=== PATIENT | male | born 1955 | race Caucasian/White ===

== ENCOUNTER 2018-06-02 11:48 | Inpatient (IN) | payer MEDICARE, MEDICAID ==
[~2018-06-02] VITALS: Ht 177.8 cm; Wt 75.7 kg
--- NOTE | 2018-06-02 12:01 | NUR ---
PT BIBPA FROM [facility] FOR ELEVATED TEMP, DIALYSIS WAS NOT STARTED. PT FROM [facility], PT AAOX0, OBTUNDED, RESPIRATIOSN EVEN AND UNLABORED, NO SOB, NAD NOTED, PT ON MONITOR, PENDING MD CARLTON
[2018-06-02 12:10] VITALS: BP 155/82
[2018-06-02 12:30] LABS: BASOPHILS # (AUTO) 0.1 /CMM (0.0-0.2); BASOPHILS % (AUTO) 1.2 % (0.0-2.0); EOSINOPHILS % (AUTO) 6.3 % (0.0-6.0); HEMATOCRIT 25 % (39-51); HEMOGLOBIN 7.6 g/dL (13.5-17.5); LYMPHOCYTES # (AUTO) 0.6 /CMM (0.8-4.8); LYMPHOCYTES % (AUTO) 10.9 % (20.0-44.0); MEAN CORPUSCULAR HGB CONC 31 g/dl (31.0-36.0); MEAN CORPUSCULAR VOLUME 89 fL (80-96); MONOCYTES # (AUTO) 0.4 /CMM (0.1-1.30); MONOCYTES % (AUTO) 6.1 % (2.0-12.0); NEUTROPHILS # (AUTO) 4.4 /CMM (1.8-8.9); NEUTROPHILS % (AUTO) 75.5 % (43.0-81.0); PLATELET COUNT (AUTO) 77 /CMM (150-450); RED BLOOD CELL COUNT(AUTO) 2.77 MIL/uL (4.5-6.0); WHITE BLOOD COUNT (AUTO) 5.8 K/uL (4.3-11.0)
[2018-06-02] MEDS ORDERED: IV NS 0.9% 1,000 ML BAG IV ONE (12:30)
[2018-06-02 12:47] LABS: ALBUMIN 2.5 g/dL (3.4-5.0); BILIRUBIN,DIRECT 0.1 mg/dL (0.0-0.2); BILIRUBIN,TOTAL 0.4 mg/dL (0.2-1.0); CALCIUM, SERUM 8.5 mg/dL (8.5-10.1); CREATININE 2.1 mg/dL (0.6-1.3); POTASSIUM 3.3 mmol/L (3.5-5.1); TOTAL PROTEIN, SERUM 6.2 g/dL (6.4-8.2)
--- NOTE | 2018-06-02 13:11 | NUR ---
URINE COLLECTED AND SENT TO LAB
[2018-06-02] MEDS ORDERED: LEVOFLOXACIN 500 MG /D5W 100ML 500 MG/100 ML PIGGYBACK IV ONE (13:30)
[2018-06-02] MEDS ORDERED: PIPERACILLIN /TAZOBACTAM 3.375 G in IV D5W 50 ML IV ONE (13:30)
[2018-06-02] MEDS ORDERED: VANCOMYCIN 1 GM in IV D5W 250 ML IV ONE (13:30)
[2018-06-02 13:32] LABS: EOSINOPHILS % (MANUAL) 2 % (0-4); LYMPHOCYTES % (MANUAL) 14 % (16-48); MONOCYTES % (MANUAL) 5 % (0-11.0); NEUTROPHILS % (MANUAL) 79 (42-76)
[2018-06-02 13:37] LABS: APPEARANCE,URINE Cloudy (CLEAR); BILIRUBIN,URINE Negative (NEGATIVE); BLOOD, URINE Moderate Ery/uL (NEGATIVE); COLOR,URINE Yellow (YELLOW); KETONES,URINE Negative (NEGATIVE); LEUKOCYTE ESTERASE ,URINE Small (NEGATIVE); NITRITE, URINE Negative (NEGATIVE); PH,URINE 6.5 (5.0-8.0); PROTEIN,URINE >=300 mg/dl (NEGATIVE); UGLUCOSE 500 MG/DL mg/dL (NEGATIVE); UROBILINOGEN,URINE 0.2 EU/dL (0.2)
[2018-06-02 13:40] LABS: BACTERIA,URINE Few /HPF (None Seen); SQUAMOUS EPITHELIAL CELL,UR Few /HPF (None Seen); WBC,URINE TOO NUMEROUS TO COUN /HPF (0-3); YEAST,URINE Few /HPF (None Seen)
[2018-06-02] MEDS ORDERED: CLOPIDOGREL BISULFATE 75 MG TABLET ONE (13:48)
[2018-06-02] MEDS ORDERED: MIDO5TAB GT (13:52)
[2018-06-02] MEDS ORDERED: INSU100V7 SQ (13:52)
[2018-06-02] MEDS ORDERED: AMIN30LI2 GT (13:52)
[2018-06-02] MEDS ORDERED: APIX2.5T GT (13:52)
[2018-06-02] MEDS ORDERED: FAMO20TA8 GT (13:52)
[2018-06-02] MEDS ORDERED: CLOP75TA15 GT (13:52)
[2018-06-02] MEDS ORDERED: MULT-447 GT (13:52)
[2018-06-02] MEDS ORDERED: LEVE100S GT (13:52)
[2018-06-02] MEDS ORDERED: NUT.237L67 GT (13:52)
[2018-06-02] MEDS ORDERED: ACET-868 GT (13:52)
[2018-06-02] MEDS ORDERED: AMIO200T4 GT (13:52)
[2018-06-02] MEDS ORDERED: INSU100V27 SQ (13:52)
[2018-06-02 14:00] VITALS: BP 150/79
[2018-06-02] MEDS ORDERED: CLOPIDOGREL BISULFATE 75 MG TABLET GT ONE (14:00)
[2018-06-02] MEDS ORDERED: LEVOFLOXACIN 500 MG /D5W 100ML 500 MG in PREMIX 1 EA IV ONE (14:00)
--- NOTE | 2018-06-02 14:05 | NUR ---
CALLED FOR REPORT, NURSE NOT READY YET. WILL CALL BACK
[2018-06-02] MEDS ORDERED: VANCOMYCIN 1.5 GM in IV D5W 500 ML IV ONE (14:30)
--- NOTE | 2018-06-02 15:10 | NUR ---
REPORT GIVEN TO MEGAN GHOTRA FOR JODEE ADMITING DX SEPSIS; ROOM 101 [facility]
--- NOTE | 2018-06-02 15:32 | NUR ---
TRANSFERRED PT TO ROOM 101 VIA ACLS PROTOCOL
[2018-06-02 16:03] VITALS: BP 140/75
[2018-06-02] MEDS ORDERED: FEE PK DOSING 1 MIN EA MC ONE (16:14)
[2018-06-02] MEDS: Z GUARD REMEDY 2 OZ OINT TP SCH ×2 (16:30→21:00)
--- NOTE | 2018-06-02 16:38 | NUR ---
RN NOTE. ADMISSION. RECEIVED THE PT FROM ER VIA aDeal[employer]ENT[employer]. PT OS OBTUNDED. DOES NOT FOLLOW COMMANDS. TRACH TO VENT. GT INTACT. LT EYE BLIND. TRACH SHALINI6, AC 12 TV 550,FIO2 35%,PEEP 5. SAT 98%. NO ACUTE DISTRESS NOTED. KRUNAL UPPER AND LOWER EXTREMITY FLACCID. HOB ELEVATED. GT INTACT. HOB ELEVATED. SACRUM DTI. KRUNAL LOWE EXTREMITY DISCOLORATION. TIP OF THE TONG SCAB.,RT UPPER ARM PICC LINE. RT SUBCLAVIAN HD CATH. WILL CONTINUE TO MONITOR VITALS.
[2018-06-02] MEDS ORDERED: ACETAMINOPHEN 325 MG TABLET PO PRN (17:00)
[2018-06-02] MEDS ORDERED: NEPRO VAN 237 ML CAN GT SCH (17:00)
[2018-06-02] MEDS ORDERED: INSULIN ASPART/LISPRO 100 UNIT/ML CARTRIDGE SQ PRN (17:00)
[2018-06-02] MEDS ORDERED: DEXTROSE 50%-WATER 50 ML DISP.SYRIN IV PRN (17:30)
[2018-06-02] MEDS: APIXABAN 2.5 MG TABLET GT SCH (17:36)
[2018-06-02] MEDS: MIDODRINE HCL (5MG) 5 MG TABLET GT SCH (17:37)
[2018-06-02] MEDS: LEVETIRACETAM SOL (5 ML) 100 MG/ML UDC GT SCH (17:37)
--- NOTE | 2018-06-02 17:47 | NUR ---
RN NOTE. BLOOD SUGAR 455. CALLED LAB FOR STAT BLOOD SUGAR. LILIAM ORTA.
--- NOTE | 2018-06-02 17:49 | NUR ---
RN NOTE, JOSEFA ORTA CALLED AND ORDERED VANCOMYCIN AND ZOSYN PER PHARMACY. RESUME HOME MEDS, AND GT FEEDING
[2018-06-02] MEDS: BLOOD SUGAR DIAGNOSTIC 1 EACH STRIP IN SCH ×2 (18:03→22:07)
[2018-06-02] MEDS: INSULIN REGULAR, HUMAN 100 UNIT/ML 3 ML VIAL SQ PRN ×2 (18:05→22:26)
--- NOTE | 2018-06-02 18:57 | NUR ---
RN NOTE. PT AT BED SIDE. UP DATE GIVEN. PER PT HAD RECENTLY METABOLIC ENCEPHALOPATHY,DM, TIA. BED BATH GIVEN. ORAL CARE GIVEN. WOUND DRESSING DONE.
--- NOTE | 2018-06-02 19:34 | NUR ---
SENIOR SCHEDULER NOTE REPORT GIVEN BEDSIDE. PATIENT OBTUNDED, OPENS EYES INCONSISTENT TRACKING. PATIENT IN NO S.S. OF DISTRESS. PATIENT HR SINUS WITH NOTED BBB PVC. NO NOTED SOB/, PATIENT TOLERATING PRESCRIBED VENT SETTING WELL. PATIENT PIC INTACT, DRESSING OVER TUNNELED CVC INTACT AND CLEAN. DIALYSIS SCHEDULED FOR TONIGHT. SAFETY PRECAUTIONS IN PLACE RN WILL CONTINUE TO MONITOR CLOSELY.
[2018-06-02] MEDS: IPRATROPIUM NEB FS 0.5 MG/2.5 ML AMPUL.NEB NEB SCH (19:46)
[2018-06-02 20:00] VITALS: BP 134/72
--- NOTE | 2018-06-02 20:00 | NUR ---
ART CONSERVATOR NOTE PATIENT STARTED HD TREATMENT GOAL SET TO 1.5 UF.
[2018-06-02] MEDS ORDERED: ALBUMIN 25% 100 ML IV ONE (21:15)
--- NOTE | 2018-06-02 21:16 | NUR ---
FIELD TRAINER NOTE PATIENT HYPOTENSIVE DURING TREATMENT BP 73/42. 100 NS BOLUS GIVEN LEGS ELEVATED, AND 12.5 X2 BOLUS OF ALBUMIN GIVEN. AFTER BOLUS AND POSITION CHANGES BP ELEVATED TO 95/49. ALBUMIN INFUSING NOW. Addendum: 06/02/18 at 2206 by SHARON WHITEHEAD RN UNABLE TO ADMINISTER Z GUARD AT SCHEDULED TIME, PATIENT STILL ON HEMO DIALYSIS. BP STABILIZED AT 99/63.
[2018-06-02] MEDS ORDERED: ALBUMIN 25% 25 GM in PREMIX 1 EA IV ONE (21:30)
[2018-06-02] MEDS: INSULIN GLARGINE, 100 UNIT/ML CARTRIDGE SQ SCH (22:27)
--- NOTE | 2018-06-02 23:00 | NUR ---
PRODUCTION MACHINE TENDER NOTE PATIENT COMPLETED HD 700 ML TAKE OF. PATIENT BP WNL AND TOLERATED THE END OF TREATMENT.
[2018-06-03] VITALS: BP 112/83
[2018-06-03] MEDS: BLOOD SUGAR DIAGNOSTIC 1 EACH STRIP IN SCH ×6 (00:58→21:29)
--- NOTE | 2018-06-03 01:00 | NUR ---
BIOINFORMATICS ENGINEER NOTE APPLIED AIR MATTRESS ORDERED. PATIENT TURNED FOR COMFORT, AND SUCTIONED.
[2018-06-03] MEDS: INSULIN REGULAR, HUMAN 100 UNIT/ML 3 ML VIAL SQ PRN ×5 (01:01→21:32)
[2018-06-03] MEDS: IPRATROPIUM NEB FS 0.5 MG/2.5 ML AMPUL.NEB NEB SCH ×4 (02:31→19:42)
[2018-06-03 04:00] VITALS: BP 129/65
--- NOTE | 2018-06-03 05:00 | NUR ---
TECHNOLOGY DEVELOPMENT INTERN NOTE PATIENT GIVEN BED BATH, PT VOIDED, LINENS CHANGED, PATIENT REPOSITIONED AND GIVEN ORAL CARE.
--- NOTE | 2018-06-03 06:27 | NUR ---
FRUIT CANNER NOTE PATIENT TOLERATED THE NIGHT WELL POST HD. NO ACUTE CHANGES, CARE RENDERED ORDERED. NOTIFIED CONSERVATION SCIENCE OFFICER OF CONFLICTING TUBE FEEDING ORDERS. WILL ENDORSE TO DAY SHIFT. HELD NEPRO DUE TO SOY DUBOSE ALLERGY. PATIENT BLOOD SUGAR STABLIZING THROUGH THE NIGHT, PATIENT TOLERATING VENT SETTINGS. NO S/S OF DISTRESS. WILL ENDORSE POC FOR JODEE TO AM
--- NOTE | 2018-06-03 07:00 | NUR ---
DTP OPERATOR NOTES RECEIVED PT OBTUNDED, OPENS EYES TO TOUCH. ON VENT TO TRACH SETTINGS PER MD ORDER. O2 SAT WNL. PICC ILIANA PATENT AND FLUSHING. PM SHIFT NURSE HAD GTF ON HOLD. WILL FOLLOW UP WITH MD AND SNF. GT PATENT WITH NO RESIDUAL. BED IN LOCKED/LOWEST POSITION. CALL LIGHT IN REACH. WILL CONT TO MONITOR.
[2018-06-03 07:21] LABS: BASOPHILS % (AUTO) 0.6 % (0.0-2.0); HEMATOCRIT 23 % (39-51); HEMOGLOBIN 7.3 g/dL (13.5-17.5); LYMPHOCYTES # (AUTO) 0.5 /CMM (0.8-4.8); LYMPHOCYTES % (AUTO) 8.8 % (20.0-44.0); MEAN CORPUSCULAR HGB CONC 32 g/dl (31.0-36.0); MEAN CORPUSCULAR VOLUME 87 fL (80-96); MONOCYTES # (AUTO) 0.4 /CMM (0.1-1.30); MONOCYTES % (AUTO) 6.3 % (2.0-12.0); NEUTROPHILS # (AUTO) 4.5 /CMM (1.8-8.9); NEUTROPHILS % (AUTO) 77.3 % (43.0-81.0); PLATELET COUNT (AUTO) 67 /CMM (150-450); RED BLOOD CELL COUNT(AUTO) 2.66 MIL/uL (4.5-6.0); WHITE BLOOD COUNT (AUTO) 5.8 K/uL (4.3-11.0)
--- NOTE | 2018-06-03 07:30 | NUR ---
Received trach pt on a mechanical vent. Pt trach is secure. Vent is plugged into a red outlet, alarms are set and audible and BMV is at bedside. Addendum: 06/03/18 at 0731 by LICO MANRIQUEZ RT Amended: Links added.
[2018-06-03 07:35] LABS: CALCIUM, SERUM 8.2 mg/dL (8.5-10.1); CREATININE 1.2 mg/dL (0.6-1.3); POTASSIUM 3.7 mmol/L (3.5-5.1)
[2018-06-03 08:00] VITALS: BP 127/75
[2018-06-03] MEDS: LEVETIRACETAM SOL (5 ML) 100 MG/ML UDC GT SCH ×2 (09:26→17:22)
[2018-06-03] MEDS: MIDODRINE HCL (5MG) 5 MG TABLET GT SCH ×2 (09:27→17:00)
[2018-06-03] MEDS: AMIODARONE HCL 200 MG TABLET GT SCH (09:27)
[2018-06-03] MEDS: MULTIVIT W/MINERALS 1 TAB TABLET GT SCH (09:28)
[2018-06-03] MEDS: CLOPIDOGREL BISULFATE 75 MG TABLET GT SCH (09:28)
[2018-06-03] MEDS: APIXABAN 2.5 MG TABLET GT SCH ×2 (09:28→17:21)
[2018-06-03] MEDS: PROSOURCE / PROSTAT (PYXIS) 30 ML UDC GT SCH ×2 (09:29→17:22)
[2018-06-03] MEDS: Z GUARD REMEDY 2 OZ OINT TP SCH ×2 (09:29→21:30)
[2018-06-03] MEDS: FAMOTIDINE (20 MG) 20 MG TABLET GT SCH (09:29)
[2018-06-03 11:20] LABS: THYROID STIMULATING HORMONE 1.678 uIU/mL (0.358-3.74)
--- NOTE | 2018-06-03 11:43 | NUR ---
LPN CMA NOTES PT FEEDING VERIFIED AT [facility]. PT IS GETTING NEPRO AT SNF DESPITE ALLERGY. WILL CONT FEEDING. CHARGE NURSE NOTIFIED.
[2018-06-03 12:00] VITALS: BP_SYST 148; BP_SYST 98; BP_DIAS 54; BP_DIAS 56
[2018-06-03] MEDS: NEPRO 1,000 ML BOTTLE GT PRN (14:22)
[2018-06-03 14:40] LABS: HEMOGLOBIN 7.3 g/dL (13.5-17.5)
[2018-06-03] MEDS ORDERED: ALBUMIN 25% 25 GM in PREMIX 1 EA IV PRN (15:00)
[2018-06-03 16:00] VITALS: BP 128/62
[2018-06-03] MEDS ORDERED: VANCOMYCIN 500 MG in IV D5W 100 ML IV PRN (16:30)
[2018-06-03] MEDS ORDERED: DOSING PER PHARMACY-AMIKACI IV XX PRN (19:00)
[2018-06-03] MEDS ORDERED: FEE PK DOSING 1 MIN EA MC ONE (19:03)
--- NOTE | 2018-06-03 19:20 | NUR ---
BOX PERSON CLOSING NOTES PT IN BED, ON VENT TOLERATING WELL. ALL NEEDS ATTENDED TO. BED IN LOCKED/LOWEST POSITION. CALL LIGHT IN REACH. ENDORSED TO PM NURSE.
[2018-06-03] MEDS: MICAFUNGIN SODIUM 100 MG in IV NS 0.9% 100 ML IV SCH (19:34)
[2018-06-03 20:00] VITALS: BP 116/62
[2018-06-03] MEDS ORDERED: AMIKACIN 450 MG in IV D5W 100 ML IV ONE (20:00)
--- NOTE | 2018-06-03 20:00 | NUR ---
INFORMATION SECURITY NOTES RECEIVED PT ON BED. ON [facility] VENT SETTING SATURATING WELL. PT OBTUNDED. ON TELE MONITOR SB 55. ON G TUBE FEEDING @ 30CC/HR NO RESIDUAL NOTED. IV ACCESS ON ILIANA PICC LINE TRIPLE LUMEN, PATENT AND INTACT. HD ACCESS ON RIGHT CATH SUBCLAVIAN NO BLEEDING NOTED. HEAD OF BED ELEVATED. SIDE RAILS UP. CALL LIGHT WITHIN REACH. BED ALARM ON. WILL MONITOR PT CLOSELY.
[2018-06-03] MEDS: INSULIN GLARGINE, 100 UNIT/ML CARTRIDGE SQ SCH (21:33)
[2018-06-04] VITALS: BP_SYST 94; BP_DIAS 41; BP_DIAS 51
[2018-06-04] MEDS: BLOOD SUGAR DIAGNOSTIC 1 EACH STRIP IN SCH ×6 (01:18→21:24)
[2018-06-04] MEDS: INSULIN REGULAR, HUMAN 100 UNIT/ML 3 ML VIAL SQ PRN ×6 (01:19→21:29)
[2018-06-04] MEDS: IPRATROPIUM NEB FS 0.5 MG/2.5 ML AMPUL.NEB NEB SCH ×4 (01:53→19:23)
[2018-06-04 04:00] VITALS: BP 96/44
--- NOTE | 2018-06-04 04:32 | NUR ---
FRETTED INSTRUMENT INSPECTOR NOTES WEIGHT RECHECKED BY RN.
--- NOTE | 2018-06-04 06:38 | NUR ---
DIRECTOR OF INSTRUMENTAL MUSIC NOTES NO ACUTE CHANGES NOTED DURING THE SHIFT. PROVIDED COMFORT AND SAFETY. DUE MEDS GIVEN. WILL ENDORSE TO THE AM NURSE FOR CONTINUITY OF CARE.
--- NOTE | 2018-06-04 07:00 | NUR ---
TIP STRETCHER OPENING NOTES RECEIVED PT IN BED, OBTUNDED. ON VENT SETTINGS MD ORDERED. PT'S O2 WNL. NO S/SX RESP DISTRESS. ON TELE SB 52. GTUBE PATENT/ 60CC RESIDUAL. FEEDING OFF PER MD ORDER. PICC LINE FLUSHED/PATENT. HOB ELEVATED. BED IN LOCKED/LOWEST POSITION. CALL LIGHT IN REACH. WILL CONT TO MONITOR.
[2018-06-04 07:33] LABS: BASOPHILS % (AUTO) 0.9 % (0.0-2.0); EOSINOPHILS % (AUTO) 7.7 % (0.0-6.0); HEMATOCRIT 23 % (39-51); HEMOGLOBIN 7.4 g/dL (13.5-17.5); LYMPHOCYTES # (AUTO) 0.5 /CMM (0.8-4.8); MEAN CORPUSCULAR HGB CONC 32 g/dl (31.0-36.0); MEAN CORPUSCULAR VOLUME 87 fL (80-96); MONOCYTES # (AUTO) 0.3 /CMM (0.1-1.30); MONOCYTES % (AUTO) 5.2 % (2.0-12.0); NEUTROPHILS # (AUTO) 4.1 /CMM (1.8-8.9); NEUTROPHILS % (AUTO) 77.2 % (43.0-81.0); PLATELET COUNT (AUTO) 59 /CMM (150-450); RED BLOOD CELL COUNT(AUTO) 2.63 MIL/uL (4.5-6.0); WHITE BLOOD COUNT (AUTO) 5.4 K/uL (4.3-11.0)
[2018-06-04 07:46] LABS: CALCIUM, SERUM 8.1 mg/dL (8.5-10.1); CREATININE 1.4 mg/dL (0.6-1.3); MAGNESIUM 1.9 mg/dL (1.8-2.4); PHOSPHORUS 3.1 mg/dL (2.5-4.9); POTASSIUM 3.9 mmol/L (3.5-5.1)
[2018-06-04 08:00] VITALS: BP 131/62
[2018-06-04 08:03] LABS: IRON, SERUM 26 ug/dl (50-175); TOTAL IRON BINDING CAPACITY 157 ug/dl (250-450)
[2018-06-04] MEDS: MIDODRINE HCL (5MG) 5 MG TABLET GT SCH ×2 (09:00→16:20)
[2018-06-04] MEDS: Z GUARD REMEDY 2 OZ OINT TP SCH ×2 (09:00→21:12)
[2018-06-04 09:26] LABS: EOSINOPHILS % (MANUAL) 3 % (0-4); LYMPHOCYTES % (MANUAL) 10 % (16-48); MONOCYTES % (MANUAL) 5 % (0-11.0); NEUTROPHILS % (MANUAL) 82 (42-76)
[2018-06-04] MEDS: FAMOTIDINE (20 MG) 20 MG TABLET GT SCH (09:56)
[2018-06-04] MEDS: MULTIVIT W/MINERALS 1 TAB TABLET GT SCH (09:56)
[2018-06-04] MEDS: LEVETIRACETAM SOL (5 ML) 100 MG/ML UDC GT SCH ×2 (09:56→16:19)
[2018-06-04] MEDS: CLOPIDOGREL BISULFATE 75 MG TABLET GT SCH (09:57)
[2018-06-04] MEDS: AMIODARONE HCL 200 MG TABLET GT SCH (09:59)
[2018-06-04] MEDS: PROSOURCE / PROSTAT (PYXIS) 30 ML UDC GT SCH ×2 (10:00→16:19)
[2018-06-04] MEDS: APIXABAN 2.5 MG TABLET GT SCH ×2 (10:03→16:21)
[2018-06-04 12:00] VITALS: BP 132/54
[2018-06-04] MEDS ORDERED: AMIKACIN 450 MG in IV D5W 100 ML IV PRN (13:00)
[2018-06-04] MEDS ORDERED: EPOETIN ALFA (10,000 UNIT) 10,000 UNIT/ML VIAL IV ONE (13:30)
[2018-06-04] MEDS ORDERED: LEVOFLOXACIN 250 MG /D5W 50 ML 250 MG in PREMIX 1 EA IV SCH (14:00)
[2018-06-04] MEDS: NEPRO 1,000 ML BOTTLE GT PRN (14:02)
--- NOTE | 2018-06-04 14:05 | NUR ---
RT NOTE: NO SCANNER AVAILABLE AT THIS TIME. MEDICATION WAS GIVEN BUT UNABLE TO SCAN.
[2018-06-04 16:00] VITALS: BP 120/47
--- NOTE | 2018-06-04 16:24 | NUR ---
SYRUP MIXER ASSISTANT NOTES PER ALEXI BEY TO CONT TO GIVE ELIQUIS. PLATELET LEVEL 59.
--- NOTE | 2018-06-04 17:00 | NUR ---
ICE PULLER NOTES FEEDING HELD. RESIDUAL 250CC. WILL MONITOR.
--- NOTE | 2018-06-04 17:44 | NUR ---
RT NOTE: PATIENT RECEIVED TRACH ON ESPRIT VENT. ALARMS VERIFIED AND AUDIBLE . SUCTIONED AND LAVAGED SMALL- MODERATE AMOUNT OF THICK BOSS SECRETIONS. AMBU BAG AT [facility].
[2018-06-04] MEDS: MICAFUNGIN SODIUM 100 MG in IV NS 0.9% 100 ML IV SCH (18:16)
--- NOTE | 2018-06-04 18:58 | NUR ---
SHAKE PACKER NOTES ENDORSED PT TO PM SHIFT FOR JODEE. PT STABLE. FEEDING HELD D/T INC RESIDUAL. TOLERATING VENT SETTINGS. NO S/SX OF DISTRESS. ALL NEEDS ATTENDED. CALL LIGHT IN REACH.
[2018-06-04 20:00] VITALS: BP 148/39
[2018-06-04] MEDS: INSULIN GLARGINE, 100 UNIT/ML CARTRIDGE SQ SCH (21:28)
[2018-06-05] VITALS (7 sets, daily range): BP systolic 107–164; BP diastolic 50–61
[2018-06-05] MEDS: IPRATROPIUM NEB FS 0.5 MG/2.5 ML AMPUL.NEB NEB SCH ×4 (01:17→19:24)
[2018-06-05] MEDS: BLOOD SUGAR DIAGNOSTIC 1 EACH STRIP IN SCH ×6 (01:21→21:33)
[2018-06-05] MEDS: INSULIN REGULAR, HUMAN 100 UNIT/ML 3 ML VIAL SQ PRN ×6 (01:23→21:33)
--- NOTE | 2018-06-05 07:42 | NUR ---
LAYAWAY CLERK NOTE RECEIVED PATIENT IN BED , WITH TRACH TO VENT SETTING ORDERED, AMBU BAG AT HOB, ON TELE MONITOR SR HR 62 , OBTUNDED. ON G TUBE FEEDING ORDERED KEEP HOB ELEVATED AT TIME , NOTED RESIDUAL 80 ML, WILL CONT TO MONITOR CLOSELY , RT UPPER ARM PICC LINE INTACT BED IN LOWEST AND LOCKED POSITION , WILL CONT TO MONITOR
[2018-06-05 08:12] LABS: CALCIUM, SERUM 8.6 mg/dL (8.5-10.1); CREATININE 1.8 mg/dL (0.6-1.3)
[2018-06-05] MEDS: CLOPIDOGREL BISULFATE 75 MG TABLET GT SCH (09:58)
[2018-06-05] MEDS: MIDODRINE HCL (5MG) 5 MG TABLET GT SCH ×2 (09:58→16:20)
[2018-06-05] MEDS: LEVETIRACETAM SOL (5 ML) 100 MG/ML UDC GT SCH ×2 (09:58→16:17)
[2018-06-05] MEDS: MULTIVIT W/MINERALS 1 TAB TABLET GT SCH (09:59)
[2018-06-05] MEDS: Z GUARD REMEDY 2 OZ OINT TP SCH ×2 (09:59→21:34)
[2018-06-05] MEDS: PROSOURCE / PROSTAT (PYXIS) 30 ML UDC GT SCH ×2 (09:59→16:18)
[2018-06-05] MEDS: FAMOTIDINE (20 MG) 20 MG TABLET GT SCH (09:59)
[2018-06-05] MEDS: AMIODARONE HCL 200 MG TABLET GT SCH (09:59)
--- NOTE | 2018-06-05 10:22 | NUR ---
telephone solicitor note spoke with dr gupta notified that blood sugar 195mg\dl still ok to check q4 hour also notified that noted greenish color residua and slight jerky movements of body ,stated on Amy , will cont to monitor closely
--- NOTE | 2018-06-05 12:00 | NUR ---
ELECTRIC ACCOUNTING MACHINE OPERATOR NOTE CONT ON G TUBE FEEDING ORDERED ,WILL MONITOR RESIDUAL CLOSELY , TURN REPOSITIONQ2 HOUR , WILL CONT TO MONITOR, FAMILY AT BEDSIDE
--- NOTE | 2018-06-05 14:23 | NUR ---
RT NOTE: PATIENT'S TRACH CUFF WAS DEFLATED TO EAT PER . TRACH CUFF WAS INFLATED AFTER MEAL. PATIENT TOLERATED WELL. WILL CONTINUE TO MONITOR. Addendum: 06/05/18 at 1709 by FERNY CHAKRABORTY RT PLEASE DISREGARD THIS NOTE WRONG PATIENT
--- NOTE | 2018-06-05 15:31 | NUR ---
RT NOTE: PATIENT RECEIVED TRACHED ON ESPRIT VENT. ALARMS VERIFIED AND AUDIBLE. SUCTIONED AND LAVAGED SMALL AMOUNT OF THICK BOSS/PINK TINGED SECRETIONS. VENT PLUGGED INTO RED OUTLET. AMBU BAG AT [facility].
--- NOTE | 2018-06-05 15:51 | NUR ---
ENERGY ANALYST NOTE CONT ON VENT SETTING ORDERED, NO SOB NOTED, WILL F\U
--- NOTE | 2018-06-05 16:52 | NUR ---
FLOOR BROKER NOTE HOLD MIDODRINE BP 164/57, HD NURSE CALLED WILL BE CODING ABOUT 1700
--- NOTE | 2018-06-05 17:44 | NUR ---
ARC WELDING MACHINE OPERATOR NOTE HD STARTED ORDERED , WILL CONT TO MONITOR CLOSELY
[2018-06-05] MEDS ORDERED: VANCOMYCIN 1 GM in IV D5W 250 ML IV ONE (18:00)
--- NOTE | 2018-06-05 18:15 | NUR ---
telephone operators supervisor note\ per pharmacy give vanco 1gm after hd not 500 mg , will endorse rn next shift
--- NOTE | 2018-06-05 18:53 | NUR ---
ICE CREAM VAN VENDOR NOTE STILL ON HD WILL GIVE VANCO AND MYCAMINE ATB AFTER HD, WILL ENDORSE NEXT SHIFT RN
--- NOTE | 2018-06-05 19:32 | NUR ---
RT PT RECEIVED TRACHED ON [facility] VENT ON CHARTED SETTINGS. NO SIGNS OF RESP DISTRESS NOTED. AIRWAY PATENT AND SECURED. INTER COM SERVICER DONE. PT SUCTIONED. ALARMS SET AND AUDIBLE. AMBUBAG AND BACK UP TRACH AT BEDSIDE. VENT CONNECTED TO RED OUTLET. WILL CONT TO MONITOR. Addendum: 06/05/18 at 1935 by COLBY BURKETT RT Amended: Links added.
--- NOTE | 2018-06-05 19:44 | NUR ---
DECORATOR LIGHTING FIXTURES NOTE DIALYSIS FINISHED. 1 L OUTPUT PER DIALYSIS NURSE. HUNGED 1G VANCO ORDERED.
--- NOTE | 2018-06-05 20:00 | NUR ---
SPECIALTIES OPERATOR NOTE PT IN BED OBTUNDED. DIALYSIS FINISHED WITH 1L OUTPUT. NO DISTRESS OR DISCOMFORT NOTED. TOLERATING VENT/TRACH SETTINGS. ON TELE MONITOR SR 61. GTF NEPRO INFUSING WELL AT 65 ML/HR, 0 ML RESIDUAL NOTED. ILIANA PICC LINE INTACT AND PATENT INFUSING VANCO 1 GM ORDERED. R SUB. WITH HD CATH INTACT. NO S/S OF HYPO OR HYPERGLYCEMIA NOTED. SIDE RAILS UP X 3 AND CALL LIGHT WITHIN REACH. VSS. CONTINUE TO MONITOR HIM.
[2018-06-05] MEDS: MICAFUNGIN SODIUM 100 MG in IV NS 0.9% 100 ML IV SCH (21:21)
[2018-06-05] MEDS: INSULIN GLARGINE, 100 UNIT/ML CARTRIDGE SQ SCH (21:30)
[2018-06-06] VITALS: BP 123/40
[2018-06-06] MEDS: INSULIN REGULAR, HUMAN 100 UNIT/ML 3 ML VIAL SQ PRN ×6 (00:55→21:23)
[2018-06-06] MEDS: BLOOD SUGAR DIAGNOSTIC 1 EACH STRIP IN SCH ×6 (01:06→21:19)
[2018-06-06] MEDS: IPRATROPIUM NEB FS 0.5 MG/2.5 ML AMPUL.NEB NEB SCH ×4 (01:20→19:48)
[2018-06-06 04:00] VITALS: BP 99/42
[2018-06-06] MEDS: NEPRO 1,000 ML BOTTLE GT PRN ×2 (05:25→21:34)
[2018-06-06] MEDS ORDERED: VANCOMYCIN 500 MG in IV D5W 100 ML IV PRN (06:00)
--- NOTE | 2018-06-06 06:25 | NUR ---
SOFTWARE CONTROLS ENGINEER NOTE PT IN BED OBTUNDED. NO DISTRESS OR DISCOMFORT NOTED. NO S/S OF PAIN NOTED. IVF INFUSING WELL, NO S/S OF INFILTRATION NOTED. ON TELE SB 55. GTF INFUSING WELL AT 65 ML/HR, 0 ML RESIDUAL NOTED. KEPT HER CLEAN AND DRY. SIDE RAILS UP X 3 AND CALL LIGHT WITHIN REACH. WILL ENDORSE TO DAY SHIFT NURSE FOR CONTINUE TO CARE.
--- NOTE | 2018-06-06 07:23 | NUR ---
RETAINING ROOM CUTTER OPENING NOTES RECEIVED BEDSIDE REPORT FROM NOC. PATIENT A/O X0 OBTUNDED. ON VENT TOLERATING SETTINGS NO SIGNS OR SYMPTOMS OF RESPIRATORY DISTRESS OR ACUTE PAIN NOTED. GT FEEDING OF NEPRO @ 65 ML/HR NO N/V/D NOTED. ON TELEMONITOR SINUS RHYTHM 70'S. ILIANA PICC WITH NO TKO. WILL TUNE AND REPOSITION Q2HRS SAFETY PRECAUTIONS IN PLACE BED IN LOW POSITION CALL LIGHT WITHIN REACH WILL CONT TO MONITOR
[2018-06-06 07:31] LABS: CALCIUM, SERUM 8.5 mg/dL (8.5-10.1); CREATININE 1.5 mg/dL (0.6-1.3); POTASSIUM 3.6 mmol/L (3.5-5.1)
[2018-06-06 08:00] VITALS: BP 141/66
--- NOTE | 2018-06-06 08:06 | NUR ---
WOUND CARE CONSULT WOUND CARE RECEIVED CONSULT FOR SACRAL DTI. WOUND CARE WILL DEFER CONSULT AND ALL TREATMENT PLANS TO PLASTIC SURGICAL TEAM WHO ARE CURRENTLY FOLLOWING THIS PATIENT. PATIENT WITH A CELI AT 10, ALL PRESSURE ULCER PREVENTION MEASURES ARE NOTED TO BE IN PLACE AT THIS TIME. WILL SEE PRN.
[2018-06-06] MEDS: LEVETIRACETAM SOL (5 ML) 100 MG/ML UDC GT SCH ×2 (08:28→17:18)
[2018-06-06] MEDS: CLOPIDOGREL BISULFATE 75 MG TABLET GT SCH (08:28)
[2018-06-06] MEDS: AMIODARONE HCL 200 MG TABLET GT SCH (08:28)
[2018-06-06] MEDS: FAMOTIDINE (20 MG) 20 MG TABLET GT SCH (08:28)
[2018-06-06] MEDS: PROSOURCE / PROSTAT (PYXIS) 30 ML UDC GT SCH ×2 (08:29→17:18)
[2018-06-06] MEDS: MULTIVIT W/MINERALS 1 TAB TABLET GT SCH (08:29)
[2018-06-06] MEDS: MIDODRINE HCL (5MG) 5 MG TABLET GT SCH ×2 (08:33→17:18)
[2018-06-06] MEDS: Z GUARD REMEDY 2 OZ OINT TP SCH ×2 (08:33→21:25)
[2018-06-06 12:00] VITALS: BP 142/48
[2018-06-06 16:00] VITALS: BP 126/54
--- NOTE | 2018-06-06 18:58 | NUR ---
CDL TEAM TRUCK DRIVER CLOSING NOTES REPORT GIVEN TO JUAN RAMON PATIENT A/O X0 OBTUNDED. ON VENT TOLERATING SETTINGS NO SIGNS OR SYMPTOMS OF RESPIRATORY DISTRESS OR ACUTE PAIN NOTED. GT FEEDING OF NEPRO @ 65 ML/HR NO N/V/D NOTED. ON TELEMONITOR SINUS RHYTHM 70'S. ILIANA PICC WITH NO TKO.ALL MEDS AND TREATMENTS ADMINISTERED WITH NO REACTION WILL TURN AND REPOSITION Q2HRS SAFETY PRECAUTIONS IN PLACE BED IN LOW POSITION CALL LIGHT WITHIN REACH WILL ENDORSE TO JUAN RAMON
[2018-06-06] MEDS: MICAFUNGIN SODIUM 100 MG in IV NS 0.9% 100 ML IV SCH (19:01)
--- NOTE | 2018-06-06 19:40 | NUR ---
MEAT SCRUBBER OPENING NOTES, RECEIVED PATIENT OBTUNDED IN BED, WITH EYES CLOSED, ON MECHANICAL VENTILATOR TOLERATING SETTINGS WELL, NO S/S OF RESPIRATORY DISTRESS, SOB, OR PAIN NOTED AT THIS TIME, GT FEEDING INFUSING WELL AND TOLERATED WELL, HOB ELEVATED AT ALL TIMES, ON TELEMONITOR SINUS RHYTHM 70-80S. ILIANA PICC INTACT AND PATENT, SAFETY PRECAUTIONS IN PLACE, BED IN LOW POSITION, CALL LIGHT WITHIN REACH, WILL CONTINUE TO MONITOR CLOSELY.
[2018-06-06 20:00] VITALS: BP 116/53
--- NOTE | 2018-06-06 20:17 | NUR ---
PT RECEIVED ON VENT VIA TRACH ON CHARTED SETTINGS. AIRWAY PATENT. SECURE VIA TRACH TIE. RESPONSIVE TO PAIN. AMBU BAG AT BEDSIDE ALARMS SET AND AUDIBLE. DISCONNECT ALARMS CHECKED. PLUGGED INTO RED OUTLET. SUCTIONED A SMALL AMOUNT OF THICK YELLOW SECRETIONS. PT SUCTIONED ORALY VIA YANKEER. HEAD OF BED AT 30 DEGREES PT RECEIVING BREATHING TX Q6 AT THIS TIME. Addendum: 06/06/18 at 2020 by MARTIN YODER RT Amended: Links added.
[2018-06-06] MEDS: INSULIN GLARGINE, 100 UNIT/ML CARTRIDGE SQ SCH (21:34)
[2018-06-07] VITALS: BP 116/58
[2018-06-07] MEDS: BLOOD SUGAR DIAGNOSTIC 1 EACH STRIP IN SCH ×5 (01:51→16:52)
[2018-06-07] MEDS: INSULIN REGULAR, HUMAN 100 UNIT/ML 3 ML VIAL SQ PRN ×5 (01:54→16:56)
[2018-06-07] MEDS: IPRATROPIUM NEB FS 0.5 MG/2.5 ML AMPUL.NEB NEB SCH ×3 (02:16→13:14)
[2018-06-07 04:00] VITALS: BP 140/54
[2018-06-07 06:51] LABS: POTASSIUM 3.8 mmol/L (3.5-5.1)
--- NOTE | 2018-06-07 06:55 | NUR ---
TRAVELING BUYER CLOSING NOTES, PATIENT WITH EYES CLOSED, ON MECHANICAL VENTILATOR TOLERATING SETTINGS WELL, NO S/S OF RESPIRATORY DISTRESS, SOB, OR PAIN NOTED AT THIS TIME, GT FEEDING INFUSING WELL AND TOLERATED WELL, HOB ELEVATED AT ALL TIMES, ON TELEMONITOR SINUS RHYTHM 60-70S AT THIS TIME, . ILIANA PICC INTACT AND PATENT, SAFETY PRECAUTIONS IN PLACE, BED IN LOW POSITION, REMAINED STABLE DURING THE NIGHT, CALL LIGHT WITHIN REACH, WILL ENDORSE CONTINUITY OF CARE TO ONCOMING NURSE.
--- NOTE | 2018-06-07 07:01 | NUR ---
RT PATIENT REC'D TRACHED ON [facility] VENT WITH ORDERED SETTINGS DAMIEN WELL. VENT ALARMS CHECKED + AUDIBLE. CUFF PRESSURE CHECKED FILM VAULT SUPERVISOR. TRACH SECURE AND IN PROPER POSITION. PATIENT AIRWAY SUCTIONED AND PATENT. SMALL AMT OF BOSS SEMITHICK SECRETIONS. B/S DIM COARSE. AMBU BAG AT [facility]. Addendum: 06/07/18 at 0811 by KIM OLIVEIRA RT Amended: Links added.
--- NOTE | 2018-06-07 07:15 | NUR ---
DRY ICE MACHINE OPERATOR OPENING NOTES RECEIVED BEDSIDE REPORT FROM [facility]. PATIENT A/O X0 OBTUNDED. ON VENT TOLERATING SETTINGS NO SIGNS OR SYMPTOMS OF RESPIRATORY DISTRESS OR ACUTE PAIN NOTED. GT FEEDING OF NEPRO @ 65 ML/HR NO N/V/D NOTED. ON TELEMONITOR SINUS RHYTHM 70'S. ILIANA PICC WITH TKO. WILL TURN AND REPOSITION Q2HRS SAFETY PRECAUTIONS IN PLACE BED IN LOW POSITION CALL LIGHT WITHIN REACH WILL CONT TO MONITOR
[2018-06-07 08:00] VITALS: BP 130/61
[2018-06-07] MEDS: CLOPIDOGREL BISULFATE 75 MG TABLET GT SCH (08:33)
[2018-06-07] MEDS: PROSOURCE / PROSTAT (PYXIS) 30 ML UDC GT SCH ×2 (08:34→16:17)
[2018-06-07] MEDS: MIDODRINE HCL (5MG) 5 MG TABLET GT SCH ×2 (08:34→16:17)
[2018-06-07] MEDS: FAMOTIDINE (20 MG) 20 MG TABLET GT SCH (08:35)
[2018-06-07] MEDS: LEVETIRACETAM SOL (5 ML) 100 MG/ML UDC GT SCH ×2 (08:35→16:17)
[2018-06-07] MEDS: AMIODARONE HCL 200 MG TABLET GT SCH (08:35)
[2018-06-07] MEDS: MULTIVIT W/MINERALS 1 TAB TABLET GT SCH (08:39)
[2018-06-07] MEDS ORDERED: ALLA266C2 TP (08:47)
[2018-06-07] MEDS ORDERED: RXAMI XX (08:47)
[2018-06-07] MEDS ORDERED: RXVAN XX (08:47)
[2018-06-07] MEDS ORDERED: MICA100V IV (08:47)
[2018-06-07] MEDS: Z GUARD REMEDY 2 OZ OINT TP SCH (08:54)
[2018-06-07 12:00] VITALS: BP 120/62
--- NOTE | 2018-06-07 14:43 | NUR ---
LEAD BURNER HELPER NOTES REPORT GIVEN TO MIGUEL GUZMAN AT [facility], [place] DIRECTOR OF CLINICAL SERVICES TIME 1700
[2018-06-07 16:00] VITALS: BP 96/52
[2018-06-07 16:17] VITALS: BP 96/52
--- NOTE | 2018-06-07 17:28 | NUR ---
LEAD INSTRUCTOR/FLIGHT ATTENDANT NOTES PATIENT REPORT GIVEN TO TRANSPORT. VITALS STABLE LEFT UNIT VIA GURNEY
== END 2018-06-07 17:42 | DRG 870 ==
LOC: ER 11:55 → TELE1 13:55
PROVIDERS: ADMIT Internal Medicine; ATTEND Internal Medicine
PROC: 5A1955Z Respiratory Ventilation, Greater than 96 Consecutive Hours (ICD-10-PCS; principal; 2018-06-02)
PROC: 02H633Z Insertion of Infusion Device into Right Atrium, Percutaneous Approach (ICD-10-PCS; 2018-06-02)
PROC: B244ZZZ Ultrasonography of Right Heart (ICD-10-PCS; 2018-06-02)
PROC: 5A1D70Z Performance of Urinary Filtration, Intermittent, Less than 6 Hours Per Day (ICD-10-PCS; 2018-06-02)
PROC: 5A1D70Z Performance of Urinary Filtration, Intermittent, Less than 6 Hours Per Day (ICD-10-PCS; 2018-06-03)
PROC: 5A1D70Z Performance of Urinary Filtration, Intermittent, Less than 6 Hours Per Day (ICD-10-PCS; 2018-06-05)
PROC: 5A1D70Z Performance of Urinary Filtration, Intermittent, Less than 6 Hours Per Day (ICD-10-PCS; 2018-06-07)
DX: A41.9 Sepsis, unspecified organism (principal); N18.6 End stage renal disease; J18.9 Pneumonia, unspecified organism; R53.2 Functional quadriplegia; Z99.11 Dependence on respirator [ventilator] status; I12.0 Hypertensive chronic kidney disease with stage 5 chronic kidney disease or end stage renal disease; E46 Unspecified protein-calorie malnutrition; R40.3 Persistent vegetative state; B37.49 Other urogenital candidiasis; J96.11 Chronic respiratory failure with hypoxia; G40.909 Epilepsy, unspecified, not intractable, without status epilepticus; Z93.1 Gastrostomy status; Z86.73 Personal history of transient ischemic attack (TIA), and cerebral infarction without residual deficits; Z93.0 Tracheostomy status; Z99.2 Dependence on renal dialysis; E11.22 Type 2 diabetes mellitus with diabetic chronic kidney disease; E78.5 Hyperlipidemia, unspecified; I48.91 Unspecified atrial fibrillation; R13.10 Dysphagia, unspecified; L89.620 Pressure ulcer of left heel, unstageable; E11.51 Type 2 diabetes mellitus with diabetic peripheral angiopathy without gangrene; E11.65 Type 2 diabetes mellitus with hyperglycemia; L89.150 Pressure ulcer of sacral region, unstageable; L89.320 Pressure ulcer of left buttock, unstageable; L89.310 Pressure ulcer of right buttock, unstageable; S01.512A Laceration without foreign body of oral cavity, initial encounter; Z88.0 Allergy status to penicillin; Z79.01 Long term (current) use of anticoagulants; D64.9 Anemia, unspecified; R65.20 Severe sepsis without septic shock
CPT/HCPCS: 31720; 36415; 71045-TC; 80048-TC; 80076-TC; 80150; 80202-TC; 81000-TC; 82947-TC; 82962-TC; 83540-TC; 83605-TC; 83735-TC; 84100-TC; 84439-TC; 84443-TC; 84484-TC; 85025-TC; 85027-TC; 85730-TC; 87040-TC; 87081-TC; 87086-TC; 90935-TC; 94002-TC; 94003-TC; 94760-TC; 94762-TC; A4216; G0378; J0278; J0885; J1815; J1953; J1956; J2248; J2543; J3370; J7030; J7050; J7060; P9047

== ENCOUNTER 2018-06-16 18:44 | Inpatient (IN) | payer MEDICARE, MEDICAID ==
[~2018-06-16] VITALS: Ht 177.8 cm; Wt 79.4 kg
[~2018-06-16 18:44] MED LIST: ACET-868 GT; ALLA266C2 TP; AMIN30LI2 GT; AMIO200T4 GT; APIX2.5T GT; CLOP75TA15 GT; FAMO20TA8 GT; INSU100V27 SQ; INSU100V7 SQ; LEVE100S GT; MICA100V IV; MIDO5TAB GT; MULT-447 GT; NUT.237L67 GT; RXAMI XX; RXVAN XX
--- NOTE | 2018-06-16 18:50 | NUR ---
PT ARRIVED TO ER, TRACHED WITH SHILEY #6 AND O MECH VENT WITH THE FOLLOWING SETTING FROM FACILITY OF: AC R 12 VT 550 FIO2 35% PEEP +5... MECH VENT ALARMS ARE SET AND AUDIBLE, BRAKES WERE LOCKED, AND VENT PLUGGED INTO RED OUTLET. PT AMBU BAG AT THE HEAD OF BED. PT TOLERATING SETTINGS AND WILL CONTINUE TO MONITOR Addendum: 06/16/18 at 1926 by RITO FRANCISCO RT Amended: Links added.
--- NOTE | 2018-06-16 18:58 | NUR ---
Aspirate and flush both lumen (aseptic technique) with no resistance and patent noted. Dr Kent made aware.
--- NOTE | 2018-06-16 19:00 | NUR ---
SURI from [facility] c/o dialysis catheter malfunction. RR is even and unlabored with nad noted. Skin is warm and dry. Dr Kent at BS for eval.
--- NOTE | 2018-06-16 19:07 | NUR ---
Called [facility] [place] and spoke with MEGAN Simental (primary nurse). Kamille will call Dr Forrester and will call us back.
--- NOTE | 2018-06-16 19:21 | NUR ---
Report given to MEGAN Love for JODEE.
[2018-06-16 19:30] LABS: CALCIUM, SERUM 8.8 mg/dL (8.5-10.1); CREATININE 1.5 mg/dL (0.6-1.3); POTASSIUM 3.4 mmol/L (3.5-5.1)
--- NOTE | 2018-06-16 20:39 | NUR ---
VENT SETTINGS: RATE: 12 TV: 550 PEEP: 5 %O2: 35%
--- NOTE | 2018-06-16 20:39 | NUR ---
Patient is resting comfortably in bed with eyes closed. VSS.
[2018-06-16 21:27] LABS: BASOPHILS # (AUTO) 0.1 /CMM (0.0-0.2); EOSINOPHILS % (AUTO) 0.3 % (0.0-6.0); HEMOGLOBIN 7.7 g/dL (13.5-17.5); NEUTROPHILS # (AUTO) 16.1 /CMM (1.8-8.9); RED BLOOD CELL COUNT(AUTO) 2.82 MIL/uL (4.5-6.0)
[2018-06-16 21:39] LABS: BASOPHILS % (AUTO) 0.3 % (0.0-2.0); HEMATOCRIT 25 % (39-51); LYMPHOCYTES # (AUTO) 0.6 /CMM (0.8-4.8); LYMPHOCYTES % (AUTO) 3.4 % (20.0-44.0); MEAN CORPUSCULAR HGB CONC 31 g/dl (31.0-36.0); MEAN CORPUSCULAR VOLUME 88 fL (80-96); MONOCYTES # (AUTO) 1.5 /CMM (0.1-1.30); MONOCYTES % (AUTO) 8.4 % (2.0-12.0); NEUTROPHILS % (AUTO) 87.6 % (43.0-81.0); PLATELET COUNT (AUTO) 164 /CMM (150-450); WHITE BLOOD COUNT (AUTO) 18.4 K/uL (4.3-11.0)
[2018-06-16] MEDS ORDERED: PROT946L GT (21:48)
[2018-06-16] MEDS ORDERED: INSU100I14 SQ (21:48)
[2018-06-16] MEDS ORDERED: VIT1TABL46 GT (21:48)
[2018-06-16] MEDS ORDERED: COLL30OI TP (21:48)
[2018-06-16] MEDS ORDERED: FOLI0.8T23 GT (21:48)
[2018-06-16] MEDS ORDERED: IPRA3AMP23 IH ×2 (21:48)
[2018-06-16] MEDS ORDERED: VANCOMYCIN 1 GM in IV D5W 250 ML IV ONE (22:00)
--- NOTE | 2018-06-16 22:00 | NUR ---
tele/rn notes SPOKE WITH OF PATIENT REGARDING CODE STATUS, REPORTED DNR.
[2018-06-16 22:01] LABS: BAND % (MANUAL) 19 % (0.0-5.0); EOSINOPHILS % (MANUAL) 1 % (0-4); LYMPHOCYTES % (MANUAL) 5 % (16-48); MONOCYTES % (MANUAL) 7 % (0-11.0); NEUTROPHILS % (MANUAL) 68 (42-76)
[2018-06-16] MEDS ORDERED: VANCOMYCIN 1 GM VIAL ONE (22:04)
[2018-06-16] MEDS ORDERED: LEVOFLOXACIN 750 MG /D5W 150ML 150 ML IV ONE (22:04)
--- NOTE | 2018-06-16 22:22 | NUR ---
PT TO BE TRANSFERRED TO ROOM [facility]-. REPORT GIVEN TO MEGAN RASHID FOR JODEE.
[2018-06-16] MEDS: LEVOFLOXACIN 750 MG /D5W 150ML 150 ML IV ONE (22:24)
--- NOTE | 2018-06-16 22:25 | NUR ---
ORDER RECEIVED FOR LEVAQUIN 750 MG TO BE INFUSED INPATIENT. MEDICATION PROVIDED TO INPATIENT NURSE.
--- NOTE | 2018-06-16 23:00 | NUR ---
tele/rn notes NEW ADMITTED PATIENT IS A 63 YO MALE WITH FEMALE ORGANS, NON VERBAL, WITH FLACCID AND MUSCLE WASTING, WEAK , NOT ALERT, LETHARGIC. SKIN WARM TO TOUCH, ON MECHANICAL VENT FROM ER, WAS BROUGHT FROM [facility] AFTER DIALYSIS WAS COMPLETED DUE TO DIALYSIS CATHETER MALFUNCTION, WITH DX OF PNA AND CATHETHER CHANGE, MULTIPLE MEDICAL HX, MECHANICAL STTING RATE 12, TV 550, PEEP AT 5, F102 35%, INCONTINENT, SKIN ISSUES WITH PRESSURE ULCER ON SACRAL AREA AND HEELS , ON GTUBE, RIGTH CHEST WAL HÉCTOR CATHETER DUAL LUMAN PLACED, RIGHT HAND GAUGE 24, WBC ELEVATED, CHEST XRAY WITH EFFUSION. ADMITTING DR, DR MALDONADO, VANCOMYCIN WAS ADMINISTERED AT ER AND TO CONTINUE IV INFUSION OF LEVAQUIN ON THE FLOOR,, NO BELONGINGS RECEIVED, PATIENT VITAL SIGNS 144/76, 81, 12, OXYGENATION AT 100%, SUCTION NEEDED, WITH THICK SECRETIONS. HOB ELEVATED, GTUBE FLUSHED. WILL MONITOR.BED LOCKED.MEDICATIONS REPORTED WITH ORDER TO CONTINUE.
--- NOTE | 2018-06-16 23:09 | NUR ---
PT RCVD WITH TRACH SHILEY 6 ON VENT WITH NOTED SETTINGS.. PT TOLERATING VENT SETTINGS. NO RESP DISTRESS NOTED AT THIS TIME. SUCTIONED MODERATE AMOUNT OF THICK YELLOW SECRETIONS. VENT ALARMS SET AND AUDIBLE. TRACH CUFF ROLLED HAM LACER, SECURED. AMBU BAG AT BEDSIDE. WILL CONTINUE TO MONITOR THE PT.
[2018-06-16 23:36] VITALS: BP 139/76
--- NOTE | 2018-06-16 23:47 | NUR ---
RESOURCE RN NOTES: PT ADMITTED FOR TELEMETRY UNDER THE SERVICE OF DR DOUGHERTY/NEPHRO [facility]. PT NON VERBAL, MECH VENT TRACHE DEPENDENT . ALL PAPER WORKS FROM BRUNILDA NAGY ATTACHED ON PT'S CHART. THE [facility] PAPER WORKS WERE UTILIZED IN COMPLETING ADMISSION DOCUMENTATION. PT HAS POLST DATED AND SIGNED JUN 08 2018, STATING DNR, ASSIGNED RN CONTACTED PT'S ROSARIO GALLO CLARIFIED REGARDING CODE STATUS DURING THIS HOSPITALIZATION, STATED DNR, ASSIGNED RN GAY TO NOTIFY LAPIDARIST MD REGARDING FAMILY DECISION FOR DNR STATUS IN ORDER TO OBTAIN AN ORDER. REGARDING VACCINATION STATUS, ASSIGNED RN TO CALL / FOLLOW UP WITH BRUNILDA NAGY REGARDING STATUS, THIS NOT INCLUDED IN THE PAPER WORKS WE RECEIVED FROM THE [facility].
[2018-06-17] MEDS: LEVOFLOXACIN 750 MG /D5W 150ML 150 ML IV ONE (00:19)
[2018-06-17] MEDS ORDERED: DEXTROSE 50%-WATER 50 ML DISP.SYRIN IV PRN (01:30)
[2018-06-17] MEDS: NEPRO 1,000 ML BOTTLE GT PRN (02:19)
[2018-06-17] MEDS ORDERED: INSULIN LISPRO/ASPART 100 UNIT/ML CARTRIDGE SQ ONE (02:53)
[2018-06-17] MEDS: BLOOD SUGAR DIAGNOSTIC 1 EACH STRIP IN PRN ×2 (02:58→06:29)
[2018-06-17] MEDS: INSULIN LISPRO/ASPART 100 UNIT/ML CARTRIDGE SQ PRN ×4 (03:03→23:14)
[2018-06-17 04:04] VITALS: BP 131/67
--- NOTE | 2018-06-17 04:46 | NUR ---
TELE/RN NOTES BLOOD SUGAR CHECK AT 326 WITH SLIDING SCALE PARAMETERS TO GIVE 8 UNITS HUMALOG/ASPART. GTUBE NEPHRO RUNNING STARTED AT 65ML/HR.
[2018-06-17 06:33] LABS: BASOPHILS # (AUTO) 0.1 /CMM (0.0-0.2); BASOPHILS % (AUTO) 0.4 % (0.0-2.0); EOSINOPHILS % (AUTO) 0.5 % (0.0-6.0); HEMATOCRIT 23 % (39-51); HEMOGLOBIN 7.2 g/dL (13.5-17.5); LYMPHOCYTES # (AUTO) 0.6 /CMM (0.8-4.8); LYMPHOCYTES % (AUTO) 3.6 % (20.0-44.0); MEAN CORPUSCULAR HGB CONC 32 g/dl (31.0-36.0); MEAN CORPUSCULAR VOLUME 88 fL (80-96); MONOCYTES # (AUTO) 1.2 /CMM (0.1-1.30); MONOCYTES % (AUTO) 7.7 % (2.0-12.0); NEUTROPHILS # (AUTO) 14.2 /CMM (1.8-8.9); NEUTROPHILS % (AUTO) 87.8 % (43.0-81.0); PLATELET COUNT (AUTO) 149 /CMM (150-450); RED BLOOD CELL COUNT(AUTO) 2.59 MIL/uL (4.5-6.0); WHITE BLOOD COUNT (AUTO) 16.2 K/uL (4.3-11.0)
[2018-06-17 06:34] LABS: CALCIUM, SERUM 8.1 mg/dL (8.5-10.1); CREATININE 2.1 mg/dL (0.6-1.3); POTASSIUM 3.7 mmol/L (3.5-5.1)
--- NOTE | 2018-06-17 06:47 | NUR ---
MD DOUGHERTY CONTACTED LEFT MESSAGE AWAITING FOR RETURN CALL FOR SOME ORDERS THAT NEED CLARIFICATION AND INFORM FAMILY REQUEST WITH SIGNED POLST FOR DNR STATUS,, TO CLARIFY ORDER OF INSULIN LISIPRO PER PHARMACY.
--- NOTE | 2018-06-17 06:49 | NUR ---
319-1 TELE/RN NOTES PATIENT NON VERBAL/UNRESPONSIVE, RESTING COMFORTABLY IN BED, ON MEDHANICAL VENT WITH PRESCRIBED SETTING, REQUIRE EXTENSIVE ASSISTANCE IN TURNING AND REPOSITION, OFF LOAD EXTREMITIES,GTUBE FLUSHED, W/ZERO RESIDUAL, MONITOIRNG FOR HYPO/HYPERGLYCEMIA, ON IV ATB DUE TO INFECTION, WILL MONITOR. BED LOCKED, WILL MONITOR.
--- NOTE | 2018-06-17 07:58 | NUR ---
NEW CAR MAKE READY WORKER NOTES PATIENT IN BED RESTING ALERT, ORIENTED X1, VENT SETTINGS NOTED. BED IN LOW LOCKED POSITION. CALL LIGHT WITHIN REACH. WILL CONTINUE TO MONITOR.
[2018-06-17 08:00] VITALS: BP 134/54
[2018-06-17] MEDS ORDERED: INSULIN ASPART/LISPRO 100 UNIT/ML CARTRIDGE SQ PRN (09:00)
[2018-06-17] MEDS ORDERED: IPRATROPIUM NEB FS 0.5 MG/2.5 ML AMPUL.NEB NEB PRN (09:00)
[2018-06-17] MEDS ORDERED: ACETAMINOPHEN 650 MG/20.3 ML UDC GT PRN (09:00)
[2018-06-17] MEDS ORDERED: COLLAGENASE 15 GM TUBE TP SCH (09:00)
[2018-06-17] MEDS ORDERED: PROSOURCE / PROSTAT (PYXIS) 30 ML UDC GT SCH (09:00)
[2018-06-17] MEDS ORDERED: NEPRO VAN 237 ML CAN GT SCH (09:00)
[2018-06-17] MEDS ORDERED: VIT B CMPLX 3/FA/VIT C/BIOTIN 1 TAB TABLET GT SCH (09:00)
[2018-06-17] MEDS ORDERED: MISCELLANEOUS MED 1 EA EA XX ONE ×2 (09:00)
[2018-06-17] MEDS ORDERED: MULTIVITAMINS,THERAGRAN 1 UDTAB TABLET PO SCH (09:00)
[2018-06-17] MEDS ORDERED: ALBUTEROL FS 2.5 MG/0.5 ML VIAL.NEB NEB PRN (09:00)
[2018-06-17] MEDS ORDERED: EPOETIN ALFA (10,000 UNIT) 10,000 UNIT/ML VIAL IV ONE (10:00)
--- NOTE | 2018-06-17 10:00 | NUR ---
COUNTY NURSE NOTES PATIENT WAS SEEN BY ANISH HUERTAS CONSENT OBTAINED FROM PATIENTS OVER THE PHONE WITNESSED BY CHARGE NURSE. PATIENT SACRAL WOUND WAS DEBRIDED TOLERATED WELL. WOUND COVERED BY DRY DRESSING ORDERED BY ANISH. WILL CONTINUE TO MONITOR.
[2018-06-17] MEDS: CLOPIDOGREL BISULFATE 75 MG TABLET GT SCH (10:24)
[2018-06-17] MEDS: LEVETIRACETAM SOL (5 ML) 100 MG/ML UDC GT SCH ×2 (10:24→17:13)
[2018-06-17] MEDS: FAMOTIDINE (20 MG) 20 MG TABLET GT SCH (10:25)
[2018-06-17] MEDS: AMIODARONE HCL 200 MG TABLET GT SCH (10:25)
[2018-06-17] MEDS: VIT B CMPLX 3/FA/VIT C/BIOTIN 1 TAB TABLET GT SCH (10:25)
[2018-06-17] MEDS: PROSOURCE / PROSTAT (PYXIS) 30 ML UDC GT SCH ×2 (10:26→17:14)
[2018-06-17] MEDS: Z GUARD REMEDY 2 OZ OINT TP SCH ×2 (10:26→20:48)
[2018-06-17] MEDS: MIDODRINE HCL (5MG) 5 MG TABLET GT SCH ×2 (10:26→17:14)
[2018-06-17] MEDS: APIXABAN 2.5 MG TABLET GT SCH ×2 (10:29→17:11)
[2018-06-17] MEDS: IPRATROPIUM NEB FS 0.5 MG/2.5 ML AMPUL.NEB NEB SCH ×3 (11:23→19:36)
[2018-06-17] MEDS ORDERED: ALTEPLASE CATHFLO 2 MG/VIAL XX ONE (12:00)
[2018-06-17] MEDS: BLOOD SUGAR DIAGNOSTIC 1 EACH STRIP IN SCH ×3 (12:21→23:08)
[2018-06-17] MEDS: INSULIN LISPRO/ASPART 100 UNIT/ML CARTRIDGE SQ SCH ×2 (12:24→20:55)
[2018-06-17] MEDS: CADEXOMER IODINE 40 GM TUBE TP SCH (12:29)
--- NOTE | 2018-06-17 12:30 | NUR ---
AUTOMOTIVE TECHNICIAN INSTRUCTOR NOTES PATIENT WAS SEEN BY HD NURSE CATH FLOW ADMINISTERED BY HD NURSE SCANNED BY ME. PATIENT HD CATH CLOTTED WILL CONTINUE TO MONITOR. POSSIBLE HD TOMORROW IF CATHETER WORKING.
[2018-06-17] MEDS ORDERED: INSULIN LISPRO/ASPART 100 UNIT/ML CARTRIDGE SQ SCH (13:00)
--- NOTE | 2018-06-17 13:44 | NUR ---
WOUND CARE CONSULT WOUND CARE RECEIVED CONSULT FOR PRESSURE ULCER AND LOW CELI SCORE. WOUND CARE WILL DEFER CONSULT AND ALL TREATMENT PLANS TO PLASTIC SURGICAL TEAM WHO ARE CURRENTLY FOLLOWING THIS PATIENT. PATIENT WITH CELI AT 9, ALL PRESSURE ULCER PREVENTION MEASURES ARE NOTED TO BE IN PLACE AT THIS TIME. WILL SEE PRN.
[2018-06-17] MEDS: ALBUTEROL FS 2.5 MG/0.5 ML VIAL.NEB NEB SCH ×2 (14:44→19:36)
[2018-06-17 16:00] VITALS: BP 132/70
--- NOTE | 2018-06-17 17:20 | NUR ---
PT RCVD WITH TRACH SHILEY 6 ON VENT WITH NOTED SETTINGS.. PT TOLERATING VENT SETTINGS. NO RESP DISTRESS NOTED AT THIS TIME. SUCTIONED MODERATE AMOUNT OF THICK YELLOW SECRETIONS. VENT ALARMS SET AND AUDIBLE. TRACH CUFF ECONOMIC RESEARCH ANALYST, SECURED. AMBU BAG AT BEDSIDE. WILL CONTINUE TO MONITOR THE PT.
[2018-06-17] MEDS ORDERED: LEVOFLOXACIN (250MG) 250 MG TABLET PO SCH (18:00)
[2018-06-17] MEDS ORDERED: FEE PK DOSING 1 MIN EA MC ONE ×2 (18:05→20:18)
--- NOTE | 2018-06-17 18:27 | NUR ---
DUCK BILL OPERATOR NOTES PATIENT IN BED RESTING, NONE RESPONSIVE. ABLE TO OPEN EYES. ALL DUE MEDICATIONS ADMINISTERED. ALL NEEDS MET. PATIENT WITH NEW MIDLINE ON RIGHT UPPER ARM G18. NO ACUTE CHANGES NOTED DURING SHIFT. WILL ENDORSE CARE TO PM SHIFT.
[2018-06-17] MEDS ORDERED: VANCOMYCIN 500 MG in IV D5W 100 ML IV PRN (18:30)
[2018-06-17] MEDS ORDERED: DOSING PER PHARMACY-AMIKACI IV XX PRN (19:00)
--- NOTE | 2018-06-17 19:11 | NUR ---
ADMIN SECRETARY OPENING NOTES: RECEIVED PT ON VENT AND IS ON SHILEY #6 WITH VENT SETTINGS TV 550, PEEP 5, FIO2 35%, RATE 12. PT ON TELE BOX AND READING SHOWS A FIB 84. PT HAS EYES SHUT AT THIS TIME. PT NON VERBAL AND NON RESPONSIVE. PT HAS G TUBE AND FEEDING IS RUNNING AT NEPRO 65ML/HR. PT HAS ILIANA #18G MIDLINE AND IS PATENT AND INTACT. CURRENTLY H/L. BED KEPT IN LOW, LOCKED POSITION, AND SIDE RAILS X 2UP. WILL CONTINUE TO MONITOR PT. Addendum: 06/17/18 at 1930 by AGA LEÓN RN PT ON CONT PULSE OX SATURATING AT 100%. Addendum: 06/18/18 at 0201 by AGA LEÓN RN PT HAS R IJ CATH AND IS INTACT.
[2018-06-17 20:00] VITALS: BP 116/73
--- NOTE | 2018-06-17 20:59 | NUR ---
TIME PIECE REPAIRER NOTES: BLOOD SUGAR THIS PM WAS 336. 10 UNITS OF INSULIN WAS ADMINISTERED ORDERED. WILL RECHECK AGAIN.
[2018-06-17] MEDS ORDERED: AMIKACIN 400 MG in IV D5W 100 ML IV ONE (21:00)
[2018-06-17] MEDS ORDERED: INSULIN GLARGINE, 100 UNIT/ML CARTRIDGE SQ SCH (22:00)
--- NOTE | 2018-06-17 22:01 | NUR ---
MECHANIC INDUSTRIAL TRUCK NOTES: BLOOD SUGAR WAS RECHECKED AND IS NOW 326. 20 UNITS OF LANTUS WAS ADMINISTERED. PT ON G TUBE FEEDING NEPRO AT 65ML/HR. WILL RECHECK BLOOD SUGAR ORDERED.
--- NOTE | 2018-06-17 22:32 | NUR ---
RT NOTE PATIENT WAS RECEIVED ON CONTINUOUS VENT SUPPORT ON NOTED VENT SETTINGS.HHN TREATMENT WAS GIVEN, TOLERATED WELL. B/S RHONCHI, SUCTIONED PATIENT WITH A MODERATE AMOUNT OF THIN PALE YELLOWISH SECRETIONS. TRACH RUBE PATENT AND SECURED. WILL CONTINUE TO MONITOR. Addendum: 06/17/18 at 2236 by ANI BETANCUR RT Amended: Links added.
--- NOTE | 2018-06-17 23:19 | NUR ---
MAP MOUNTER NOTES: BLOOD SUGAR THIS PM WAS 309. 8 UNITS OF INSULIN WAS ADMINISTERED. PT ON GTUBE NEPRO 65ML/HR FEEDING.
[2018-06-18] VITALS (7 sets, daily range): BP systolic 106–141; BP diastolic 53–82
[2018-06-18] MEDS: IPRATROPIUM NEB FS 0.5 MG/2.5 ML AMPUL.NEB NEB SCH ×4 (01:21→19:46)
[2018-06-18] MEDS: ALBUTEROL FS 2.5 MG/0.5 ML VIAL.NEB NEB SCH ×4 (01:21→19:46)
[2018-06-18] MEDS: NEPRO 1,000 ML BOTTLE GT PRN ×2 (02:17→17:19)
[2018-06-18] MEDS: INSULIN LISPRO/ASPART 100 UNIT/ML CARTRIDGE SQ SCH ×3 (04:14→21:49)
--- NOTE | 2018-06-18 04:16 | NUR ---
ACCESS ASSOC NOTES: BLOOD SUGAR WAS 368. 10 UNITS OF INSULIN WAS ADMINISTERED ORDERED. WILL RECHECK BLOOD SUGAR AGAIN.
[2018-06-18] MEDS: BLOOD SUGAR DIAGNOSTIC 1 EACH STRIP IN SCH ×5 (05:10→21:41)
[2018-06-18] MEDS: INSULIN LISPRO/ASPART 100 UNIT/ML CARTRIDGE SQ PRN ×3 (05:47→16:40)
--- NOTE | 2018-06-18 05:50 | NUR ---
MATTRESS FILLING MACHINE TENDER NOTES: PT APPEARS TO BE IN DISTRESS. TYLENOL 650MG WAS GIVEN VIA G TUBE.
[2018-06-18 06:43] LABS: BASOPHILS # (AUTO) 0.1 /CMM (0.0-0.2); BASOPHILS % (AUTO) 0.5 % (0.0-2.0); EOSINOPHILS % (AUTO) 0.5 % (0.0-6.0); HEMATOCRIT 28 % (39-51); HEMOGLOBIN 8.6 g/dL (13.5-17.5); LYMPHOCYTES % (AUTO) 3.8 % (20.0-44.0); MEAN CORPUSCULAR HGB CONC 31 g/dl (31.0-36.0); MEAN CORPUSCULAR VOLUME 89 fL (80-96); MONOCYTES # (AUTO) 1.5 /CMM (0.1-1.30); MONOCYTES % (AUTO) 5.9 % (2.0-12.0); NEUTROPHILS # (AUTO) 22.6 /CMM (1.8-8.9); NEUTROPHILS % (AUTO) 89.3 % (43.0-81.0); PLATELET COUNT (AUTO) 197 /CMM (150-450); WHITE BLOOD COUNT (AUTO) 25.3 K/uL (4.3-11.0)
[2018-06-18 07:07] LABS: CALCIUM, SERUM 8.9 mg/dL (8.5-10.1); MAGNESIUM 2.5 mg/dL (1.8-2.4); PHOSPHORUS 4.1 mg/dL (2.5-4.9); POTASSIUM 3.9 mmol/L (3.5-5.1)
--- NOTE | 2018-06-18 07:34 | NUR ---
TEXTILE SCREEN MAKER CLOSING NOTES: ALL NEEDS WERE ATTENDED AND ANTICIPATED FOR. PT KEPT CLEAN, DRY, AND COMFORTABLE. PT TURNED AND REPOSITIONED Q 2HRS. PT SUCTIONED PRN. INNER CANULA CHANGED. PT ON TELE BOX AND READING SHOWS AFIB 97. PT HAS G TUBE. 5ML OF RESIDUAL WAS NOTED. PT ON NEPRO 65ML/HR VIA G TUBE FEEDING. PT ON CONT PULSE OX AND SATURATING WELL. WOUND TX PERFORMED ORDERED. BED KEPT IN LOW, LOCKED POSITION, AND SIDE RAILS X 2UP. ENDORSED TO AM NURSE FOR JODEE. Addendum: 06/18/18 at 0744 by AGA LEÓN RN R CHEST WALL HÉCTOR CATH INTACT.
[2018-06-18] MEDS: CLOPIDOGREL BISULFATE 75 MG TABLET GT SCH (08:54)
[2018-06-18] MEDS: FAMOTIDINE (20 MG) 20 MG TABLET GT SCH (08:54)
[2018-06-18] MEDS: VIT B CMPLX 3/FA/VIT C/BIOTIN 1 TAB TABLET GT SCH (08:54)
[2018-06-18] MEDS: LEVETIRACETAM SOL (5 ML) 100 MG/ML UDC GT SCH ×2 (08:54→17:40)
[2018-06-18] MEDS: MIDODRINE HCL (5MG) 5 MG TABLET GT SCH ×2 (08:55→17:40)
[2018-06-18] MEDS: APIXABAN 2.5 MG TABLET GT SCH ×2 (08:57→17:43)
[2018-06-18] MEDS: PROSOURCE / PROSTAT (PYXIS) 30 ML UDC GT SCH ×2 (09:05→17:59)
[2018-06-18] MEDS: Z GUARD REMEDY 2 OZ OINT TP SCH ×2 (09:06→21:42)
[2018-06-18] MEDS: CADEXOMER IODINE 40 GM TUBE TP SCH (09:06)
[2018-06-18 09:10] LABS: BAND % (MANUAL) 6 % (0.0-5.0); LYMPHOCYTES % (MANUAL) 6 % (16-48); MONOCYTES % (MANUAL) 5 % (0-11.0); MYELOCYTES % 6 % (0-0); NEUTROPHILS % (MANUAL) 77 (42-76)
--- NOTE | 2018-06-18 12:00 | NUR ---
bglevels now being done q 4hrs instead of q6.
[2018-06-18] MEDS: LACTOBACILLUS RHAMNOSUS GG 1 EACH CAP.SPRINK PO SCH (17:40)
[2018-06-18] MEDS: AMIODARONE HCL 200 MG TABLET GT SCH (17:41)
[2018-06-18] MEDS: MUPIROCIN OINT 2% 22 GM TUBE SCH ×2 (18:00→21:42)
--- NOTE | 2018-06-18 18:00 | NUR ---
pt. with vent,settings unchanged.occasionally desats.resp. tx called often.vanco and amikacin held today as blood levels too high.neena. dialysis well.
--- NOTE | 2018-06-18 19:30 | NUR ---
RT PT REC'D ON VENT WITH NOTED SETTINGS.. PT TOLERATING VENT SETTINGS. NO SOB, NO RESP DISTRESS NOTED AT THIS TIME. SUCTIONED MODERATE AMOUNT OF THICK YELLOW SECRETIONS. VENT ALARMS SET AND AUDIBLE. TRACH CUFF BLENDER LABORER, PATENT, SECURED. AMBU BAG AT BEDSIDE. WILL CONTINUE TO MONITOR. Addendum: 06/18/18 at 2035 by JANETTE BIRMINGHAM RT Amended: Links added.
--- NOTE | 2018-06-18 19:45 | NUR ---
TELE MANAGER PRODUCE INITIAL NOTES RECEIVED PT IN BED ON TRACH SHILEY #6, MECHANICAL VENT SETTING FF AC 12, FIO2 35%, TV500, PEEP 5. NO SIGNS OF ANY ACUTE DISTRESS NOTED , SKIN WARM AND DRY TO TOUCH HE ALSO ON TELE A-FIB HEART RATE 86 . ON CONTACT ISOLATION MRSA NARES. ISOLATION PRECAUTION IMPLEMENTED AND OBSERVED. KEPT HIM WARM AND COMFORTABLE AT ALL TIMES. WILL CONTINUE MONITORING.
[2018-06-18] MEDS: INSULIN GLARGINE, 100 UNIT/ML CARTRIDGE SQ SCH (21:50)
--- NOTE | 2018-06-18 22:08 | NUR ---
TELE OFFICE AGENT NOTES BLOOD SUGAR CHECKED 411, ROUTINE HUMALOG 10 UNITS GIVEN SERINA SQ WELL LANTUS 30 UNITS , MD NOTIFIED NO FURTHERS ORDER AT THIS TIME. CONTINUE MONITORING.
[2018-06-19] MEDS: METRONIDAZOLE 500 MG TABLET GT SCH ×4 (00:41→18:13)
[2018-06-19] MEDS: BLOOD SUGAR DIAGNOSTIC 1 EACH STRIP IN SCH ×7 (01:11→21:16)
--- NOTE | 2018-06-19 01:25 | NUR ---
TELE CHEESEMAKER HELPER NOTES AFTER I RE CHECKED THE BLOOD SUGAR CAME OUT 449, CALLED DIRECTOR EQUIPMENT MD AND RANDOM GLUCOSE ORDERED PROTOCOL. WAITING FOR MD TO CALL BACK.
[2018-06-19] MEDS: IPRATROPIUM NEB FS 0.5 MG/2.5 ML AMPUL.NEB NEB SCH ×4 (01:46→19:41)
[2018-06-19] MEDS: ALBUTEROL FS 2.5 MG/0.5 ML VIAL.NEB NEB SCH ×4 (01:46→19:41)
--- NOTE | 2018-06-19 02:05 | NUR ---
MS RADHA NOTES RANDOM GLUCOSE RESULT CAME OUT 463, PT RESTING WITHOUT ANY ACUTE DISTRESS NOTED AND MD NOTIFIED WAITING FOR ORDER.
--- NOTE | 2018-06-19 02:45 | NUR ---
TELE FEATHER SHAPER NOTES SPOKE TO DR MCGARRY GOT ORDERED NOTED AND CARRIED OUT.
[2018-06-19] MEDS ORDERED: INSULIN ASPART/LISPRO 100 UNIT/ML CARTRIDGE SQ PRN (03:00)
[2018-06-19] MEDS ORDERED: DEXTROSE 50%-WATER 50 ML DISP.SYRIN IV PRN (03:00)
[2018-06-19] MEDS ORDERED: *INSULIN ASPART NOVOLOG 100 UNIT/ML CARTRIDGE SQ PRN (03:00)
--- NOTE | 2018-06-19 03:05 | NUR ---
TELE DOLL WIG MAKER ROOTED HAIR NOTES HUMALOG 20 UNITS GIVEN SERINA SQ ORDERED PER AGGRESSIVE SLIDING SCALE. PT STILL ON G-TUBE FEEDING NEPHRO AT 65ML/HR , TELE A-FIB PER MONITOR. WILL CONTINUE MONITORING.
[2018-06-19] MEDS: INSULIN ASPART/LISPRO 100 UNIT/ML CARTRIDGE SQ SCH ×6 (03:09→21:18)
[2018-06-19 03:49] VITALS: BP 107/56
[2018-06-19 04:00] VITALS: BP 107/56
[2018-06-19 06:55] LABS: BASOPHILS # (AUTO) 0.1 /CMM (0.0-0.2); BASOPHILS % (AUTO) 0.4 % (0.0-2.0); EOSINOPHILS % (AUTO) 0.6 % (0.0-6.0); HEMATOCRIT 22 % (39-51); HEMOGLOBIN 7.1 g/dL (13.5-17.5); LYMPHOCYTES # (AUTO) 0.7 /CMM (0.8-4.8); MEAN CORPUSCULAR HGB CONC 32 g/dl (31.0-36.0); MEAN CORPUSCULAR VOLUME 88 fL (80-96); MONOCYTES # (AUTO) 1.2 /CMM (0.1-1.30); NEUTROPHILS # (AUTO) 14.7 /CMM (1.8-8.9); PLATELET COUNT (AUTO) 126 /CMM (150-450); RED BLOOD CELL COUNT(AUTO) 2.51 MIL/uL (4.5-6.0); WHITE BLOOD COUNT (AUTO) 16.7 K/uL (4.3-11.0)
--- NOTE | 2018-06-19 07:30 | NUR ---
RN OPENING NOTES RECEIVED PATIENT IN BED. NON VERBAL, OPENS EYES. VENTILATOR DEPENDENT. NOT IN ANY FORM OF DISTRESS, NO SOB. NO S/S OF PAIN OR DISCOMFORT. IV ACCESS INTACT AND PATENT. GTUBE IN PLACE, FEEDING NEPHRO @ 65ML/HR, TOLERATING WELL, 5ML RESIDUAL. ON TELEMONIOTR AFIB HR 86. KEPT PATIOENT SAFE AND COMFORTABLE. BED IN LOW/LOCKED POSITION, SIDERAILS UPX2, CALL LIGHT IN REACH. WILL CONTINUE TO MONITOR ACCORDINGLY.
[2018-06-19 07:32] LABS: ALBUMIN 1.8 g/dL (3.4-5.0); BILIRUBIN,TOTAL 0.4 mg/dL (0.2-1.0); CALCIUM, SERUM 8.5 mg/dL (8.5-10.1); CREATININE 2.6 mg/dL (0.6-1.3); MAGNESIUM 2.3 mg/dL (1.8-2.4); PHOSPHORUS 2.9 mg/dL (2.5-4.9); POTASSIUM 3.2 mmol/L (3.5-5.1); TOTAL PROTEIN, SERUM 6.4 g/dL (6.4-8.2)
--- NOTE | 2018-06-19 07:37 | NUR ---
TELE OCEAN EXPORT COORDINATOR CLOSING NOTES PT REMAINS SLEEPING AFTER MORNING CARE DONE. STABLE SERINA THE NIGHT EXCEPT BLOOD SUGAR. ALL DUE MEDS AND ALL NEEDS MET. NO SIGNS OF ANY ACUTE DISTRESS NOTED. STILL ON MECHANICAL VENT SET UP BY RT ORDERED. TELE A-FIB PER HOUSECALLS NURSE. AND VITAL SIGNS STABLE SERINA THE NIGHT. ON SEMI FOWLERS POSITION WITH SIDE RAILS X3 UP AND BED IN LOW AND LOCK IN POSITION. G-TUBE TOLERATED WELL NO ASPIRATION NOTED. ENDORSE TO AM NURSE FOR CONTINUITY OF CARE.
[2018-06-19 08:00] VITALS: BP 91/53
[2018-06-19] MEDS: APIXABAN 2.5 MG TABLET GT SCH ×2 (09:00→16:33)
[2018-06-19] MEDS: MIDODRINE HCL (5MG) 5 MG TABLET GT SCH ×2 (09:09→16:32)
[2018-06-19] MEDS: VIT B CMPLX 3/FA/VIT C/BIOTIN 1 TAB TABLET GT SCH (09:09)
[2018-06-19] MEDS: FAMOTIDINE (20 MG) 20 MG TABLET GT SCH (09:09)
[2018-06-19] MEDS: CLOPIDOGREL BISULFATE 75 MG TABLET GT SCH (09:10)
[2018-06-19] MEDS: LACTOBACILLUS RHAMNOSUS GG 1 EACH CAP.SPRINK PO SCH ×2 (09:10→16:30)
[2018-06-19] MEDS: LEVETIRACETAM SOL (5 ML) 100 MG/ML UDC GT SCH ×2 (09:11→16:32)
[2018-06-19] MEDS: MUPIROCIN OINT 2% 22 GM TUBE SCH ×2 (09:12→21:21)
[2018-06-19] MEDS: PROSOURCE / PROSTAT (PYXIS) 30 ML UDC GT SCH ×2 (09:20→16:39)
[2018-06-19 09:28] LABS: BAND % (MANUAL) 5 % (0.0-5.0); EOSINOPHILS % (MANUAL) 1 % (0-4); LYMPHOCYTES % (MANUAL) 3 % (16-48); METAMYELOCYTES % 1 % (0-0); MONOCYTES % (MANUAL) 2 % (0-11.0); MYELOCYTES % 4 % (0-0); NEUTROPHILS % (MANUAL) 84 (42-76)
[2018-06-19] MEDS: CADEXOMER IODINE 40 GM TUBE TP SCH (09:48)
[2018-06-19] MEDS: Z GUARD REMEDY 2 OZ OINT TP SCH ×2 (09:48→21:20)
[2018-06-19] MEDS: AMIODARONE HCL 200 MG TABLET GT SCH (09:56)
[2018-06-19 11:37] VITALS: BP 110/55
--- NOTE | 2018-06-19 12:30 | NUR ---
RN NOTES:HD HD DONE TODAY. NO OUTPUT. PATIENT IN STABLE CONDITION, TOLERATED WELL. WILL MONIOTR ACCORDINGLY
--- NOTE | 2018-06-19 14:56 | NUR ---
[facility] POST HD HELD, [facility] 23, PHARMACY PEDRO MADE AWARE.
[2018-06-19 16:00] VITALS: BP 99/78
--- NOTE | 2018-06-19 16:29 | NUR ---
PER ALEXI WOODS TO GIVE ELIQUIS WITH HGB 7.1 LONG NO MELENA. PATIENT STOOL WAS BROWN, NO ACTIVE BLEEDING.
--- NOTE | 2018-06-19 16:30 | NUR ---
WOUND CARE RENDERED
[2018-06-19] MEDS: NEPRO 1,000 ML BOTTLE GT PRN (16:48)
[2018-06-19] MEDS: AMIKACIN 400 MG in IV D5W 100 ML IV PRN (17:08)
--- NOTE | 2018-06-19 17:46 | NUR ---
RT RECD PT TRACHD INTACT SECURED ON MECH VENT DAMIEN ORDERED SETTINGS ALARMS ON AND AUDIBLE BAG AND MASK AT HOB, TXS GIVEN DAMIEN WELL NO ADVERSE REACTION NOTED ATT NO RESP DISTRESS THROUGHOUT SHIFT WILL CONT TO MONITOR
--- NOTE | 2018-06-19 18:00 | NUR ---
TURNED AND REPOSITIONED EVERY 2HRS NEEDED
--- NOTE | 2018-06-19 18:30 | NUR ---
SUCTIONED PATIENTS TRACH NEEDED THROUGH OUT THE SHIFT. TOLERATED WELL. WILL MONIOTR ACCORDINGLY
--- NOTE | 2018-06-19 19:12 | NUR ---
RN CLOSING NOTES PATIENT IN STABLE CONDIITON. NO SIGNIFICANT CHANGE DURING THE SHIFT. ALL NEEDS ATTENDED AND PROVIDED. ALL DUE MEDICATIONS ADMINISTERED ORDERED. KEPT PATIENT SAFE AND COMFORTABLE. BED IN LOW/LOCKED POSIITON, SIDERAILS UP, BED ALARM ON. HOB ELEVATED. CALL LIGHT IN REACH. ENDORSED TO NIGHT RN FOR JODEE.
--- NOTE | 2018-06-19 19:30 | NUR ---
RECEIVED PATIENT ASLEEP, AROUSABLE, NON-VERBAL. NO ACUTE DISTRESS NOTED. NO SIGNS OF PAIN NOTED. NO SYMPTOMS OF HYPER/HYPOGLYCEMIA. GT SITE PATENT, INTACT; GTF ONGOING. IV SITE PATENT, INTACT; FLUSHED. TRACH INTACT; VENT SETTINGS ORDERED. ON LOW BED WITH BILATERAL UPPER SIDE RAILS UP. CALL SALAMANCA WITHIN EASY REACH. CONTACT ISOLATION MAINTAINED. WILL CONTINUE TO MONITOR.
[2018-06-19 20:00] VITALS: BP 101/67
--- NOTE | 2018-06-19 20:32 | NUR ---
RT PT REC'D ON VENT WITH NOTED SETTINGS.. PT TOLERATING VENT SETTINGS. NO SOB, NO RESP DISTRESS NOTED AT THIS TIME. SUCTIONED SMALL AMOUNT OF THICK YELLOW SECRETIONS. VENT ALARMS SET AND AUDIBLE. TRACH CUFF COOLING SYSTEM OPERATOR, PATENT, SECURED. AMBU BAG AT BEDSIDE. WILL CONTINUE TO MONITOR. Addendum: 06/19/18 at 2032 by JANETTE BIRMINGHAM RT Amended: Links added.
[2018-06-19] MEDS: INSULIN GLARGINE, 100 UNIT/ML CARTRIDGE SQ SCH (21:23)
[2018-06-20] VITALS (12 sets, daily range): BP systolic 103–134; BP diastolic 54–78
--- NOTE | 2018-06-20 | NUR ---
REPORT GIVEN TO CHARANJIT GUZMAN FOR CONTINUATION OF CARE.
[2018-06-20] MEDS: METRONIDAZOLE 500 MG TABLET GT SCH ×4 (00:13→17:03)
[2018-06-20] MEDS: BLOOD SUGAR DIAGNOSTIC 1 EACH STRIP IN SCH ×6 (00:21→21:56)
[2018-06-20] MEDS: INSULIN ASPART/LISPRO 100 UNIT/ML CARTRIDGE SQ SCH ×6 (00:24→21:58)
[2018-06-20] MEDS: IPRATROPIUM NEB FS 0.5 MG/2.5 ML AMPUL.NEB NEB SCH ×4 (02:00→19:43)
[2018-06-20] MEDS: ALBUTEROL FS 2.5 MG/0.5 ML VIAL.NEB NEB SCH ×4 (02:00→19:43)
[2018-06-20] MEDS: NEPRO 1,000 ML BOTTLE GT PRN ×2 (05:32→22:10)
--- NOTE | 2018-06-20 06:19 | NUR ---
OPERATIONAL RISK MANAGER NOTES PATIENT ASLEEP IN BED WITH NO RESPIRATORY NOTED. TRACH/VENT INTACT AND PATENT. GTF RUNNING AT 65ML/HR AND TOLERATING WELL. NO FACIAL GRIMACING OR GROANING TO INDICATE PAIN OR DISCOMFORT. ALL DUE MEDS GIVEN ORDERED WITH NO ASE NOTED. MIDLINE IV IN ILIANA INTACT AND PATENT. BED IN LOW LOCK SETTING. ALL BELONGINGS KEPT NEAR BEDSIDE. GRICEL ENDORSE TO ONCOMING SHIFT.
[2018-06-20 07:38] LABS: BASOPHILS # (AUTO) 0.1 /CMM (0.0-0.2); BASOPHILS % (AUTO) 0.5 % (0.0-2.0); EOSINOPHILS % (AUTO) 0.9 % (0.0-6.0); HEMATOCRIT 22 % (39-51); LYMPHOCYTES # (AUTO) 0.9 /CMM (0.8-4.8); LYMPHOCYTES % (AUTO) 5.9 % (20.0-44.0); MEAN CORPUSCULAR HGB CONC 32 g/dl (31.0-36.0); MEAN CORPUSCULAR VOLUME 88 fL (80-96); MONOCYTES % (AUTO) 7.1 % (2.0-12.0); NEUTROPHILS # (AUTO) 12.6 /CMM (1.8-8.9); NEUTROPHILS % (AUTO) 85.6 % (43.0-81.0); PLATELET COUNT (AUTO) 133 /CMM (150-450); RED BLOOD CELL COUNT(AUTO) 2.47 MIL/uL (4.5-6.0); WHITE BLOOD COUNT (AUTO) 14.8 K/uL (4.3-11.0)
--- NOTE | 2018-06-20 07:46 | NUR ---
LOGGING OPERATIONS INSPECTOR OPENING NOTES RECEIVED PT SITTING UPRIGHT IN BED, RESTING COMFORTABLY. PT IS NONVERBAL HOWEVER ABLE TO OPEN EYES UPON TOUCH. PT IS CURRENTLY ON VENT, TOLERATING VENT SETTINGS. PT IS NOT IN ANY APPARENT DISTRESS. ILIANA MIDLINE INTACT, NO INFILTRATION NOTED. DRESSING KEPT CLEAN AND DRY. PT NOTED WITH GTUBE, INTACT. NO RESIDUAL NOTED. RECEIVING NEPRO @65ML/HR, TOLERATING WELL. HOB KEPT ELEVATED TO PREVENT ASPIRATION. SAFETY MEASURES ARE IN PLACE. WILL MONITOR THROUGHOUT SHIFT FOR CONTINUITY OF CARE.
[2018-06-20 07:51] LABS: HEMOGLOBIN 6.9 g/dL (13.5-17.5)
--- NOTE | 2018-06-20 07:54 | NUR ---
RT Pt received trach'd and on [facility] vent w charted settings. Vent is plugged into red outlet. Alarms are on and audible w doyle @ [employer]. Trach is secure and patent. Manager Economic done. Hhn tx given and pt sx'd w no adverse reactions. No respiratory distress noted at this time. Will continue to monitor. Addendum: 06/20/18 at 1338 by JUSTICE RAMIREZ RT Amended: Links added.
[2018-06-20 08:00] LABS: IRON, SERUM 23 ug/dl (50-175); TOTAL IRON BINDING CAPACITY 123 ug/dl (250-450)
[2018-06-20 08:25] LABS: FERRITIN 1486 ng/mL (8-388)
--- NOTE | 2018-06-20 09:00 | NUR ---
TOBACCO SHAKER NOTES-- CLARIFIED WITH DR. MCGARRY ADMINISTRATION OF ELIQUIS AND PLAVIX D/T LOW H/H. PER DR. MCGARRY, "OKAY TO GIVE ELIQUIS AND PLAVIX."
[2018-06-20] MEDS: AMIODARONE HCL 200 MG TABLET GT SCH (09:37)
[2018-06-20] MEDS: VIT B CMPLX 3/FA/VIT C/BIOTIN 1 TAB TABLET GT SCH (09:37)
[2018-06-20] MEDS: LACTOBACILLUS RHAMNOSUS GG 1 EACH CAP.SPRINK PO SCH ×2 (09:37→17:03)
[2018-06-20] MEDS: LEVETIRACETAM SOL (5 ML) 100 MG/ML UDC GT SCH ×2 (09:37→17:03)
[2018-06-20] MEDS: FAMOTIDINE (20 MG) 20 MG TABLET GT SCH (09:37)
[2018-06-20] MEDS: MIDODRINE HCL (5MG) 5 MG TABLET GT SCH ×2 (09:38→17:00)
[2018-06-20] MEDS: CLOPIDOGREL BISULFATE 75 MG TABLET GT SCH (09:40)
[2018-06-20] MEDS: PROSOURCE / PROSTAT (PYXIS) 30 ML UDC GT SCH ×2 (09:40→17:04)
[2018-06-20] MEDS: APIXABAN 2.5 MG TABLET GT SCH ×2 (09:43→17:02)
[2018-06-20] MEDS: Z GUARD REMEDY 2 OZ OINT TP SCH ×2 (09:44→21:55)
[2018-06-20] MEDS: MUPIROCIN OINT 2% 22 GM TUBE SCH ×2 (09:44→21:55)
[2018-06-20] MEDS: CADEXOMER IODINE 40 GM TUBE TP SCH (09:45)
[2018-06-20 10:03] LABS: BAND % (MANUAL) 5 % (0.0-5.0); LYMPHOCYTES % (MANUAL) 8 % (16-48); METAMYELOCYTES % 1 % (0-0); MONOCYTES % (MANUAL) 8 % (0-11.0); NEUTROPHILS % (MANUAL) 78 (42-76)
--- NOTE | 2018-06-20 16:26 | NUR ---
MS RN NOTES-- PRBC TRANFUSION BEGIN. VITAL SIGNS 130/76 HR 89 RR14 T97.6 SPO2 99% ON VENT.
--- NOTE | 2018-06-20 16:50 | NUR ---
MS RN NOTES-- NO ASE NOTED FROM BLOOD TRANSFUSION. WILL CONTINUE TO MONITOR CLOSELY.
--- NOTE | 2018-06-20 17:24 | NUR ---
MS RN NOTES-- NO ASE NOTED FROM BLOOD TRANSFUSION. WILL CONTINUE TO MONITOR.
--- NOTE | 2018-06-20 18:20 | NUR ---
MS RN NOTES-- NO ADVERSE REACTIONS NOTED. VITAL SIGNS WNL. WILL CONTINUE TO MONITOR.
--- NOTE | 2018-06-20 19:00 | NUR ---
MS RN CLOSING NOTES ALL DUE MEDS GIVEN, NEEDS RENDERED. PT REMAINS NONVERBAL WITH SPNTANEOUS EYE OPENING. BLOOD TRASNFUSION COMPLETED WITH NO ASE NOTED. VITAL SIGNS WNL. RESPIRATIONS ARE EVEN AND UNLABORED, NOT IN ANY ACUTE DISTRESS NOTED. NO FACIAL GRIMACING OR MOANING NOTED. REPOSITIONED Q2H, DRESSING CHANGE DONE AND TOLERATED WELL. SAFETY MEASURES ARE IN PLACE. MIDLINE TO ILIANA INTACT, NO INFILTRATION NOTED. DRESSING KEPT CLEAN AND DRY. WILL ENDORSE TO NEXT SHIFT FOR CONTINIUTY OF CARE.
--- NOTE | 2018-06-20 19:35 | NUR ---
TELE/RN NOTES RECEIVED PT. LYING IN BED RESTING WITH EYES CLOSED. PT. IS RESPONSIVE TO TACTILE STIMULI. NON-VERBAL, TRACH/VENT DEPENDENT. CURRENT VENT SETTINGS: TV 550, PEEP 5, FIO2 40. PT. IS BREATHING EVEN AND UNLABORED. NO SOB, RESPIRATORY DISTRESS OR S/S OF PAIN NOTED AT THIS TIME. PT. WITH RIGHT UPPER ARM MIDLINE PRESENT, PATENT AND INTACT. PT. WITH EXTERNAL ENDOCRINOLOGY TEACHER PRESENT AND INTACT. CURRENT RHYTHM = AFIB HR 97. PT. WITH G-TUBE PRESENT, PATENT AND INTACT ADMINISTERING TO PT. NEPRO @ 65 ML/HR. PT. TOLERATING FEEDING WELL, NO RESIDUAL NOTED AT THIS TIME. PER DAYSHIFT NURSE PT. JUST FINISHED RECEIVING 1 UNIT PRBC BLOOD TRANSFUSION, PT. TOLERATED WELL. BED LOCKED AND IN LOWEST POSITION, SIDE RAILS UP X3, BED ALARM ON, SAFETY PRECAUTIONS IMPLEMENTED AND IN PLACE. WILL CONTINUE TO MONITOR.
[2018-06-20 19:51] LABS: OCCULT BLOOD STOOL NEGATIVE (NEGATIVE)
[2018-06-20] MEDS: INSULIN GLARGINE, 100 UNIT/ML CARTRIDGE SQ SCH (22:02)
[2018-06-21] VITALS: BP 107/65
--- NOTE | 2018-06-21 00:12 | NUR ---
RT PT RECEIVED TRACHED ON [facility] VENT ON CHARTED SETTINGS. NO SIGNS OF DISTRESS NOTED AT THIS TIME. AIRWAY PATENT AND SECURED. MANAGER SOLUTION DONE. PT SUCTIONED. HHN TX GIVEN. ALARMS SET AND AUDIBLE. AMBUBAG AND BACK UP TRACH AT BEDSIDE. VENT CONNECTED TO RED OUTLET. WILL CONT TO MONITOR. Addendum: 06/21/18 at 0014 by COLBY BURKETT RT Amended: Links added.
[2018-06-21] MEDS: METRONIDAZOLE 500 MG TABLET GT SCH ×4 (00:57→18:48)
[2018-06-21] MEDS: BLOOD SUGAR DIAGNOSTIC 1 EACH STRIP IN SCH ×6 (01:18→22:04)
[2018-06-21] MEDS: INSULIN ASPART/LISPRO 100 UNIT/ML CARTRIDGE SQ SCH ×6 (01:20→22:06)
[2018-06-21] MEDS: ALBUTEROL FS 2.5 MG/0.5 ML VIAL.NEB NEB SCH ×4 (01:38→19:05)
[2018-06-21] MEDS: IPRATROPIUM NEB FS 0.5 MG/2.5 ML AMPUL.NEB NEB SCH ×4 (01:38→19:05)
[2018-06-21 04:00] VITALS: BP 137/71
[2018-06-21 05:51] LABS: BASOPHILS % (AUTO) 0.2 % (0.0-2.0); EOSINOPHILS % (AUTO) 1.6 % (0.0-6.0); HEMATOCRIT 28 % (39-51); HEMOGLOBIN 8.9 g/dL (13.5-17.5); LYMPHOCYTES # (AUTO) 0.8 /CMM (0.8-4.8); LYMPHOCYTES % (AUTO) 5.9 % (20.0-44.0); MEAN CORPUSCULAR HGB CONC 32 g/dl (31.0-36.0); MEAN CORPUSCULAR VOLUME 88 fL (80-96); MONOCYTES # (AUTO) 0.7 /CMM (0.1-1.30); MONOCYTES % (AUTO) 5.4 % (2.0-12.0); NEUTROPHILS # (AUTO) 11.5 /CMM (1.8-8.9); NEUTROPHILS % (AUTO) 86.9 % (43.0-81.0); PLATELET COUNT (AUTO) 155 /CMM (150-450); RED BLOOD CELL COUNT(AUTO) 3.19 MIL/uL (4.5-6.0); WHITE BLOOD COUNT (AUTO) 13.2 K/uL (4.3-11.0)
[2018-06-21 06:04] LABS: CALCIUM, SERUM 9.6 mg/dL (8.5-10.1); POTASSIUM 4.5 mmol/L (3.5-5.1)
[2018-06-21 06:06] LABS: IRON, SERUM 33 ug/dl (50-175); TOTAL IRON BINDING CAPACITY 147 ug/dl (250-450)
[2018-06-21 06:15] LABS: BAND % (MANUAL) 3 % (0.0-5.0); LYMPHOCYTES % (MANUAL) 5 % (16-48); MONOCYTES % (MANUAL) 3 % (0-11.0); NEUTROPHILS % (MANUAL) 83 (42-76)
[2018-06-21 06:16] LABS: EOSINOPHILS % (MANUAL) 2 % (0-4); METAMYELOCYTES % 1 % (0-0); MYELOCYTES % 3 % (0-0)
--- NOTE | 2018-06-21 06:29 | NUR ---
TELE/RN NOTES PT. IS LYING IN BED RESTING WITH EYES CLOSED. PT. IS NON-VERBAL, TRACH/VENT DEPENDENT. CURRENT VENT SETTINGS: TV 550, PEEP 5, FIO2 40. PT. IS BREATHING EVEN AND UNLABORED. NO SOB, RESPIRATORY DISTRESS OR S/S OF PAIN NOTED AT THIS TIME. PT. WITH RIGHT UPPER ARM MIDLINE PRESENT, PATENT AND INTACT. PT. WITH EXTERNAL LINE MAINTENANCE PRESENT AND INTACT. CURRENT RHYTHM = AFIB HR 90. PT. WITH G-TUBE PRESENT, PATENT AND INTACT ADMINISTERING TO PT. NEPRO @ 65 ML/HR. PT. TOLERATING FEEDING WELL, NO RESIDUAL NOTED AT THIS TIME AND THROUGHOUT SHIFT. ALL PT. NEEDS MET. PT. OFFLOADED, TURNED AND REPOSITIONED Q2H AND NEEDED. BED LOCKED AND IN LOWEST POSITION, SIDE RAILS UP X3, BED ALARM ON, SAFETY PRECAUTIONS IMPLEMENTED AND IN PLACE. WILL ENDORSE TO DAYSHIFT NURSE FOR CONTINUITY OF CARE.
[2018-06-21 06:36] LABS: FERRITIN 1680 ng/mL (8-388)
--- NOTE | 2018-06-21 07:45 | NUR ---
biomedical manager Opening Note Patient resting in bed, asleep, alert and oriented to self. Non-verbal but opens eyes in response to name. Jenniffer size [address], ventilation maintained. Current vent settings: TV: 550 mL, FiO2: 40%, PEEP: 5 mL. Respirations even and unlabored on current vent settings. No shortness of breath or chest pain noted at this time. Breathing treatment in progress with respiratory therapist. nodulizer reading controlled a-fib at 87 bpm. Peripheral IV site to the right upper arm 18 gauge midline, intact, patent and saline locked. G-tube in place, patent, intact with positive placement. Minimal residual noted and feeding Nephro at 65 mL/hr. Wound care provided as ordered. Fall and Safety precautions in place: bed in lowest and locked position, bed alarm on, side rails up x2, personal possessions and call light within reach. Will continue to montior and intervene as needed. Addendum: 06/21/18 at 1813 by ALIVIA TALAMANTES RN Current vent settings: AC 12, TV: 550 mL, FiO2: 40%, PEEP: 5 mm H2O.
[2018-06-21 08:00] VITALS: BP 114/63
[2018-06-21] MEDS: LACTOBACILLUS RHAMNOSUS GG 1 EACH CAP.SPRINK PO SCH ×2 (09:27→16:37)
[2018-06-21] MEDS: LEVETIRACETAM SOL (5 ML) 100 MG/ML UDC GT SCH ×2 (09:27→16:37)
[2018-06-21] MEDS: VIT B CMPLX 3/FA/VIT C/BIOTIN 1 TAB TABLET GT SCH (09:27)
[2018-06-21] MEDS: AMIODARONE HCL 200 MG TABLET GT SCH (09:28)
[2018-06-21] MEDS: CLOPIDOGREL BISULFATE 75 MG TABLET GT SCH (09:28)
[2018-06-21] MEDS: MIDODRINE HCL (5MG) 5 MG TABLET GT SCH ×2 (09:29→16:37)
[2018-06-21] MEDS: PROSOURCE / PROSTAT (PYXIS) 30 ML UDC GT SCH ×2 (09:29→16:35)
[2018-06-21] MEDS: MUPIROCIN OINT 2% 22 GM TUBE SCH ×2 (09:29→22:13)
[2018-06-21] MEDS: APIXABAN 2.5 MG TABLET GT SCH ×2 (09:30→16:36)
[2018-06-21] MEDS: FAMOTIDINE (20 MG) 20 MG TABLET GT SCH (09:31)
[2018-06-21] MEDS: Z GUARD REMEDY 2 OZ OINT TP SCH ×2 (09:32→22:12)
[2018-06-21] MEDS: CADEXOMER IODINE 40 GM TUBE TP SCH (09:32)
[2018-06-21 15:54] VITALS: BP 117/71
[2018-06-21] MEDS: NEPRO 1,000 ML BOTTLE GT PRN (16:35)
--- NOTE | 2018-06-21 18:10 | NUR ---
depilatory painter Closing Note Patient resting in bed, asleep, alert and oriented to self via touch. Non-verbal but opens eyes in response to name and touch. Shiley size [address], ventilation maintained. Current vent settings: AC 12, TV: 550 mL, FiO2: 40%, PEEP: 5 mm H2O. Respirations even and unlabored on current vent settings. No shortness of breath or chest pain noted at this time. aeronautical inspector reading controlled a-fib at 84 bpm. Peripheral IV site to the right upper arm 18 gauge midline, intact, patent and saline locked. G-tube in place, patent, intact with positive placement. 0 mL residual noted and tolerating feeding Nephro at 65 mL/hr well. Wound care provided as ordered. No acute events this shift. Patient currently clean, dry and comfortable. Repositioned and turned per protocol and as needed. Fall and Safety precautions in place: bed in lowest and locked position, bed alarm on, side rails up x2, personal possessions and call light within reach. Will endorse to rn shift mgr RN for continuity of care.
[2018-06-21] MEDS: AMIKACIN 400 MG in IV D5W 100 ML IV PRN (19:22)
--- NOTE | 2018-06-21 19:30 | NUR ---
FABRICATOR ASSEMBLER METAL PRODUCTS INITIAL NOTES Patient in bed, non verbal able to open eyes. Trach intact, on mechanical vent. Afib controlled on the tele monitor, HR 84. Abdomen presence of Gtube, gastric residual 30ml, on Nephro at 65ml/hr. Right chest wall HD cath dressing C/D/I, no bleeding noted. Contact isolation, maintained safety. Will cont to monitor.
[2018-06-21 20:00] VITALS: BP 112/56
[2018-06-21] MEDS ORDERED: INSULIN GLARGINE, 100 UNIT/ML CARTRIDGE SQ SCH (22:00)
[2018-06-22] VITALS: BP 126/68
[2018-06-22] MEDS: METRONIDAZOLE 500 MG TABLET GT SCH ×3 (00:02→12:03)
[2018-06-22] MEDS: IPRATROPIUM NEB FS 0.5 MG/2.5 ML AMPUL.NEB NEB SCH ×3 (01:34→13:39)
[2018-06-22] MEDS: ALBUTEROL FS 2.5 MG/0.5 ML VIAL.NEB NEB SCH ×3 (01:34→13:39)
[2018-06-22] MEDS: BLOOD SUGAR DIAGNOSTIC 1 EACH STRIP IN SCH ×5 (02:20→16:39)
[2018-06-22] MEDS: INSULIN ASPART/LISPRO 100 UNIT/ML CARTRIDGE SQ SCH ×5 (02:24→16:47)
--- NOTE | 2018-06-22 03:55 | NUR ---
PATIENT RECEIVED IN VENT SUPPORT WITH SETTINGS OF AC 16, 500 VT, 40%, +5. SUCTIONED WITH LAVAGE FOR MINIMAL, THICK, YELLOW-CREAM SECRETIONS. GIVEN IN-LINE TREATMENTS WITH NO ADVERSE REACTIONS. AMBU BAG AT BEDSIDE. VENT AND PULSE OXIMETER ALARMS AUDIBLE AND VISIBLE. VENT PLUGGED INTO RED OUTLET. Addendum: 06/22/18 at 0357 by OSWALDO ROJAS RT Amended: Links added.
[2018-06-22 04:00] VITALS: BP 115/65
[2018-06-22 04:15] VITALS: BP 115/65
[2018-06-22 06:21] LABS: APPEARANCE,URINE TURBID (CLEAR); BILIRUBIN,URINE NEGATIVE (NEGATIVE); BLOOD, URINE 3+ Ery/uL (NEGATIVE); COLOR,URINE YELLOW (YELLOW); KETONES,URINE TRACE (NEGATIVE); LEUKOCYTE ESTERASE ,URINE 3+ (NEGATIVE); NITRITE, URINE NEGATIVE (NEGATIVE); PROTEIN,URINE 3+ mg/dl (NEGATIVE); UGLUCOSE NEGATIVE (NEGATIVE); UROBILINOGEN,URINE 0.2 EU/dL (0.2)
--- NOTE | 2018-06-22 06:24 | NUR ---
SYSTEM SAFETY MANAGER CLOSING NOTES Patient in bed, non verbal, able to open eyes. AFIB controlled on the tele monitor, HR 85. Trach intact, vent settings remains the same, suction secretion PRN, trach gauze changed. Gtube in place, episode of increased gastric residual 280ml at 0002, gtube feeding place on hold, reassessed after 1 hour-gastric residual 45mll, resumed gtube feeding 65ml/hr at 0100. Stool, urine collected and send to lab for test this morning. Afebrile this shift. Contact isolation, PPE utilized. Maintained safety, will endorse to oncoming RN.
[2018-06-22] MEDS: NEPRO 1,000 ML BOTTLE GT PRN (06:32)
[2018-06-22] MEDS ORDERED: ALBU2.5V13 NEB (06:52)
[2018-06-22] MEDS ORDERED: AMIK250V14 IJ (06:52)
[2018-06-22] MEDS ORDERED: VANC500F2 IV (06:52)
[2018-06-22] MEDS ORDERED: IPRA0.2S9 NEB ×2 (06:52)
[2018-06-22] MEDS ORDERED: INSU100I30 SQ (06:52)
[2018-06-22] MEDS ORDERED: RXVAN XX (06:52)
[2018-06-22] MEDS ORDERED: METR500T GT (06:52)
--- NOTE | 2018-06-22 07:21 | NUR ---
RT Pt received trach'd and on [facility] vent w charted settings. Vent is plugged into red outlet. Alarms are on and audible w doyle @ [employer]. Trach is secure and patent. Railroad Signal And Switch Operator done. Hhn tx given and pt sx'd w no adverse reactions. No respiratory distress noted at this time. Will continue to monitor. Addendum: 06/22/18 at 1005 by JUSTICE RAMIREZ RT Amended: Links added.
[2018-06-22 07:36] LABS: CALCIUM, SERUM 9.2 mg/dL (8.5-10.1); CREATININE 2.5 mg/dL (0.6-1.3); POTASSIUM 4.6 mmol/L (3.5-5.1)
[2018-06-22 07:39] LABS: BACTERIA,URINE Moderate /HPF (None Seen); SQUAMOUS EPITHELIAL CELL,UR Rare /HPF (None Seen); WBC,URINE 51-80 /HPF (0-3)
--- NOTE | 2018-06-22 07:43 | NUR ---
SWEDGER OPENING NOTES PATIENT IS STABLE CONDITION, IN NO APPARENT DISTRESS. BED RAILS UPX2, LOCKED AND AT LOWEST POSITION. IV LINE IS INTACT AND PATENT. CALL LIGHT IS WITHIN REACH. WILL CONTINUE TO MONITOR.
[2018-06-22 08:00] VITALS: BP 110/80
[2018-06-22] MEDS: FAMOTIDINE (20 MG) 20 MG TABLET GT SCH (08:55)
[2018-06-22] MEDS: CLOPIDOGREL BISULFATE 75 MG TABLET GT SCH (08:55)
[2018-06-22] MEDS: PROSOURCE / PROSTAT (PYXIS) 30 ML UDC GT SCH ×2 (08:56→16:42)
[2018-06-22] MEDS: AMIODARONE HCL 200 MG TABLET GT SCH (08:56)
[2018-06-22] MEDS: LACTOBACILLUS RHAMNOSUS GG 1 EACH CAP.SPRINK PO SCH ×2 (08:56→16:40)
[2018-06-22] MEDS: VIT B CMPLX 3/FA/VIT C/BIOTIN 1 TAB TABLET GT SCH (08:56)
[2018-06-22] MEDS: MIDODRINE HCL (5MG) 5 MG TABLET GT SCH ×2 (08:57→16:45)
[2018-06-22] MEDS: APIXABAN 2.5 MG TABLET GT SCH ×2 (08:59→16:40)
[2018-06-22] MEDS: LEVETIRACETAM SOL (5 ML) 100 MG/ML UDC GT SCH ×2 (09:03→16:41)
[2018-06-22] MEDS: CADEXOMER IODINE 40 GM TUBE TP SCH (09:04)
[2018-06-22] MEDS: MUPIROCIN OINT 2% 22 GM TUBE SCH (09:04)
[2018-06-22] MEDS: Z GUARD REMEDY 2 OZ OINT TP SCH (09:07)
[2018-06-22 10:23] LABS: OCCULT BLOOD STOOL NEGATIVE (NEGATIVE)
[2018-06-22 16:45] VITALS: BP 104/73
--- NOTE | 2018-06-22 18:18 | NUR ---
MS ASSOCIATE PROFESSOR OF BIBLICAL STUDIES NOTES DISCHARGED PATIENT IN STABLE CONDITION. IN NO APPARENT DISTRESS. EXITCARE WAS PROVIDED TO BRUNILDAKayce NAGY. IV LINE WAS REMOVED. ID BAND WAS REMOVED. ALL NEEDS WERE MET. BELONGINGS WERE CHECKED. PATIENT WAS ESCORTED OUT OF THE FACILITY BY EMT.
== END 2018-06-22 18:15 | DRG 264 ==
LOC: ER 18:44 → TELE 21:57
PROVIDERS: ADMIT Internal Medicine Nephrology; ATTEND Internal Medicine
PROC: 5A1955Z Respiratory Ventilation, Greater than 96 Consecutive Hours (ICD-10-PCS; principal; 2018-06-16)
PROC: 0JB70ZZ Excision of Back Subcutaneous Tissue and Fascia, Open Approach (ICD-10-PCS; 2018-06-17)
PROC: 0JB90ZZ Excision of Buttock Subcutaneous Tissue and Fascia, Open Approach (ICD-10-PCS; 2018-06-17)
PROC: 05H533Z Insertion of Infusion Device into Right Subclavian Vein, Percutaneous Approach (ICD-10-PCS; 2018-06-17)
PROC: B546ZZA Ultrasonography of Right Subclavian Vein, Guidance (ICD-10-PCS; 2018-06-17)
PROC: 5A1D70Z Performance of Urinary Filtration, Intermittent, Less than 6 Hours Per Day (ICD-10-PCS; 2018-06-18)
PROC: 5A1D70Z Performance of Urinary Filtration, Intermittent, Less than 6 Hours Per Day (ICD-10-PCS; 2018-06-19)
PROC: 30233N1 Transfusion of Nonautologous Red Blood Cells into Peripheral Vein, Percutaneous Approach (ICD-10-PCS; 2018-06-20)
PROC: 5A1D70Z Performance of Urinary Filtration, Intermittent, Less than 6 Hours Per Day (ICD-10-PCS; 2018-06-21)
DX: T82.41XA Breakdown (mechanical) of vascular dialysis catheter, initial encounter (principal); L89.153 Pressure ulcer of sacral region, stage 3; L89.323 Pressure ulcer of left buttock, stage 3; L89.313 Pressure ulcer of right buttock, stage 3; N18.6 End stage renal disease; J15.9 Unspecified bacterial pneumonia; I12.0 Hypertensive chronic kidney disease with stage 5 chronic kidney disease or end stage renal disease; J95.851 Ventilator associated pneumonia; G93.1 Anoxic brain damage, not elsewhere classified; J96.11 Chronic respiratory failure with hypoxia; Z99.11 Dependence on respirator [ventilator] status; J98.11 Atelectasis; Z79.01 Long term (current) use of anticoagulants; Y84.8 Other medical procedures as the cause of abnormal reaction of the patient, or of later complication, without mention of misadventure at the time of the procedure; Y82.9 Unspecified medical devices associated with adverse incidents; Y92.129 Unspecified place in nursing home as the place of occurrence of the external cause; E11.22 Type 2 diabetes mellitus with diabetic chronic kidney disease; Z99.2 Dependence on renal dialysis; Z93.0 Tracheostomy status; Z93.1 Gastrostomy status; Z87.440 Personal history of urinary (tract) infections; Z88.0 Allergy status to penicillin; Z79.4 Long term (current) use of insulin; L89.620 Pressure ulcer of left heel, unstageable; L98.8 Other specified disorders of the skin and subcutaneous tissue; I48.91 Unspecified atrial fibrillation; R13.10 Dysphagia, unspecified; Y83.3 Surgical operation with formation of external stoma as the cause of abnormal reaction of the patient, or of later complication, without mention of misadventure at the time of the procedure; Y82.8 Other medical devices associated with adverse incidents; E87.70 Fluid overload, unspecified; D64.9 Anemia, unspecified
CPT/HCPCS: 31720; 36415; 36569; 71045-TC; 80048-TC; 80053-TC; 80150; 80202-TC; 81000-TC; 82272-TC; 82728-TC; 82945-TC; 82962-TC; 83540-TC; 83735-TC; 84100-TC; 85025-TC; 85730-TC; 86850-TC; 86921-TC; 87040-TC; 87081-TC; 90935-TC; 94002-TC; 94003-TC; 94760-TC; 94761-TC; 94762-TC; 94799-TC; A4623; A6253; A6402; A6403; G0378; J0278; J0885; J1815; J1953; J1956; J2997; J3370; J7030; J7050; J7060; P9016-BL

== ENCOUNTER 2018-09-20 11:31 | Inpatient (IN) | payer MEDICARE, MEDICAID ==
[~2018-09-20] VITALS: Ht 177.8 cm; Wt 80.3 kg
[2018-09-20] VITALS (8 sets, daily range): BP systolic 66–132; BP diastolic 28–61
[~2018-09-20 11:31] MED LIST changes: +ALBU2.5V13 NEB; +AMIK250V14 IJ; +COLL30OI TP; +FOLI0.8T23 GT; +INSU100I14 SQ; +INSU100I30 SQ; +IPRA0.2S9 NEB; +IPRA3AMP23 IH; +METR500T GT; -MICA100V IV; +PROT946L GT; -RXAMI XX; +VANC500F2 IV; +VIT1TABL46 GT
--- NOTE | 2018-09-20 11:50 | NUR ---
\PT BIBRA FROM [facility] FOR HYPOTENSION AND FEVER, PT AOX0, PT WITH F/C, RECTAL TUBE, MIDLINE ON LT UPPER ARM. PT ON MONITOR, PT TO BED 7, PENDING MD CARLTON
[2018-09-20] MEDS ORDERED: IV NS 0.9% 500 ML BAG IV ONE (12:00)
--- NOTE | 2018-09-20 12:05 | NUR ---
RT Pt brought into ER with a Portex 7 trach on the vent with noted settings by transport RT. Pt does not follow commands at this time. Vent alarms are set and audible with BVM by bedside. QUALITY ASSURANCE MONITOR CHASSIS cuff pressure noted. Vent is plugged into red outlet. No respiratory distress noted at this time. Addendum: 09/20/18 at 1215 by JYOTI VERNON RT Amended: Links added.
[2018-09-20 12:19] LABS: BASOPHILS % (AUTO) 0.2 % (0.0-2.0); EOSINOPHILS % (AUTO) 1.7 % (0.0-6.0); HEMATOCRIT 22 % (39-51); LYMPHOCYTES # (AUTO) 0.6 /CMM (0.8-4.8); MEAN CORPUSCULAR HGB CONC 32 g/dl (31.0-36.0); MEAN CORPUSCULAR VOLUME 91 fL (80-96); MONOCYTES # (AUTO) 0.8 /CMM (0.1-1.30); MONOCYTES % (AUTO) 5.1 % (2.0-12.0); NEUTROPHILS # (AUTO) 14.3 /CMM (1.8-8.9); PLATELET COUNT (AUTO) 108 /CMM (150-450)
[2018-09-20 12:22] LABS: CARBON DIOXIDE 28 mmol/L (21-32); CHLORIDE 98 mmol/L (98-107); POTASSIUM 3.9 mmol/L (3.5-5.1); SODIUM SERUM 133 mmol/L (136-145)
[2018-09-20 12:23] LABS: CALCIUM, SERUM 10.1 mg/dL (8.5-10.1); GLUCOSE 193 mg/dL (74-106); UREA NITROGEN, BLOOD 55 mg/dL (7-18)
[2018-09-20 12:29] LABS: ALANINE AMINOTRANSFERASE 14 U/L (12-78); ALBUMIN 1.9 g/dL (3.4-5.0); ALKALINE PHOSPHATASE 303 U/L (46-116); ASPARTATE AMINOTRANSFERASE 16 U/L (15-37); BILIRUBIN,DIRECT 0.2 mg/dL (0.0-0.2); BILIRUBIN,TOTAL 0.4 mg/dL (0.2-1.0); TOTAL PROTEIN, SERUM 6.9 g/dL (6.4-8.2)
[2018-09-20 12:31] LABS: HEMOGLOBIN 6.9 g/dL (13.5-17.5)
[2018-09-20 12:46] LABS: APPEARANCE,URINE Turbid (CLEAR); BILIRUBIN,URINE Negative (NEGATIVE); BLOOD, URINE Moderate Ery/uL (NEGATIVE); COLOR,URINE Light yellow (YELLOW); KETONES,URINE Negative (NEGATIVE); LEUKOCYTE ESTERASE ,URINE Large (NEGATIVE); NITRITE, URINE Negative (NEGATIVE); PROTEIN,URINE >=300 mg/dl (NEGATIVE); UGLUCOSE Negative (NEGATIVE); UROBILINOGEN,URINE 0.2 EU/dL (0.2)
[2018-09-20 12:58] LABS: WBC,URINE TOO NUMEROUS TO COUN /HPF (0-3)
[2018-09-20 13:00] LABS: BACTERIA,URINE Many /HPF (None Seen)
[2018-09-20 13:01] LABS: RBC,URINE 21-50 /HPF (0-2); SQUAMOUS EPITHELIAL CELL,UR None Seen /HPF (None Seen)
[2018-09-20 13:02] LABS: URINE AMORPHOUS URATE Few /HPF (None Seen)
[2018-09-20 13:22] LABS: BAND % (MANUAL) 2 % (0.0-5.0); LYMPHOCYTES % (MANUAL) 5 % (16-48); MONOCYTES % (MANUAL) 4 % (0-11.0); NEUTROPHILS % (MANUAL) 89 (42-76)
--- NOTE | 2018-09-20 13:49 | NUR ---
GOT BED 116-2
[2018-09-20] MEDS ORDERED: MEROPENEM 1 G in IV NS 0.9% 100 ML IV ONE (14:00)
--- NOTE | 2018-09-20 14:38 | NUR ---
CALLED [facility] [phone] JOSEFA GAVE IT TO [facility]... [facility] PAGED
--- NOTE | 2018-09-20 15:03 | NUR ---
VENT SETTINGS: 10/450/5 40%
--- NOTE | 2018-09-20 15:22 | NUR ---
BLOOD TRANSFUSION CONSENT SIGNED BY BEV QUEVEDO, DR BETANCUR. PT UNABLE TO SIGN
--- NOTE | 2018-09-20 15:22 | NUR ---
REPORT GIVEN TO MEGAN LYNCH FOR JODEE; PT WILL BE TRANSPORTED TO [facility] VIA [facility]S PROTOCOL
--- NOTE | 2018-09-20 17:00 | NUR ---
REVERBERATORY FURNACE OPERATOR NOTE RECEIVED PATIENT FROM ER WITH DX SEPSIS UNDER CARE DR PEDRO CHAO , AWAKE WITH TRACH TO VENT SETTING ORDERED ,AMBU BAG AT HOB , AT BEDSIDE , DR WARD AT BEDSIDE SACRAL DEBRIDEMENT DONE CONSENT OBTAINED THOUGH TELEPHONE SPOKE WITH ROSARIO, WITH HUERTAS CATH TO GRAVITY AND RECTAL TUBE WITH BROWN COLOR LIMPID JOVANNI NOTED , LT UPPER ARM MID LINE IN PLACE , G TUBE IN PLACE , ON TELE MONITOR SR 105 , BED IN LOWEST AND LOCKED PSOITIS, RT AT BEDSIDE TRACH SUCTION DONE WILL CONT TO MONITOR Addendum: 09/20/18 at 1920 by SYED CROWE RN CORRECTION IN SPELLING WITH LIQUID STOOL
--- NOTE | 2018-09-20 17:49 | NUR ---
SALES LEDGER CLERK NOTE SPKE WITH PEDRO KULKARNI DNP NOTIFIED THAT WE NEED ADMISSION ORDERS, STATED THAT WILL PLACE SOON , SIGNED CONSENT FOR HD TX AND BLOOD TRANSFUSION T
--- NOTE | 2018-09-20 18:40 | NUR ---
LOG PEELER NOTE CALLED TO [facility] AND LEFT A MESSAGE TO PEDRO KULKARNI DNP AGAIN FOR ADMISSION ORDER AND TO VERIFY BLOOD TRANSFUSION ORDER FROM ER
--- NOTE | 2018-09-20 18:47 | NUR ---
HOME IMPROVEMENT ADVISOR NOTE PEDRO CHAO DNP CALLED BACK STATED THAT WILL PLACE ADMISSION ORDERS SOON, HE IS WORKING ON IT ,ALSO OK TO TRANSFUSE 1 UNIT PRBC HG 6.9 ORDER FROM ER Addendum: 09/20/18 at 1918 by SYED CROWE RN ENDORSED TO SALES DATA ANALYST RN TO TRANSFUSE 1 UNIT PRBC TODAY
--- NOTE | 2018-09-20 19:43 | NUR ---
PATIENT RECEIVED TRACHED PORTEX 7 ON MECHANICAL VENTILATION WITH NOTED SETTINGS. PT IS OBTUNDED AND RESPOND TO STIMULI WHEN SUCTION. AMBU BAG @ BEDSIDE. VENT PLUGGED TO RED OUTLET. ALARMS ON AND AUDIBLE. SUCTIONED SMALL AMOUNT OF PALE YELLOW THICK SECRETIONS. PATIENT STABLE AND NO RESPIRATORY DISTRESS NOTED AT THIS TIME. WILL MONITOR T/O SHIFT.
[2018-09-20] MEDS ORDERED: DEXTROSE 50%-WATER 50 ML DISP.SYRIN IV PRN (20:00)
[2018-09-20] MEDS ORDERED: NEPRO VAN 237 ML CAN GT SCH (20:00)
[2018-09-20] MEDS ORDERED: ONDANSETRON HCL/PF 4 MG/2 ML VIAL IVP PRN (20:00)
[2018-09-20] MEDS ORDERED: FEE PK DOSING 1 MIN EA MC ONE (20:03)
--- NOTE | 2018-09-20 20:50 | NUR ---
RUBY ON RAILS WEB DEVELOPER OPENING NOTES RECEIVED REPORT FROM SYED GUZMAN. PATIENT OBTUNDED BUT RESPONDS TO TACTILE STIMULI. BREATHING EVEN & UNLABORED, TOLERATING VENT SETTINGS AC 10, TV 450, FIO2 40%, PEEP 5. NO RESPIRATORY DISTRESS NOTED. ON TELE W/ CONTROLLED A-FIB & BBB, HR 83. NO S/S OF RESPIRATORY DISTRESS NOTED. RIGHT UPPER ARM MIDLINE INTACT & PATENT W/ DRESSING CDI & RIGHT CHEST WALL HD CATH IN PLACE, NO SIGNS OF COMPLICATION NOTED. G-TUBE PATENT & FLUSHING WELL, HUERTAS CATH DRAINING YELLOW URINE & FLEXISEAL W/ LIQUID BROWN STOOL. SAFETY MEASURES IN PLACE W/ SIDE RAILS UP & BED ALARM ON. WILL CONTINUE TO MONITOR & CARRY OUT ALL ADMISSION ORDERS.
[2018-09-20] MEDS ORDERED: VANCOMYCIN 1 GM in IV D5W 250 ML IV PRN (21:00)
--- NOTE | 2018-09-20 21:30 | NUR ---
PREP COOK NOTES ONE UNIT PRBC TRANSFUSION STARTED. CHECKED & VERIFIED W/ 2ND RN. VSS. WILL MONITOR FOR ADVERSE REACTIONS.
[2018-09-20] MEDS: ACETAMINOPHEN 325 MG TABLET PO PRN (21:33)
[2018-09-20] MEDS: CEFEPIME 1 GM in IV NS 0.9% 50 ML IV SCH (22:06)
[2018-09-20] MEDS: INSULIN LISPRO/ASPART 100 UNIT/ML CARTRIDGE SQ SCH (22:07)
[2018-09-20] MEDS: Z GUARD REMEDY 2 OZ OINT TP SCH (22:07)
[2018-09-20] MEDS: INSULIN GLARGINE, 100 UNIT/ML CARTRIDGE SQ SCH (22:08)
--- NOTE | 2018-09-20 23:05 | NUR ---
2305 ACADEMIC ASSISTANT LUIS IN THE UNIT AND MADE AWARE OF PATIENT PERSISTENT LOW BP, 93/33 @ 2145, 74/34 @ 2220, 66/30 @ 2255, 78/34 @2300 WITH ORDER TO GIVE 250 ML NS BOLUS NOW. ORDER NOTED AND CARRIED OUT. PT. IN NO APPARENT DISTRESS, BLOOD TRANSFUSION IN PROGRESS WITH NO ADVERSE REACTION NOTED. WILL CONT. TO MONITOR CLOSELY.
[2018-09-20] MEDS ORDERED: IV NS 0.9% 250 ML BAG IV ONE (23:30)
[2018-09-21] VITALS (7 sets, daily range): BP systolic 82–120; BP diastolic 39–62
--- NOTE | 2018-09-21 00:15 | NUR ---
EQUIPMENT VALIDATION SPECIALIST NOTES 2100 HUMALOG 10 UNITS & 2200 LANTUS 20 UNITS GIVEN PRIOR TO MIDNIGHT BS. 0000 BS = 149. REGULAR INSULIN HELD FOR 0000. NO GTF RUNNING @ THIS TIME D/T FLUID OVERLOAD PRECAUTIONS. PATIENT IS ON HD & WAS NOT ABLE TO BE DIALYZED TODAY & RECEIVING 250 ML NS BOLUS & 300 ML PRBC. WILL CONTINUE TO MONITOR.
[2018-09-21] MEDS: BLOOD SUGAR DIAGNOSTIC 1 EACH STRIP IN SCH ×5 (00:39→23:40)
[2018-09-21] MEDS: INSULIN REGULAR, HUMAN 100 UNIT/ML 3 ML VIAL SQ PRN ×2 (00:39→06:01)
--- NOTE | 2018-09-21 00:40 | NUR ---
ASSISTANT ATHLETIC TRAINER NOTES PRBC TRANSFUSION ENDED W/ NO ADVERSE REACTIONS NOTED. VSS. BP IMPROVED 93/44, HR 61 S/P BLOOD TRANSFUSION & 250 ML NS BOLUS.
[2018-09-21] MEDS: INSULIN LISPRO/ASPART 100 UNIT/ML CARTRIDGE SQ SCH ×3 (05:00→21:46)
--- NOTE | 2018-09-21 07:10 | NUR ---
PARCEL CONTRACTOR OPENING NOTES PATIENT SLEEPING IN BED, OBTUNDED BUT RESPONDS TO TACTILE STIMULI. BREATHING EVEN & UNLABORED, TOLERATING VENT SETTINGS AC 10, TV 450, FIO2 40%, PEEP 5. ON TELE W/ CONTROLLED A-FIB & BBB, HR 87. NO S/S OF RESPIRATORY DISTRESS NOTED. RIGHT UPPER ARM MIDLINE INTACT & PATENT W/ DRESSING CDI & RIGHT CHEST WALL HD CATH IN PLACE, NO SIGNS OF COMPLICATION NOTED. G-TUBE PATENT & FLUSHING WELL. HUERTAS CATH DRAINING YELLOW URINE & FLEXISEAL W/ LIQUID BROWN STOOL. SAFETY MEASURES IN PLACE W/ SIDE RAILS UP & BED ALARM ON. WILL CONTINUE TO MONITOR PT CLOSELY.
--- NOTE | 2018-09-21 07:15 | NUR ---
STARTING SHEET TANK OPERATOR NOTES SIGNED POLST NOTED IN CHART FOR DNR. CODE STATUS CHANGED.
--- NOTE | 2018-09-21 07:30 | NUR ---
WOUND CARE CONSULT WOUND CARE RECEIVED CONSULT FOR MULTIPLE WOUNDS ON BODY. WOUND CARE WILL DEFER CONSULT AND ALL TREATMENT PLANS TO PLASTIC SURGICAL TEAM WHO ARE CURRENTLY FOLLOWING THIS PATIENT. PATIENT WITH CELI AT 9, ALL PRESSURE ULCER PREVENTION MEASURES ARE NOTED TO BE IN PLACE AT THIS TIME. WILL SEE PRN.
[2018-09-21 08:02] LABS: BASOPHILS # (AUTO) 0.1 /CMM (0.0-0.2); BASOPHILS % (AUTO) 0.4 % (0.0-2.0); EOSINOPHILS % (AUTO) 2.6 % (0.0-6.0); HEMATOCRIT 26 % (39-51); HEMOGLOBIN 8.6 g/dL (13.5-17.5); LYMPHOCYTES # (AUTO) 0.7 /CMM (0.8-4.8); LYMPHOCYTES % (AUTO) 4.6 % (20.0-44.0); MEAN CORPUSCULAR HGB CONC 33 g/dl (31.0-36.0); MEAN CORPUSCULAR VOLUME 90 fL (80-96); MONOCYTES # (AUTO) 0.7 /CMM (0.1-1.30); NEUTROPHILS # (AUTO) 12.4 /CMM (1.8-8.9); NEUTROPHILS % (AUTO) 87.4 % (43.0-81.0); PLATELET COUNT (AUTO) 97 /CMM (150-450); WHITE BLOOD COUNT (AUTO) 14.2 K/uL (4.3-11.0)
[2018-09-21 08:15] LABS: ALBUMIN 1.8 g/dL (3.4-5.0); BILIRUBIN,TOTAL 0.5 mg/dL (0.2-1.0); CALCIUM, SERUM 9.4 mg/dL (8.5-10.1); CREATININE 2.1 mg/dL (0.6-1.3); PHOSPHORUS 3.7 mg/dL (2.5-4.9); POTASSIUM 3.9 mmol/L (3.5-5.1); TOTAL PROTEIN, SERUM 6.8 g/dL (6.4-8.2)
[2018-09-21] MEDS: MIDODRINE HCL (5MG) 5 MG TABLET GT SCH ×2 (09:00→17:00)
[2018-09-21] MEDS: Z GUARD REMEDY 2 OZ OINT TP SCH ×2 (09:00→21:47)
[2018-09-21] MEDS: LEVETIRACETAM SOL (5 ML) 100 MG/ML UDC GT SCH ×2 (09:21→17:51)
[2018-09-21] MEDS: CLOPIDOGREL BISULFATE 75 MG TABLET GT SCH (09:23)
[2018-09-21] MEDS: FAMOTIDINE (20 MG) 20 MG TABLET GT SCH (09:23)
[2018-09-21] MEDS: AMIODARONE HCL 200 MG TABLET GT SCH (09:23)
[2018-09-21] MEDS ORDERED: EPOETIN ALFA (10,000 UNIT) 10,000 UNIT/ML VIAL IV ONE (09:30)
[2018-09-21] MEDS: APIXABAN 2.5 MG TABLET GT SCH ×2 (09:34→17:51)
[2018-09-21 10:08] LABS: EOSINOPHILS % (MANUAL) 4 % (0-4); LYMPHOCYTES % (MANUAL) 3 % (16-48); MONOCYTES % (MANUAL) 2 % (0-11.0); NEUTROPHILS % (MANUAL) 91 (42-76)
[2018-09-21] MEDS ORDERED: VANCOMYCIN 1 GM in IV D5W 250 ML IV ONE (10:30)
--- NOTE | 2018-09-21 11:15 | NUR ---
COLLATING MACHINE OPERATOR NOTES HEMODIALYSIS AT BEDSIDE. WILL HOLD MEDICATIONS DUE FOR NOW.
[2018-09-21] MEDS: DAKINS QUARTER STRENGTH (0.125%) 480 ML BOTTLE TOP SCH (11:17)
[2018-09-21] MEDS: THERAHONEY GEL 1.5 OZ TUBE TP SCH (11:17)
[2018-09-21] MEDS: Z GUARD REMEDY 2 OZ OINT TP PRN (11:18)
--- NOTE | 2018-09-21 12:15 | NUR ---
HUMAN RESOURCES BENEFITS MANAGER NOTES PATIENT'S BLOOD CULTURE POSITIVE; GRAM STAIN GRAM VARIABLE RODS PER BRIA FROM [facility] VIA PHONE CALL. MADE AWARE.
[2018-09-21] MEDS: ALBUMIN 25% 25 GM in PREMIX 1 EA IV SCH ×2 (12:45→21:42)
[2018-09-21] MEDS: NEPRO 1,000 ML BOTTLE GT PRN (12:45)
--- NOTE | 2018-09-21 17:23 | NUR ---
RT RECD PT TRACHED INTACT AND SECURED ON MECH VENT DAMIEN ORDERED SETTING ALARMS ON AND AUDIBLE BAG AND MASK AT HOB SX THICK YELLOW MOD AMOUNT OF SECRETIONS NO RESP DISTRESS THROUGHT SHIIFT WILL CONT TO MONITOR
[2018-09-21] MEDS: LACTOBACILLUS RHAMNOSUS GG 1 EACH CAP.SPRINK GT SCH (17:50)
--- NOTE | 2018-09-21 18:50 | NUR ---
CHECKED PATIENT BLOOD SUGAR AT 0530 AND IT WAS 68. ORANGE JUICE GIVEN. RECHECKED AND NOW IT IS 96. WILL CONT TO MONITOR.
--- NOTE | 2018-09-21 19:20 | NUR ---
SOCIAL MEDIA MARKETING MANAGER CLOSING NOTES PATIENT SLEEPING IN BED, OBTUNDED BUT RESPONDS TO TACTILE STIMULI. BREATHING EVEN & UNLABORED, TOLERATING VENT SETTINGS AC 10, TV 450, FIO2 40%, PEEP 5. ON TELE W/ CONTROLLED A-FIB & BBB, HR 80S. NO S/S OF RESPIRATORY DISTRESS NOTED. RIGHT UPPER ARM MIDLINE INTACT & PATENT W/ DRESSING CDI & RIGHT CHEST WALL HD CATH IN PLACE, NO SIGNS OF COMPLICATION NOTED. G-TUBE PATENT & FLUSHING WELL, NEPRO RUNNING AT 25ML/HR, RESIDUAL 100ML NOTED. HUERTAS CATH DRAINING YELLOW URINE & FLEXISEAL W/ LIQUID BROWN STOOL. SAFETY MEASURES IN PLACE W/ SIDE RAILS UP & BED ALARM ON. ENDORSED TO BOAT BUFFER PLASTIC NURSE FOR JODEE.
--- NOTE | 2018-09-21 19:38 | NUR ---
SAPPHIRE STYLUS GRINDER NOTE PATIENT RECEIVED IN BED OBTUNDED OPENS EYES TO SHAKING BUT NOT LIGHT TOUCH, PATIENT IN NO S/S OF DISTRESS. PATIENT TOLERATING VENT SETTINGS. BREATHING EVEN UNLABORED, SATURATION ABOVE 95%. HR ON THE MONITOR AFIB IN THE 70'S-80'S. PATIENT GTUBE FEEDING AT 40 MLS WITH 60 RESIDUAL NOTED. RN WILL CONT TO MONITOR. SAFETY PRECAUTIONS IN PLACE.
[2018-09-21] MEDS ORDERED: VANCOMYCIN 500 MG in IV D5W 100 ML IV PRN (20:00)
--- NOTE | 2018-09-21 20:22 | NUR ---
XEROX MACHINE ASSEMBLER NOTE PATIENT HYPOTENSIVE, MD AND TAPING SUPERVISOR AWARE. PATIENT AT BASELINE. SKIN WARM AND DRY NO S/S OF DISTRESS AT THIS TIME. Addendum: 09/21/18 at 2022 by SHARON WHITEHEAD RN Amended: Links added.
[2018-09-21] MEDS: CEFEPIME 1 GM in IV NS 0.9% 50 ML IV SCH (21:42)
[2018-09-21] MEDS: INSULIN GLARGINE, 100 UNIT/ML CARTRIDGE SQ SCH (21:46)
[2018-09-22] VITALS: BP 117/58
[2018-09-22 04:00] VITALS: BP 124/53
[2018-09-22] MEDS: INSULIN LISPRO/ASPART 100 UNIT/ML CARTRIDGE SQ SCH ×3 (05:00→21:00)
[2018-09-22] MEDS: BLOOD SUGAR DIAGNOSTIC 1 EACH STRIP IN SCH ×4 (05:19→23:28)
--- NOTE | 2018-09-22 05:19 | NUR ---
SILICA DRY PRESS HELPER NOTE PATIENT BLOOD SUGAR 68, HOLDING LISPRO, 30 CC OF ORANGE JUICE GIVEN GTUBE. WILL CHECK BLOOD SUGAR IN ONE HOUR.
--- NOTE | 2018-09-22 06:15 | NUR ---
METHOD CONSULTANT NOTE PATIENT BS RECHECKED 65 ANOTHER 30 CC OF OJ GIVEN.
[2018-09-22 06:35] LABS: CALCIUM, SERUM 8.8 mg/dL (8.5-10.1); PHOSPHORUS 3.3 mg/dL (2.5-4.9)
[2018-09-22 06:52] LABS: BASOPHILS % (AUTO) 0.2 % (0.0-2.0); EOSINOPHILS % (AUTO) 2.5 % (0.0-6.0); HEMATOCRIT 22 % (39-51); HEMOGLOBIN 7.3 g/dL (13.5-17.5); LYMPHOCYTES # (AUTO) 0.7 /CMM (0.8-4.8); LYMPHOCYTES % (AUTO) 4.9 % (20.0-44.0); MEAN CORPUSCULAR HGB CONC 33 g/dl (31.0-36.0); MEAN CORPUSCULAR VOLUME 90 fL (80-96); MONOCYTES # (AUTO) 0.9 /CMM (0.1-1.30); MONOCYTES % (AUTO) 6.5 % (2.0-12.0); NEUTROPHILS % (AUTO) 85.9 % (43.0-81.0); PLATELET COUNT (AUTO) 95 /CMM (150-450); RED BLOOD CELL COUNT(AUTO) 2.46 MIL/uL (4.5-6.0); WHITE BLOOD COUNT (AUTO) 13.9 K/uL (4.3-11.0)
--- NOTE | 2018-09-22 07:15 | NUR ---
LAPIDARIST OPENING NOTES RECEIVED REPORT FROM PM NURSE.PATIENT SLEEPING IN BED, OBTUNDED BUT RESPONDS TO TACTILE STIMULI. BREATHING EVEN & UNLABORED, TOLERATING VENT SETTINGS WELL. ON TELE W/ CONTROLLED A-FIB HR 70S. NO S/S OF RESPIRATORY DISTRESS NOTED. RIGHT UPPER ARM MIDLINE INTACT & PATENT W/ DRESSING CDI & RIGHT CHEST WALL HD CATH IN PLACE, NO SIGNS OF COMPLICATION NOTED. G-TUBE PATENT & FLUSHING WELL,. HUERTAS CATH DRAINING YELLOW URINE & FLEXI SEAL W/ LIQUID BROWN STOOL. SAFETY MEASURES IN PLACE W/ SIDE RAILS UP & BED ALARM ON.BED IS LOW AND IN LOCKED POSITION.WILL CONTINUE TO MONITOR.
[2018-09-22 08:00] VITALS: BP 104/65
[2018-09-22 08:35] LABS: EOSINOPHILS % (MANUAL) 1 % (0-4); LYMPHOCYTES % (MANUAL) 3 % (16-48); MONOCYTES % (MANUAL) 7 % (0-11.0); NEUTROPHILS % (MANUAL) 89 (42-76)
[2018-09-22] MEDS: ACETAMINOPHEN 325 MG TABLET PO PRN (09:40)
[2018-09-22] MEDS: AMIODARONE HCL 200 MG TABLET GT SCH (09:40)
[2018-09-22] MEDS: LEVETIRACETAM SOL (5 ML) 100 MG/ML UDC GT SCH ×2 (09:41→17:14)
[2018-09-22] MEDS: FAMOTIDINE (20 MG) 20 MG TABLET GT SCH (09:43)
[2018-09-22] MEDS: MIDODRINE HCL (5MG) 5 MG TABLET GT SCH ×2 (09:43→17:15)
[2018-09-22] MEDS: LACTOBACILLUS RHAMNOSUS GG 1 EACH CAP.SPRINK GT SCH ×2 (09:43→17:14)
[2018-09-22] MEDS: CLOPIDOGREL BISULFATE 75 MG TABLET GT SCH (09:43)
[2018-09-22] MEDS: APIXABAN 2.5 MG TABLET GT SCH ×2 (09:47→17:16)
[2018-09-22] MEDS: DAKINS QUARTER STRENGTH (0.125%) 480 ML BOTTLE TOP SCH (09:49)
[2018-09-22] MEDS: THERAHONEY GEL 1.5 OZ TUBE TP SCH (09:50)
[2018-09-22] MEDS: Z GUARD REMEDY 2 OZ OINT TP SCH ×2 (09:50→21:25)
[2018-09-22 12:00] VITALS: BP 103/57
[2018-09-22] MEDS: METOCLOPRAMIDE HCL 10 MG/2 ML VIAL IV SCH ×2 (12:47→17:14)
--- NOTE | 2018-09-22 13:00 | NUR ---
COOK SEAFOOD NOTE SEEN BY ,UPDATED ABOUT PATIENT CONDITION WITH LABS AND LOW BLOOD SUGAR.MADE AWARE ABOUT RESIDUAL, GOT NEW ORDERS.
--- NOTE | 2018-09-22 14:25 | NUR ---
KEY ATTENDANT NOTE RELAYED URINE CULTURE RESULT TO ,MADE AWARE THAT PATIENT HAS TEMP OF 1000.4F.GOT NEW ORDERS.WILL CONTINUE TO MONITOR.. Addendum: 09/22/18 at 1916 by BEKAH GORDON RN [email or web address]
[2018-09-22] MEDS ORDERED: COLISTIMETHATE SODIUM 150 MG in IV NS 0.9% 50 ML IV SCH (15:30)
[2018-09-22 16:00] VITALS: BP 131/82
[2018-09-22] MEDS ORDERED: LIDOCAINE 1%-EPI 1:100,000 20 ML VIAL TP ONE (16:00)
--- NOTE | 2018-09-22 16:00 | NUR ---
POWER BRAKE REBUILDER NOTE SEEN BY .MADE AWARE ABOUT SKIN DISCOLORATION WITH BLISTER ON LEFT LOWER LEG.GOT NEW ORDER TO APPLY MEPILEX.
[2018-09-22] MEDS: COLISTIMETHATE SODIUM 100 MG in IV NS 0.9% 50 ML IV SCH (17:45)
--- NOTE | 2018-09-22 19:19 | NUR ---
DISTRIBUTION WAREHOUSE MANAGER CLOSING NOTES PATIENT SLEEPING IN BED, OBTUNDED BUT RESPONDS TO TACTILE STIMULI. BREATHING EVEN & UNLABORED, TOLERATING VENT SETTINGS WELL. ON TELE W/ CONTROLLED A-FIB HR 70S. NO S/S OF RESPIRATORY DISTRESS NOTED. RIGHT UPPER ARM MIDLINE INTACT & PATENT W/ DRESSING CDI & RIGHT CHEST WALL HD CATH IN PLACE, NO SIGNS OF COMPLICATION NOTED. G-TUBE PATENT & FLUSHING WELL,WITH RESIDUAL OF 100ML DURING SHIFT .ON REGLAN. HUERTAS CATH DRAINING YELLOW URINE & FLEXI SEAL W/ LIQUID BROWN STOOL . SAFETY MEASURES IN PLACE W/ SIDE RAILS UP & BED ALARM ON.BED IS LOW AND IN LOCKED POSITION..ENDORSED TO PM NURSE FOR JODEE.
--- NOTE | 2018-09-22 19:40 | NUR ---
RN MS OPENING NOTES RECEIVED PT IN BED, SLEEPING, OBTUNDED UNABLE TO COMMUNICATE. BREATHING EVEN AND UNLABORED ON VENTILATOR, SETTINGS VERIFIED BY RT AT BEDSIDE. IN NO NO APPARENT PAIN OR DISCOMFORT AT THIS TIME. IV ACCESS ON THE RFA 20G PATENT AND FLUSHING, DANITA MIDLINE, RUC HD CATH. F/C CATH IN PLACE, FLEXISEAL IN PLACE. GTUBE SITE INTACT, FEEDING AT 40ML/HR. BED IN LOWEST LOCKED POSITION, CALL LIGHT WITHIN REACH AT ALL TIMES. WILL CONTINUE TO MONITOR FREQUENTLY
[2018-09-22 20:00] VITALS: BP 105/46
--- NOTE | 2018-09-22 21:24 | NUR ---
held insulin dose, pt feeding suspended, residual of >100ml, will continue when residual is <50ml
[2018-09-22] MEDS: CEFEPIME 1 GM in IV NS 0.9% 50 ML IV SCH (21:33)
[2018-09-22] MEDS: INSULIN GLARGINE, 100 UNIT/ML CARTRIDGE SQ SCH (22:00)
[2018-09-23] VITALS (10 sets, daily range): BP systolic 98–156; BP diastolic 51–86
[2018-09-23] MEDS: COLISTIMETHATE SODIUM 100 MG in IV NS 0.9% 50 ML IV SCH (04:01)
[2018-09-23] MEDS: INSULIN LISPRO/ASPART 100 UNIT/ML CARTRIDGE SQ SCH ×3 (05:00→21:00)
--- NOTE | 2018-09-23 05:55 | NUR ---
RT Pt trach remains on [facility] vent t/o the night. Pt trach secure and patent. Addendum: 09/23/18 at 0556 by NAIMA BRIAN RT Amended: Links added.
[2018-09-23] MEDS: BLOOD SUGAR DIAGNOSTIC 1 EACH STRIP IN SCH ×4 (06:09→22:51)
--- NOTE | 2018-09-23 06:10 | NUR ---
INSULIN NOTES ALL INSULIN HELD, PT NO TOLERATING GTUBE FEEDING WELL, ONE HOUR AT A TIME. LAST BG 127
--- NOTE | 2018-09-23 06:13 | NUR ---
FUTURES TRADER CLOSING NOTES PT REMAINS IN BED, SLEEPING, OBTUNDED UNABLE TO COMMUNICATE. BREATHING EVEN AND UNLABORED ON VENTILATOR, TOLERATING CURRENT SETTINGS. IN NO APPARENT PAIN OR DISCOMFORT AT THIS TIME. IV ACCESS ON THE RFA 20G PATENT AND FLUSHING, DANITA MIDLINE NOT FLUSHING, RUC HD CATH. F/C CATH IN PLACE, FLEXISEAL IN PLACE. GTUBE SITE INTACT, FEEDING AT 40ML/HR, TOLERATING FOR THE PAST HOUR, 2ML OR RESIDUAL. BED IN LOWEST LOCKED POSITION, CALL LIGHT WITHIN REACH AT ALL TIMES. WILL ENDORSE TO DAY NURSE FOR JODEE.
[2018-09-23 06:27] LABS: CALCIUM, SERUM 8.7 mg/dL (8.5-10.1); CREATININE 2.3 mg/dL (0.6-1.3); POTASSIUM 4.4 mmol/L (3.5-5.1)
[2018-09-23 07:19] LABS: BASOPHILS % (AUTO) 0.3 % (0.0-2.0); EOSINOPHILS % (AUTO) 2.5 % (0.0-6.0); HEMATOCRIT 26 % (39-51); HEMOGLOBIN 8.2 g/dL (13.5-17.5); LYMPHOCYTES # (AUTO) 0.8 /CMM (0.8-4.8); LYMPHOCYTES % (AUTO) 5.5 % (20.0-44.0); MEAN CORPUSCULAR HGB CONC 32 g/dl (31.0-36.0); MEAN CORPUSCULAR VOLUME 90 fL (80-96); MONOCYTES # (AUTO) 0.8 /CMM (0.1-1.30); MONOCYTES % (AUTO) 5.7 % (2.0-12.0); NEUTROPHILS # (AUTO) 11.8 /CMM (1.8-8.9); PLATELET COUNT (AUTO) 109 /CMM (150-450); RED BLOOD CELL COUNT(AUTO) 2.85 MIL/uL (4.5-6.0); WHITE BLOOD COUNT (AUTO) 13.7 K/uL (4.3-11.0)
[2018-09-23 07:48] LABS: BAND % (MANUAL) 6 % (0.0-5.0); LYMPHOCYTES % (MANUAL) 5 % (16-48); MONOCYTES % (MANUAL) 7 % (0-11.0); NEUTROPHILS % (MANUAL) 82 (42-76)
[2018-09-23] MEDS: AMIODARONE HCL 200 MG TABLET GT SCH ×2 (09:00→12:17)
[2018-09-23] MEDS: FAMOTIDINE (20 MG) 20 MG TABLET GT SCH (09:37)
[2018-09-23] MEDS: MIDODRINE HCL (5MG) 5 MG TABLET GT SCH ×2 (09:37→18:17)
[2018-09-23] MEDS: METOCLOPRAMIDE HCL 10 MG/2 ML VIAL IV SCH ×3 (09:37→18:19)
[2018-09-23] MEDS: LACTOBACILLUS RHAMNOSUS GG 1 EACH CAP.SPRINK GT SCH ×2 (09:37→18:18)
[2018-09-23] MEDS: CLOPIDOGREL BISULFATE 75 MG TABLET GT SCH (09:37)
[2018-09-23] MEDS: LEVETIRACETAM SOL (5 ML) 100 MG/ML UDC GT SCH ×2 (09:38→18:17)
--- NOTE | 2018-09-23 09:39 | NUR ---
Post dialysis will give amiodarone. Juan Carrasco RN
[2018-09-23] MEDS: APIXABAN 2.5 MG TABLET GT SCH ×2 (09:47→18:19)
[2018-09-23] MEDS: DAKINS QUARTER STRENGTH (0.125%) 480 ML BOTTLE TOP SCH (10:26)
[2018-09-23] MEDS: THERAHONEY GEL 1.5 OZ TUBE TP SCH (10:26)
[2018-09-23] MEDS: Z GUARD REMEDY 2 OZ OINT TP SCH ×2 (10:26→21:07)
[2018-09-23] MEDS ORDERED: EPOETIN ALFA (10,000 UNIT) 10,000 UNIT/ML VIAL IV ONE (15:00)
--- NOTE | 2018-09-23 18:30 | NUR ---
Endorsed to MEGAN Peterson, patient had wound care, accucheck, minimal residual, flexiseal, hemodialysis with 1 unit of packed red blood cells during HD. Patient tolerates fairly well with two person assist. Juan Carrasco RN
--- NOTE | 2018-09-23 19:23 | NUR ---
SUPERVISOR SHRIMP POND NOTES RECEIVED PT ON BED. OBTUNDED. ON MECH VENT NO RESPIRATORY DISTRESS NOTED. ON TELE MONITOR SR 62. IV ACCESS DANITA MIDLINE PATENT AND INTACT. HD ACCESS RCW NO BLEEDING NOTED. GTUBE FEEDING @ 40CC/HR NO RESIDUAL NOTED. ON F/C AND FLEXISEAL DRAINING WELL. HEAD OF BED ELEVATED. SIDE RAILS UP. CALL LIGHT WITHIN REACH. BED ALARM ON. WILL CONTINUE TO MONITOR PT CLOSELY.
[2018-09-23] MEDS: CEFEPIME 1 GM in IV NS 0.9% 50 ML IV SCH (21:45)
[2018-09-23] MEDS: COLISTIMETHATE SODIUM 150 MG in IV NS 0.9% 50 ML IV SCH (22:43)
[2018-09-23] MEDS: INSULIN GLARGINE, 100 UNIT/ML CARTRIDGE SQ SCH (22:49)
[2018-09-23] MEDS: INSULIN REGULAR, HUMAN 100 UNIT/ML 3 ML VIAL SQ PRN (22:53)
--- NOTE | 2018-09-23 23:22 | NUR ---
BASS STRING WINDER NOTES NO RESIDUAL NOTED. WILL GIVE INSULIN PER PROTOCOL.
[2018-09-24] VITALS (7 sets, daily range): BP systolic 93–150; BP diastolic 34–68
--- NOTE | 2018-09-24 01:00 | NUR ---
TRACK RIDER NOTES SCHEDULED INSULIN NOT GIVEN. PT ON GTUBE FEEDING @45CC/HR WITH Q6H INSULIN COVERAGE. WILL F/U IN AM REGARDING INSULIN ORDER.
--- NOTE | 2018-09-24 04:05 | NUR ---
RT Pt remains on [facility] vent. Addendum: 09/24/18 at 0405 by NAIMA BRIAN RT Amended: Links added.
[2018-09-24] MEDS: INSULIN LISPRO/ASPART 100 UNIT/ML CARTRIDGE SQ SCH ×3 (05:00→21:21)
[2018-09-24] MEDS: INSULIN REGULAR, HUMAN 100 UNIT/ML 3 ML VIAL SQ PRN ×2 (05:03→11:53)
[2018-09-24] MEDS: BLOOD SUGAR DIAGNOSTIC 1 EACH STRIP IN SCH ×3 (05:03→17:49)
[2018-09-24 06:49] LABS: BASOPHILS % (AUTO) 0.3 % (0.0-2.0); EOSINOPHILS % (AUTO) 3.3 % (0.0-6.0); HEMATOCRIT 29 % (39-51); HEMOGLOBIN 9.3 g/dL (13.5-17.5); LYMPHOCYTES # (AUTO) 0.6 /CMM (0.8-4.8); LYMPHOCYTES % (AUTO) 4.9 % (20.0-44.0); MEAN CORPUSCULAR HGB CONC 32 g/dl (31.0-36.0); MEAN CORPUSCULAR VOLUME 90 fL (80-96); MONOCYTES # (AUTO) 0.8 /CMM (0.1-1.30); MONOCYTES % (AUTO) 5.9 % (2.0-12.0); NEUTROPHILS # (AUTO) 11.2 /CMM (1.8-8.9); NEUTROPHILS % (AUTO) 85.6 % (43.0-81.0); PLATELET COUNT (AUTO) 109 /CMM (150-450); RED BLOOD CELL COUNT(AUTO) 3.21 MIL/uL (4.5-6.0); WHITE BLOOD COUNT (AUTO) 13.1 K/uL (4.3-11.0)
[2018-09-24 07:10] LABS: ALBUMIN 1.9 g/dL (3.4-5.0); BILIRUBIN,TOTAL 0.5 mg/dL (0.2-1.0); CALCIUM, SERUM 9.3 mg/dL (8.5-10.1); CREATININE 2.1 mg/dL (0.6-1.3); MAGNESIUM 2.1 mg/dL (1.8-2.4); PHOSPHORUS 3.8 mg/dL (2.5-4.9); POTASSIUM 4.1 mmol/L (3.5-5.1); TOTAL PROTEIN, SERUM 6.8 g/dL (6.4-8.2)
--- NOTE | 2018-09-24 07:33 | NUR ---
NUTRITION EDUCATOR NOTES NO ACUTE CHANGES NOTED DURING THE SHIFT. NO RESIDUAL NOTED IN G TUBE FEEDING. WILL ENDORSE TO THE AM NURSE FOR CONTINUITY OF CARE.
[2018-09-24 09:06] LABS: BAND % (MANUAL) 4 % (0.0-5.0); EOSINOPHILS % (MANUAL) 4 % (0-4); LYMPHOCYTES % (MANUAL) 5 % (16-48); MONOCYTES % (MANUAL) 2 % (0-11.0); NEUTROPHILS % (MANUAL) 85 (42-76)
[2018-09-24] MEDS: LACTOBACILLUS RHAMNOSUS GG 1 EACH CAP.SPRINK GT SCH ×2 (09:19→17:16)
[2018-09-24] MEDS: MIDODRINE HCL (5MG) 5 MG TABLET GT SCH ×2 (09:19→17:17)
[2018-09-24] MEDS: AMIODARONE HCL 200 MG TABLET GT SCH (09:20)
[2018-09-24] MEDS: APIXABAN 2.5 MG TABLET GT SCH ×2 (09:21→17:30)
[2018-09-24] MEDS: METOCLOPRAMIDE HCL 10 MG/2 ML VIAL IV SCH ×3 (09:21→17:17)
[2018-09-24] MEDS: FAMOTIDINE (20 MG) 20 MG TABLET GT SCH (09:23)
[2018-09-24] MEDS: CLOPIDOGREL BISULFATE 75 MG TABLET GT SCH (09:23)
[2018-09-24] MEDS: LEVETIRACETAM SOL (5 ML) 100 MG/ML UDC GT SCH ×2 (09:23→17:17)
[2018-09-24] MEDS: THERAHONEY GEL 1.5 OZ TUBE TP SCH (09:54)
[2018-09-24] MEDS: DAKINS QUARTER STRENGTH (0.125%) 480 ML BOTTLE TOP SCH (09:54)
[2018-09-24] MEDS: Z GUARD REMEDY 2 OZ OINT TP PRN (09:54)
[2018-09-24] MEDS: Z GUARD REMEDY 2 OZ OINT TP SCH ×2 (09:55→21:23)
--- NOTE | 2018-09-24 17:47 | NUR ---
RT Patient received trach'd and on [facility] vent w ordered settings. Alarms are set and audible. Vent is plugged into red outlet w [facility] @ [facility]. Pt trach is secure and patent. Director Translation and Sx done w no adverse reactions. No respiratory distress noted t/o shift. Will continue to monitor. Addendum: 09/24/18 at 1754 by JUSTICE RAMIREZ RT Amended: Links added.
--- NOTE | 2018-09-24 18:17 | NUR ---
Wound care per care plan orders, patient trach and oral care, complete bed bath and frequent every two hour repositioning this shift. Will endorse for next RN shift. Juan Carrasco RN
--- NOTE | 2018-09-24 19:40 | NUR ---
[facility] RN NOTES RECEIVED PT ON BED. OBTUNDED. ON MECH VENT, NO RESPIRATORY DISTRESS NOTED. ON TELE MONITOR AFIB/AFLUTTER WITH HR OF 75. IV ACCESS DANITA MIDLINE IS LEAKING, RIGHT WRIST IV LINE IS PATIENT AND INTACT SL. HD ACCESS RCW NO BLEEDING NOTED. G TUBE FEEDING @ 45ML/HR NO RESIDUAL NOTED. ON F/C AND FLEXISEAL DRAINING WELL. HEAD OF BED ELEVATED AT ALL TIME. SIDE RAILS UP. CALL LIGHT WITHIN REACH. BED ALARM ON. WILL CONTINUE TO MONITOR PT CLOSELY.
--- NOTE | 2018-09-24 20:34 | NUR ---
RN NOTE SPOKE TO JEFFREY, PHARMACISTS TO CLARIFY COLISTIMETHATE SODIUM ORDER; ORDER WAS TO GIVE Q 24 HRS AND GIVE AFTER DIALYSIS ON DIALYSIS DAYS. PER JEFFREY; IT CAN BE GIVEN ON DIALYSIS DAYS ONLY ; TO HOLD TONIGHT'S DOSE AND VERIFY WITH MD IN THE MORNING. TRAY PRIMARY RN MADE AWARE
[2018-09-24] MEDS ORDERED: LINEZOLID RTU BAG 600 MG in PREMIX 1 EA IV SCH (21:00)
[2018-09-24] MEDS: INSULIN GLARGINE, 100 UNIT/ML CARTRIDGE SQ SCH (21:21)
[2018-09-24] MEDS: CEFEPIME 1 GM in IV NS 0.9% 50 ML IV SCH (21:23)
[2018-09-24] MEDS ORDERED: LINEZOLID RTU BAG 300 ML IV ONE (21:45)
[2018-09-24] MEDS: LINEZOLID RTU BAG 600 MG in PREMIX 1 EA IV SCH (22:06)
[2018-09-24] MEDS: COLISTIMETHATE SODIUM 150 MG in IV NS 0.9% 50 ML IV SCH (23:00)
[2018-09-25] VITALS: BP 123/63
[2018-09-25] MEDS: BLOOD SUGAR DIAGNOSTIC 1 EACH STRIP IN SCH ×4 (00:40→17:36)
[2018-09-25] MEDS: INSULIN REGULAR, HUMAN 100 UNIT/ML 3 ML VIAL SQ PRN ×5 (00:48→23:00)
[2018-09-25 04:00] VITALS: BP 113/67
[2018-09-25] MEDS: INSULIN LISPRO/ASPART 100 UNIT/ML CARTRIDGE SQ SCH ×3 (05:39→21:19)
--- NOTE | 2018-09-25 07:15 | NUR ---
[facility] RN CLOSING NOTES PT REMAINS IN BED, SLEEPING, OBTUNDED UNABLE TO COMMUNICATE. BREATHING EVEN AND UNLABORED ON VENTILATOR, TOLERATING CURRENT SETTINGS. IN NO APPARENT PAIN OR DISCOMFORT AT THIS TIME. IV ACCESS ON THE RFA 20G PATENT AND FLUSHING, DANITA MIDLINE NOT FLUSHING, RUC HD CATH. HUERTAS CATH IN PLACE DRAINING YELLOW CLOUDY URINE WITH SEDIMENTS, FLEXISEAL IN PLACE. G TUBE SITE INTACT, FEEDING AT 45ML/HR. BED IN LOWEST LOCKED POSITION, CALL LIGHT WITHIN REACH AT ALL TIMES. WILL ENDORSE TO DAY NURSE FOR JODEE.
[2018-09-25 07:34] LABS: BASOPHILS % (AUTO) 0.2 % (0.0-2.0); EOSINOPHILS % (AUTO) 2.5 % (0.0-6.0); HEMATOCRIT 29 % (39-51); HEMOGLOBIN 9.1 g/dL (13.5-17.5); LYMPHOCYTES # (AUTO) 0.9 /CMM (0.8-4.8); LYMPHOCYTES % (AUTO) 5.5 % (20.0-44.0); MEAN CORPUSCULAR HGB CONC 32 g/dl (31.0-36.0); MEAN CORPUSCULAR VOLUME 90 fL (80-96); MONOCYTES # (AUTO) 0.6 /CMM (0.1-1.30); MONOCYTES % (AUTO) 3.9 % (2.0-12.0); NEUTROPHILS # (AUTO) 13.7 /CMM (1.8-8.9); NEUTROPHILS % (AUTO) 87.9 % (43.0-81.0); PLATELET COUNT (AUTO) 110 /CMM (150-450); WHITE BLOOD COUNT (AUTO) 15.6 K/uL (4.3-11.0)
[2018-09-25 07:49] LABS: CALCIUM, SERUM 9.8 mg/dL (8.5-10.1); CREATININE 2.3 mg/dL (0.6-1.3); MAGNESIUM 2.1 mg/dL (1.8-2.4); PHOSPHORUS 3.9 mg/dL (2.5-4.9); POTASSIUM 4.1 mmol/L (3.5-5.1)
[2018-09-25 08:00] VITALS: BP 143/64
[2018-09-25] MEDS: AMIODARONE HCL 200 MG TABLET GT SCH (08:50)
[2018-09-25] MEDS: LEVETIRACETAM SOL (5 ML) 100 MG/ML UDC GT SCH ×2 (08:50→16:43)
[2018-09-25] MEDS: CLOPIDOGREL BISULFATE 75 MG TABLET GT SCH (08:50)
[2018-09-25] MEDS: FAMOTIDINE (20 MG) 20 MG TABLET GT SCH (08:50)
[2018-09-25] MEDS: MIDODRINE HCL (5MG) 5 MG TABLET GT SCH ×2 (08:50→16:43)
[2018-09-25] MEDS: LACTOBACILLUS RHAMNOSUS GG 1 EACH CAP.SPRINK GT SCH ×2 (08:51→16:43)
[2018-09-25] MEDS: METOCLOPRAMIDE HCL 10 MG/2 ML VIAL IV SCH ×3 (08:51→16:43)
[2018-09-25] MEDS: APIXABAN 2.5 MG TABLET GT SCH ×2 (08:55→16:59)
[2018-09-25] MEDS: LINEZOLID RTU BAG 600 MG in PREMIX 1 EA IV SCH ×2 (08:55→21:14)
[2018-09-25] MEDS: Z GUARD REMEDY 2 OZ OINT TP SCH ×2 (09:20→21:22)
[2018-09-25] MEDS: DAKINS QUARTER STRENGTH (0.125%) 480 ML BOTTLE TOP SCH (09:20)
[2018-09-25] MEDS: THERAHONEY GEL 1.5 OZ TUBE TP SCH (09:20)
[2018-09-25 12:00] VITALS: BP 108/61
[2018-09-25 16:00] VITALS: BP 120/65
--- NOTE | 2018-09-25 18:51 | NUR ---
Trach and oral care per protocol. Repositioning every two hours. Hemodialysis this day with 2 L out. Afterward blood pressure was 101/36 and pulse was 84. Patient wound care per care plan. Complete linen change. Given new altamirano catheter. Will endorse urine specimen collection per order is from the new altamirano when sample becomes available. Patient to have IV antibiotic schedule tonight per pharmacy at 2300. Clarified with Pharmacist this day. It is given only on dialysis days after dialysis at the time scheduled in the eMAR. Will endorse to oncoming registered nurse. Juan Carrasco RN
[2018-09-25 20:00] VITALS: BP 119/57
--- NOTE | 2018-09-25 20:00 | NUR ---
[facility] RN NOTES RECEIVED PT ON BED. OBTUNDED. ON MECH VENT, NO RESPIRATORY DISTRESS NOTED. ON TELE MONITOR AFIB/AFLUTTER WITH HR OF 78. IV ACCESS DANITA MIDLINE IS LEAKING, RIGHT WRIST IV LINE IS PATIENT AND INTACT SL. HD ACCESS RCW NO BLEEDING NOTED. G TUBE FEEDING @ 45ML/HR NO RESIDUAL NOTED. ON NEW F/C AND FLEXISEAL DRAINING WELL. HEAD OF BED ELEVATED AT ALL TIME. SIDE RAILS UP. CALL LIGHT WITHIN REACH. BED ALARM ON. WILL CONTINUE TO MONITOR PT CLOSELY.
--- NOTE | 2018-09-25 20:24 | NUR ---
RT Patient rec'd trach'd and on [facility] vent w ordered settings. Alarms are set and audible. Vent is plugged into red outlet with [facility] @ [place]. Pt trach is secure and patent. Digital Recruiter and Sx done w no adverse reactions. No respiratory distress noted at this time. Will continue to monitor. Addendum: 09/25/18 at 2026 by JANETTE BIRMINGHAM RT Amended: Links added.
[2018-09-25] MEDS: CEFEPIME 1 GM in IV NS 0.9% 50 ML IV SCH (22:55)
[2018-09-25] MEDS: INSULIN GLARGINE, 100 UNIT/ML CARTRIDGE SQ SCH (22:59)
[2018-09-26] VITALS: BP 117/50
[2018-09-26 00:28] LABS: APPEARANCE,URINE CLOUDY (CLEAR); BILIRUBIN,URINE NEGATIVE (NEGATIVE); BLOOD, URINE 3+ Ery/uL (NEGATIVE); COLOR,URINE YELLOW (YELLOW); KETONES,URINE NEGATIVE (NEGATIVE); LEUKOCYTE ESTERASE ,URINE 2+ (NEGATIVE); NITRITE, URINE NEGATIVE (NEGATIVE); PROTEIN,URINE 3+ mg/dl (NEGATIVE); UGLUCOSE NEGATIVE (NEGATIVE); UROBILINOGEN,URINE 0.2 EU/dL (0.2)
[2018-09-26] MEDS: COLISTIMETHATE SODIUM 150 MG in IV NS 0.9% 50 ML IV SCH ×2 (00:31→23:00)
[2018-09-26] MEDS: BLOOD SUGAR DIAGNOSTIC 1 EACH STRIP IN SCH ×4 (00:32→18:03)
[2018-09-26] MEDS: INSULIN REGULAR, HUMAN 100 UNIT/ML 3 ML VIAL SQ PRN ×2 (00:41→18:24)
[2018-09-26 00:57] LABS: WBC,URINE TOO NUMEROUS TO COUN /HPF (0-3)
[2018-09-26 00:58] LABS: BACTERIA,URINE Moderate /HPF (None Seen); RBC,URINE 21-50 /HPF (0-2); SQUAMOUS EPITHELIAL CELL,UR Rare /HPF (None Seen); YEAST,URINE Rare /HPF (None Seen)
[2018-09-26 04:00] VITALS: BP 117/64
[2018-09-26] MEDS: INSULIN LISPRO/ASPART 100 UNIT/ML CARTRIDGE SQ SCH ×3 (05:51→21:45)
--- NOTE | 2018-09-26 07:00 | NUR ---
[facility] RN CLOSING NOTES PT REMAINS IN BED, SLEEPING, OBTUNDED UNABLE TO COMMUNICATE. BREATHING EVEN AND UNLABORED ON VENTILATOR, TOLERATING CURRENT SETTINGS. IN NO APPARENT PAIN OR DISCOMFORT AT THIS TIME. IV ACCESS ON THE RFA 20G PATENT AND FLUSHING, DANITA MIDLINE NOT FLUSHING, RUC HD CATH. HUERTAS CATH IN PLACE DRAINING YELLOW CLOUDY URINE WITH SEDIMENTS, FLEXISEAL IN PLACE. G TUBE SITE INTACT, FEEDING AT 45ML/HR. WOUND CARE PROVIDED ORDERED. BED IN LOWEST LOCKED POSITION, CALL LIGHT WITHIN REACH AT ALL TIMES. WILL ENDORSE TO DAY NURSE FOR JODEE.
[2018-09-26 07:03] LABS: BASOPHILS % (AUTO) 0.3 % (0.0-2.0); EOSINOPHILS % (AUTO) 2.6 % (0.0-6.0); HEMATOCRIT 25 % (39-51); LYMPHOCYTES # (AUTO) 0.7 /CMM (0.8-4.8); LYMPHOCYTES % (AUTO) 4.6 % (20.0-44.0); MEAN CORPUSCULAR HGB CONC 32 g/dl (31.0-36.0); MEAN CORPUSCULAR VOLUME 90 fL (80-96); MONOCYTES # (AUTO) 0.7 /CMM (0.1-1.30); MONOCYTES % (AUTO) 4.7 % (2.0-12.0); NEUTROPHILS # (AUTO) 13.6 /CMM (1.8-8.9); NEUTROPHILS % (AUTO) 87.8 % (43.0-81.0); PLATELET COUNT (AUTO) 104 /CMM (150-450); RED BLOOD CELL COUNT(AUTO) 2.77 MIL/uL (4.5-6.0); WHITE BLOOD COUNT (AUTO) 15.5 K/uL (4.3-11.0)
[2018-09-26 07:18] LABS: CALCIUM, SERUM 9.5 mg/dL (8.5-10.1); CREATININE 1.8 mg/dL (0.6-1.3); MAGNESIUM 1.9 mg/dL (1.8-2.4); PHOSPHORUS 2.6 mg/dL (2.5-4.9); POTASSIUM 3.4 mmol/L (3.5-5.1)
--- NOTE | 2018-09-26 07:30 | NUR ---
FIELD ARTILLERY TARGETING TECHNICIAN NOTES RECEIVED PT IN BED, OBTUNDED. TRACH TO VENT SETTINGS MD ORDERED. ON TELE MONITOR CONTROLLED AFIB. F/C AND FLEXISEAL IN PLACE. NEPRO RUNNING AT 50 CC/HR. DANITA MIDLINE LEAKING/ RCW HD CATH, RFA SL #20. PERIPHERAL PULSES WEAK AND THREADY. ISOLATION PRECAUTIONS MAINTAINED. BED IN LOCKED/LOWEST POSITION. CALL LIGHT IN REACH. WILL CONT TO MONITOR.
[2018-09-26 08:00] VITALS: BP 98/53
[2018-09-26] MEDS: AMIODARONE HCL 200 MG TABLET GT SCH (08:56)
[2018-09-26] MEDS: FAMOTIDINE (20 MG) 20 MG TABLET GT SCH (08:57)
[2018-09-26] MEDS: MIDODRINE HCL (5MG) 5 MG TABLET GT SCH ×2 (08:57→16:45)
[2018-09-26] MEDS: LEVETIRACETAM SOL (5 ML) 100 MG/ML UDC GT SCH ×2 (08:57→16:39)
[2018-09-26] MEDS: CLOPIDOGREL BISULFATE 75 MG TABLET GT SCH (08:57)
[2018-09-26] MEDS: LACTOBACILLUS RHAMNOSUS GG 1 EACH CAP.SPRINK GT SCH ×2 (08:57→16:45)
[2018-09-26] MEDS: METOCLOPRAMIDE HCL 10 MG/2 ML VIAL IV SCH ×3 (08:58→16:39)
[2018-09-26] MEDS: LINEZOLID RTU BAG 600 MG in PREMIX 1 EA IV SCH ×2 (08:59→21:29)
[2018-09-26] MEDS: APIXABAN 2.5 MG TABLET GT SCH ×2 (08:59→16:38)
[2018-09-26] MEDS: Z GUARD REMEDY 2 OZ OINT TP SCH ×2 (09:22→21:44)
[2018-09-26] MEDS: DAKINS QUARTER STRENGTH (0.125%) 480 ML BOTTLE TOP SCH (09:22)
[2018-09-26] MEDS: THERAHONEY GEL 1.5 OZ TUBE TP SCH (09:23)
--- NOTE | 2018-09-26 10:44 | NUR ---
MEDICAL ADMINISTRATIVE TECHNICIAN NOTES NA CALLED TO NOTIFY OF PT POSITIVE RESULT FOR CRE. WILL NOTIFY
[2018-09-26 12:00] VITALS: BP 105/68
[2018-09-26] MEDS: NEPRO 1,000 ML BOTTLE GT PRN (13:33)
--- NOTE | 2018-09-26 14:25 | NUR ---
PAINTER BARREL NOTES PHARMACY CALLED TO NOTIFY ME OF SOYBEAN ALLERGY AND NEPRO GTF CONTRAINDICATION. CALLED [facility] AND WILL CONT NEPRO SINCE PT HAS BEEN GETTING THIS FEEDING AT [facility]; NO S/SX OF ALLERGY NOTED. WILL CONT TO MONITOR.
--- NOTE | 2018-09-26 15:00 | NUR ---
ROTOFORMER BACKTENDER NOTES PER LAB, SENSITIVITY TO COLISTIN REQUEST BY KIYA PATRICK WILL TAKE 2 DAYS AT [facility] TO RESULT.
[2018-09-26] MEDS ORDERED: POTASSIUM CHLORIDE 20 MEQ TAB.PRT.SR PO ONE (15:30)
[2018-09-26 16:00] VITALS: BP 110/72
[2018-09-26] MEDS: PROSOURCE / PROSTAT (PYXIS) 30 ML UDC GT SCH (16:46)
[2018-09-26] MEDS: ACETAMINOPHEN 325 MG TABLET PO PRN (17:49)
--- NOTE | 2018-09-26 19:15 | NUR ---
DENTAL SECRETARY NOTES PT ENDORSED TO PM NURSE FOR JODEE. PT IS STABLE. ON VENT; TOLERATING WELL. NO EPISODES OF HYPOTENSION NOTED ON SHIFT.
--- NOTE | 2018-09-26 19:25 | NUR ---
TELE/RN NOTES RECEIVED PT. LYING IN BED. PT. IS NON-VERBAL, OBTUNDED. PT. IS VENT/TRACH DEPENDENT. VENT SETTINGS ORDERED. BREATHING EVEN AND UNLABORED. NO SOB, RESPIRATORY DISTRESS OR S/S OF PAIN NOTED AT THIS TIME. PT. WITH EXTERNAL RN CARE MANAGER PRESENT AND INTACT. CURRENT RHYTHM = AFIB WITH BBB HR 72. PT. WITH LEFT UPPER ARM MIDLINE PRESENT AND UNABLE TO FLUSH. PER DAYSHIFT NURSE CHARGE NURSE NOTIFIED. PT. WITH RIGHT FOREARM 20 GAUGE IV SALINE LOCK PRESENT, PATENT AND INTACT. PT. WITH RIGHT CHEST WALL HD CATH PRESENT AND INTACT. PT. WITH G-TUBE PRESENT, PATENT AND INTACT ADMINISTERING TO PT. NEPRO @ 45 ML/HR. PT. TOLERATING TUBE FEEDING WELL. NO RESIDUAL NOTED AT THIS TIME. PT. WITH FLEXISEAL PRESENT AND INTACT. PT. WITH HUERTAS CATHETER PRESENT, PATENT AND INTACT. BED LOCKED AND IN LOWEST POSITION, SIDE RAILS UP X3, BED ALARM ON, ISOLATION PRECAUTIONS IMPLEMENTED AND IN PLACE. WILL CONTINUE TO MONITOR.
[2018-09-26 20:00] VITALS: BP 100/40
[2018-09-26] MEDS: INSULIN GLARGINE, 100 UNIT/ML CARTRIDGE SQ SCH (21:45)
--- NOTE | 2018-09-26 22:00 | NUR ---
RT PT RECEIVED TRACHED ON [facility] VENT ON CHARTED SETTINGS. NO SIGNS OF DISTRESS NOTED AT THIS TIME. AIRWAY PATENT AND SECURED. PT ESCORT DONE. PT SUCTIONED. ALARMS SET AND AUDIBLE. AMBUBAG AT BEDSIDE. VENT PLUGGED TO RED OUTLET. WILL CONT TO MONITOR. Addendum: 09/27/18 at 0014 by COLBY BURKETT RT Amended: Links added.
[2018-09-26] MEDS: CEFEPIME 1 GM in IV NS 0.9% 50 ML IV SCH (23:53)
[2018-09-27] VITALS: BP 149/66
[2018-09-27] MEDS: BLOOD SUGAR DIAGNOSTIC 1 EACH STRIP IN SCH ×5 (00:01→23:16)
[2018-09-27] MEDS: INSULIN REGULAR, HUMAN 100 UNIT/ML 3 ML VIAL SQ PRN ×4 (00:02→23:20)
[2018-09-27 04:00] VITALS: BP 120/67
[2018-09-27] MEDS: INSULIN LISPRO/ASPART 100 UNIT/ML CARTRIDGE SQ SCH ×3 (05:47→21:25)
--- NOTE | 2018-09-27 06:46 | NUR ---
TELE/RN NOTES PT. IS LYING IN BED, NON-VERBAL, OBTUNDED. PT. IS VENT/TRACH DEPENDENT. VENT SETTINGS ORDERED. BREATHING EVEN AND UNLABORED. NO SOB, RESPIRATORY DISTRESS OR S/S OF PAIN NOTED AT THIS TIME. PT. WITH EXTERNAL COAT CHECK ATTENDANT PRESENT AND INTACT. CURRENT RHYTHM = AFIB WITH BBB HR 85. PT. WITH LEFT UPPER ARM MIDLINE PRESENT AND UNABLE TO FLUSH. CHARGE NURSE AWARE. PT. WITH RIGHT FOREARM 20 GAUGE IV SALINE LOCK PRESENT, PATENT AND INTACT. PT. WITH RIGHT CHEST WALL HD CATH PRESENT AND INTACT. PT. WITH G-TUBE PRESENT, PATENT AND INTACT ADMINISTERING TO PT. NEPRO @ 45 ML/HR. PT. TOLERATING TUBE FEEDING WELL. NO RESIDUAL NOTED AT THIS TIME AND THROUGHOUT SHIFT. PT. WITH FLEXISEAL PRESENT AND INTACT. PT. WITH HUERTAS CATHETER PRESENT, PATENT AND INTACT. ALL PT. NEEDS MET. PT. OFFLOADED, TURNED AND REPOSITIONED Q2H AND NEEDED. BED LOCKED AND IN LOWEST POSITION, SIDE RAILS UP X3, BED ALARM ON, ISOLATION PRECAUTIONS IMPLEMENTED AND IN PLACE. WILL ENDORSE TO DAYSHIFT NURSE FOR CONTINUITY OF CARE.
[2018-09-27 06:47] LABS: BASOPHILS % (AUTO) 0.3 % (0.0-2.0); EOSINOPHILS % (AUTO) 2.8 % (0.0-6.0); HEMATOCRIT 25 % (39-51); LYMPHOCYTES # (AUTO) 0.9 /CMM (0.8-4.8); MEAN CORPUSCULAR HGB CONC 32 g/dl (31.0-36.0); MEAN CORPUSCULAR VOLUME 89 fL (80-96); MONOCYTES % (AUTO) 6.7 % (2.0-12.0); NEUTROPHILS # (AUTO) 12.8 /CMM (1.8-8.9); NEUTROPHILS % (AUTO) 84.2 % (43.0-81.0); PLATELET COUNT (AUTO) 105 /CMM (150-450); RED BLOOD CELL COUNT(AUTO) 2.77 MIL/uL (4.5-6.0); WHITE BLOOD COUNT (AUTO) 15.2 K/uL (4.3-11.0)
[2018-09-27 07:03] LABS: CALCIUM, SERUM 10.3 mg/dL (8.5-10.1); CREATININE 2.1 mg/dL (0.6-1.3); MAGNESIUM 2.2 mg/dL (1.8-2.4)
--- NOTE | 2018-09-27 07:31 | NUR ---
TELE/RN NOTES PT. IN BED, NON-VERBAL, OBTUNDED. PT. IS VENT/TRACH DEPENDENT. VENT SETTINGS ORDERED. BREATHING EVEN AND UNLABORED. NO SOB, RESPIRATORY DISTRESS OR S/S OF PAIN NOTED AT THIS TIME. PT. APARTMENT MAINTENANCE TECHNICIAN CURRENT RHYTHM = AFIB WITH BBB PT. WITH RIGHT FOREARM 20 GAUGE IV SALINE LOCK PRESENT, PATENT AND INTACT. PT. WITH RIGHT CHEST WALL HD CATH PRESENT AND INTACT. PT. WITH G-TUBE PRESENT, PATENT AND INTACT ADMINISTERING TO PT. NEPRO @ 45 ML/HR. WITH FLEXISEAL PRESENT AND INTACT. PT. WITH HUERTAS CATHETER PRESENT, PATENT AND INTACT. ALL PT. NEEDS MET. PT. OFFLOADED, TURNED AND REPOSITIONED Q2H AND NEEDED. BED LOCKED AND IN LOWEST POSITION, SIDE RAILS UP X3, BED ALARM ON, ISOLATION PRECAUTIONS IMPLEMENTED AND IN PLACE.
[2018-09-27 07:33] LABS: BAND % (MANUAL) 6 % (0.0-5.0); MONOCYTES % (MANUAL) 3 % (0-11.0); NEUTROPHILS % (MANUAL) 83 (42-76)
[2018-09-27 07:34] LABS: EOSINOPHILS % (MANUAL) 4 % (0-4)
[2018-09-27 07:36] LABS: LYMPHOCYTES % (MANUAL) 4 % (16-48)
[2018-09-27 08:00] VITALS: BP 97/46
[2018-09-27] MEDS: Z GUARD REMEDY 2 OZ OINT TP SCH ×2 (09:00→21:18)
[2018-09-27] MEDS: LINEZOLID RTU BAG 600 MG in PREMIX 1 EA IV SCH ×2 (09:04→21:14)
[2018-09-27] MEDS: CLOPIDOGREL BISULFATE 75 MG TABLET GT SCH (09:05)
[2018-09-27] MEDS: MIDODRINE HCL (5MG) 5 MG TABLET GT SCH ×2 (09:05→16:48)
[2018-09-27] MEDS: FAMOTIDINE (20 MG) 20 MG TABLET GT SCH (09:05)
[2018-09-27] MEDS: APIXABAN 2.5 MG TABLET GT SCH ×2 (09:07→16:50)
[2018-09-27] MEDS: METOCLOPRAMIDE HCL 10 MG/2 ML VIAL IV SCH ×3 (09:08→16:49)
[2018-09-27] MEDS: LEVETIRACETAM SOL (5 ML) 100 MG/ML UDC GT SCH ×2 (09:08→16:48)
[2018-09-27] MEDS: PROSOURCE / PROSTAT (PYXIS) 30 ML UDC GT SCH ×3 (09:09→16:48)
[2018-09-27] MEDS: THERAHONEY GEL 1.5 OZ TUBE TP SCH (09:10)
[2018-09-27] MEDS: DAKINS QUARTER STRENGTH (0.125%) 480 ML BOTTLE TOP SCH (09:10)
[2018-09-27] MEDS: LACTOBACILLUS RHAMNOSUS GG 1 EACH CAP.SPRINK GT SCH ×2 (09:11→16:48)
--- NOTE | 2018-09-27 09:48 | NUR ---
RT PT RECEIVED TRACHED ON [facility] VENT ON CHARTED SETTINGS. NO SIGNS OF DISTRESS NOTED AT THIS TIME. AIRWAY PATENT AND SECURED. PLANTING SUPERVISOR DONE. PT SUCTIONED. ALARMS SET AND AUDIBLE. AMBUBAG AT BEDSIDE. VENT PLUGGED TO RED OUTLET. WILL CONT TO MONITOR.
[2018-09-27] MEDS: NEPRO 1,000 ML BOTTLE GT SCH (09:50)
--- NOTE | 2018-09-27 10:00 | NUR ---
ENERGY ADMINISTRATOR NOTE DR PALENCIA AT BEDSIDE ,AWARE OF PATIENT CONDITION, CONT ON TRACH AND VENT SETTING ORDERED WILL MONITOR CLOSELY, MID LINE STILL UNABLE TO FLUSH , DR PEDRO KULKARNI DNP NOTIFIED WILL INSERT MEW MIDLINE TODAY
--- NOTE | 2018-09-27 11:24 | NUR ---
regional telecommunications specialist note called x2 to pharmacy to bring z guard still Meds not available, will f\u
[2018-09-27] MEDS: AMIODARONE HCL 200 MG TABLET GT SCH (11:34)
[2018-09-27 12:00] VITALS: BP 120/55
--- NOTE | 2018-09-27 15:27 | NUR ---
SALES AND MANAGEMENT TRAINEE NOTE PER DR JESSICA TRUONG TO PLACE MID LINE , JACKIE GUZMAN PICC LINE AT BEDSIDE ,CHIKIS 18 MID LINE ON RT UPPER INSERTED
[2018-09-27 16:00] VITALS: BP_SYST 95; BP_DIAS 42; BP_DIAS 45
--- NOTE | 2018-09-27 16:43 | NUR ---
director telecommunications note hd started as ordered ,all needs attended, wound care done ,keep clean dry ,will cont to monitor
--- NOTE | 2018-09-27 19:05 | NUR ---
OFFICE SUPPORT SPECIALIST NOTE HD COMPLETED BP 74\55 HR 77 . 800 ML OF FLUIDS WAS REMOVED , WILL CONT TO MONITOR CLOSELY
[2018-09-27 20:00] VITALS: BP 90/32
[2018-09-27] MEDS: INSULIN GLARGINE, 100 UNIT/ML CARTRIDGE SQ SCH (21:27)
[2018-09-27] MEDS: COLISTIMETHATE SODIUM 150 MG in IV NS 0.9% 50 ML IV SCH (23:29)
[2018-09-28] VITALS (7 sets, daily range): BP systolic 101–112; BP diastolic 47–72
[2018-09-28] MEDS: BLOOD SUGAR DIAGNOSTIC 1 EACH STRIP IN SCH ×2 (05:18→11:46)
[2018-09-28] MEDS: INSULIN LISPRO/ASPART 100 UNIT/ML CARTRIDGE SQ SCH ×2 (05:21→13:21)
[2018-09-28] MEDS: INSULIN REGULAR, HUMAN 100 UNIT/ML 3 ML VIAL SQ PRN ×2 (05:23→11:48)
--- NOTE | 2018-09-28 07:20 | NUR ---
RN OPENING NOTES RECEIVED BEDSIDE REPORT, PATIENT ASLEEP BUT EASILY AROUSABLE TO TOUCH. NON VERBAL. OBTUNDED. ON VENT, SATING >90%. ON TELE MONITOR, AFIB/A FLUTTER CONTROLLED. ON FLEXISEAL WITH BROWN EMESIS. ON HUERTAS CATH WITH CLEAR AND YELLOW URINE. ON GTF WITH NEPRO AT 45ML/HR. HAS A RIGHT UPPER ARM MIDLINE TKO. AND RIGHT CW HD CATH, LAST HD WAS YESTERDAY WITH 800ML OUT. CXR STAT, RESULTS PENDING. BED LOCKED AND IN LOW POSITION. WILL CONTINUE TO MONITOR CLOSELY
[2018-09-28] MEDS: AMIODARONE HCL 200 MG TABLET GT SCH (09:00)
[2018-09-28] MEDS: LACTOBACILLUS RHAMNOSUS GG 1 EACH CAP.SPRINK GT SCH ×2 (09:04→16:03)
[2018-09-28] MEDS: Z GUARD REMEDY 2 OZ OINT TP SCH (09:05)
[2018-09-28] MEDS: LEVETIRACETAM SOL (5 ML) 100 MG/ML UDC GT SCH ×2 (09:05→16:03)
[2018-09-28] MEDS: THERAHONEY GEL 1.5 OZ TUBE TP SCH (09:05)
[2018-09-28] MEDS: FAMOTIDINE (20 MG) 20 MG TABLET GT SCH (09:05)
[2018-09-28] MEDS: NEPRO 1,000 ML BOTTLE GT SCH (09:06)
[2018-09-28] MEDS: LINEZOLID RTU BAG 600 MG in PREMIX 1 EA IV SCH (09:06)
[2018-09-28] MEDS: ACETAMINOPHEN 325 MG TABLET PO PRN (09:08)
[2018-09-28] MEDS: PROSOURCE / PROSTAT (PYXIS) 30 ML UDC GT SCH ×3 (09:10→16:04)
[2018-09-28] MEDS: MIDODRINE HCL (5MG) 5 MG TABLET GT SCH ×2 (09:10→16:03)
[2018-09-28] MEDS: CLOPIDOGREL BISULFATE 75 MG TABLET GT SCH (09:10)
[2018-09-28] MEDS: APIXABAN 2.5 MG TABLET GT SCH ×2 (09:10→16:04)
[2018-09-28] MEDS: METOCLOPRAMIDE HCL 10 MG/2 ML VIAL IV SCH ×3 (09:11→16:04)
[2018-09-28] MEDS: DAKINS QUARTER STRENGTH (0.125%) 480 ML BOTTLE TOP SCH (09:12)
--- NOTE | 2018-09-28 10:00 | NUR ---
RN NOTES HELD THE AMIODARONE. LOW BP 110/73, RECHECKED AN HOUR LATER 95/63
[2018-09-28] MEDS ORDERED: METRONIDAZOLE 500MG/ NS 100ML 500 MG in PREMIX 1 EA IV SCH (12:00)
--- NOTE | 2018-09-28 15:21 | NUR ---
RN NOTES REPORT GIVEN TO BRUNILDA NAGY, TALKED TO MEGAN SANTIAGO.
--- NOTE | 2018-09-28 16:45 | NUR ---
CONTROLS TECHNICIAN NOTES PATIENT PICKED UP BY AMBULANCE IN STABLE CONDITION. VSS. EXIT CARE GIVEN TO AMBULANCE PERSONNEL. PATIENT UNABLE TO SIGN. WOUND PICTURES TAKEN, IN CHART.
[2018-09-29] MEDS ORDERED: INSU100V3 SQ (14:09)
[2018-09-29] MEDS ORDERED: ONDA4SOL IV (14:09)
[2018-09-29] MEDS ORDERED: BACI1TAB3 GT (14:09)
[2018-09-29] MEDS ORDERED: INSU100V11 SQ (14:09)
[2018-09-29] MEDS ORDERED: THERAHONEY TP (14:09)
[2018-09-29] MEDS ORDERED: SODI473S8 TP (14:09)
[2018-09-29] MEDS ORDERED: METO10SY IV (14:09)
[2018-09-29] MEDS ORDERED: ZINC113P2 TP (14:09)
[2018-09-29] MEDS ORDERED: COLI150V12 IV (14:13)
[2018-09-29] MEDS ORDERED: METR500P4 IV (14:16)
== END 2018-09-28 16:37 | DRG 981 ==
LOC: ER 11:31 → TELE1 14:44
PROVIDERS: ADMIT Nurse Practitioner Acute Care; ATTEND Internal Medicine
PROC: 5A1955Z Respiratory Ventilation, Greater than 96 Consecutive Hours (ICD-10-PCS; principal; 2018-09-20)
PROC: 0QB10ZZ Excision of Sacrum, Open Approach (ICD-10-PCS; 2018-09-20)
PROC: 30233N1 Transfusion of Nonautologous Red Blood Cells into Peripheral Vein, Percutaneous Approach (ICD-10-PCS; 2018-09-20)
PROC: 5A1D70Z Performance of Urinary Filtration, Intermittent, Less than 6 Hours Per Day (ICD-10-PCS; 2018-09-21)
PROC: 5A1D70Z Performance of Urinary Filtration, Intermittent, Less than 6 Hours Per Day (ICD-10-PCS; 2018-09-23)
PROC: 5A1D70Z Performance of Urinary Filtration, Intermittent, Less than 6 Hours Per Day (ICD-10-PCS; 2018-09-25)
PROC: 0QB10ZZ Excision of Sacrum, Open Approach (ICD-10-PCS; 2018-09-26)
PROC: 05H533Z Insertion of Infusion Device into Right Subclavian Vein, Percutaneous Approach (ICD-10-PCS; 2018-09-27)
PROC: B546ZZA Ultrasonography of Right Subclavian Vein, Guidance (ICD-10-PCS; 2018-09-27)
PROC: 5A1D70Z Performance of Urinary Filtration, Intermittent, Less than 6 Hours Per Day (ICD-10-PCS; 2018-09-27)
DX: T80.211A Bloodstream infection due to central venous catheter, initial encounter (principal); L89.323 Pressure ulcer of left buttock, stage 3; A41.9 Sepsis, unspecified organism; N18.6 End stage renal disease; E43 Unspecified severe protein-calorie malnutrition; J15.6 Pneumonia due to other Gram-negative bacteria; J96.21 Acute and chronic respiratory failure with hypoxia; R53.2 Functional quadriplegia; R65.20 Severe sepsis without septic shock; L89.313 Pressure ulcer of right buttock, stage 3; L89.154 Pressure ulcer of sacral region, stage 4; N39.0 Urinary tract infection, site not specified; Z99.11 Dependence on respirator [ventilator] status; E87.1 Hypo-osmolality and hyponatremia; G93.1 Anoxic brain damage, not elsewhere classified; J90 Pleural effusion, not elsewhere classified; J98.11 Atelectasis; D68.59 Other primary thrombophilia; I12.0 Hypertensive chronic kidney disease with stage 5 chronic kidney disease or end stage renal disease; Y84.8 Other medical procedures as the cause of abnormal reaction of the patient, or of later complication, without mention of misadventure at the time of the procedure; Y92.129 Unspecified place in nursing home as the place of occurrence of the external cause; K21.9 Gastro-esophageal reflux disease without esophagitis; Z99.2 Dependence on renal dialysis; E88.09 Other disorders of plasma-protein metabolism, not elsewhere classified; D69.6 Thrombocytopenia, unspecified; G40.909 Epilepsy, unspecified, not intractable, without status epilepticus; E11.22 Type 2 diabetes mellitus with diabetic chronic kidney disease; D63.8 Anemia in other chronic diseases classified elsewhere; Z93.1 Gastrostomy status; E87.8 Other disorders of electrolyte and fluid balance, not elsewhere classified; L98.8 Other specified disorders of the skin and subcutaneous tissue; E11.40 Type 2 diabetes mellitus with diabetic neuropathy, unspecified; L89.620 Pressure ulcer of left heel, unstageable; L89.610 Pressure ulcer of right heel, unstageable; L89.890 Pressure ulcer of other site, unstageable; E11.51 Type 2 diabetes mellitus with diabetic peripheral angiopathy without gangrene; B96.1 Klebsiella pneumoniae [K. pneumoniae] as the cause of diseases classified elsewhere; N25.0 Renal osteodystrophy; R13.10 Dysphagia, unspecified; Z79.4 Long term (current) use of insulin
CPT/HCPCS: 31720; 36415; 36569; 71045-TC; 80048-TC; 80053-TC; 80061-TC; 80076-TC; 80202-TC; 81000-TC; 82962-TC; 83605-TC; 83735-TC; 84100-TC; 84484-TC; 85025-TC; 85730-TC; 86706; 86850-TC; 86921-TC; 87040-TC; 87081-TC; 87086-TC; 87186-TC; 87340; 90935-TC; 93307-TC; 94002-TC; 94003-TC; 94760-TC; 94762-TC; 94799-TC; 99082-TC; A4216; A4217; A4623; A6253; A6402; A6403; A7526; G0378; J0692; J0770; J0885; J1815; J1953; J2020; J2185; J2765; J3370; J3490; J7030; J7040; J7050; J7060; P9016-BL; P9047

== ENCOUNTER 2018-09-29 11:57 | Inpatient (IN) | payer MEDICARE, MEDICAID ==
[~2018-09-29] VITALS: Ht 165.1 cm; Wt 92.5 kg
[~2018-09-29 11:57] MED LIST changes: -ALBU2.5V13 NEB; -AMIK250V14 IJ; -AMIN30LI2 GT; -INSU100I30 SQ; -IPRA0.2S9 NEB; -METR500T GT; -MULT-447 GT; -RXVAN XX; -VANC500F2 IV; -VIT1TABL46 GT
--- NOTE | 2018-09-29 12:20 | NUR ---
PT BIB PA FROM DIALYSIS FOR FLUCTUATING BP. PT'S BP WAS ELEVATED UPON ARRIVAL 134/111. PT HAS A TRACH AND IS VENTED WITH THE FOLLOWING SETTINGS: AC10, TV500, FIO2 30%, PEEP 5. PT HAS A RUE 18G MIDLINE AND A 20G IV ON RT WRIST. PT HAS A RT UPPER CHEST HÉCTOR CATH, G-TUBE, RECTAL TUBE, HUERTAS CATH. PT IS EDEMATOUS ON ABD AND BLE. BLE WOUNDS NOTED. BILATERAL HEELS FLOATED ON A PILLOW. PT IS BOWEN UPON ARRIVAL WITH HR 47. 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 PT WAS PLACED ON THE MONITOR AND CONTINUOUS PULSE OX.
--- NOTE | 2018-09-29 12:20 | NUR ---
BLOOD AND BLOOD CULTURES DRAWN. FARE REGISTER REPAIRER IS AT THE BEDSIDE. URINE SAMPLE OBTAINED AND SENT TO LAB.
[2018-09-29 12:22] VITALS: BP 114/70
[2018-09-29] MEDS ORDERED: IV NS 0.9% 500 ML BAG IV ONE (12:30)
--- NOTE | 2018-09-29 12:30 | NUR ---
PT. PLACED INTO [facility] VENT VIA TRACH SIZE 7 PORTEX WITH PARAMETERS BELOW PER RT TRANSPORT: AC 10 VT 450 FIO2 30% PEEP +5 BREATH SOUNDS COARSE RHONCHI BILATERAL, SXN MOD AMNT THICK BOSS SECRETIONS. ANNIE @ BEDSIDE. Addendum: 09/29/18 at 1234 by HARRY MANE RT Amended: Links added.
[2018-09-29 12:33] LABS: BASOPHILS % (AUTO) 0.3 % (0.0-2.0); EOSINOPHILS % (AUTO) 1.9 % (0.0-6.0); HEMATOCRIT 24 % (39-51); HEMOGLOBIN 7.8 g/dL (13.5-17.5); LYMPHOCYTES # (AUTO) 0.9 /CMM (0.8-4.8); LYMPHOCYTES % (AUTO) 7.6 % (20.0-44.0); MEAN CORPUSCULAR HGB CONC 32 g/dl (31.0-36.0); MEAN CORPUSCULAR VOLUME 89 fL (80-96); MONOCYTES # (AUTO) 0.9 /CMM (0.1-1.30); MONOCYTES % (AUTO) 7.5 % (2.0-12.0); NEUTROPHILS # (AUTO) 9.6 /CMM (1.8-8.9); NEUTROPHILS % (AUTO) 82.7 % (43.0-81.0); PLATELET COUNT (AUTO) 102 /CMM (150-450); RED BLOOD CELL COUNT(AUTO) 2.72 MIL/uL (4.5-6.0); WHITE BLOOD COUNT (AUTO) 11.6 K/uL (4.3-11.0)
[2018-09-29 12:37] LABS: APPEARANCE,URINE Cloudy (CLEAR); BILIRUBIN,URINE Negative (NEGATIVE); BLOOD, URINE Moderate Ery/uL (NEGATIVE); COLOR,URINE Yellow (YELLOW); KETONES,URINE Negative (NEGATIVE); LEUKOCYTE ESTERASE ,URINE Large (NEGATIVE); NITRITE, URINE Negative (NEGATIVE); PROTEIN,URINE >=300 mg/dl (NEGATIVE); UGLUCOSE Negative (NEGATIVE); UROBILINOGEN,URINE 0.2 EU/dL (0.2)
[2018-09-29 13:13] LABS: CALCIUM, SERUM 10.3 mg/dL (8.5-10.1); CREATININE 2.2 mg/dL (0.6-1.3); POTASSIUM 4.2 mmol/L (3.5-5.1)
--- NOTE | 2018-09-29 13:14 | NUR ---
CALLED BRUNILDA NAGY AND SPOKE TO MEGAN FORD FOR PT'S CODE STATUS. PT IS FULL CODE. DR DOOLEY NOTIFIED.
[2018-09-29 13:16] LABS: BACTERIA,URINE Moderate /HPF (None Seen); SQUAMOUS EPITHELIAL CELL,UR Few /HPF (None Seen); WBC,URINE TOO NUMEROUS TO COUN /HPF (0-3); YEAST,URINE Few /HPF (None Seen)
--- NOTE | 2018-09-29 13:21 | NUR ---
CALLED FOR ICU BED, TURNED IN MOVE SHEET
[2018-09-29] MEDS ORDERED: LEVOFLOXACIN 750 MG /D5W 150ML 150 ML IV ONE (13:27)
[2018-09-29 13:28] LABS: ALBUMIN 1.7 g/dL (3.4-5.0); BILIRUBIN,DIRECT 0.3 mg/dL (0.0-0.2); BILIRUBIN,TOTAL 0.8 mg/dL (0.2-1.0); TOTAL PROTEIN, SERUM 6.6 g/dL (6.4-8.2)
[2018-09-29] MEDS ORDERED: IV NS 0.9% 1,000 ML BAG IV ONE ×2 (13:30)
[2018-09-29] MEDS ORDERED: LEVOFLOXACIN 750 MG /D5W 150ML PIGGYBACK IV ONE (13:30)
--- NOTE | 2018-09-29 13:33 | NUR ---
CALLED [facility], HAD DR COHN PAGED
[2018-09-29 13:46] VITALS: BP 59/32
--- NOTE | 2018-09-29 14:00 | NUR ---
REPAGED DR ZIMMERMAN
[2018-09-29] MEDS ORDERED: THERAHONEY TP (14:09)
[2018-09-29] MEDS ORDERED: BACI1TAB3 GT (14:09)
[2018-09-29] MEDS ORDERED: ONDA4SOL GT (14:09)
[2018-09-29] MEDS ORDERED: ZINC113P2 TP (14:09)
[2018-09-29] MEDS ORDERED: INSU100V11 SQ (14:09)
[2018-09-29] MEDS ORDERED: SODI473S8 TP (14:09)
[2018-09-29] MEDS ORDERED: INSU100V3 SQ (14:09)
[2018-09-29] MEDS ORDERED: METO10SY IV (14:09)
--- NOTE | 2018-09-29 14:11 | NUR ---
CALLING REPORT TO ICU. RT CALLED AND IS AT THE BEDSIDE. MEGAN STOKES
[2018-09-29] MEDS ORDERED: COLI150V12 IV (14:13)
--- NOTE | 2018-09-29 14:15 | NUR ---
DR ZIMMERMAN IS AT THE BEDSIDE EVALUATING THE PT.
[2018-09-29] MEDS ORDERED: METR500P4 IV (14:16)
--- NOTE | 2018-09-29 14:18 | NUR ---
PT TO GO TO [facility], PER DR. ZIMMERMAN.
[2018-09-29] MEDS ORDERED: NEPRO VAN 237 ML CAN GT SCH (14:30)
[2018-09-29] MEDS ORDERED: ONDANSETRON HCL 4 MG/5 ML SOLUTION NG PRN (14:30)
[2018-09-29] MEDS ORDERED: INSULIN REGULAR, HUMAN 100 UNIT/ML 3 ML VIAL SQ PRN (14:30)
--- NOTE | 2018-09-29 15:04 | NUR ---
CALLING REPORT TO [facility] GUZMAN.
--- NOTE | 2018-09-29 15:13 | NUR ---
REPORT GIVEN TO MEGAN GRECO. PT TO GO TO ROOM 120-2.
[2018-09-29 15:18] VITALS: BP 93/58
[2018-09-29] MEDS ORDERED: NEPRO 1,000 ML BOTTLE GT PRN (15:30)
--- NOTE | 2018-09-29 15:59 | NUR ---
PT WAS TRANSPORTED TO [facility].
--- NOTE | 2018-09-29 15:59 | NUR ---
PT.TRANSFERRED FROM ER TO 120-1. [facility], PLUGGED INTO RED OUTLET WITH ALARMS ON AND FUNCTIONING. ANNIE @ BEDSIDE. Addendum: 09/29/18 at 1616 by HARRY MANE RT Amended: Links added.
--- NOTE | 2018-09-29 16:30 | NUR ---
[facility] RN NOTE RECEIVED PATIENT FROM ER WITH DX SEPSIS AND ESRD ,ANEMIA RESPIRATORY FAILURE ,UNDER CARE DR ZIMMERMAN PATIENT IS OBTUNDED ,RESPONSE TO VERBAL COMMAND IF CALLING HIS NAME ,FAMILY AT BEDSIDE, WITH G TUBE CLUMPED AT THIS TIME, WITH TRACH TO VENT SETTING ORDERED, SAT 98% WITH MULTIPLE WOUND ON BODY, PICTURE DONE ON ISO FLEX AIR LOW BED IN USE , WITH HUERTAS CATH IN PLACE WITH YELLOW CLOUDY URINE , RT CW HD CATH IN PLACE , RT UPPER ARM PICC LINE IN PLACE ,NO S\S INFECTION NOTED , ADMISSION ORDERS PLACED BY DR ZIMMERMAN, BED IN LOWEST AND LOCKED POSITION , WILL CONT TO MONITOR CLOSELY
[2018-09-29] MEDS: MIDODRINE HCL (5MG) 5 MG TABLET GT SCH ×2 (17:00→17:46)
[2018-09-29 17:03] VITALS: BP 89/52
[2018-09-29] MEDS: LEVETIRACETAM SOL (5 ML) 100 MG/ML UDC GT SCH (17:47)
[2018-09-29] MEDS: LACTOBACILLUS RHAMNOSUS GG 1 EACH CAP.SPRINK PO SCH (17:47)
[2018-09-29] MEDS: PROSOURCE / PROSTAT (PYXIS) 30 ML UDC GT SCH (17:47)
[2018-09-29] MEDS ORDERED: FLAGYL/NS RTU 500 MG/100 ML PIGGYBACK IV SCH ×2 (18:00)
[2018-09-29] MEDS ORDERED: COLISTIMETHATE SODIUM 150 MG VIAL IV SCH (18:00)
[2018-09-29] MEDS: IV NS 0.9% 1,000 ML IV PRN (18:24)
--- NOTE | 2018-09-29 19:16 | NUR ---
[facility] RN NOTE PER DR ERASMO TRUONG TO START ON SLIDING SCALE MILD COVERAGE , DIETARY CONSULT ORDERED, WILL CONT TO MONITOR CLOSELY , CALLED X3 TO PHARMACY NO FLAGYL AVAILABLE, ENDORSED TO NEXT SHIFT ADRIANNA GARCIA
[2018-09-29] MEDS ORDERED: DEXTROSE 50%-WATER 50 ML DISP.SYRIN IV PRN (19:30)
--- NOTE | 2018-09-29 19:45 | NUR ---
[facility]/FINGER BUFFS ASSEMBLER RECEIVED REPORT FROM DAY NURSE. SEE FLOWSHEET FOR ASSESSMENT ALONG WITH ALL SKIN ISSUES WHICH ARE ADDRESSES AND EACH INTERVENTIONS TO THEM. PT IS OBTUNDED. PT CURRENTLY HAS IVF ON NS AT 75 ML/HR, ALONG WITH IVPB WHICH ARE ADDRESSED ON MAR AND IV FLOWSHEET. PT CURRENTLY HAS TRACH AND IS VENTED, TOLERATING CURRENT SETTINGS, WITH SATURATION AT 97%. PT WS TURNED AND REPOSITIONED FOR COMFORT AND CARE. WILL CONTINUE TO MONITOR THIS PT.NO ACUTE DISTRESS SEEN AT THIS TIME.
[2018-09-29] MEDS: METRONIDAZOLE 500MG/ NS 100ML 500 MG in PREMIX 1 EA IV SCH (19:49)
[2018-09-29 20:00] VITALS: BP 87/41
--- NOTE | 2018-09-29 20:35 | NUR ---
[facility]/PROJECTION TECHNICIAN 1999 BLOOD PRESSURE WAS 87/47. RECHECKED THE BLOOD PRESSURE , THE NEW BLOOD PRESSURE WAS 97/35. WILL CONTINUE TO MONITOR THIS PT'S BLOOD PRESSURE. NO ACUTE DISTRESS SEEN AT THIS TIME
[2018-09-29] MEDS: INSULIN GLARGINE, 100 UNIT/ML CARTRIDGE SQ SCH (21:31)
[2018-09-29] MEDS ORDERED: COLISTIMETHATE SODIUM 150 MG in IV NS 0.9% 50 ML IV SCH ×2 (22:00→23:00)
[2018-09-29] MEDS ORDERED: COLISTIMETHATE SODIUM 100 MG in IV NS 0.9% 50 ML IV PRN (22:00)
--- NOTE | 2018-09-29 22:13 | NUR ---
[facility]/REAL ESTATE CONSULTANT PT IS SUPPOSED TO HAVE COLISTIMETHATE IVPB ON HD ONLY THIS WAS PLACED ROUTINE. THIS ORDER WAS CHANGED TO REFLECT THAT IT SHOULD BE GIVEN ONLY ON DAYS OF HD.
--- NOTE | 2018-09-29 22:16 | NUR ---
RT NOTE PATIENT RECEIVED TRACHED ON MECHANICAL VENTILATION WITH CHARTED SETTINGS. AMBU BAG @ BEDSIDE. VENT PLUGGED TO RED OUTLET. ALARMS ON AND AUDIBLE. SX DONE, MODERATE THICK WHITE/YELLOW SECRETIONS NOTED. PATIENT STABLE AT THIS TIME. WILL CONTINUE TO MONITOR. Addendum: 09/29/18 at 2218 by MIRTHA HALL RT Amended: Links added.
--- NOTE | 2018-09-29 23:10 | NUR ---
[facility]/SORT SUPERVISOR THERE IS AN ORDER FOR 2200 DOSE OF COLISTIMETHATE IVP HOWEVER PT DID NOT HAVE HD. MD'S ORDER READS TO GIVEN POST HD. HOWEVER PT DID NOT HAVE HD DONE DUE TO LOW BD. WILL MAKE SURE THAT SHOULD NEXT SHIFT PT HAS HD THEN TO ADMINISTER THE IVPB MEDICATION.
[2018-09-30] VITALS: BP 93/62
--- NOTE | 2018-09-30 00:10 | NUR ---
[facility]/MANAGER RESEARCH AND DEVELOPMENT MIDNIGHT BLOOD SUGAR IS 146, THERE IS 2 UNITS OF REGULAR COVERAGE FOR THIS. WILL CONTINUE TO MONITOR THIS PT'S BLOOD SUGAR ORDERED BY MD AND HOSPITAL PROTOCOL. NO ACUTE DISTRESS SEEN AT THIS TIME. PT WAS TURNED AND REPOSITIONED FOR COMFORT AND CARE.
[2018-09-30] MEDS: METRONIDAZOLE 500MG/ NS 100ML 500 MG in PREMIX 1 EA IV SCH ×5 (00:15→23:27)
[2018-09-30] MEDS: BLOOD SUGAR DIAGNOSTIC 1 EACH STRIP IN SCH ×5 (00:52→23:38)
[2018-09-30] MEDS: INSULIN REGULAR, HUMAN 100 UNIT/ML 3 ML VIAL SQ PRN ×2 (00:56→06:10)
--- NOTE | 2018-09-30 01:22 | NUR ---
RT NOTE PATIENT SUCTIONED AND NOTED WITH SMALL THIN CLEAR BLOOD TINGED SECRETIONS. NURSE, ROSARIO, NOTIFIED AND IS AWARE. PLACED ICE COLD SALINE @ BEDSIDE FOR LAVAGE. NO DISTRESS NOTED.
--- NOTE | 2018-09-30 02:35 | NUR ---
[facility]/BRIM PRESSER PT WAS GIVEN AM CARE, ALONG WITH ORAL CARE. PT TOLERATED THIS WELL, PT REMAINS ON CURRENT VENT SETTINGS WITH SATURATION AT 99%. PT WAS TURNED AND REPOSITIONED FOR COMFORT AND CARE. NO ACUTE DISTRESS SEEN AT THIS TIME. PT APPEARS TO BE RESTING COMFORTABLE.
--- NOTE | 2018-09-30 03:45 | NUR ---
[facility]/FRUIT EXPRESS AGENT DRESSING CHANGE WAS DONE TO THE LOWER EXTREMITIES, SACRAL WOUND DRESSING WAS DONE DURING BATH. WILL CONTINUE TO MONITOR THIS PT.
[2018-09-30 04:00] VITALS: BP 101/76
--- NOTE | 2018-09-30 06:48 | NUR ---
[facility]/FURNITURE SANDER ASKED DR CASTAÑEDA ABOUT COLISTIMETHATE IVP CLARIFICATION, SAID DAILY PLUS IF DAYS WITH HD THEN GIVE POST THESE DAYS. CALL PHARM TO TELL THEM ABOUT THIS CLARIFICATION, THEN RESCHEDULE FOR AM.
[2018-09-30 07:17] LABS: BASOPHILS % (AUTO) 0.3 % (0.0-2.0); EOSINOPHILS % (AUTO) 1.9 % (0.0-6.0); HEMATOCRIT 24 % (39-51); HEMOGLOBIN 7.7 g/dL (13.5-17.5); LYMPHOCYTES # (AUTO) 0.6 /CMM (0.8-4.8); LYMPHOCYTES % (AUTO) 4.9 % (20.0-44.0); MEAN CORPUSCULAR HGB CONC 32 g/dl (31.0-36.0); MEAN CORPUSCULAR VOLUME 90 fL (80-96); MONOCYTES # (AUTO) 0.9 /CMM (0.1-1.30); MONOCYTES % (AUTO) 7.1 % (2.0-12.0); NEUTROPHILS # (AUTO) 10.6 /CMM (1.8-8.9); NEUTROPHILS % (AUTO) 85.8 % (43.0-81.0); PLATELET COUNT (AUTO) 84 /CMM (150-450); RED BLOOD CELL COUNT(AUTO) 2.68 MIL/uL (4.5-6.0); WHITE BLOOD COUNT (AUTO) 12.3 K/uL (4.3-11.0)
[2018-09-30 07:32] LABS: CALCIUM, SERUM 9.8 mg/dL (8.5-10.1); CREATININE 2.2 mg/dL (0.6-1.3); MAGNESIUM 1.9 mg/dL (1.8-2.4); PHOSPHORUS 3.8 mg/dL (2.5-4.9); POTASSIUM 4.2 mmol/L (3.5-5.1)
[2018-09-30 08:00] VITALS: BP 96/50
[2018-09-30] MEDS ORDERED: ONDANSETRON 4 MG TAB.RAPDIS NG PRN (08:00)
--- NOTE | 2018-09-30 08:00 | NUR ---
BUSINESS MACHINES TEACHER: pt is rest, obtunded, reactive by touch, no grimacing, O2sat. over 96%, Afib 100-120, SBP over 90, no SOB, suctioned well, getting GTF Nepro 45ml/h, residual 45 ml, keep HOB over 40, kitchen called to to place order by following pharm order, all wounds care done ay 0500, waiting HD today
[2018-09-30] MEDS ORDERED: NEPRO 1,000 ML BOTTLE GT PRN (08:28)
[2018-09-30 09:03] LABS: BAND % (MANUAL) 5 % (0.0-5.0); EOSINOPHILS % (MANUAL) 3 % (0-4); LYMPHOCYTES % (MANUAL) 4 % (16-48); MONOCYTES % (MANUAL) 4 % (0-11.0); NEUTROPHILS % (MANUAL) 84 (42-76)
[2018-09-30] MEDS: LACTOBACILLUS RHAMNOSUS GG 1 EACH CAP.SPRINK PO SCH ×2 (09:27→17:18)
[2018-09-30] MEDS: CLOPIDOGREL BISULFATE 75 MG TABLET GT SCH (09:27)
[2018-09-30] MEDS: FAMOTIDINE (20 MG) 20 MG TABLET GT SCH (09:27)
[2018-09-30] MEDS: MIDODRINE HCL (5MG) 5 MG TABLET GT SCH ×2 (09:27→17:18)
[2018-09-30] MEDS: PROSOURCE / PROSTAT (PYXIS) 30 ML UDC GT SCH ×3 (09:28→17:18)
[2018-09-30] MEDS: DAKINS QUARTER STRENGTH (0.125%) 480 ML BOTTLE TOP SCH (09:28)
[2018-09-30] MEDS: LEVETIRACETAM SOL (5 ML) 100 MG/ML UDC GT SCH ×2 (09:28→17:18)
[2018-09-30] MEDS: Z GUARD REMEDY 2 OZ OINT TP SCH ×3 (09:29→17:19)
--- NOTE | 2018-09-30 10:32 | NUR ---
RN [facility]: HD nurse updated with VS, labs
--- NOTE | 2018-09-30 11:19 | NUR ---
RN [facility]: notified RT for resp cx order
--- NOTE | 2018-09-30 11:34 | NUR ---
RN [facility]: GTF residual 200ml, hold for 2 hrs, keep HOB over 45, HD started
[2018-09-30 12:00] VITALS: BP 99/50
[2018-09-30] MEDS: COLISTIMETHATE SODIUM 150 MG in IV NS 0.9% 50 ML IV SCH (13:06)
[2018-09-30] MEDS: IV NS 0.9% 1,000 ML IV PRN (13:16)
--- NOTE | 2018-09-30 13:54 | NUR ---
CREATIVE SERVICES SPECIALIST: HD done/0 out, GT residual 100ml, hold GTF for 2 hrs more
--- NOTE | 2018-09-30 15:01 | NUR ---
RT NOTE: PATIENT RECEIVED TRACHED ON MECHANICAL VENT. ALARMS VERIFIED AND AUDIBLE. SUCTIONED AND LAVAGED THIN BLOODY SECRETIONS. SPUTUM SAMPLE OBTAINED AND SENT OUT TO LAB. AMBU BAG AT [facility].
[2018-09-30 16:00] VITALS: BP_SYST 142; BP_SYST 91; BP_DIAS 51; BP_DIAS 78
--- NOTE | 2018-09-30 16:44 | NUR ---
Patient is trach/vent dependent,resides at [facility] [phone]. He is bedfast,totally dependent with adl's.ESRD on HD 3x/week every TTHS 11:15am at [facility] [place] [phone]. Current dc plan is to return to [facility]. Addendum: 09/30/18 at 1645 by JESSIE GONZÁLES RN Amended: Links added.
[2018-09-30] MEDS: HYDROGEL DRESSING 90 GM TUBE TP PRN (17:19)
[2018-09-30] MEDS ORDERED: COLISTIMETHATE SODIUM 150 MG VIAL IV SCH ×2 (18:00)
--- NOTE | 2018-09-30 19:15 | NUR ---
RN VIRGILIO NOTE RECEIVED PT RESTING WITH HOB ELEVATED, OBTUNDED, TRACH TO VENT ON SETTINGS ORDERED, ON TELE AFIB, NO S/SX OF CARDIAC OR RESPIRATORY DISTRESS, FLEXISEAL IN PLACE DRAINING BROWN LIQUID STOOL, F/C DRAINING CLEAR YELLOW URINE, ILIANA MIDLINE WITH NS AT 75 ML/HR, R WRIST #20G SL, BOTH PATENT FLUSHING WELL, FLUSHING WELL WITH NS AT 75ML/HR, SKIN KEPT CLEAN AND DRY, RCW HR CATH COVERED DRESSING CLEAN AND INTACT, SAFETY MAINTAINED AT ALL TIMES, BED IN LOW LOCKED POSITION WILL CONTINUE TO MONITOR FOR ANY CHANGES
[2018-09-30 20:00] VITALS: BP 102/40
[2018-09-30] MEDS: INSULIN GLARGINE, 100 UNIT/ML CARTRIDGE SQ SCH (21:41)
--- NOTE | 2018-09-30 23:38 | NUR ---
RN VIRGILIO NOTE PT GLUCOSE CHECKED 117 NO INSULIN LSIDING SCALE, 1800 BS CHECK NOT DOCUMENTED IN EMAR.
[2018-10-01] VITALS: BP 103/58
[2018-10-01 04:00] VITALS: BP 136/74
[2018-10-01] MEDS: BLOOD SUGAR DIAGNOSTIC 1 EACH STRIP IN SCH ×4 (05:26→23:05)
[2018-10-01] MEDS: METRONIDAZOLE 500MG/ NS 100ML 500 MG in PREMIX 1 EA IV SCH ×4 (05:26→23:11)
--- NOTE | 2018-10-01 06:01 | NUR ---
RT NOTE RECEIVED TRACH PATIENT WITH PORTEX#7 ON NOTED VENT SETTINGS. PRN SUCTION WAS DONE . VENT PLUGGED INTO RED OUTLET . ALARMS ARE SET AND AUDIBLE. PATIENT TRACH IS SECURED AND PATENT. PATIENT STABLE THROUGHOUT THE SHIFT. WILL CONTINUE TO MONITOR PATIENT. Addendum: 10/01/18 at 0601 by ANI BETANCUR RT Amended: Links added.
[2018-10-01 06:10] LABS: BASOPHILS % (AUTO) 0.2 % (0.0-2.0); EOSINOPHILS % (AUTO) 2.4 % (0.0-6.0); HEMATOCRIT 23 % (39-51); HEMOGLOBIN 7.6 g/dL (13.5-17.5); LYMPHOCYTES # (AUTO) 0.7 /CMM (0.8-4.8); LYMPHOCYTES % (AUTO) 6.9 % (20.0-44.0); MEAN CORPUSCULAR HGB CONC 33 g/dl (31.0-36.0); MEAN CORPUSCULAR VOLUME 91 fL (80-96); MONOCYTES # (AUTO) 0.7 /CMM (0.1-1.30); MONOCYTES % (AUTO) 7.1 % (2.0-12.0); NEUTROPHILS # (AUTO) 8.6 /CMM (1.8-8.9); NEUTROPHILS % (AUTO) 83.4 % (43.0-81.0); PLATELET COUNT (AUTO) 87 /CMM (150-450); RED BLOOD CELL COUNT(AUTO) 2.55 MIL/uL (4.5-6.0); WHITE BLOOD COUNT (AUTO) 10.4 K/uL (4.3-11.0)
[2018-10-01 06:30] LABS: CALCIUM, SERUM 9.2 mg/dL (8.5-10.1); CREATININE 1.7 mg/dL (0.6-1.3); POTASSIUM 3.7 mmol/L (3.5-5.1)
[2018-10-01 07:14] LABS: BAND % (MANUAL) 4 % (0.0-5.0); EOSINOPHILS % (MANUAL) 4 % (0-4); LYMPHOCYTES % (MANUAL) 2 % (16-48); MONOCYTES % (MANUAL) 5 % (0-11.0); NEUTROPHILS % (MANUAL) 85 (42-76)
[2018-10-01 08:00] VITALS: BP 113/85
[2018-10-01] MEDS: NEPRO 1,000 ML BOTTLE GT PRN (08:20)
[2018-10-01] MEDS: COLISTIMETHATE SODIUM 150 MG in IV NS 0.9% 50 ML IV SCH (08:26)
[2018-10-01] MEDS: LEVETIRACETAM SOL (5 ML) 100 MG/ML UDC GT SCH ×2 (08:49→17:09)
[2018-10-01] MEDS: FAMOTIDINE (20 MG) 20 MG TABLET GT SCH (08:49)
[2018-10-01] MEDS: CLOPIDOGREL BISULFATE 75 MG TABLET GT SCH (08:49)
[2018-10-01] MEDS: MIDODRINE HCL (5MG) 5 MG TABLET GT SCH ×2 (08:49→17:10)
[2018-10-01] MEDS: PROSOURCE / PROSTAT (PYXIS) 30 ML UDC GT SCH ×3 (08:50→17:09)
[2018-10-01] MEDS: LACTOBACILLUS RHAMNOSUS GG 1 EACH CAP.SPRINK PO SCH ×2 (08:50→17:09)
[2018-10-01] MEDS: DAKINS QUARTER STRENGTH (0.125%) 480 ML BOTTLE TOP SCH (08:51)
[2018-10-01] MEDS: Z GUARD REMEDY 2 OZ OINT TP SCH ×2 (08:52→17:11)
[2018-10-01 12:00] VITALS: BP 91/57
[2018-10-01] MEDS ORDERED: FLUCONAZOLE (100 MG) 100 MG TABLET GT SCH (12:30)
--- NOTE | 2018-10-01 15:35 | NUR ---
RN NOTE: CALLED AND INFORMED DR. MCCORD REGARDING THE PATIENT'S CURRRENT BLOOD PRESSURE AT THIS TIME. MD WAS INFORMED THAT THE PATIENT'S BP WAS TRENDING DOWN. MD WITH ORDER TO DC PEEP AND GIVE A NS 500ML BOLUS X1. ORDER, NOTED AND CARRIED OUT.
[2018-10-01 16:00] VITALS: BP 88/48
[2018-10-01] MEDS ORDERED: IV NS 0.9% 500 ML IV ONE (16:00)
[2018-10-01] MEDS: INSULIN REGULAR, HUMAN 100 UNIT/ML 3 ML VIAL SQ PRN ×2 (18:41→23:06)
--- NOTE | 2018-10-01 19:20 | NUR ---
TELE/RIN INITIAL NOTES' RECEIVED PT IN BED, OBTUNDED. CONTROLLED AFIB ON TELE. WITH INTACT TRACH, TOLERATING VENT SETTINGS, NO SOB NOTED. GTUBE INTACT AND IN PLACED, WITH ONGOING GTF NEPRO AT 45 ML/HR,TOLERATING WELL. HOB ELEVATED. RCW HD CATH C/D/I. ILIANA MIDLINE AND RWRIST G20 PATENT, C/D/I. FC AND FLEXISEAL INTACT AND IN PLACED. SAFFETY MEASURES, ASPIRATION AND SEIZURE PRECAUTION IN PLACED. CALL LIGHT WITHIN REACH. WILL CONT TO MONITOR
--- NOTE | 2018-10-01 19:55 | NUR ---
RN NOTE: BEDSIDE REPORT WAS GIVEN TO PM SHIFT NURSE FOR CONTINUITY OF CARE. PATIENT REMAINED ON STABLE CONDITION.
[2018-10-01 20:00] VITALS: BP 102/68
[2018-10-01] MEDS: HYDROGEL DRESSING 90 GM TUBE TP PRN (20:15)
[2018-10-01] MEDS: INSULIN GLARGINE, 100 UNIT/ML CARTRIDGE SQ SCH (23:07)
[2018-10-02] VITALS: BP 95/60
[2018-10-02 04:00] VITALS: BP 101/49
[2018-10-02 04:33] LABS: OCCULT BLOOD STOOL NEGATIVE (NEGATIVE)
[2018-10-02] MEDS: METRONIDAZOLE 500MG/ NS 100ML 500 MG in PREMIX 1 EA IV SCH ×4 (05:16→23:40)
[2018-10-02] MEDS: NEPRO 1,000 ML BOTTLE GT PRN (05:17)
[2018-10-02] MEDS: BLOOD SUGAR DIAGNOSTIC 1 EACH STRIP IN SCH ×4 (05:53→23:41)
[2018-10-02 06:34] LABS: BASOPHILS % (AUTO) 0.4 % (0.0-2.0); HEMATOCRIT 23 % (39-51); HEMOGLOBIN 7.3 g/dL (13.5-17.5); LYMPHOCYTES # (AUTO) 0.7 /CMM (0.8-4.8); MEAN CORPUSCULAR HGB CONC 32 g/dl (31.0-36.0); MEAN CORPUSCULAR VOLUME 91 fL (80-96); MONOCYTES # (AUTO) 0.7 /CMM (0.1-1.30); MONOCYTES % (AUTO) 6.3 % (2.0-12.0); NEUTROPHILS # (AUTO) 9.7 /CMM (1.8-8.9); NEUTROPHILS % (AUTO) 84.3 % (43.0-81.0); PLATELET COUNT (AUTO) 92 /CMM (150-450); RED BLOOD CELL COUNT(AUTO) 2.52 MIL/uL (4.5-6.0); WHITE BLOOD COUNT (AUTO) 11.6 K/uL (4.3-11.0)
--- NOTE | 2018-10-02 06:42 | NUR ---
RN NOTES PT IN STABLE CONDITION. NO ACUTE CHANGES THROUGHOUT SHIFT. ALL NEEDS ANTICIPATED. SAFETY MEASURES AND ASPIRATION PRECAUTION OBSERVED AT ALL TIMES. ENDORSED TO AM RN FOR JODEE
[2018-10-02 06:51] LABS: ALBUMIN 1.5 g/dL (3.4-5.0); BILIRUBIN,TOTAL 0.4 mg/dL (0.2-1.0); CALCIUM, SERUM 9.3 mg/dL (8.5-10.1); CREATININE 1.9 mg/dL (0.6-1.3); MAGNESIUM 1.8 mg/dL (1.8-2.4); POTASSIUM 3.4 mmol/L (3.5-5.1); TOTAL PROTEIN, SERUM 6.1 g/dL (6.4-8.2)
[2018-10-02 07:21] LABS: BAND % (MANUAL) 6 % (0.0-5.0); LYMPHOCYTES % (MANUAL) 5 % (16-48); METAMYELOCYTES % 1 % (0-0); MONOCYTES % (MANUAL) 7 % (0-11.0); MYELOCYTES % 1 % (0-0); NEUTROPHILS % (MANUAL) 80 (42-76)
--- NOTE | 2018-10-02 07:29 | NUR ---
PIPE SUPERVISOR NOTE RECEIVED PT IN BED, OBTUNDED. CONTROLLED AFIB ON TELE. WITH INTACT TRACH, TOLERATING VENT SETTINGS, NO SOB NOTED. GTUBE INTACT AND IN PLACED, WITH ONGOING GTF NEPRO AT 45 ML/HR,TOLERATING WELL. HOB ELEVATED. RCW HD CATH C/D/I. ILIANA MIDLINE AND RT WRIST G20 PATENT, C/D/I. FC AND FLEXISEAL RECTAL TUBE INTACT AND IN PLACED. SAFETY MEASURES, ASPIRATION PRECAUTION CALL LIGHT WITHIN REACH. WILL CONT TO MONITOR
[2018-10-02 08:00] VITALS: BP 105/78
[2018-10-02] MEDS: CLOPIDOGREL BISULFATE 75 MG TABLET GT SCH (08:04)
[2018-10-02] MEDS: LEVETIRACETAM SOL (5 ML) 100 MG/ML UDC GT SCH ×2 (08:04→16:05)
[2018-10-02] MEDS: COLISTIMETHATE SODIUM 150 MG in IV NS 0.9% 50 ML IV SCH (08:04)
[2018-10-02] MEDS: PROSOURCE / PROSTAT (PYXIS) 30 ML UDC GT SCH ×3 (08:05→16:05)
[2018-10-02] MEDS: MIDODRINE HCL (5MG) 5 MG TABLET GT SCH ×2 (08:05→16:05)
[2018-10-02] MEDS: FAMOTIDINE (20 MG) 20 MG TABLET GT SCH (08:05)
[2018-10-02] MEDS: LACTOBACILLUS RHAMNOSUS GG 1 EACH CAP.SPRINK PO SCH ×2 (08:05→16:05)
[2018-10-02] MEDS: Z GUARD REMEDY 2 OZ OINT TP SCH ×3 (08:06→16:07)
[2018-10-02] MEDS: DAKINS QUARTER STRENGTH (0.125%) 480 ML BOTTLE TOP SCH (08:06)
[2018-10-02] MEDS: CADEXOMER IODINE 40 GM TUBE TP SCH (08:06)
--- NOTE | 2018-10-02 09:30 | NUR ---
telecom specialist note Fidencio rn hd nurse notifyed that k 3.4 ,stated that will fix with hd treatment, dr Hernandez real estate portfolio manager aware
--- NOTE | 2018-10-02 09:59 | NUR ---
RESTAURANT MANAGING PARTNER NOTE ON HD AT THIS TIME ,ALL NEEDS ATTENDED
--- NOTE | 2018-10-02 11:41 | NUR ---
DIPLOMA DENTAL ASSISTANT NOTE HD COMPLETED, NO FLUIDS OUT , BP 112/37 HR 78
[2018-10-02 12:00] VITALS: BP 99/51
--- NOTE | 2018-10-02 15:00 | NUR ---
VENDETTE NOTE KEEP CLEAN DRY .CONT O G TUBE FEEDING ORDERED ,TURN REPOSITION .WILL CONT TO MONITOR CLOSELY
[2018-10-02 16:00] VITALS: BP 95/56
--- NOTE | 2018-10-02 16:00 | NUR ---
SUPERVISORY AIDE NOTE NOTED SAT 88-84%, RT AT BEDSIDE ,TRACH SUCTION DONE ,PULSE OXIMETRY SENSOR CHANGED ,STILL AT 87% ,PER RT INCREASED FIO2 TO 40% , WILL CONT TO MONITOR
[2018-10-02] MEDS: INSULIN REGULAR, HUMAN 100 UNIT/ML 3 ML VIAL SQ PRN ×2 (17:13→23:48)
--- NOTE | 2018-10-02 18:35 | NUR ---
DESIGN TECHNOLOGY PROFESSOR NOTE CONT ON VENT SETTING ORDERED ,ALL NEEDS ATTENDED WITH G TUBE FEEDING .TOLERATED WELL .WILL CONT TO MONITOR CLOSELY
--- NOTE | 2018-10-02 19:10 | NUR ---
ESTIMATOR JEWELRY NOTE RECEIVED PT RESTING WITH HOB ELEVATED, OBTUNDED, TRACH TO VENT ON SETTINGS ORDERED, ON TELE AFIB, NO S/SX OF CARDIAC OR RESPIRATORY DISTRESS, FLEXISEAL IN PLACE DRAINING BROWN LIQUID STOOL, F/C DRAINING YELLOW URINE, ILIANA MIDLINE R WRIST #20G SL, BOTH PATENT FLUSHING WELL, FLUSHING WELL, SKIN KEPT CLEAN AND DRY, RCW HR CATH COVERED DRESSING CLEAN AND INTACT, SAFETY MAINTAINED AT ALL TIMES, BED IN LOW LOCKED POSITION WILL CONTINUE TO MONITOR FOR ANY CHANGES.
[2018-10-02 20:00] VITALS: BP 90/42
[2018-10-02] MEDS: INSULIN GLARGINE, 100 UNIT/ML CARTRIDGE SQ SCH (21:23)
[2018-10-03] VITALS (7 sets, daily range): BP systolic 80–110; BP diastolic 36–53
[2018-10-03] MEDS: METRONIDAZOLE 500MG/ NS 100ML 500 MG in PREMIX 1 EA IV SCH ×2 (05:37→11:20)
[2018-10-03] MEDS: BLOOD SUGAR DIAGNOSTIC 1 EACH STRIP IN SCH ×4 (05:37→23:58)
[2018-10-03 06:55] LABS: BASOPHILS % (AUTO) 0.3 % (0.0-2.0); EOSINOPHILS % (AUTO) 2.6 % (0.0-6.0); HEMATOCRIT 22 % (39-51); HEMOGLOBIN 7.1 g/dL (13.5-17.5); LYMPHOCYTES # (AUTO) 0.7 /CMM (0.8-4.8); LYMPHOCYTES % (AUTO) 6.1 % (20.0-44.0); MEAN CORPUSCULAR HGB CONC 32 g/dl (31.0-36.0); MEAN CORPUSCULAR VOLUME 91 fL (80-96); MONOCYTES # (AUTO) 0.9 /CMM (0.1-1.30); MONOCYTES % (AUTO) 7.3 % (2.0-12.0); NEUTROPHILS % (AUTO) 83.7 % (43.0-81.0); PLATELET COUNT (AUTO) 92 /CMM (150-450); WHITE BLOOD COUNT (AUTO) 11.9 K/uL (4.3-11.0)
[2018-10-03 07:47] LABS: BAND % (MANUAL) 3 % (0.0-5.0); EOSINOPHILS % (MANUAL) 1 % (0-4); LYMPHOCYTES % (MANUAL) 3 % (16-48); MONOCYTES % (MANUAL) 5 % (0-11.0); NEUTROPHILS % (MANUAL) 88 (42-76)
[2018-10-03] MEDS: COLISTIMETHATE SODIUM 150 MG in IV NS 0.9% 50 ML IV SCH (07:56)
[2018-10-03] MEDS: DAKINS QUARTER STRENGTH (0.125%) 480 ML BOTTLE TOP SCH (07:57)
[2018-10-03] MEDS: CADEXOMER IODINE 40 GM TUBE TP SCH (07:57)
[2018-10-03] MEDS: Z GUARD REMEDY 2 OZ OINT TP SCH ×2 (07:57→16:43)
[2018-10-03] MEDS: FAMOTIDINE (20 MG) 20 MG TABLET GT SCH (07:58)
[2018-10-03] MEDS: LACTOBACILLUS RHAMNOSUS GG 1 EACH CAP.SPRINK PO SCH ×2 (07:58→16:43)
[2018-10-03] MEDS: MIDODRINE HCL (5MG) 5 MG TABLET GT SCH ×2 (07:58→16:42)
[2018-10-03] MEDS: LEVETIRACETAM SOL (5 ML) 100 MG/ML UDC GT SCH ×2 (07:58→16:42)
[2018-10-03] MEDS: PROSOURCE / PROSTAT (PYXIS) 30 ML UDC GT SCH ×3 (08:00→16:43)
[2018-10-03] MEDS: CLOPIDOGREL BISULFATE 75 MG TABLET GT SCH (08:04)
[2018-10-03 08:16] LABS: CALCIUM, SERUM 9.1 mg/dL (8.5-10.1); CREATININE 1.8 mg/dL (0.6-1.3); POTASSIUM 3.4 mmol/L (3.5-5.1)
[2018-10-03] MEDS ORDERED: LIDOCAINE 1%-EPI 1:200,000 SDV 10 ML VIAL IJ ONE (10:00)
[2018-10-03] MEDS: NEPRO 1,000 ML BOTTLE GT PRN (11:17)
--- NOTE | 2018-10-03 16:00 | NUR ---
rn note pt had sacral wound debridement today by Dr Browne, picture taken, wound is packed by kerlix gauze and covered with abd. pad, moderate drainage noted later, pt repositioned. will monitor pt closely.
[2018-10-03] MEDS: METRONIDAZOLE 500 MG TABLET GT SCH ×2 (17:54→23:58)
--- NOTE | 2018-10-03 17:54 | NUR ---
RT Addendum: 10/03/18 at 1754 by JEFFRY RAZO RT RECD PT TRACHED INTATC & SECURED ON MECH VENT DAMIEN ORDERED SETTINGS ALARMS ON AND AUDIBLE BAG AND MASK AT HOB VENT PLUGGED IN RED OUTLET, SX THICK YELLOW MOD AMOUNT OF SECRETIONS, MAINTAINED SP02 > 92% NO SOB WILL CONT TO MONITOR
--- NOTE | 2018-10-03 19:35 | NUR ---
RECEIVED PT WITH TRACH PORTEX 7 ON THE VENT WITH NOTED SETTINGS. PT IS OBTUNDED AND RESPONDS TO STIMULI WHEN SUCTION. SX MODERATE AMOUNT OF YELLOW THICK SECRETIONS . VENT PLUGGED INTO RED OUTLET . ALARMS ARE SET AND AUDIBLE. AMBU BAG @ BEDSIDE. PATIENT TRACH IS SECURED AND PATENT. PT IS STABLE AND NO RESPIRATORY DISTRESS NOTED AT THIS TIME ,WILL CONTINUE TO MONITOR PATIENT.
--- NOTE | 2018-10-03 19:35 | NUR ---
ARBORER NOTE RECEIVED PATIENT RESTING WITH HOB ELEVATED, OBTUNDED, TRACH TO VENT SETTINGS TOLERATING WELL SATINF 100%. ON TELE AFIB, NO S/SX OF ACUTE CARDIAC OR RESPIRATORY DISTRESS, GT FEEDING INFUSING WELL, FLEXISEAL IN PLACE DRAINING BROWN LIQUID STOOL, F/C DRAINING YELLOW URINE, ILIANA MIDLINE R WRIST #20G SL, BOTH PATENT FLUSHING WELL, FLUSHING WELL, SKIN KEPT CLEAN AND DRY, RCW HR CATH COVERED DRESSING CLEAN AND INTACT, SAFETY MAINTAINED AT ALL TIMES, BED IN LOW LOCKED POSITION WILL CONTINUE TO MONITOR ACCORDINGLY.
[2018-10-03] MEDS: INSULIN GLARGINE, 100 UNIT/ML CARTRIDGE SQ SCH (22:40)
[2018-10-04] VITALS (7 sets, daily range): BP systolic 82–101; BP diastolic 37–60
[2018-10-04] MEDS: INSULIN REGULAR, HUMAN 100 UNIT/ML 3 ML VIAL SQ PRN ×5 (00:15→23:06)
[2018-10-04] MEDS: METRONIDAZOLE 500 MG TABLET GT SCH ×3 (06:09→16:44)
[2018-10-04] MEDS: BLOOD SUGAR DIAGNOSTIC 1 EACH STRIP IN SCH ×4 (06:09→23:03)
[2018-10-04 06:33] LABS: BASOPHILS % (AUTO) 0.4 % (0.0-2.0); HEMATOCRIT 22 % (39-51); HEMOGLOBIN 7.1 g/dL (13.5-17.5); LYMPHOCYTES # (AUTO) 0.8 /CMM (0.8-4.8); LYMPHOCYTES % (AUTO) 6.3 % (20.0-44.0); MEAN CORPUSCULAR HGB CONC 32 g/dl (31.0-36.0); MEAN CORPUSCULAR VOLUME 92 fL (80-96); MONOCYTES # (AUTO) 0.8 /CMM (0.1-1.30); MONOCYTES % (AUTO) 6.7 % (2.0-12.0); NEUTROPHILS # (AUTO) 10.7 /CMM (1.8-8.9); NEUTROPHILS % (AUTO) 84.6 % (43.0-81.0); PLATELET COUNT (AUTO) 88 /CMM (150-450); RED BLOOD CELL COUNT(AUTO) 2.42 MIL/uL (4.5-6.0); WHITE BLOOD COUNT (AUTO) 12.6 K/uL (4.3-11.0)
[2018-10-04 06:52] LABS: CALCIUM, SERUM 9.1 mg/dL (8.5-10.1); CREATININE 1.9 mg/dL (0.6-1.3); MAGNESIUM 1.8 mg/dL (1.8-2.4); PHOSPHORUS 4.1 mg/dL (2.5-4.9); POTASSIUM 3.3 mmol/L (3.5-5.1)
--- NOTE | 2018-10-04 07:02 | NUR ---
RN NOTES ALL NEEDS ATTENDED AND MET, VENT SETTINGS TOLERATING WELL SATING 100%, IV ACCESS CLEAN DRY AND INTACT, GT FEEDING TOLERATING WELL, WOUND DRESSING CHANGED PER MD ORDERED, HUERTAS CATH INTACT AND PATENT DRAINING YELLOW WITH SEDIMENTATION URINE OUTPUT, FLEXISEAL INTACT AND CLEAN, WILL ENDORSE TO AM NURSE FOR CONTINUITY OF CARE.
--- NOTE | 2018-10-04 07:11 | NUR ---
RT PATIENT RECEIVED ON VENT SUPPORT VIA TRACH, AC 10, 450, 45% NO PEEP. TRACH TUBE IN PLACE, PATENT, AND SECURED. COARSE RHONCHI BREATH SOUNDS BILATERALLY. MODERATE THICK PALE YELLOW SECRETIONS. VENT ALARMS IS ON AND FUNCTIONING WITH AMBU BAG AND BACK UP TRACH BY BEDSIDE. VENT PLUGGED IN TO RED OUTLET. Addendum: 10/04/18 at 0945 by ROBBIN EM RT Amended: Links added.
[2018-10-04 07:13] LABS: BAND % (MANUAL) 2 % (0.0-5.0); LYMPHOCYTES % (MANUAL) 7 % (16-48); MONOCYTES % (MANUAL) 7 % (0-11.0); NEUTROPHILS % (MANUAL) 78 (42-76)
[2018-10-04 07:14] LABS: EOSINOPHILS % (MANUAL) 2 % (0-4); METAMYELOCYTES % 1 % (0-0); MYELOCYTES % 3 % (0-0)
--- NOTE | 2018-10-04 07:30 | NUR ---
RN NOTES RECEIVED PATIENT IN BED, OBTUNDED, TRACH TO VENT, TOLERATING CURRENT SETTINGS WELL, NO SOB. NO SIGNS OR SYMPTOMS OF ACUTE RESPIRATORY DISTRESS, NO INDICATION OF PAIN NOTED AT THIS TIME. A FIB ON THE MONITOR WITH HR ON THE 60'S. GT IN PLACE AND PATENT, PLACEMENT CONFIRMED BY AUSCULTATION AND ASPIRATING GASTRIC RESIDUAL: NO GASTRIC RESIDUAL TAKEN AT THIS TIME. GTF RUNNING NEPHRO @ 45 ML/HR TOLERATING WELL. ILIANA MIDLINE #18 GAUGE AND R M HAND G# [address] AND INTACT. NO SIGN OF INFECTION OR INFILTRATION NOTED ON THE SITE. RCW HD CATH IN PLACE, DRESSING INTACT. SAFETY AND ASPIRATION PRECAUTION OBSERVED AND MAINTAINED. WILL KEEP AND IMPLEMENT ISOLATION PRECAUTIONS. BED PLACED IN LOW AND LOCKED POSITION. SIDE RAILS UP X2. CALL LIGHT WITHIN REACH. WILL CONTINUE TO MONITOR AND ANTICIPATE NEEDS
[2018-10-04] MEDS: Z GUARD REMEDY 2 OZ OINT TP SCH ×3 (09:00→16:44)
[2018-10-04] MEDS: COLISTIMETHATE SODIUM 150 MG in IV NS 0.9% 50 ML IV SCH (09:20)
[2018-10-04] MEDS: CLOPIDOGREL BISULFATE 75 MG TABLET GT SCH (09:20)
[2018-10-04] MEDS: LEVETIRACETAM SOL (5 ML) 100 MG/ML UDC GT SCH ×2 (09:20→16:39)
[2018-10-04] MEDS: PROSOURCE / PROSTAT (PYXIS) 30 ML UDC GT SCH ×3 (09:22→16:39)
[2018-10-04] MEDS: LACTOBACILLUS RHAMNOSUS GG 1 EACH CAP.SPRINK PO SCH ×2 (09:22→16:39)
[2018-10-04] MEDS: FAMOTIDINE (20 MG) 20 MG TABLET GT SCH (09:22)
[2018-10-04] MEDS: MIDODRINE HCL (5MG) 5 MG TABLET GT SCH ×2 (09:22→16:39)
[2018-10-04] MEDS: CADEXOMER IODINE 40 GM TUBE TP SCH (09:28)
[2018-10-04] MEDS: DAKINS QUARTER STRENGTH (0.125%) 480 ML BOTTLE TOP SCH (09:28)
[2018-10-04] MEDS: NEPRO 1,000 ML BOTTLE GT PRN (12:34)
--- NOTE | 2018-10-04 19:00 | NUR ---
TELE/RN ENTRY NOTES PATIENT RECEIVED IN BED, AWAKE, OPEN EYES. NO S/S OF ACUTE DISTRESS NOTES. RESPIRATION EVEN AND UNLABORED. NO SOB NOTED. TRACH INTACT, PATENT, CONNECTED TO VENT WITH PRESCRIBED SETTINGS. O2 SATURATION 99%. RCW HD CATHETER, PATENT. ILIANA MIDLINE AND R WRIST IV SITES NOTED WITH NO S/S OF INFECTION, NO INFILTRATION NOTED. F/C INTACT PATENT, DRAINING WELL WITH YELLOW CLOUDY URINE. RECTAL TUBE IN PLACE. G TUBE IN PLACE, PATENT, NO RESIDUAL NOTED. HOB KEPT ELEVATED. WILL CONTINUE TO MONITOR PATIENT PER PLAN OF CARE. SAFETY MAINTAINED. CALL LIGHT WITHIN REACH.
--- NOTE | 2018-10-04 19:33 | NUR ---
RN NOTES ENDORSED PATIENT FOR CONTINUITY OF CARE. NOT ON ANY FOR DISTRESS. ALL NURSING NEED ATTENDED AND MET. SAFETY MEASURES IN PLACE AT ALL TIME. CALL LIGHT PLACED WITHIN REACH. ISOLATION KEPT IMPLEMENTED
[2018-10-04] MEDS: INSULIN GLARGINE, 100 UNIT/ML CARTRIDGE SQ SCH (23:02)
[2018-10-05] VITALS: BP 98/50
[2018-10-05] MEDS: METRONIDAZOLE 500 MG TABLET GT SCH ×5 (00:08→23:22)
[2018-10-05 04:00] VITALS: BP 101/58
[2018-10-05] MEDS: BLOOD SUGAR DIAGNOSTIC 1 EACH STRIP IN SCH ×4 (06:19→23:18)
[2018-10-05] MEDS: INSULIN REGULAR, HUMAN 100 UNIT/ML 3 ML VIAL SQ PRN ×3 (06:21→23:21)
--- NOTE | 2018-10-05 07:00 | NUR ---
TELE/RN EXIT NOTES PATIENT IN BED, AWAKE, OPEN EYES. NO S/S OF ACUTE DISTRESS NOTES. RESPIRATION EVEN AND UNLABORED. NO SOB NOTED. TRACH INTACT, PATENT, CONNECTED TO VENT WITH PRESCRIBED SETTINGS. O2 SATURATION 100%. RCW HD CATHETER, PATENT. ILIANA MIDLINE AND R WRIST IV SITES NOTED WITH NO S/S OF INFECTION, NO INFILTRATION NOTED. F/C INTACT PATENT, DRAINING WELL WITH YELLOW CLOUDY URINE. RECTAL TUBE IN PLACE. NO OUTPUT NOTED. G TUBE IN PLACE, PATENT, NO RESIDUAL NOTED. FEEDING PROVIDED ORDERED. RESIDENT TOLERATED WELL. HOB KEPT ELEVATED AT ALL THE TIME. ALL DUE MEDS GIVEN ORDERED. KEPT PATIENT CLEAN AND DRY. GOOD PERICARE CARE PROVIDED. SAFETY MAINTAINED. CALL LIGHT WITHIN REACH. WILL ENDORSE TO THE AM NURSE TO CONTINUE TO MONITOR PATIENT PER PLAN OF CARE.
[2018-10-05 07:24] LABS: BASOPHILS % (AUTO) 0.4 % (0.0-2.0); EOSINOPHILS % (AUTO) 1.9 % (0.0-6.0); LYMPHOCYTES # (AUTO) 0.6 /CMM (0.8-4.8); MEAN CORPUSCULAR HGB CONC 32 g/dl (31.0-36.0); MEAN CORPUSCULAR VOLUME 93 fL (80-96); MONOCYTES # (AUTO) 0.8 /CMM (0.1-1.30); MONOCYTES % (AUTO) 7.7 % (2.0-12.0); NEUTROPHILS # (AUTO) 8.6 /CMM (1.8-8.9); PLATELET COUNT (AUTO) 81 /CMM (150-450); WHITE BLOOD COUNT (AUTO) 10.3 K/uL (4.3-11.0)
--- NOTE | 2018-10-05 07:28 | NUR ---
INITIAL PATIENT IN BED, ASLEEP. NO S/S OF ACUTE DISTRESS NOTES. RESPIRATION EVEN AND UNLABORED. NO SOB NOTED. TRACH INTACT, PATENT, CONNECTED TO VENT WITH PRESCRIBED SETTINGS. O2 SATURATION 100%. RCW HD CATHETER, PATENT. ILIANA MIDLINE AND R WRIST IV SITES NOTED WITH NO S/S OF INFECTION, NO INFILTRATION NOTED. F/C INTACT PATENT, DRAINING WELL WITH YELLOW CLOUDY URINE. RECTAL TUBE IN PLACE. NO OUTPUT NOTED. G TUBE IN PLACE, PATENT, NO RESIDUAL NOTED. FEEDING PROVIDED ORDERED. RESIDENT TOLERATED WELL. HOB KEPT ELEVATED AT ALL THE TIME. ALL DUE MEDS GIVEN ORDERED. KEPT PATIENT CLEAN AND
[2018-10-05 07:32] LABS: CALCIUM, SERUM 9.4 mg/dL (8.5-10.1); CREATININE 1.6 mg/dL (0.6-1.3); MAGNESIUM 1.9 mg/dL (1.8-2.4); PHOSPHORUS 3.2 mg/dL (2.5-4.9); POTASSIUM 3.6 mmol/L (3.5-5.1)
[2018-10-05 07:34] LABS: HEMOGLOBIN 6.5 g/dL (13.5-17.5)
[2018-10-05 07:35] LABS: HEMATOCRIT 20 % (39-51)
[2018-10-05 08:00] VITALS: BP 101/62
[2018-10-05 08:24] LABS: HEMATOCRIT 21 % (39-51); MEAN CORPUSCULAR HGB CONC 33 g/dl (31.0-36.0); MEAN CORPUSCULAR VOLUME 94 fL (80-96); PLATELET COUNT (AUTO) 80 /CMM (150-450); RED BLOOD CELL COUNT(AUTO) 2.23 MIL/uL (4.5-6.0); WHITE BLOOD COUNT (AUTO) 10.9 K/uL (4.3-11.0)
[2018-10-05 09:07] LABS: EOSINOPHILS % (MANUAL) 1 % (0-4); LYMPHOCYTES % (MANUAL) 1 % (16-48); MONOCYTES % (MANUAL) 4 % (0-11.0); NEUTROPHILS % (MANUAL) 94 (42-76)
[2018-10-05] MEDS: FAMOTIDINE (20 MG) 20 MG TABLET GT SCH (09:14)
[2018-10-05] MEDS: LEVETIRACETAM SOL (5 ML) 100 MG/ML UDC GT SCH ×2 (09:14→17:37)
[2018-10-05] MEDS: CLOPIDOGREL BISULFATE 75 MG TABLET GT SCH (09:14)
[2018-10-05] MEDS: LACTOBACILLUS RHAMNOSUS GG 1 EACH CAP.SPRINK PO SCH ×2 (09:14→17:37)
[2018-10-05] MEDS: MIDODRINE HCL (5MG) 5 MG TABLET GT SCH ×2 (09:14→17:38)
[2018-10-05] MEDS: PROSOURCE / PROSTAT (PYXIS) 30 ML UDC GT SCH ×3 (09:15→17:38)
[2018-10-05] MEDS: COLISTIMETHATE SODIUM 150 MG in IV NS 0.9% 50 ML IV SCH (09:19)
[2018-10-05] MEDS: Z GUARD REMEDY 2 OZ OINT TP SCH ×3 (09:20→18:27)
[2018-10-05] MEDS: DAKINS QUARTER STRENGTH (0.125%) 480 ML BOTTLE TOP SCH (09:20)
[2018-10-05] MEDS: CADEXOMER IODINE 40 GM TUBE TP SCH (09:20)
--- NOTE | 2018-10-05 10:56 | NUR ---
MD TAMAR CANNON PLACED ORED FOR CONSENT TO DBRIDE SCARUM AND BILAERTAL BUTTOCKS 10/06 IN AFTERNOON OBTAINED
[2018-10-05] MEDS ORDERED: LIDOCAINE 2%-EPI 1:100,000 30 ML VIAL TP ONE (11:00)
[2018-10-05 12:00] VITALS: BP_SYST 85; BP_SYST 95; BP_DIAS 45; BP_DIAS 50
[2018-10-05 16:00] VITALS: BP 119/59
--- NOTE | 2018-10-05 18:04 | NUR ---
RT NOTE: RECEIVED PT ON ORDERED AC VENT SETTINGS. NO RESPIRATORY DISTRESS NOTED. TRACH CHECKED SECURE AND PATENT. SXD AND LAVAGED PT Q2 AND NEEDED. EMERGENCY EQUIPMENT @ BEDSIDE. ALARMS CHECKED ON AND AUDIBLE. Addendum: 10/05/18 at 1805 by DIEGO VELÁSQUEZ RT Amended: Links added.
--- NOTE | 2018-10-05 18:17 | NUR ---
CLOSING ALL NEEDS ATTENDED AND MET, VENT SETTINGS TOLERATING WELL SATING 100%, IV ACCESS CLEAN DRY AND INTACT, GT FEEDING TOLERATING WELL, WOUND DRESSING CHANGED PER MD ORDERED, HUERTAS CATH INTACT AND PATENT DRAINING YELLOW WITH SEDIMENTATION URINE OUTPUT, FLEXISEAL INTACT AND CLEAN, WILL ENDORSE TO PM NURSE FOR CONTINUITY OF CARE.
[2018-10-05] MEDS: NEPRO 1,000 ML BOTTLE GT PRN (19:08)
--- NOTE | 2018-10-05 19:46 | NUR ---
SPECTROGRAPHER NOTE: RECEIVED PT ON BED OBTUNDED. NO ACUTE DISTRESS NOTED. NO FACIAL GRIMACING OR ANY SIGNS OF PAIN NOTED. ON [facility] VENT, SETTINGS ORDERED. NO SOB NOTED. GT INTACT AND PATENT, NO RESIDUAL NOTED AT THIS TIME. ABLE TO TOLERATE FEEDING WELL. FLEXISEAL AND HUERTAS CATH INTACT, DRAINING WELL. ON TELE MONITOR AFIB HR 7BPM. KEPT CLEAN, DRY AND COMFORTABLE. SIDE RAILS UP X3. BED LOCKED AND IN LOWEST POSITION. WILL CONTINUE TO MONITOR PT.
[2018-10-05 20:00] VITALS: BP 97/53
--- NOTE | 2018-10-05 23:17 | NUR ---
PEDIATRICS PHYSICIAN NOTE: 200ML GT RESIDUAL NOTED. GTF HELD. PAGED CAR CLERK PULLMAN MD, STILL AWAITING FOR CALL BACK. WILL CONTINUE TO MONITOR PT.
[2018-10-05] MEDS: INSULIN GLARGINE, 100 UNIT/ML CARTRIDGE SQ SCH (23:20)
--- NOTE | 2018-10-05 23:28 | NUR ---
LUNCHROOM ATTENDANT NOTE: RECEIVED A CALL BACK FROM DR. ZIMMERMAN, PER HOLD GTF FOR COUPLE OF HRS AND RECHECK RESIDUAL AGAIN. WILL CONTINUE TO MONITOR.
[2018-10-06] VITALS (9 sets, daily range): BP systolic 90–104; BP diastolic 45–69
--- NOTE | 2018-10-06 05:05 | NUR ---
PATIENT RECEIVED ON TRACH TO VENT WITH SETTINGS OF AC 10, 450 VT, 45%, +0 WITH A PORTEX 6 TRACH TUBE. SUCTIONED FOR MINIMAL, THINK, YELLOW SECRETIONS. GIVEN IN-LINE TREATMENTS WITH NO ADVERSE REACTIONS. AMBU BAG AT BEDSIDE. VENT AND PULSE OXIMETER ALARMS AUDIBLE AND VISIBLE. VENT PLUGGED INTO RED OUTLET. Addendum: 10/06/18 at 0506 by OSWALDO JENSENIT RT Amended: Links added. Addendum: 10/06/18 at 0509 by OSWALDO Pompa SULIT RT PATIENT RECEIVED ON TRACH TO VENT WITH SETTINGS OF AC 10, 450 VT, 45%, +0 WITH A PORTEX 7 TRACH TUBE. SUCTIONED FOR MODERATE, THINK, YELLOW SECRETIONS. AMBU BAG AT BEDSIDE. VENT AND PULSE OXIMETER ALARMS AUDIBLE AND VISIBLE. VENT PLUGGED INTO RED OUTLET.
[2018-10-06] MEDS: METRONIDAZOLE 500 MG TABLET GT SCH ×4 (05:29→23:10)
[2018-10-06] MEDS: BLOOD SUGAR DIAGNOSTIC 1 EACH STRIP IN SCH ×4 (05:30→23:18)
[2018-10-06 06:39] LABS: BASOPHILS % (AUTO) 0.3 % (0.0-2.0); EOSINOPHILS % (AUTO) 1.7 % (0.0-6.0); LYMPHOCYTES # (AUTO) 0.8 /CMM (0.8-4.8); LYMPHOCYTES % (AUTO) 6.9 % (20.0-44.0); MEAN CORPUSCULAR HGB CONC 31 g/dl (31.0-36.0); MEAN CORPUSCULAR VOLUME 94 fL (80-96); MONOCYTES # (AUTO) 0.9 /CMM (0.1-1.30); MONOCYTES % (AUTO) 8.2 % (2.0-12.0); NEUTROPHILS # (AUTO) 9.5 /CMM (1.8-8.9); NEUTROPHILS % (AUTO) 82.9 % (43.0-81.0); PLATELET COUNT (AUTO) 81 /CMM (150-450); RED BLOOD CELL COUNT(AUTO) 2.12 MIL/uL (4.5-6.0); WHITE BLOOD COUNT (AUTO) 11.5 K/uL (4.3-11.0)
--- NOTE | 2018-10-06 06:46 | NUR ---
CRUSHING MACHINE OPERATOR NOTE: PT IN BED, NO APPARENT DISTRESS NOTED. NO FACIAL GRIMACING OR ANY SIGNS OF PAIN NOTED. ON MECH VENT, SETTINGS ORDERED, SATRUATING WELL. GT STILL HAS RESIDUAL OF 60ML, GTF STILL ON HOLD. ON TELE MONITOR AFIB CONTROLLED HR 83BPM. HUERTAS CATH AND FLEXISEAL INTACT AND PATENT, DRAINING WELL. KEPT CLEAN, DRY AND COMFORTABLE. SAFETY AND FALL PRECAUTIONS OBSERVED AND MAINTAINED. WILL ENDORSE TO DAY SHIFT RN FOR CONTINUITY OF CARE.
[2018-10-06 06:48] LABS: HEMOGLOBIN 6.3 g/dL (13.5-17.5)
[2018-10-06 06:53] LABS: HEMATOCRIT 20 % (39-51)
[2018-10-06 07:10] LABS: CALCIUM, SERUM 9.6 mg/dL (8.5-10.1); CREATININE 1.8 mg/dL (0.6-1.3); PHOSPHORUS 3.5 mg/dL (2.5-4.9); POTASSIUM 3.6 mmol/L (3.5-5.1)
[2018-10-06 08:40] LABS: BAND % (MANUAL) 1 % (0.0-5.0); LYMPHOCYTES % (MANUAL) 6 % (16-48); MONOCYTES % (MANUAL) 8 % (0-11.0); NEUTROPHILS % (MANUAL) 85 (42-76)
[2018-10-06] MEDS: COLISTIMETHATE SODIUM 150 MG in IV NS 0.9% 50 ML IV SCH (08:40)
--- NOTE | 2018-10-06 08:45 | NUR ---
RT NOTE PT REC'D TRACHED ON [facility] VENT ON ORDERED SETTINGS, NO SOB NOTED AT THIS TIME, TRACH TUBE PATENT AND SECURE, VENT ALARMS ON AND AUDIBLE, BVM BY BEDSIDE, VENT PLUGGED IN RED OUTLET, PT SX WITH MODERATE AMOUNT OF THICK PALE-YELLOW SECRETIONS, WILL CONTINUE TO MONITOR. Addendum: 10/06/18 at 0847 by JANETTE BIRMINGHAM RT Amended: Links added.
--- NOTE | 2018-10-06 08:53 | NUR ---
PATIENT RECIEVED WITH GTUBE OFF FOR HIGH RESIDUALS,
[2018-10-06] MEDS: CADEXOMER IODINE 40 GM TUBE TP SCH (09:00)
[2018-10-06] MEDS: CLOPIDOGREL BISULFATE 75 MG TABLET GT SCH (09:55)
[2018-10-06] MEDS: LACTOBACILLUS RHAMNOSUS GG 1 EACH CAP.SPRINK PO SCH ×2 (09:55→17:19)
[2018-10-06] MEDS: FAMOTIDINE (20 MG) 20 MG TABLET GT SCH (09:55)
[2018-10-06] MEDS: MIDODRINE HCL (5MG) 5 MG TABLET GT SCH ×2 (09:56→17:18)
[2018-10-06] MEDS: LEVETIRACETAM SOL (5 ML) 100 MG/ML UDC GT SCH ×2 (09:59→17:19)
[2018-10-06] MEDS: PROSOURCE / PROSTAT (PYXIS) 30 ML UDC GT SCH ×3 (10:22→17:21)
[2018-10-06] MEDS: DAKINS QUARTER STRENGTH (0.125%) 480 ML BOTTLE TOP SCH (10:47)
[2018-10-06] MEDS: Z GUARD REMEDY 2 OZ OINT TP SCH ×2 (10:49→17:20)
--- NOTE | 2018-10-06 10:59 | NUR ---
Dr Rojas group paged and texted back with ni further orders for the hbg 6.3. patient will mhave hemodialysis today. feeding restartd at 20m/hour. medications due given,
--- NOTE | 2018-10-06 11:02 | NUR ---
consent for the debridement of the sacral bedsore signed.Surgeon in for the debridement but will come back fir the procedure.
[2018-10-06] MEDS ORDERED: EPOETIN ALFA (10,000 UNIT) 10,000 UNIT/ML VIAL IV ONE (12:30)
[2018-10-06] MEDS ORDERED: ALBUMIN 25% 25 GM in PREMIX 1 EA IV ONE (12:30)
--- NOTE | 2018-10-06 12:52 | NUR ---
hemodialysis ongoing, bp low in parameters ,with orders for albumin iv, Surgeon in for the debridement but informed patient bp is low and ongoing hemodialysis . procedure cancelled for later
--- NOTE | 2018-10-06 13:54 | NUR ---
hemodialysis ongoing, hd nurse infused the albumin with hd. no fluid taken,only cleaning. gtube feeding ongoing with no further residuals noted, head of be elevated 35 degrees
--- NOTE | 2018-10-06 14:46 | NUR ---
supervisor ovens in and patient had an order for 1 unit of prbc with hd, hd completed and PAGEANT DIRECTOR is informed. consent will be taken fro the family
--- NOTE | 2018-10-06 15:11 | NUR ---
gtube feeding increased to 35ml/hour.no residuals noted, hd completed and no output, just for cleaning,
--- NOTE | 2018-10-06 15:19 | NUR ---
BLOOD TRANSFUSION CONSENT TAKEN TELEPHONE CONSENT ROSARIO Hearn WITH ANOTHER RN. BLOOD REQUESTED
[2018-10-06 15:25] LABS: HEMOGLOBIN 6.7 g/dL (13.5-17.5)
--- NOTE | 2018-10-06 16:57 | NUR ---
ONE UNIT OF BLOOD STARTED ORDERED.ELECTRICAL WIRER IS AWARE THAT THE BLOOD WAS NOTINFUSED WITH HEMODIALYSIS THE BLOOD WAS NOT READY. GIVEN TO THE RIGHT UPPER ARM MIDLINE,.
--- NOTE | 2018-10-06 19:02 | NUR ---
blood infusing at 110ml/hour. vital signs checked and recorded
--- NOTE | 2018-10-06 19:30 | NUR ---
SUPERVISOR METAL FURNITURE FABRICATION NOTE: RECEIVED PT ON BED OBTUNDED WITH ONGOING BLOOD TRANSFUSION. NO ACUTE DISTRESS NOTED. NO FACIAL GRIMACING OR ANY SIGNS OF PAIN NOTED. ON [facility] VENT, SETTINGS ORDERED. NO SOB NOTED. GT INTACT AND PATENT, NO RESIDUAL NOTED AT THIS TIME. ABLE TO TOLERATE FEEDING WELL. FLEXISEAL AND HUERTAS CATH INTACT, DRAINING WELL. ON TELE MONITOR AFIB HR 99BPM. KEPT CLEAN, DRY AND COMFORTABLE. SIDE RAILS UP X3. BED LOCKED AND IN LOWEST POSITION. WILL CONTINUE TO MONITOR PT.
--- NOTE | 2018-10-06 19:31 | NUR ---
report given to the night manager rn with blood trasnfusion ongoing at 110ml/hour/
[2018-10-06] MEDS: INSULIN GLARGINE, 100 UNIT/ML CARTRIDGE SQ SCH (23:19)
[2018-10-06] MEDS: INSULIN REGULAR, HUMAN 100 UNIT/ML 3 ML VIAL SQ PRN (23:20)
[2018-10-07] VITALS: BP_SYST 91; BP_SYST 93; BP_DIAS 42
[2018-10-07 04:00] VITALS: BP 95/41
[2018-10-07] MEDS: NEPRO 1,000 ML BOTTLE GT PRN (04:27)
[2018-10-07] MEDS: METRONIDAZOLE 500 MG TABLET GT SCH ×4 (05:36→23:02)
[2018-10-07] MEDS: BLOOD SUGAR DIAGNOSTIC 1 EACH STRIP IN SCH ×4 (05:36→23:02)
[2018-10-07] MEDS: INSULIN REGULAR, HUMAN 100 UNIT/ML 3 ML VIAL SQ PRN ×4 (05:38→23:12)
[2018-10-07 06:55] LABS: BASOPHILS % (AUTO) 0.4 % (0.0-2.0); EOSINOPHILS % (AUTO) 2.3 % (0.0-6.0); HEMATOCRIT 24 % (39-51); HEMOGLOBIN 7.6 g/dL (13.5-17.5); LYMPHOCYTES # (AUTO) 0.8 /CMM (0.8-4.8); LYMPHOCYTES % (AUTO) 6.8 % (20.0-44.0); MEAN CORPUSCULAR HGB CONC 32 g/dl (31.0-36.0); MEAN CORPUSCULAR VOLUME 93 fL (80-96); MONOCYTES # (AUTO) 1.1 /CMM (0.1-1.30); MONOCYTES % (AUTO) 9.1 % (2.0-12.0); NEUTROPHILS # (AUTO) 9.4 /CMM (1.8-8.9); NEUTROPHILS % (AUTO) 81.4 % (43.0-81.0); PLATELET COUNT (AUTO) 81 /CMM (150-450); RED BLOOD CELL COUNT(AUTO) 2.56 MIL/uL (4.5-6.0); WHITE BLOOD COUNT (AUTO) 11.5 K/uL (4.3-11.0)
[2018-10-07 06:59] LABS: CALCIUM, SERUM 9.4 mg/dL (8.5-10.1); CREATININE 1.8 mg/dL (0.6-1.3); MAGNESIUM 1.9 mg/dL (1.8-2.4); PHOSPHORUS 3.4 mg/dL (2.5-4.9); POTASSIUM 3.5 mmol/L (3.5-5.1)
--- NOTE | 2018-10-07 07:17 | NUR ---
APARTMENT LEASING SPECIALIST NOTE: PT IN BED, NO APPARENT DISTRESS NOTED. NO FACIAL GRIMACING OR ANY SIGNS OF PAIN NOTED. ON MECH VENT, SETTINGS ORDERED, SATRUATING WELL. GT INTACT AND PATENT, 5ML OF RESIDUAL NOTED. ABLE TO TOLERATE FEEDING WELL. ON TELE MONITOR AFIB CONTROLLED HR 83BPM. HUERTAS CATH AND FLEXISEAL INTACT AND PATENT, DRAINING WELL. KEPT CLEAN, DRY AND COMFORTABLE. SAFETY AND FALL PRECAUTIONS OBSERVED AND MAINTAINED. WILL ENDORSE TO DAY SHIFT RN FOR CONTINUITY OF CARE.
[2018-10-07 08:00] VITALS: BP_SYST 91; BP_SYST 94; BP_DIAS 50; BP_DIAS 55
[2018-10-07] MEDS ORDERED: LIDOCAINE 1%-EPI 1:100,000 20 ML VIAL TP ONE (09:00)
[2018-10-07] MEDS: COLISTIMETHATE SODIUM 150 MG in IV NS 0.9% 50 ML IV SCH (09:12)
[2018-10-07] MEDS: LEVETIRACETAM SOL (5 ML) 100 MG/ML UDC GT SCH ×2 (09:33→17:34)
[2018-10-07] MEDS: FAMOTIDINE (20 MG) 20 MG TABLET GT SCH (09:34)
[2018-10-07] MEDS: MIDODRINE HCL (5MG) 5 MG TABLET GT SCH ×2 (09:34→17:34)
[2018-10-07] MEDS: PROSOURCE / PROSTAT (PYXIS) 30 ML UDC GT SCH ×3 (09:34→17:35)
[2018-10-07] MEDS: CLOPIDOGREL BISULFATE 75 MG TABLET GT SCH (09:34)
[2018-10-07] MEDS: LACTOBACILLUS RHAMNOSUS GG 1 EACH CAP.SPRINK PO SCH ×2 (09:35→17:35)
[2018-10-07] MEDS: CADEXOMER IODINE 40 GM TUBE TP SCH (09:43)
[2018-10-07] MEDS: DAKINS QUARTER STRENGTH (0.125%) 480 ML BOTTLE TOP SCH (09:43)
[2018-10-07] MEDS: Z GUARD REMEDY 2 OZ OINT TP SCH ×4 (09:44→17:48)
[2018-10-07 12:00] VITALS: BP 94/50
[2018-10-07 16:00] VITALS: BP 94/52
--- NOTE | 2018-10-07 19:00 | NUR ---
PORTABLE TRACK LINE MARKER NOTES REPORT GIVEN TO PM NURSE FOR JODEE. PT STABLE. VS REMAINED WNL DURING SHIFT.
[2018-10-07 20:00] VITALS: BP_SYST 11; BP_SYST 111; BP_DIAS 59
--- NOTE | 2018-10-07 20:00 | NUR ---
RN INITIAL NOTE: RECEIVED PT ON BED OBTUNDED. NO ACUTE DISTRESS NOTED. NO FACIAL GRIMACING OR ANY SIGNS OF PAIN NOTED. ON [facility] VENT, SETTINGS ORDERED. NO SOB NOTED. GT INTACT AND PATENT, NO RESIDUAL NOTED AT THIS TIME. ABLE TO TOLERATE FEEDING WELL. FLEXISEAL AND HUERTAS CATH INTACT, DRAINING WELL. ON TELE MONITOR AFIB CONTROLLED HR 78. SIDE RAILS UP X3. BED LOCKED AND IN LOWEST POSITION. WILL CONTINUE TO MONITOR PT.
[2018-10-07] MEDS: INSULIN GLARGINE, 100 UNIT/ML CARTRIDGE SQ SCH (23:11)
[2018-10-08] VITALS: BP 110/60
[2018-10-08 04:00] VITALS: BP 110/64
[2018-10-08] MEDS: BLOOD SUGAR DIAGNOSTIC 1 EACH STRIP IN SCH ×4 (05:11→23:04)
[2018-10-08] MEDS: METRONIDAZOLE 500 MG TABLET GT SCH ×3 (05:11→17:23)
[2018-10-08] MEDS: NEPRO 1,000 ML BOTTLE GT PRN (05:23)
[2018-10-08] MEDS: INSULIN REGULAR, HUMAN 100 UNIT/ML 3 ML VIAL SQ PRN ×3 (05:31→18:00)
--- NOTE | 2018-10-08 06:19 | NUR ---
RN CLOSING NOTES NO SIGNIFICANT CHANGE IN PTS CONDITION OVERNIGHT. ALL NEEDS ATTENDED AND MET, VENT SETTINGS TOLERATING WELL SATING 100%, IV ACCESS CLEAN DRY AND INTACT, GT FEEDING TOLERATING WELL, HUERTAS CATH INTACT AND PATENT DRAINING YELLOW WITH SEDIMENTATION URINE OUTPUT, FLEXISEAL INTACT AND CLEAN, WILL ENDORSE TO AM NURSE FOR CONTINUITY OF CARE.
--- NOTE | 2018-10-08 07:40 | NUR ---
RN NOTE: RECEIVED PT ON BED, VENT /TRACH DEPENDENT, OBTUNDED, TRACH CARE DONE, NO DISTRESS NOTED, ON TELE A. FIB HR IN 90'S ,NEPRO AT 45CC/HR RUNNING VIA GT , FLEXISEAL AND HUERTAS CATH INTACT, DRAINING WELL. SIDE RAILS UP X3. BED LOCKED AND IN LOWEST POSITION. CONTINUE TO MONITOR .
[2018-10-08 08:00] VITALS: BP 95/67
[2018-10-08] MEDS: COLISTIMETHATE SODIUM 150 MG in IV NS 0.9% 50 ML IV SCH (08:39)
[2018-10-08] MEDS: FAMOTIDINE (20 MG) 20 MG TABLET GT SCH (08:40)
[2018-10-08] MEDS: CLOPIDOGREL BISULFATE 75 MG TABLET GT SCH (08:40)
[2018-10-08] MEDS: LACTOBACILLUS RHAMNOSUS GG 1 EACH CAP.SPRINK PO SCH ×2 (08:40→17:23)
[2018-10-08] MEDS: MIDODRINE HCL (5MG) 5 MG TABLET GT SCH ×2 (08:40→17:23)
[2018-10-08] MEDS: LEVETIRACETAM SOL (5 ML) 100 MG/ML UDC GT SCH ×2 (08:40→17:23)
[2018-10-08] MEDS: DAKINS QUARTER STRENGTH (0.125%) 480 ML BOTTLE TOP SCH (08:41)
[2018-10-08] MEDS: CADEXOMER IODINE 40 GM TUBE TP SCH (08:42)
[2018-10-08] MEDS: Z GUARD REMEDY 2 OZ OINT TP SCH ×2 (08:43→17:23)
[2018-10-08] MEDS: PROSOURCE / PROSTAT (PYXIS) 30 ML UDC GT SCH ×3 (08:46→17:23)
[2018-10-08 10:53] LABS: BASOPHILS % (AUTO) 0.4 % (0.0-2.0); EOSINOPHILS % (AUTO) 3.1 % (0.0-6.0); HEMATOCRIT 24 % (39-51); HEMOGLOBIN 7.5 g/dL (13.5-17.5); LYMPHOCYTES # (AUTO) 0.9 /CMM (0.8-4.8); LYMPHOCYTES % (AUTO) 9.1 % (20.0-44.0); MEAN CORPUSCULAR HGB CONC 32 g/dl (31.0-36.0); MEAN CORPUSCULAR VOLUME 94 fL (80-96); MONOCYTES # (AUTO) 0.9 /CMM (0.1-1.30); MONOCYTES % (AUTO) 8.9 % (2.0-12.0); NEUTROPHILS # (AUTO) 7.8 /CMM (1.8-8.9); NEUTROPHILS % (AUTO) 78.5 % (43.0-81.0); PLATELET COUNT (AUTO) 72 /CMM (150-450); RED BLOOD CELL COUNT(AUTO) 2.51 MIL/uL (4.5-6.0); WHITE BLOOD COUNT (AUTO) 9.9 K/uL (4.3-11.0)
[2018-10-08 10:59] LABS: CALCIUM, SERUM 8.7 mg/dL (8.5-10.1); CREATININE 1.1 mg/dL (0.6-1.3); MAGNESIUM 1.9 mg/dL (1.8-2.4); PHOSPHORUS 2.4 mg/dL (2.5-4.9); POTASSIUM 3.7 mmol/L (3.5-5.1)
[2018-10-08 11:28] LABS: BAND % (MANUAL) 4 % (0.0-5.0); EOSINOPHILS % (MANUAL) 1 % (0-4); LYMPHOCYTES % (MANUAL) 8 % (16-48); MONOCYTES % (MANUAL) 11 % (0-11.0); MYELOCYTES % 4 % (0-0); NEUTROPHILS % (MANUAL) 72 (42-76)
[2018-10-08 12:00] VITALS: BP_SYST 95; BP_SYST 97; BP_DIAS 24; BP_DIAS 45
[2018-10-08 16:00] VITALS: BP 103/54
--- NOTE | 2018-10-08 16:01 | NUR ---
RN NOTES REPORT GIVEN TO LUKE GUZMAN FOR CONTINUITY OF CARE.
--- NOTE | 2018-10-08 16:01 | NUR ---
RN NOTES VSS STABLE CONTINUE TO MONITOR .
[2018-10-08 20:00] VITALS: BP 94/62
--- NOTE | 2018-10-08 20:00 | NUR ---
RN INITIAL NOTE: RECEIVED PT ON BED OBTUNDED. NO ACUTE DISTRESS NOTED. NO FACIAL GRIMACING OR ANY SIGNS OF PAIN NOTED. [facility], SETTINGS ORDERED. NO SOB NOTED. GT INTACT AND PATENT WITH FEEDING ORDERED , NO RESIDUAL NOTED AT THIS TIME. ABLE TO TOLERATE FEEDING WELL. FLEXI-SEAL AND HUERTAS CATH INTACT, DRAINING WELL. ON TELE MONITOR AFIB CONTROLLED HR 104. SIDE RAILS UP X3. BED LOCKED AND IN LOWEST POSITION. WILL CONTINUE TO MONITOR PT.
--- NOTE | 2018-10-08 20:03 | NUR ---
MIXED LIVESTOCK FARM WORKER CLOSING NOTE: PT ON BED, VENT /TRACH DEPENDENT, OBTUNDED, TRACH CARE DONE, NO DISTRESS NOTED, ON TELE A. FIB HR IN 90'S ,NEPRO AT 45CC/HR RUNNING VIA GT , FLEXISEAL AND HUERTAS CATH INTACT, DRAINING WELL. SIDE RAILS UP X3. BED LOCKED AND IN LOWEST POSITION. CARE ENDORSED TO HAND LAUNDERER RN.
[2018-10-08] MEDS: INSULIN GLARGINE, 100 UNIT/ML CARTRIDGE SQ SCH (23:34)
[2018-10-09] VITALS (7 sets, daily range): BP systolic 77–102; BP diastolic 42–60
[2018-10-09] MEDS: BLOOD SUGAR DIAGNOSTIC 1 EACH STRIP IN SCH ×4 (05:15→23:36)
[2018-10-09 07:10] LABS: BASOPHILS % (AUTO) 0.4 % (0.0-2.0); EOSINOPHILS % (AUTO) 3.2 % (0.0-6.0); HEMATOCRIT 24 % (39-51); HEMOGLOBIN 7.6 g/dL (13.5-17.5); LYMPHOCYTES % (AUTO) 10.5 % (20.0-44.0); MEAN CORPUSCULAR HGB CONC 31 g/dl (31.0-36.0); MEAN CORPUSCULAR VOLUME 95 fL (80-96); MONOCYTES % (AUTO) 10.1 % (2.0-12.0); NEUTROPHILS # (AUTO) 7.5 /CMM (1.8-8.9); NEUTROPHILS % (AUTO) 75.8 % (43.0-81.0); PLATELET COUNT (AUTO) 83 /CMM (150-450); RED BLOOD CELL COUNT(AUTO) 2.55 MIL/uL (4.5-6.0); WHITE BLOOD COUNT (AUTO) 9.9 K/uL (4.3-11.0)
[2018-10-09 07:28] LABS: CALCIUM, SERUM 9.8 mg/dL (8.5-10.1); CREATININE 1.9 mg/dL (0.6-1.3); PHOSPHORUS 4.2 mg/dL (2.5-4.9); POTASSIUM 3.9 mmol/L (3.5-5.1)
[2018-10-09] MEDS: COLISTIMETHATE SODIUM 150 MG in IV NS 0.9% 50 ML IV SCH (08:02)
--- NOTE | 2018-10-09 08:28 | NUR ---
TORPEDO WORKER OPENING NOTE RECEIVED PT IN BED, OBTUNDED. CONTROLLED AFIB ON TELE. WITH INTACT TRACH, TOLERATING VENT SETTINGS, NO SOB NOTED. GTF NEPRO AT 45 ML/HR,TOLERATING WELL. HOB ELEVATED. RCW HD CATH C/D/I. ILIANA MIDLINE # 18 GAUGE FC AND FLEXISEAL RECTAL TUBE INTACT AND IN PLACED. SAFETY MEASURES, ASPIRATION PRECAUTION CALL LIGHT WITHIN REACH. WILL CONT TO MONITOR
[2018-10-09] MEDS: MIDODRINE HCL (5MG) 5 MG TABLET GT SCH ×2 (08:55→17:23)
[2018-10-09] MEDS: CADEXOMER IODINE 40 GM TUBE TP SCH (08:55)
[2018-10-09] MEDS: LEVETIRACETAM SOL (5 ML) 100 MG/ML UDC GT SCH ×2 (08:55→17:23)
[2018-10-09] MEDS: FAMOTIDINE (20 MG) 20 MG TABLET GT SCH (08:55)
[2018-10-09] MEDS: DAKINS QUARTER STRENGTH (0.125%) 480 ML BOTTLE TOP SCH (08:55)
[2018-10-09] MEDS: CLOPIDOGREL BISULFATE 75 MG TABLET GT SCH (08:55)
[2018-10-09] MEDS: PROSOURCE / PROSTAT (PYXIS) 30 ML UDC GT SCH ×3 (08:55→17:26)
[2018-10-09] MEDS: LACTOBACILLUS RHAMNOSUS GG 1 EACH CAP.SPRINK PO SCH ×2 (08:55→17:23)
[2018-10-09] MEDS: Z GUARD REMEDY 2 OZ OINT TP SCH ×2 (08:56→17:26)
[2018-10-09] MEDS: NEPRO 1,000 ML BOTTLE GT PRN (09:02)
[2018-10-09 09:27] LABS: BAND % (MANUAL) 2 % (0.0-5.0); EOSINOPHILS % (MANUAL) 2 % (0-4); LYMPHOCYTES % (MANUAL) 4 % (16-48); MONOCYTES % (MANUAL) 5 % (0-11.0); NEUTROPHILS % (MANUAL) 87 (42-76)
--- NOTE | 2018-10-09 11:45 | NUR ---
ROUNDS DONE WITH MD . POOR PROGNOSIS AWAITING TO SPEAK WITH FAMILY IN REGARDS TO PLAN OF CARE
[2018-10-09] MEDS: INSULIN REGULAR, HUMAN 100 UNIT/ML 3 ML VIAL SQ PRN ×3 (12:47→23:25)
--- NOTE | 2018-10-09 18:43 | NUR ---
HONEST JOHN ROCKET CREW MEMBER NOTE PT IN BED, OBTUNDED. CONTROLLED AFIB ON TELE. WITH INTACT TRACH, TOLERATING VENT SETTINGS, NO SOB NOTED. GTF NEPRO AT 45 ML/HR,TOLERATING WELL. HOB ELEVATED. RCW HD CATH C/D/I. ILIANA MIDLINE # 18 GAUGE FC DRAINING MINIMAL PURULENT URINE AND FLEXI SEAL RECTAL TUBE INTACT WITH MINIMAL SOFT STOOL IN TUBING AND IN PLACED. SAFETY MEASURES, ASPIRATION PRECAUTION NO EPISODES OF HYPER/HYPOGLYCEMIA NOTED CALL LIGHT WITHIN REACH. ALL NEED MET BY THE STAFF
--- NOTE | 2018-10-09 19:24 | NUR ---
REPORT ENDORSED TO NOC
--- NOTE | 2018-10-09 19:58 | NUR ---
SQL REPORT WRITER NOTE: RECEIVED PT ON BED OBTUNDED WITH NO APPARENT DISTRESS NOTED. NO FACIAL GRIMACING OR ANY SIGNS OF PAIN NOTED. ON [facility] VENT, SETTINGS ORDERED. SATURATING WELL. AFIB CONTROLLED ON TELE MONITOR HR 87BPM. GT INTACT AND PATENT, NO RESIDUAL NOTED AT THIS TIME. KEPT CLEAN, DRY AND COMFORTABLE. SAFETY AND FALL PRECAUTIONS OBSERVED AND MAINTAINED. WILL CONTINUE TO MONITOR PT.
[2018-10-09] MEDS: INSULIN GLARGINE, 100 UNIT/ML CARTRIDGE SQ SCH (23:25)
--- NOTE | 2018-10-09 23:40 | NUR ---
NURSES SUPERVISOR NOTE: BP LOW 83/48 MAP 64. RECHECKED BP USING DIFFERENT CUFF AND ON DIFFERENT SITES BUT BP STILL LOW. NOTIFIED DR. ZIMMERMAN WITH ORDER TO GIVE 500ML NS BOLUS. ORDER CARRIED OUT AND DONE. WILL CONTINUE TO MONITOR PT.
[2018-10-10] VITALS (7 sets, daily range): BP systolic 83–136; BP diastolic 48–82
[2018-10-10] MEDS ORDERED: IV NS 0.9% 500 ML IV ONE
--- NOTE | 2018-10-10 01:13 | NUR ---
LICENSING ANALYST NOTE: 500ML NS BOLUS GIVEN ORDERED, BP RECHECKED AFTER BOLUS BP 86/54. NOTIFIED DR. ZIMMERMAN, NO NEW ORDERS, JUST MONITOR FOR NOW PER MD.
[2018-10-10] MEDS: BLOOD SUGAR DIAGNOSTIC 1 EACH STRIP IN SCH ×4 (05:40→23:05)
[2018-10-10] MEDS: INSULIN REGULAR, HUMAN 100 UNIT/ML 3 ML VIAL SQ PRN ×4 (05:42→23:07)
[2018-10-10] MEDS: NEPRO 1,000 ML BOTTLE GT PRN (05:43)
--- NOTE | 2018-10-10 06:14 | NUR ---
PATIENT RECEIVED ON TRACH TO VENT WITH PORTEX 7 TUBE, SETTINGS OF AC 10, 450 V5, 45%, +0. SUCTIONED WITH LAVAGE FOR LARGE, PRODUCTIVE, THICK, YELLOW-CREAM SECRETIONS. AMBU BAG AT BEDSIDE. VENT AND PULSE OXIMETER ALARMS AUDIBLE AND VISIBLE. VENT PLUGGED INTO RED OUTLET. Addendum: 10/10/18 at 0616 by OSWALDO ROJAS RT Amended: Links added.
--- NOTE | 2018-10-10 06:35 | NUR ---
POLYSTYRENE MOLDING MACHINE TENDER NOTE: PT IN BED, NO APPARENT DISTRESS NOTED. NO FACIAL GRIMACING OR ANY SIGNS OF PAIN NOTED. ON [facility] VENT, SETTINGS ORDERED, SATRUATING WELL. GT INTACT AND PATENT, NO RESIDUAL NOTED. ABLE TO TOLERATE FEEDING WELL. ON TELE MONITOR AFIB CONTROLLED HR 76BPM. HUERTAS CATH AND FLEXISEAL INTACT AND PATENT, DRAINING WELL. KEPT CLEAN, DRY AND COMFORTABLE. SAFETY AND FALL PRECAUTIONS OBSERVED AND MAINTAINED. WILL ENDORSE TO DAY SHIFT RN FOR CONTINUITY OF CARE.
[2018-10-10 07:18] LABS: BASOPHILS % (AUTO) 0.3 % (0.0-2.0); EOSINOPHILS % (AUTO) 2.5 % (0.0-6.0); HEMATOCRIT 23 % (39-51); HEMOGLOBIN 7.3 g/dL (13.5-17.5); LYMPHOCYTES # (AUTO) 1.1 /CMM (0.8-4.8); LYMPHOCYTES % (AUTO) 9.5 % (20.0-44.0); MEAN CORPUSCULAR HGB CONC 31 g/dl (31.0-36.0); MEAN CORPUSCULAR VOLUME 95 fL (80-96); MONOCYTES # (AUTO) 1.4 /CMM (0.1-1.30); MONOCYTES % (AUTO) 12.6 % (2.0-12.0); NEUTROPHILS # (AUTO) 8.6 /CMM (1.8-8.9); NEUTROPHILS % (AUTO) 75.1 % (43.0-81.0); PLATELET COUNT (AUTO) 74 /CMM (150-450); RED BLOOD CELL COUNT(AUTO) 2.45 MIL/uL (4.5-6.0); WHITE BLOOD COUNT (AUTO) 11.4 K/uL (4.3-11.0)
--- NOTE | 2018-10-10 07:34 | NUR ---
AQUARIST OPENING NOTE RECEIVED BEDSIDE REPORT PT IN BED, OBTUNDED. CONTROLLED AFIB ON TELE. WITH INTACT TRACH, TOLERATING VENT SETTINGS, NO SOB NOTED. GTF NEPRO AT 45 ML/HR,TOLERATING WELL. HOB ELEVATED. RCW HD CATH C/D/I. ILIANA MIDLINE # 18 GAUGE HUERTAS CATH DRAINING THINK PURULENT URINE AND FLEXISEAL RECTAL TUBE WITH LIQUID BROWN STOOL INTACT AND IN PLACED. SAFETY MEASURES, ASPIRATION PRECAUTION CALL LIGHT WITHIN REACH. WILL CONT TO MONITOR
[2018-10-10 07:45] LABS: CREATININE 2.3 mg/dL (0.6-1.3); PHOSPHORUS 4.5 mg/dL (2.5-4.9); POTASSIUM 3.6 mmol/L (3.5-5.1)
[2018-10-10] MEDS: COLISTIMETHATE SODIUM 150 MG in IV NS 0.9% 50 ML IV SCH (08:20)
[2018-10-10] MEDS: LEVETIRACETAM SOL (5 ML) 100 MG/ML UDC GT SCH ×2 (08:20→17:34)
[2018-10-10] MEDS: CLOPIDOGREL BISULFATE 75 MG TABLET GT SCH (08:20)
[2018-10-10] MEDS: PROSOURCE / PROSTAT (PYXIS) 30 ML UDC GT SCH ×3 (08:20→17:34)
[2018-10-10] MEDS: CADEXOMER IODINE 40 GM TUBE TP SCH (08:20)
[2018-10-10] MEDS: DAKINS QUARTER STRENGTH (0.125%) 480 ML BOTTLE TOP SCH (08:20)
[2018-10-10] MEDS: MIDODRINE HCL (5MG) 5 MG TABLET GT SCH ×2 (08:20→17:36)
[2018-10-10] MEDS: LACTOBACILLUS RHAMNOSUS GG 1 EACH CAP.SPRINK PO SCH ×2 (08:20→17:34)
[2018-10-10] MEDS: FAMOTIDINE (20 MG) 20 MG TABLET GT SCH (08:20)
[2018-10-10] MEDS: Z GUARD REMEDY 2 OZ OINT TP SCH ×2 (08:21→17:38)
[2018-10-10 10:23] LABS: BAND % (MANUAL) 12 % (0.0-5.0); NEUTROPHILS % (MANUAL) 72 (42-76)
[2018-10-10 10:24] LABS: LYMPHOCYTES % (MANUAL) 8 % (16-48); MONOCYTES % (MANUAL) 5 % (0-11.0)
[2018-10-10 10:25] LABS: EOSINOPHILS % (MANUAL) 2 % (0-4)
--- NOTE | 2018-10-10 19:08 | NUR ---
BOAT RIGGER NOTE PT IN BED, OBTUNDED. CONTROLLED AFIB ON TELE. WITH INTACT TRACH, TOLERATING VENT SETTINGS, NO SOB NOTED. GTF NEPRO AT 45 ML/HR,TOLERATING WELL. HOB ELEVATED. RCW HD CATH C/D/I. ILIANA MIDLINE # 18 GAUGE CURRENTLY FC DRAINING MINIMAL PURULENT URINE AND FLEXI SEAL RECTAL TUBE INTACT WITH MINIMAL SOFT STOOL IN TUBING AND IN PLACED. SAFETY MEASURES, ASPIRATION PRECAUTION NO EPISODES OF HYPER/HYPOGLYCEMIA NOTED CALL LIGHT WITHIN REACH. ALL NEED MET BY THE STAFF
--- NOTE | 2018-10-10 19:19 | NUR ---
REPORT ENDORSED TO NOC
[2018-10-10] MEDS ORDERED: ALBUMIN 25% 25 GM in PREMIX 1 EA IV ONE (19:30)
--- NOTE | 2018-10-10 19:45 | NUR ---
LOG PROCESSOR OPERATOR NOTE: RECEIVED PT ON BED OBTUNDED WITH NO APPARENT DISTRESS NOTED. NO FACIAL GRIMACING OR ANY SIGNS OF PAIN NOTED. ON [facility] VENT, SETTINGS ORDERED. SATURATING WELL. AFIB CONTROLLED ON TELE MONITOR HR 72BPM. GT INTACT AND PATENT, NO RESIDUAL NOTED AT THIS TIME. KEPT CLEAN, DRY AND COMFORTABLE. SAFETY AND FALL PRECAUTIONS OBSERVED AND MAINTAINED. WILL CONTINUE TO MONITOR PT.
[2018-10-10] MEDS ORDERED: ALBUMIN 25% 100 ML IV ONE (19:48)
--- NOTE | 2018-10-10 19:50 | NUR ---
RT NOTE PT RECEIVED ON [facility] VENT ON THE FOLLOWING SETTINGS: AC 12, 500. 40%, +5. PT HAS MOD THICK GREEN SECRETIONS. RN IS AWARE. NO RESP DISTRESS NOTED. VENT IS PLUGGED INTO RED OUTLET. ALARMS ARE ON AND AUDIBLE. AMBU BAG IS AT BEDSIDE. WILL CONT TO MONITOR PT. PT IS ON DIALYSIS AT THE MOMENT WITH SEXUAL HEALTH PHYSICIAN IN THE ROOM. Addendum: 10/10/18 at 1950 by DARIUSZ HUA RT Amended: Links added.
[2018-10-10] MEDS: INSULIN GLARGINE, 100 UNIT/ML CARTRIDGE SQ SCH (23:05)
[2018-10-11] VITALS: BP 89/49
--- NOTE | 2018-10-11 01:00 | NUR ---
HEALTH PROFESSIONAL NOTE: BP LOW 89/49. RECHECKED IN DIFFERENT SITES AND WITH DIFFERENT CUFFS BUT BP STILL LOW. DR. ZIMMERMAN NOTIFIED, PER MD THAT'S HIS BASELINE. WILL CONTINUE TO MONITOR PT.
[2018-10-11 04:00] VITALS: BP 98/69
[2018-10-11] MEDS: NEPRO 1,000 ML BOTTLE GT PRN (05:29)
[2018-10-11] MEDS: BLOOD SUGAR DIAGNOSTIC 1 EACH STRIP IN SCH ×4 (05:42→23:20)
[2018-10-11] MEDS: INSULIN REGULAR, HUMAN 100 UNIT/ML 3 ML VIAL SQ PRN ×4 (05:47→23:22)
[2018-10-11 07:04] LABS: BASOPHILS % (AUTO) 0.5 % (0.0-2.0); HEMATOCRIT 22 % (39-51); LYMPHOCYTES # (AUTO) 0.9 /CMM (0.8-4.8); LYMPHOCYTES % (AUTO) 8.5 % (20.0-44.0); MEAN CORPUSCULAR HGB CONC 32 g/dl (31.0-36.0); MEAN CORPUSCULAR VOLUME 95 fL (80-96); MONOCYTES # (AUTO) 1.1 /CMM (0.1-1.30); MONOCYTES % (AUTO) 10.7 % (2.0-12.0); NEUTROPHILS # (AUTO) 7.8 /CMM (1.8-8.9); NEUTROPHILS % (AUTO) 76.3 % (43.0-81.0); PLATELET COUNT (AUTO) 57 /CMM (150-450); RED BLOOD CELL COUNT(AUTO) 2.32 MIL/uL (4.5-6.0); WHITE BLOOD COUNT (AUTO) 10.2 K/uL (4.3-11.0)
[2018-10-11 07:14] LABS: CALCIUM, SERUM 9.5 mg/dL (8.5-10.1); CREATININE 1.9 mg/dL (0.6-1.3); PHOSPHORUS 3.6 mg/dL (2.5-4.9); POTASSIUM 3.5 mmol/L (3.5-5.1)
--- NOTE | 2018-10-11 07:17 | NUR ---
TRUST EVALUATION SUPERVISOR NOTE: PT IN BED, NO APPARENT DISTRESS NOTED. NO FACIAL GRIMACING OR ANY SIGNS OF PAIN NOTED. ON [facility] VENT, SETTINGS ORDERED, SATRUATING WELL. GT INTACT AND PATENT, NO RESIDUAL NOTED. ABLE TO TOLERATE FEEDING WELL. ON TELE MONITOR AFIB CONTROLLED HR 60BPM. HUERTAS CATH AND FLEXISEAL INTACT AND PATENT, DRAINING WELL. KEPT CLEAN, DRY AND COMFORTABLE. SAFETY AND FALL PRECAUTIONS OBSERVED AND MAINTAINED. WILL ENDORSE TO DAY SHIFT RN FOR CONTINUITY OF CARE.
--- NOTE | 2018-10-11 07:30 | NUR ---
RN NOTES RECEIVED PATIENT IN BED, OBTUNDED, TRACH TO VENT, TOLERATING CURRENT SETTINGS WELL, NO SOB. NO SIGNS OR SYMPTOMS OF ACUTE RESPIRATORY DISTRESS, NO INDICATION OF PAIN NOTED AT THIS TIME. A FIB ON THE MONITOR WITH HR ON THE 60'S. GT IN PLACE AND PATENT, PLACEMENT CONFIRMED BY AUSCULTATION AND ASPIRATING GASTRIC RESIDUAL: NO GASTRIC RESIDUAL TAKEN AT THIS TIME. GTF RUNNING NEPHRO @ 45 ML/HR TOLERATING WELL. ILIA[facility] MIDLINE #[address] AND INTACT. NO SIGN OF INFECTION OR INFILTRATION NOTED ON THE SITE. RCW HD CATH IN PLACE, DRESSING INTACT. SAFETY AND ASPIRATION PRECAUTION OBSERVED AND MAINTAINED. WILL KEEP AND IMPLEMENT ISOLATION PRECAUTIONS. BED PLACED IN LOW AND LOCKED POSITION. SIDE RAILS UP X2. CALL LIGHT WITHIN REACH. WILL CONTINUE TO MONITOR AND ANTICIPATE NEEDS
[2018-10-11 08:00] VITALS: BP 86/54
[2018-10-11 08:01] LABS: BAND % (MANUAL) 5 % (0.0-5.0); EOSINOPHILS % (MANUAL) 4 % (0-4); LYMPHOCYTES % (MANUAL) 8 % (16-48); MONOCYTES % (MANUAL) 10 % (0-11.0); NEUTROPHILS % (MANUAL) 73 (42-76)
[2018-10-11] MEDS: COLISTIMETHATE SODIUM 150 MG in IV NS 0.9% 50 ML IV SCH (08:54)
[2018-10-11] MEDS: LEVETIRACETAM SOL (5 ML) 100 MG/ML UDC GT SCH ×2 (08:54→16:44)
[2018-10-11] MEDS: FAMOTIDINE (20 MG) 20 MG TABLET GT SCH (08:54)
[2018-10-11] MEDS: LACTOBACILLUS RHAMNOSUS GG 1 EACH CAP.SPRINK PO SCH ×2 (08:55→16:44)
[2018-10-11] MEDS: MIDODRINE HCL (5MG) 5 MG TABLET GT SCH ×2 (08:55→16:44)
[2018-10-11] MEDS: CLOPIDOGREL BISULFATE 75 MG TABLET GT SCH (08:55)
[2018-10-11] MEDS: DAKINS QUARTER STRENGTH (0.125%) 480 ML BOTTLE TOP SCH (08:55)
[2018-10-11] MEDS: CADEXOMER IODINE 40 GM TUBE TP SCH (08:56)
[2018-10-11] MEDS: Z GUARD REMEDY 2 OZ OINT TP SCH ×2 (08:56→17:00)
[2018-10-11] MEDS: PROSOURCE / PROSTAT (PYXIS) 30 ML UDC GT SCH ×3 (09:02→16:44)
[2018-10-11] MEDS ORDERED: LIDOCAINE 1%-EPI 1:100,000 20 ML VIAL TP ONE (11:00)
[2018-10-11 12:00] VITALS: BP 91/74
[2018-10-11 16:00] VITALS: BP_SYST 87; BP_DIAS 38; BP_DIAS 58
--- NOTE | 2018-10-11 19:30 | NUR ---
PHOTOGRAPHS CURATOR NOTE: RECEIVED PT ON BED OBTUNDED WITH NO APPARENT DISTRESS NOTED. NO FACIAL GRIMACING OR ANY SIGNS OF PAIN NOTED. ON [place] VENT, SETTINGS ORDERED. SATURATING WELL. AFIB CONTROLLED ON TELE MONITOR HR 62BPM. GT INTACT AND PATENT, NO RESIDUAL NOTED AT THIS TIME. KEPT CLEAN, DRY AND COMFORTABLE. SAFETY AND FALL PRECAUTIONS OBSERVED AND MAINTAINED. WILL CONTINUE TO MONITOR PT.
[2018-10-11 20:00] VITALS: BP 100/54
[2018-10-11] MEDS: INSULIN GLARGINE, 100 UNIT/ML CARTRIDGE SQ SCH (23:20)
[2018-10-12] VITALS (7 sets, daily range): BP systolic 71–97; BP diastolic 22–72
[2018-10-12] MEDS: NEPRO 1,000 ML BOTTLE GT PRN (05:20)
[2018-10-12] MEDS: BLOOD SUGAR DIAGNOSTIC 1 EACH STRIP IN SCH ×4 (05:34→22:47)
[2018-10-12] MEDS: INSULIN REGULAR, HUMAN 100 UNIT/ML 3 ML VIAL SQ PRN ×3 (05:35→22:38)
--- NOTE | 2018-10-12 06:45 | NUR ---
MEDIA SERVICES DIRECTOR NOTE: NO CHANGES NOTED THROUGHOUT THE SHIFT. NO FACIAL GRIMACING OR ANY SIGNS OF PAIN NOTED. ON MECH VENT, SETTINGS ORDERED, SATURATING WELL. GT INTACT AND PATENT, NO RESIDUAL NOTED. ABLE TO TOLERATE FEEDING WELL. ON TELE MONITOR AFIB CONTROLLED HR 61BPM. HUERTAS CATH AND FLEXISEAL INTACT AND PATENT, DRAINING WELL. KEPT CLEAN, DRY AND COMFORTABLE. SAFETY AND FALL PRECAUTIONS OBSERVED AND MAINTAINED. WILL ENDORSE TO DAY SHIFT RN FOR CONTINUITY OF CARE.
--- NOTE | 2018-10-12 07:10 | NUR ---
MS RN NOTES PATIENT IN BED BLINKS EYES, NON VERBAL. NO ACUTE DISTRESS NOTED. BREATHING UNLABORED. NO SOB NOTED. IV ACCESS PATENT AND INTACT, NO REDNESS OR SWELLING NOTED. HD ACCESS INTACT WITH DRESSING, CLEAN AND DRY. GTUBE FEEDING ONGOING. HUERTAS CATHETER INTACT, DRAINING WELL. SAFETY MEASURES IN PLACE. CALL LIGHT WITHIN REACH. WILL CONTINUE TO MONITOR ACCORDINGLY.
[2018-10-12] MEDS ORDERED: ALBUMIN 25% 25 GM in PREMIX 1 EA IV PRN (08:30)
[2018-10-12] MEDS: COLISTIMETHATE SODIUM 150 MG in IV NS 0.9% 50 ML IV SCH (09:34)
[2018-10-12] MEDS: LACTOBACILLUS RHAMNOSUS GG 1 EACH CAP.SPRINK PO SCH ×2 (09:35→17:41)
[2018-10-12] MEDS: CLOPIDOGREL BISULFATE 75 MG TABLET GT SCH (09:35)
[2018-10-12] MEDS: FAMOTIDINE (20 MG) 20 MG TABLET GT SCH (09:35)
[2018-10-12] MEDS: LEVETIRACETAM SOL (5 ML) 100 MG/ML UDC GT SCH ×2 (09:36→17:41)
[2018-10-12] MEDS: PROSOURCE / PROSTAT (PYXIS) 30 ML UDC GT SCH ×3 (09:36→17:41)
[2018-10-12] MEDS: MIDODRINE HCL (5MG) 5 MG TABLET GT SCH ×2 (09:37→17:42)
[2018-10-12] MEDS: Z GUARD REMEDY 2 OZ OINT TP SCH ×2 (11:09→17:42)
[2018-10-12] MEDS: CADEXOMER IODINE 40 GM TUBE TP SCH (11:09)
[2018-10-12] MEDS: DAKINS QUARTER STRENGTH (0.125%) 480 ML BOTTLE TOP SCH (11:09)
[2018-10-12] MEDS ORDERED: MIDODRINE HCL (5MG) 5 MG TABLET PO ONE (16:00)
[2018-10-12] MEDS ORDERED: IV NS 0.9% 500 ML IV ONE ×2 (16:30→23:30)
[2018-10-12] MEDS ORDERED: LIDOCAINE 1%-EPI 1:100,000 20 ML VIAL TP ONE (17:30)
--- NOTE | 2018-10-12 18:34 | NUR ---
discharge held per jose juan garcia ,per harper aldridge no isolation room in subacute, made aware.
--- NOTE | 2018-10-12 19:00 | NUR ---
MS RN NOTES PATIENT IN BED BLINKS EYES, NON VERBAL. NO ACUTE DISTRESS NOTED. BREATHING UNLABORED. NO SOB NOTED. IV ACCESS PATENT AND INTACT, NO REDNESS OR SWELLING NOTED. HD ACCESS INTACT WITH DRESSING, CLEAN AND DRY. GTUBE FEEDING ONGOING. HUERTAS CATHETER INTACT, DRAINING WELL. DUE MEDICATIONS GIVEN, NO ASE NOTED. NEEDS ATTENDED AND ANTICIPATED. KEPT CLEAN DRY AND COMFORTABLE. SAFETY MEASURES IN PLACE. CALL LIGHT WITHIN REACH. ENDORSED TO NIGHT NURSE FOR CONTINUITY OF CARE.
[2018-10-12] MEDS: INSULIN GLARGINE, 100 UNIT/ML CARTRIDGE SQ SCH (22:39)
[2018-10-13] VITALS (12 sets, daily range): BP systolic 66–109; BP diastolic 16–73
[2018-10-13 01:22] LABS: HEMOGLOBIN 6.9 g/dL (13.5-17.5)
[2018-10-13] MEDS: NEPRO 1,000 ML BOTTLE GT PRN (05:04)
--- NOTE | 2018-10-13 05:10 | NUR ---
PT REC'D TRACHED ON [facility] VENT ON AC MODE. NO RESP DISTRESS OR SOB NOTED. TRACH PATENT AND SECURED. SX'D FOR MOD AMT OF THICK YELLOW SECRETIONS. ALARMS ARE SET AND AUDIBLE. VENT PLUGGED INTO RED OUTLET. AMBU BAG BEDSIDE. WILL CONTINUE TO MONITOR. Addendum: 10/13/18 at 0511 by JANICE TONEY RT Amended: Links added.
[2018-10-13] MEDS: BLOOD SUGAR DIAGNOSTIC 1 EACH STRIP IN SCH ×2 (05:39→11:20)
[2018-10-13] MEDS: INSULIN REGULAR, HUMAN 100 UNIT/ML 3 ML VIAL SQ PRN ×2 (05:41→11:22)
--- NOTE | 2018-10-13 06:42 | NUR ---
rn notes received patient in bed. in no distress noted. breathing even and unlabored. no physical manifestation of pain or discomfort, no facial grimace. obtunded. H&H critical low 6.9/22. Infused 1 pack of rbc, no side effect noted. remains hypotensive and sinus tana. ordered h&H for the morning. altamirano cath in place draining clear yellow with foul odor. flexi seal patent, with bm soft, liquid, brown greenish. kept clean and dry. will endorse to next shift for continuity of care
[2018-10-13] MEDS: LEVETIRACETAM SOL (5 ML) 100 MG/ML UDC GT SCH ×2 (08:58→15:55)
[2018-10-13] MEDS: COLISTIMETHATE SODIUM 150 MG in IV NS 0.9% 50 ML IV SCH (08:58)
[2018-10-13] MEDS: LACTOBACILLUS RHAMNOSUS GG 1 EACH CAP.SPRINK PO SCH ×2 (08:59→15:55)
[2018-10-13] MEDS: FAMOTIDINE (20 MG) 20 MG TABLET GT SCH (08:59)
[2018-10-13] MEDS: MIDODRINE HCL (5MG) 5 MG TABLET GT SCH ×3 (08:59→15:56)
[2018-10-13] MEDS: CLOPIDOGREL BISULFATE 75 MG TABLET GT SCH (09:01)
[2018-10-13] MEDS: Z GUARD REMEDY 2 OZ OINT TP SCH ×3 (09:34→15:56)
[2018-10-13] MEDS: CADEXOMER IODINE 40 GM TUBE TP SCH (09:35)
[2018-10-13] MEDS: DAKINS QUARTER STRENGTH (0.125%) 480 ML BOTTLE TOP SCH (09:35)
[2018-10-13] MEDS: HYDROGEL DRESSING 90 GM TUBE TP PRN (09:35)
[2018-10-13] MEDS: PROSOURCE / PROSTAT (PYXIS) 30 ML UDC GT SCH ×3 (09:41→15:59)
[2018-10-13 09:51] LABS: HEMOGLOBIN 8.2 g/dL (13.5-17.5)
[2018-10-13] MEDS ORDERED: HYDROCORTISONE SOD SUCCINATE 100 MG/2 ML VIAL IV ONE (12:00)
[2018-10-13] MEDS ORDERED: HYDR20TA PO (18:04)
== END 2018-10-13 16:29 | DRG 853 ==
LOC: ER 11:58 → ICU 14:17 → TELE-TD 15:46 → TELE1 10-01 09:36
PROVIDERS: ATTEND Nurse Practitioner Acute Care
PROC: 5A1955Z Respiratory Ventilation, Greater than 96 Consecutive Hours (ICD-10-PCS; principal; 2018-09-29)
PROC: 5A1D70Z Performance of Urinary Filtration, Intermittent, Less than 6 Hours Per Day (ICD-10-PCS; 2018-09-30)
PROC: 5A1D70Z Performance of Urinary Filtration, Intermittent, Less than 6 Hours Per Day (ICD-10-PCS; 2018-10-02)
PROC: 0QB10ZZ Excision of Sacrum, Open Approach (ICD-10-PCS; 2018-10-03)
PROC: 5A1D70Z Performance of Urinary Filtration, Intermittent, Less than 6 Hours Per Day (ICD-10-PCS; 2018-10-04)
PROC: 30233N1 Transfusion of Nonautologous Red Blood Cells into Peripheral Vein, Percutaneous Approach (ICD-10-PCS; 2018-10-06)
PROC: 5A1D70Z Performance of Urinary Filtration, Intermittent, Less than 6 Hours Per Day (ICD-10-PCS; 2018-10-06)
PROC: 5A1D70Z Performance of Urinary Filtration, Intermittent, Less than 6 Hours Per Day (ICD-10-PCS; 2018-10-08)
PROC: 5A1D70Z Performance of Urinary Filtration, Intermittent, Less than 6 Hours Per Day (ICD-10-PCS; 2018-10-10)
PROC: 0QB10ZZ Excision of Sacrum, Open Approach (ICD-10-PCS; 2018-10-11)
PROC: 5A1D70Z Performance of Urinary Filtration, Intermittent, Less than 6 Hours Per Day (ICD-10-PCS; 2018-10-12)
DX: A41.9 Sepsis, unspecified organism (principal); L89.154 Pressure ulcer of sacral region, stage 4; L89.323 Pressure ulcer of left buttock, stage 3; L89.313 Pressure ulcer of right buttock, stage 3; E43 Unspecified severe protein-calorie malnutrition; J96.21 Acute and chronic respiratory failure with hypoxia; I21.4 Non-ST elevation (NSTEMI) myocardial infarction; N18.6 End stage renal disease; R53.2 Functional quadriplegia; Z99.11 Dependence on respirator [ventilator] status; J95.851 Ventilator associated pneumonia; I12.0 Hypertensive chronic kidney disease with stage 5 chronic kidney disease or end stage renal disease; G93.1 Anoxic brain damage, not elsewhere classified; B37.49 Other urogenital candidiasis; G40.909 Epilepsy, unspecified, not intractable, without status epilepticus; Z93.0 Tracheostomy status; Z99.2 Dependence on renal dialysis; Z86.73 Personal history of transient ischemic attack (TIA), and cerebral infarction without residual deficits; Y84.8 Other medical procedures as the cause of abnormal reaction of the patient, or of later complication, without mention of misadventure at the time of the procedure; I48.91 Unspecified atrial fibrillation; Y92.129 Unspecified place in nursing home as the place of occurrence of the external cause; D69.6 Thrombocytopenia, unspecified; D63.8 Anemia in other chronic diseases classified elsewhere; E11.22 Type 2 diabetes mellitus with diabetic chronic kidney disease; E86.1 Hypovolemia; I95.89 Other hypotension; K21.9 Gastro-esophageal reflux disease without esophagitis; Z88.0 Allergy status to penicillin; Z79.4 Long term (current) use of insulin; Z87.440 Personal history of urinary (tract) infections; Z93.1 Gastrostomy status; R13.10 Dysphagia, unspecified; G62.9 Polyneuropathy, unspecified; E88.09 Other disorders of plasma-protein metabolism, not elsewhere classified; M62.50 Muscle wasting and atrophy, not elsewhere classified, unspecified site; Z68.33 Body mass index [BMI] 33.0-33.9, adult; Q78.9 Osteochondrodysplasia, unspecified; E11.40 Type 2 diabetes mellitus with diabetic neuropathy, unspecified; S61.412A Laceration without foreign body of left hand, initial encounter; X58.XXXA Exposure to other specified factors, initial encounter; Y93.9 Activity, unspecified; L98.8 Other specified disorders of the skin and subcutaneous tissue; L89.620 Pressure ulcer of left heel, unstageable; L89.610 Pressure ulcer of right heel, unstageable; E11.51 Type 2 diabetes mellitus with diabetic peripheral angiopathy without gangrene; L89.890 Pressure ulcer of other site, unstageable
CPT/HCPCS: 31720; 36415; 71045-TC; 80048-TC; 80053-TC; 80076-TC; 81000-TC; 82272-TC; 82533; 82962-TC; 83605-TC; 83735-TC; 83880; 84100-TC; 84484-TC; 85025-TC; 85027-TC; 85730-TC; 86850-TC; 86921-TC; 87040-TC; 87070-TC; 87081-TC; 87086-TC; 87186-TC; 90935-TC; 94002-TC; 94003-TC; 94640-TC; 94760-TC; 94762-TC; 94799-TC; A4216; A4217; A6248; A6253; A6402; A6403; G0378; J0770; J0885; J1720; J1815; J1953; J1956; J3490; J7030; J7040; J7050; P9016-BL; P9047; Q0162

== ENCOUNTER 2018-10-13 22:51 | Inpatient (IN) | payer MEDICARE, MEDICAID ==
[~2018-10-13] VITALS: Ht 167.6 cm; Wt 122.5 kg
[~2018-10-13 22:51] MED LIST changes: -ALLA266C2 TP; +BACI1TAB3 GT; +COLI150V12 IV; -COLL30OI TP; -FOLI0.8T23 GT; +HYDR20TA PO; -INSU100I14 SQ; +INSU100V11 SQ; -INSU100V27 SQ; +INSU100V3 SQ; +METO10SY IV; +METR500P4 IV; +ONDA4SOL GT; +SODI473S8 TP; +THERAHONEY TP; +ZINC113P3 TP
[2018-10-13] MEDS ORDERED: IV NS 0.9% 1,000 ML BAG IV ONE (23:00)
--- NOTE | 2018-10-13 23:00 | NUR ---
PT BIBRA FROM SNF FOR LOW BP AND ALOC; PT NON VERBAL, PT TO BED 5, PT ON MONITOR, MD AT FOR EVAL
--- NOTE | 2018-10-13 23:24 | NUR ---
RT TRACHED PT REC'D FROM TRANSPORT VIA AMBU BAG THEN PLACED ON MECHANICAL VENTILATOR. VENT SETTINGS REC'D FROM EMT AC 10 450 45% +0. TRACH TUBE PATENT AND SECURE. VENT ALARMS ON AND AUDIBLE. BVM BY HOB. VENT PLUGGED IN RED OUTLET. NO SOB NOTED AT THIS TIME. Addendum: 10/13/18 at 2329 by JANETTE BIRMINGHAM RT Amended: Links added.
[2018-10-13 23:25] LABS: BASOPHILS # (AUTO) 0.1 /CMM (0.0-0.2); BASOPHILS % (AUTO) 0.3 % (0.0-2.0); EOSINOPHILS % (AUTO) 0.2 % (0.0-6.0); HEMATOCRIT 31 % (39-51); HEMOGLOBIN 9.4 g/dL (13.5-17.5); LYMPHOCYTES # (AUTO) 0.6 /CMM (0.8-4.8); LYMPHOCYTES % (AUTO) 3.7 % (20.0-44.0); MEAN CORPUSCULAR HGB CONC 30 g/dl (31.0-36.0); MEAN CORPUSCULAR VOLUME 98 fL (80-96); MONOCYTES # (AUTO) 0.3 /CMM (0.1-1.30); MONOCYTES % (AUTO) 2.2 % (2.0-12.0); NEUTROPHILS # (AUTO) 14.7 /CMM (1.8-8.9); NEUTROPHILS % (AUTO) 93.6 % (43.0-81.0); PLATELET COUNT (AUTO) 62 /CMM (150-450); RED BLOOD CELL COUNT(AUTO) 3.16 MIL/uL (4.5-6.0); WHITE BLOOD COUNT (AUTO) 15.8 K/uL (4.3-11.0)
[2018-10-13 23:28] LABS: CALCIUM, SERUM 11.3 mg/dL (8.5-10.1); CARBON DIOXIDE 28 mmol/L (21-32); CHLORIDE 106 mmol/L (98-107); CREATININE 1.9 mg/dL (0.6-1.3); GLUCOSE 232 mg/dL (74-106); POTASSIUM 4.6 mmol/L (3.5-5.1); SODIUM SERUM 140 mmol/L (136-145); UREA NITROGEN, BLOOD 77 mg/dL (7-18)
--- NOTE | 2018-10-13 23:30 | NUR ---
PT F/C REPLACED, MADE AWARE. NO URINE OUTPUT AT THIS TIME
[2018-10-13 23:43] LABS: ALANINE AMINOTRANSFERASE 11 U/L (12-78); ALBUMIN 1.8 g/dL (3.4-5.0); ALKALINE PHOSPHATASE 340 U/L (46-116); ASPARTATE AMINOTRANSFERASE 22 U/L (15-37); B-TYPE NATRIURETIC PEPTIDE 17715 PG/ML (0-125); BILIRUBIN,DIRECT 0.2 mg/dL (0.0-0.2); BILIRUBIN,TOTAL 0.5 mg/dL (0.2-1.0); TOTAL PROTEIN, SERUM 6.7 g/dL (6.4-8.2)
[2018-10-13 23:55] LABS: BAND % (MANUAL) 6 % (0.0-5.0)
[2018-10-13 23:56] LABS: LYMPHOCYTES % (MANUAL) 2 % (16-48); MONOCYTES % (MANUAL) 2 % (0-11.0); NEUTROPHILS % (MANUAL) 90 (42-76)
[2018-10-14] VITALS (59 sets, daily range): BP systolic 31–157; BP diastolic 16–111
[2018-10-14] MEDS ORDERED: IV NS 0.9% 1,000 ML BAG IV ONE
[2018-10-14] MEDS ORDERED: NOREPINEPHRINE 8 MG in IV D5W 500 ML IV PRN ×2 (00:30→01:30)
[2018-10-14] MEDS ORDERED: NOREPINEPHRINE 4 MG/4 ML AMPUL IV ONE ×2 (00:46→03:20)
--- NOTE | 2018-10-14 01:26 | NUR ---
REPORT GIVEN TO YASMANI GUZMAN FOR JODEE; PT WILL BE TRANSPORTED VIA ACLS PROTOCOL
--- NOTE | 2018-10-14 01:45 | NUR ---
HEAD OF ENGLISH NOTES RECEIVED PATIENT FROM ER, WHO PRESENTED FROM SNF DUE TO HYPOTENSION.PATIENT WAS JUST DISCHARGED FROM [facility] 10/13/18 . PMX OF GERD,HTN,DM,CVA,CHRONIC RENAL FAILURE- HD DEPENDENT(HD CATHETER RIGHT SUBCLAVIAN ),RESPIRATORY FAILURE,TRACHE- VENT DEPENDENT, EPILEPSY, MULTIPLE PRESSURE ULCER(SACRAL STAGE IV DECUB WITH TUNNELING), HX OF MDRO,UTI AND ACINITOBACTER. PATIENT OBTUNDED, WITH TRACHEOSTOMY TO THE VENTILATOR ON AC MODE,NOT RESPONDING TO VERBAL ,PAIN STIMULUS,WEAK COUGH AND GAG, NO MOVEMENT NOTED OF ALL EXTREMITIES. ON LEVOPHED DRIP FOR BP SUPPORT INFUSING VIA LEFT UPPER ARM MIDLINE(POA). HUERTAS CATHETER (CHANGED IN ER),WITH MINIMAL OUTPUT, RECTAL TUBE CHANGED HERE IN ICU. SKIN CARE/PRESSURE ULCER CARE DONE.
[2018-10-14] MEDS ORDERED: VANCOMYCIN 1.5 GM in IV NS 0.9% 500 ML IV ONE (02:00)
[2018-10-14] MEDS: NOREPINEPHRINE 8 MG in IV D5W 500 ML IV PRN ×2 (03:23→13:23)
[2018-10-14] MEDS: IV NS 0.9% 1,000 ML IV SCH ×2 (03:29→14:38)
[2018-10-14] MEDS ORDERED: METRONIDAZOLE 500MG/ NS 100ML 100 ML IV ONE (03:39)
[2018-10-14] MEDS: METRONIDAZOLE 500MG/ NS 100ML 500 MG in PREMIX 1 EA IV SCH ×4 (03:41→21:02)
[2018-10-14] MEDS ORDERED: VANCOMYCIN 500 MG VIAL ONE (03:52)
[2018-10-14] MEDS ORDERED: VANCOMYCIN 1 GM VIAL ONE (03:52)
[2018-10-14] MEDS: HYDROCORTISONE SOD SUCCINATE 100 MG/2 ML VIAL IV SCH ×3 (05:21→17:06)
--- NOTE | 2018-10-14 07:30 | NUR ---
INITIAL: RECEIVED PATIENT PATIENT OBTUNDED, WITH TRACHEOSTOMY TO THE VENTILATOR ON AC MODE,NOT RESPONDING TO VERBAL ,PAIN STIMULUS,WEAK COUGH AND GAG, NO MOVEMENT NOTED OF ALL EXTREMITIES. ON LEVOPHED DRIP FOR BP SUPPORT INFUSING VIA LEFT UPPER ARM MIDLINE(POA) INFUSING 12 MCG LEVOPHED CLEAN DRY INTACT. HUERTAS CATHETER WAS CHANGED IN ER,WITH MINIMAL OUTPUT, RECTAL TUBE CHANGED HERE IN ICU. SKIN CARE/PRESSURE ULCER CARE DONE.
--- NOTE | 2018-10-14 07:48 | NUR ---
RT NOTE PT MECHANICALLY VENTILATED VIA PORTEX 7 CUFFED TRACHEOSTOMY TUBE. CUFF INFLATED. TRACH TUBE MIDLINE AND SECURE. VENTILATOR SETTINGS PRESCRIBED. ALARMS SET PER PROTOCOL AND AUDIBLE. VENT PLUGGED IN TO RED OUTLET. AMBU BAG AT BED SIDE. NO DISTRESS NOTED AT MOMENT. Addendum: 10/14/18 at 0750 by WYATT BETANCUR RT Amended: Links added.
[2018-10-14] MEDS: COLISTIMETHATE SODIUM 150 MG in IV NS 0.9% 50 ML IV SCH (08:57)
[2018-10-14] MEDS: MIDODRINE HCL (5MG) 5 MG TABLET PO SCH ×3 (08:58→16:31)
[2018-10-14] MEDS ORDERED: LIDOCAINE 1%-EPI 1:100,000 20 ML VIAL TP ONE (13:30)
[2018-10-14] MEDS ORDERED: Z GUARD REMEDY 2 OZ OINT TP SCH (13:30)
[2018-10-14] MEDS ORDERED: HYDROGEL DRESSING 90 GM TUBE TP SCH (13:30)
[2018-10-14] MEDS ORDERED: FEE PK DOSING 1 MIN EA MC ONE (14:05)
[2018-10-14] MEDS: DAKINS QUARTER STRENGTH (0.125%) 480 ML BOTTLE TOP SCH (16:32)
[2018-10-14 18:24] LABS: ABG BASE EXCESS -1.4 mmol/L; ABG OXYGEN SATURATION 78.9 % (92.0-98.5); ABG PCO2 45.7 mmHg (35.0-45.0); ABG PH 7.347 (7.350-7.450); ABG PO2 46.2 mmHg (75.0-100.0); AaDO2 222.7 mmHg; MetHb 0.6 % (0.0-1.5); O2Hb 77.6 % (94.0-97.0); SITE, ABG Right Brachial
--- NOTE | 2018-10-14 19:30 | NUR ---
NAVAL POLICE [place] NOTE PATIENT RECEIVED IN BED OBTUNDED, NON VERBAL, OCCASIONALLY OPENS EYES TO RIGOROUS STIMULI LIKE POSITIONING. PATIENT NPO WITH GTUBE CLAMPED AND AT [place] MIDLINE IN TACT PATENT NO S/S OF INFILTRATION/INFECTION. PATIENT RUNNING ON 12 MCG OF LEVOPHED WILL TITRATE PROTOCOL ORDERED. PATIENT ON VENT TOLERATING VENT SETTINGS. SATURATION 100%. SAFETY PRECAUTIONS IN PLACE. PATIENT HAS NO S/S OF DISTRESS. RN WILL CONTINUE TO MONTIOR. PATIENT GIVEN ORAL CARE AND PATIENT REPOSITIONED FOR COMFORT.
--- NOTE | 2018-10-14 19:33 | NUR ---
CLOSING PT REMAINS OBTUNDED NPO WITH G-TUBE TRACH ON VENTILATOR O2 INCREASED OTHERWISE NO WEANING. PT HAS RT MIDLINE ON LEVOPHED 12 MCG PT NEEDS ATTENDED TO CONSENT OBTAINED FOR DEBRIDEMENT. WILL REPORT TO ELECTRICAL AND ELECTRONIC ASSEMBLER RN FOR CONTINUATION OF CARE.
--- NOTE | 2018-10-14 21:05 | NUR ---
RT NOTE PATIENT RECEIVED TRACHED ON MECHANICAL VENTILATION. PATIENT IS NONVERBAL. VENT PLUGGED TO RED OUTLET. ALARMS ON AND AUDIBLE. AMBU BAG @ BEDSIDE. INCREASED FI02 TO 70% DUE TO LOW P02 ON ABG. NURSE, SHARON, SHERIF. WILL CONTINUE TO MONITOR. Addendum: 10/14/18 at 2106 by MIRTHA HALL RT Amended: Links added.
--- NOTE | 2018-10-14 22:38 | NUR ---
Patient is readmitted less than 24 hours of discharged. Patient is trach/vent dependent,resides at [facility] [phone]. He is bedfast,totally dependent with adl's.ESRD on HD 3x/week every TTHS 11:15am at [facility] [phone]. Current dc plan is to return to [facility]. Addendum: 10/14/18 at 2238 by JESSIE GONZÁLES RN Amended: Links added.
[2018-10-14 23:47] LABS: ABG BASE EXCESS -2.8 mmol/L; ABG OXYGEN SATURATION 99.5 % (92.0-98.5); ABG PCO2 36.4 mmHg (35.0-45.0); ABG PH 7.392 (7.350-7.450); ABG PO2 339.2 mmHg (75.0-100.0); AaDO2 120.8 mmHg; COHb 0.8 % (0.5-1.5); MetHb 0.3 % (0.0-1.5); O2Hb 98.4 % (94.0-97.0); SITE, ABG Right Brachial; VENT MODE, BG AC10 VT450 70%
[2018-10-15] VITALS (38 sets, daily range): BP systolic 93–162; BP diastolic 23–103
[2018-10-15] MEDS: HYDROCORTISONE SOD SUCCINATE 100 MG/2 ML VIAL IV SCH ×4 (00:48→18:28)
[2018-10-15] MEDS: NOREPINEPHRINE 8 MG in IV D5W 500 ML IV PRN ×2 (01:20→15:08)
[2018-10-15] MEDS: IV NS 0.9% 1,000 ML IV SCH ×3 (03:25→21:18)
[2018-10-15] MEDS: METRONIDAZOLE 500MG/ NS 100ML 500 MG in PREMIX 1 EA IV SCH ×3 (04:00→20:17)
--- NOTE | 2018-10-15 04:00 | NUR ---
PRESSURE STEAMER TENDER NOTE AFTER MULTIPLE ATTEMPTS UNABLE TO RETRIEVE BLOOD FOR LABS, AWARE. ENDORSED TO AM LAB FOR JODEE.
[2018-10-15] MEDS: VANCOMYCIN 1.25 GM in IV D5W 500 ML IV SCH (05:16)
--- NOTE | 2018-10-15 07:19 | NUR ---
COMMERCIAL ARTIST LETTERING NOTE PATIENT TOLERATED THE NIGHT WELL. NO ACUTE CHANGES IN CONDITION. PATIENT REMAINS AT BASELINE. BP WITHIN ACCEPTABLE LIMITS. PATIENT NOW ON 8 MCG OF LEVO. ALL NEEDS ATTENDED. SAFETY PRECAUTIONS IN PLACE. NO S.S OF DISTRESS. PATIENT TOLERATING VENT SETTINGS. POC ENDORSED TO AM SHIFT FOR JODEE.
--- NOTE | 2018-10-15 07:30 | NUR ---
INITIAL RECEIVED PATIENT PATIENT OBTUNDED, WITH TRACHEOSTOMY TO THE VENTILATOR ON AC MODE,NOT RESPONDING TO VERBAL ,PAIN STIMULUS,WEAK COUGH AND GAG, NO MOVEMENT NOTED OF ALL EXTREMITIES.PT A-FIB ON MONITOR AM LABS DRAWN ON LEVOPHED DRIP FOR BP SUPPORT INFUSING VIA LEFT UPPER ARM MIDLINE(POA) INFUSING 12 MCG LEVOPHED CLEAN DRY INTACT. HUERTAS CATHETER DRAINING TO GRAVITY WITH MINIMAL OUTPUT, RECTAL TUBE INPLACE SKIN CARE/PRESSURE ULCER CARE DONE. WILL CONTINUE TO MONITOR
[2018-10-15 08:33] LABS: BASOPHILS % (AUTO) 0.1 % (0.0-2.0); HEMATOCRIT 34 % (39-51); HEMOGLOBIN 10.3 g/dL (13.5-17.5); LYMPHOCYTES % (AUTO) 4.8 % (20.0-44.0); MEAN CORPUSCULAR HGB CONC 30 g/dl (31.0-36.0); MEAN CORPUSCULAR VOLUME 98 fL (80-96); MONOCYTES # (AUTO) 1.1 /CMM (0.1-1.30); MONOCYTES % (AUTO) 5.1 % (2.0-12.0); PLATELET COUNT (AUTO) 97 /CMM (150-450); RED BLOOD CELL COUNT(AUTO) 3.49 MIL/uL (4.5-6.0); WHITE BLOOD COUNT (AUTO) 21.1 K/uL (4.3-11.0)
[2018-10-15] MEDS: COLISTIMETHATE SODIUM 150 MG in IV NS 0.9% 50 ML IV SCH (08:48)
[2018-10-15] MEDS: MIDODRINE HCL (5MG) 5 MG TABLET PO SCH ×3 (08:48→18:31)
[2018-10-15] MEDS: CADEXOMER IODINE 40 GM TUBE TP SCH (08:56)
[2018-10-15] MEDS: DAKINS QUARTER STRENGTH (0.125%) 480 ML BOTTLE TOP SCH (08:56)
[2018-10-15 09:18] LABS: LYMPHOCYTES % (MANUAL) 4 % (16-48); MONOCYTES % (MANUAL) 8 % (0-11.0); NEUTROPHILS % (MANUAL) 88 (42-76)
--- NOTE | 2018-10-15 10:39 | NUR ---
RT NOTE PATIENT RECEIVED TRACHED ON MECHANICAL VENTILATION. PATIENT IS NONVERBAL. VENT PLUGGED TO RED OUTLET. ALARMS ON AND AUDIBLE. AMBU BAG @ BEDSIDE. NO SOB NOTED AT THIS TIME. TRACH TUBE PATENT AND SECURE. WILL CONTINUE TO MONITOR. Addendum: 10/15/18 at 1040 by JANETTE BIRMINGHAM RT Amended: Links added.
[2018-10-15] MEDS ORDERED: IV NS 0.9% 500 ML IV ONE (15:00)
--- NOTE | 2018-10-15 19:28 | NUR ---
CLOSING PT REMAINS OBTUNDED NPO WITH G-TUBE TRACH ON VENTILATOR NO WEANING DONE. PT HAS RT MIDLINE ON LEVOPHED 12 MCG SENT SPUTUM AND STOOL TO LAB STILL NEED URINE PT NEEDS ATTENDED TO CONSENT OBTAINED FOR DEBRIDEMENT. WILL REPORT TO TILT TRAY DRIVER RN FOR CONTINUATION OF CARE. REBEL COMPANY MARKER
[2018-10-16] VITALS (83 sets, daily range): BP systolic 40–143; BP diastolic 25–113
--- NOTE | 2018-10-16 00:16 | NUR ---
PT REC'D TRACHED ON [facility] VENT ON AC MODE. NO RESP DISTRESS OR SOB NOTED. TRACH IS PATENT AND SECURED. SX'D FOR THICK MOD AMT OF PALE YELLOW SECRETIONS. ALARMS ARE SET AND AUDIBLE. VENT PLUGGED INTO RED OUTLET. AMBU BAG BEDSIDE. WILL CONTINUE TO MONITOR. Addendum: 10/16/18 at 0018 by JANICE TONEY RT Amended: Links added.
[2018-10-16] MEDS: HYDROCORTISONE SOD SUCCINATE 100 MG/2 ML VIAL IV SCH ×5 (00:17→23:48)
[2018-10-16 01:47] LABS: APPEARANCE,URINE TURBID (CLEAR); COLOR,URINE YELLOW (YELLOW)
[2018-10-16 01:48] LABS: BILIRUBIN,URINE NEGATIVE (NEGATIVE); BLOOD, URINE 3+ Ery/uL (NEGATIVE); KETONES,URINE NEGATIVE (NEGATIVE); NITRITE, URINE NEGATIVE (NEGATIVE); PH,URINE 7.5 (5.0-8.0); PROTEIN,URINE 3+ mg/dl (NEGATIVE); UGLUCOSE NEGATIVE (NEGATIVE); UROBILINOGEN,URINE 0.2 EU/dL (0.2)
[2018-10-16 01:49] LABS: LEUKOCYTE ESTERASE ,URINE 3+ (NEGATIVE)
[2018-10-16 01:50] LABS: BACTERIA,URINE Moderate /HPF (None Seen); SQUAMOUS EPITHELIAL CELL,UR Rare /HPF (None Seen); WBC,URINE TOO NUMEROUS TO COUN /HPF (0-3); YEAST,URINE None Seen /HPF (None Seen)
[2018-10-16 03:49] LABS: ABG BASE EXCESS -12.3 mmol/L; ABG OXYGEN SATURATION 99.3 % (92.0-98.5); ABG PCO2 47.4 mmHg (35.0-45.0); ABG PH 7.149 (7.350-7.450); ABG PO2 358.3 mmHg (75.0-100.0); AaDO2 307.3 mmHg; COHb 0.7 % (0.5-1.5); MetHb 0.5 % (0.0-1.5); O2Hb 98.1 % (94.0-97.0); SITE, ABG Right Femoral; VENT MODE, BG AC 10 450 100% +0
--- NOTE | 2018-10-16 04:10 | NUR ---
RT NOTE RT CALLED TO CHECK PT, PT AGONALLY BREATHING. STAT ABG TAKEN AND CRITICAL RESULTS NOTED. VENT CHANGES MADE PER DO BOO. ABG TO BE TAKEN IN 30 MINUTES. WILL CONTINUE TO MONITOR CLOSELY. Addendum: 10/16/18 at 0435 by JANICE TONEY RT Amended: Links added.
[2018-10-16] MEDS ORDERED: NOREPINEPHRINE 4 MG/4 ML AMPUL IV ONE (04:29)
[2018-10-16] MEDS: METRONIDAZOLE 500MG/ NS 100ML 500 MG in PREMIX 1 EA IV SCH ×3 (04:34→20:13)
[2018-10-16 04:52] LABS: ABG BASE EXCESS -11.2 mmol/L; ABG OXYGEN SATURATION 96.6 % (92.0-98.5); ABG PCO2 38.9 mmHg (35.0-45.0); ABG PH 7.223 (7.350-7.450); ABG PO2 108.1 mmHg (75.0-100.0); AaDO2 132.4 mmHg; COHb 0.7 % (0.5-1.5); MetHb 0.5 % (0.0-1.5); O2Hb 95.4 % (94.0-97.0); SITE, ABG Right Radial; VENT MODE, BG AC 22 500 40% +0
[2018-10-16] MEDS ORDERED: DOPamine 400 MG/D5W 250 ML RTU PIGGYBACK IV PRN (05:00)
[2018-10-16] MEDS: NOREPINEPHRINE 8 MG in IV D5W 500 ML IV PRN (05:00)
[2018-10-16] MEDS: VANCOMYCIN 1.25 GM in IV D5W 500 ML IV SCH (05:03)
--- NOTE | 2018-10-16 05:10 | NUR ---
rn notes received patient in bed, eyes closed with familyat bedside. No distress noted. Breathing even and unlabored. No physical manifestation of pain or discomfort. Vital signs WNL. altamirano cath draining clear yellow with no foul odor urine. Peg tube in place, o residual. at around 0000, patient woke up, noted HR rate increasing from 150 to 190. Called MD, spoke with Dr. Soto, with orders to administer cardizem bolus 10mg, then IV drip. Noted and carried out. Patients heart rate remains tachycardic. Continuous monitoring done. kept clean and dry. Rt recommended to increase volume of vent setting from 400 to 500 and change ac setting from 14 to 22. Approved by MD, carried out and tolerated well by patient. Addendum: 10/16/18 at 0520 by DAVIS FULLER RN please disregard. documentation for another patient.
--- NOTE | 2018-10-16 05:29 | NUR ---
rn notes received patient in bed, eyes closed, occasionally opening eyes with no tracking, obtunded. In no distress, breathing even and unlabored. No physical manifestation of pain or discomfort. Dominguez cath patent and intact draining clear yellow with no foul odor urine. at about 0400, noted patient with agonal breathing. called MD and spoke with Dr. Soto, with orders to DC IV NS, continue administration of levoped and abg and chest xray stat. Seen and assessed by RT. suctioned moderate to large amount of semi loose yellowish secretion. Continuous monitoring done. Reposition for comfort. RT recommended changed of setting from ac 12 to 22 and volume from 400 to 500. Patient tolerated vent setting well. O2sat increased to 98 to 100$%. Agonal breathing stopped. Kept clean and dry. Will continue to monitor.
--- NOTE | 2018-10-16 07:15 | NUR ---
RECEIVED PATIENT AWAKE TO LIGHT TOUCH. WILL OPEN EYES HOWEVER DOES NOT FOLLOW COMMANDS. PATIENT VENT TRACH AND TOLERATING VENT SETTINGS PER MD ORDER WITHOUT ANY SOB OR DIFFICULTY BREATHING. PATIENT G TUBE TO LIS PER REPORT WITH 50ML GREEN OUTPUT. PATIENT IV SITE C/D/I HOWEVER NO BLOOD RETURN PRESENT; WILL F/U. LEVO PER PROTOCOL RUNNING; SEE SPREADSHEET. HUERTAS CATH TO GRAVITY WITH CLOUDY TEA COLORED URINE OUTPUT NOTED; OLIGURIC. PATIENT WOUND DRESSINGS ALL CLEAN AND INTACT. ISOLATION FOR RULE OUT SPUTUM CONTACT ISO. SKIN, SAFETY, ASPIRATION PRECAUTIONS IN PLACE AND MONITORING
[2018-10-16] MEDS: MIDODRINE HCL (5MG) 5 MG TABLET PO SCH ×3 (08:14→19:34)
[2018-10-16] MEDS: DAKINS QUARTER STRENGTH (0.125%) 480 ML BOTTLE TOP SCH (08:14)
[2018-10-16] MEDS: CADEXOMER IODINE 40 GM TUBE TP SCH (08:15)
--- NOTE | 2018-10-16 09:07 | NUR ---
dr calvert at bedside. aware per lab unable to get labs this am s/t hard stick and ML not returning blood. per bill hd rn he has patient scheduled for HD today and we will obtain labs with HD. aware patient continues with anasarca, very minimal urine output and continues on levophed
[2018-10-16] MEDS: COLISTIMETHATE SODIUM 150 MG in IV NS 0.9% 50 ML IV SCH (09:18)
[2018-10-16] MEDS: NOREPINEPHRINE 16 MG in IV D5W 500 ML IV PRN ×2 (09:36→23:49)
--- NOTE | 2018-10-16 12:00 | NUR ---
1115 picc line rn at bedside. 1121: unable to insert picc s/t difficulties and unable to insert midline in place. pt bp dropping and no iv line for levo. called hd rn bill to come for access to hd cath for levo admin. attempted to insert peripheral and unable. patient legs elevated and hob lowered. 1130: hd rn bill at bedside 1143 hd rn bill started hd and levo restarted. bp stable at this time. will monitor
[2018-10-16 12:10] LABS: BASOPHILS # (AUTO) 0.2 /CMM (0.0-0.2); HEMATOCRIT 35 % (39-51); HEMOGLOBIN 10.8 g/dL (13.5-17.5); LYMPHOCYTES # (AUTO) 1.2 /CMM (0.8-4.8); LYMPHOCYTES % (AUTO) 5.4 % (20.0-44.0); MEAN CORPUSCULAR HGB CONC 31 g/dl (31.0-36.0); MEAN CORPUSCULAR VOLUME 96 fL (80-96); MONOCYTES # (AUTO) 2.1 /CMM (0.1-1.30); MONOCYTES % (AUTO) 9.2 % (2.0-12.0); NEUTROPHILS # (AUTO) 19.3 /CMM (1.8-8.9); NEUTROPHILS % (AUTO) 84.4 % (43.0-81.0); PLATELET COUNT (AUTO) 123 /CMM (150-450); RED BLOOD CELL COUNT(AUTO) 3.63 MIL/uL (4.5-6.0); WHITE BLOOD COUNT (AUTO) 22.8 K/uL (4.3-11.0)
[2018-10-16 12:23] LABS: CALCIUM, SERUM 8.1 mg/dL (8.5-10.1); CREATININE 1.8 mg/dL (0.6-1.3); MAGNESIUM 1.8 mg/dL (1.8-2.4); PHOSPHORUS 4.9 mg/dL (2.5-4.9); POTASSIUM 4.3 mmol/L (3.5-5.1)
[2018-10-16 12:32] LABS: BAND % (MANUAL) 1 % (0.0-5.0); LYMPHOCYTES % (MANUAL) 12 % (16-48); MONOCYTES % (MANUAL) 4 % (0-11.0); NEUTROPHILS % (MANUAL) 83 (42-76)
--- NOTE | 2018-10-16 14:34 | NUR ---
Kranthi picc line rn at bedside. unable to insert picc line. md aware central line to be placed. and per okay for arterial line. agreeable and consented.
[2018-10-16 15:36] LABS: BILIRUBIN,DIRECT 0.5 mg/dL (0.0-0.2)
--- NOTE | 2018-10-16 19:30 | NUR ---
SIDE LASTER TACK INITIAL SHIFT NOTES RECEIVED PATIENT IN BED EYES CLOSED, OBTUNDED. TRACH MIDLINE, PATENT AND INTACT, MECH VENT SETTINGS ORDERED, TOLERATING WELL, NO S/S OF RESPIRATORY DISTRESS NOTED. GT PATENT AND INTACT, CURRENTLY ON LOW INTERMITTENT SUCTION, NOTED WITH GREEN BILIOUS OUTPUT. RIGHT CHESTWALL HD CATH DRESSING CLEAN AND DRY, NO BLOOD NOTED AT SITE. LEFT IJ TLC PATENT AND INTACT, ALL PORTS FLUSHED WITH NS, WITH GOOD VENOUS RETURN. CVP MONITORING @ 17 AT THIS TIME. LEVOPHED GTT CURRENTLY @ 20 MCG. HUERTAS CATHETER DRAINING SUZAN COLORED URINE. DIGNISHIELD RECTAL TUBE FLUSHED, NO LEAKING NOTED. WILL CONTINUE TO CLOSELY MONITOR.
--- NOTE | 2018-10-16 19:34 | NUR ---
CARE ENDORSED TO RN MAYRA FOR JODEE. PATIENT CONTINUES ON LEVOPHED. IJ TLC C/D/I/P/ GOOD BLOOD RETURN. ALL DUE MEDS GIVEN. PATIENT TOLERATING VENT SETTINGS WITHOUT SOB, DIFFICULTY BREATHING. ISOLATION PRECAUTIONS MONITORED THROUGHOUT DAY. SKIN, SAFETY, ASPIRATION PRECAUTIONS IN PLACE AND MONITORED THROUGHOUT DAY. HUERTAS C/D/I/P. TOLERATED HD TODAY WITH 2300ML OUT
[2018-10-17] VITALS (100 sets, daily range): BP systolic 44–110; BP diastolic 18–86
--- NOTE | 2018-10-17 04:00 | NUR ---
ENRICHMENT TEACHER NOTES BED BATH RENDERED. NOTED WITH MULTIPLE WOUNDS, ALL PHOTOGRAPHED AND DOCUMENTED PER PROTOCOL. PATIENT TOLERATED BED BATH AND WOUND CARE WELL. WILL CONTINUE TO CLOSELY MONITOR.
[2018-10-17 04:39] LABS: BASOPHILS # (AUTO) 0.2 /CMM (0.0-0.2); BASOPHILS % (AUTO) 0.7 % (0.0-2.0); HEMATOCRIT 34 % (39-51); HEMOGLOBIN 10.5 g/dL (13.5-17.5); LYMPHOCYTES # (AUTO) 0.9 /CMM (0.8-4.8); LYMPHOCYTES % (AUTO) 3.6 % (20.0-44.0); MEAN CORPUSCULAR HGB CONC 31 g/dl (31.0-36.0); MEAN CORPUSCULAR VOLUME 98 fL (80-96); MONOCYTES # (AUTO) 2.1 /CMM (0.1-1.30); MONOCYTES % (AUTO) 8.6 % (2.0-12.0); NEUTROPHILS # (AUTO) 21.6 /CMM (1.8-8.9); NEUTROPHILS % (AUTO) 87.1 % (43.0-81.0); PLATELET COUNT (AUTO) 111 /CMM (150-450); RED BLOOD CELL COUNT(AUTO) 3.45 MIL/uL (4.5-6.0); WHITE BLOOD COUNT (AUTO) 24.8 K/uL (4.3-11.0)
[2018-10-17] MEDS: METRONIDAZOLE 500MG/ NS 100ML 500 MG in PREMIX 1 EA IV SCH ×3 (04:52→20:45)
[2018-10-17 04:53] LABS: CALCIUM, SERUM 8.2 mg/dL (8.5-10.1); CREATININE 1.9 mg/dL (0.6-1.3); POTASSIUM 4.6 mmol/L (3.5-5.1)
--- NOTE | 2018-10-17 04:59 | NUR ---
RT NOTE PT REC'D TRACHED VIA PORTEX ON [facility] VENT ON AC MODE. TRACH IS PATENT AND SECURED NO RESP DISTRESS OR SOB NOTED. SX'D FOR THICK MOD AMT OF PALE SECRETIONS. ALARMS ARE SET AND AUDIBLE. VENT PLUGGED INTO RED OUTLET. AMBU BAG BEDSIDE. WILL CONTINUE TO MONITOR. Addendum: 10/17/18 at 0501 by JANICE TONEY RT Amended: Links added.
[2018-10-17 05:00] LABS: BAND % (MANUAL) 4 % (0.0-5.0); LYMPHOCYTES % (MANUAL) 5 % (16-48); METAMYELOCYTES % 1 % (0-0); MONOCYTES % (MANUAL) 11 % (0-11.0); NEUTROPHILS % (MANUAL) 79 (42-76)
[2018-10-17] MEDS: VANCOMYCIN 1.25 GM in IV D5W 500 ML IV SCH (06:00)
--- NOTE | 2018-10-17 06:03 | NUR ---
FOOD SCIENCE TECHNICIAN NOTES VANCO TROUGH LEVEL = 32. [phone] DOSE HELD
[2018-10-17] MEDS: HYDROCORTISONE SOD SUCCINATE 100 MG/2 ML VIAL IV SCH ×4 (06:36→23:55)
--- NOTE | 2018-10-17 06:38 | NUR ---
AIR REDUCTION EQUIPMENT OPERATOR NOTES RECEIVED CALL FROM LAB, SPOKE TO MORIAH. GLUCOSE LEVEL = 412. RELAYED LEVEL TO DR BOO, AND MADE AWARE THAT PATIENT IS ON SSI @ INTERMEDIATE. PER DR BOO, START SLIDING SCALE INSULIN WITH MILD COVERAGE, AND OBTAIN HGB A1C STAT.
[2018-10-17] MEDS ORDERED: INSULIN REGULAR, HUMAN 100 UNIT/ML 3 ML VIAL SQ PRN (07:00)
[2018-10-17] MEDS ORDERED: DEXTROSE 50%-WATER 50 ML DISP.SYRIN IV PRN ×2 (07:00→09:00)
--- NOTE | 2018-10-17 07:15 | NUR ---
REVENUE AUDIT CLERK OPENING NOTES RECEIVED PATIENT IN BED EYES CLOSED, OBTUNDED. [facility] VENT SETTINGS ORDERED, TOLERATING WELL, NO S/S OF RESPIRATORY DISTRESS NOTED. GT PATENT AND INTACT, CURRENTLY ON LOW INTERMITTENT SUCTION, NOTED WITH GREEN BILIOUS OUTPUT. RIGHT CHEST WALL HD CATH DRESSING CLEAN AND DRY, NO BLOOD NOTED AT SITE. LEFT IJ TLC PATENT AND INTACT, ALL PORTS FLUSHED WITH NS, WITH GOOD VENOUS RETURN. CVP MONITORING . LEVOPHED GTT CURRENTLY @ 20 MCG. HUERTAS CATHETER DRAINING SUZAN COLORED URINE. DIGNISHIELD RECTAL TUBE FLUSHED, NO LEAKING NOTED. ASPIRATION AND SAFETY MEASURES IN PLACE.WILL CONTINUE TO MONITOR PATIENT.
--- NOTE | 2018-10-17 08:25 | NUR ---
RT PATIENT REC'D TRACHED ON [facility] VENT WITH ORDERED SETTINGS DAMIEN WELL. VENT ALARMS CHECKED + AUDIBLE. AIRWAY SUCTIONED WITH SMALL AMT OF PALE THIN SECRETIONS. AMBU BAG AT HOB Addendum: 10/17/18 at 0826 by KIM OLIVEIRA RT Amended: Links added.
[2018-10-17] MEDS: COLISTIMETHATE SODIUM 150 MG in IV NS 0.9% 50 ML IV SCH (08:49)
[2018-10-17] MEDS: MIDODRINE HCL (5MG) 5 MG TABLET PO SCH ×3 (08:50→17:13)
[2018-10-17] MEDS: DAKINS QUARTER STRENGTH (0.125%) 480 ML BOTTLE TOP SCH (08:50)
[2018-10-17] MEDS: CADEXOMER IODINE 40 GM TUBE TP SCH (08:51)
[2018-10-17] MEDS ORDERED: IV NS 0.9% 1,000 ML BAG IV PRN (09:00)
[2018-10-17] MEDS: IV NS 0.9% 1,000 ML IV PRN ×2 (09:25→23:53)
--- NOTE | 2018-10-17 09:30 | NUR ---
PROCESS AUTOMATION ENGINEER NOTE SEEN BY ,UPDATED ABOUT PATIENT CONDITION WITH LABS.GOT NEW ORDER FOR AGGRESSIVE SLIDING SCALE,NS @80CC/HR AND ALSO NEPRO @20CC/HR GT FEEDING.MADE AWARE THAT PATIENT HAS ALLERGY TO SOYBEAN.OK TO GIVE IT.DIETION MADE AWARE.OK TO GIVE NEPRO.PATIENT WAS ON NEPRO BEFORE.WILL CONTINUE TO MONITOR.
--- NOTE | 2018-10-17 09:56 | NUR ---
MANAGER PART NOTE SEEN BY ,UPDATED ABOUT PATIENT CONDITION AND AFIB WITH RVR ON CARDIZEM MORE THAN 24HRS.OK TO CONTINUE CARDIZEM.GOT NEW ORDER FOR POTASSIUM 4 MORE BAGS.SEEN BY UPDATED ABOUT PATIENT CONDITION.GOT NEW ORDERS. Addendum: 10/17/18 at 0959 by BEKAH GORDON RN WRONG ENTRY
[2018-10-17] MEDS ORDERED: BLOOD SUGAR DIAGNOSTIC 1 EACH STRIP IN SCH (12:00)
[2018-10-17] MEDS: BLOOD SUGAR DIAGNOSTIC 1 EACH STRIP IN SCH ×3 (12:06→23:58)
[2018-10-17] MEDS: NEPRO 1,000 ML BOTTLE GT PRN (12:10)
[2018-10-17] MEDS: NOREPINEPHRINE 16 MG in IV D5W 500 ML IV PRN (13:18)
[2018-10-17] MEDS: INSULIN REGULAR, HUMAN 100 UNIT/ML 3 ML VIAL SQ PRN ×3 (13:23→23:59)
--- NOTE | 2018-10-17 14:35 | NUR ---
LAVATORY ATTENDANT NOTE SEEN BY ,GOT NEW ORDER TO CALL LAB FOR SPUTUM CULTURE COMPLETE RESULT.CALL MADE TO [facility],SPOKE TO STEPH,REQUESTED FOR COMPLETE SPUTUM CULTURE RESULT.GOT NEW RESULT. MADE AWARE.
[2018-10-17] MEDS ORDERED: VANCOMYCIN 1 GM in IV D5W 250 ML IV SCH (15:00)
--- NOTE | 2018-10-17 16:00 | NUR ---
SEARCH MARKETING SPECIALIST NOTE WOUND DEBRIDEMENT DONE BY KIYA DO,MILD BLEEDING NOTED.PRESSURE DRESSING APPLIED.REASSESSMENT DONE.PACKED WITH NEW DRESSING.NO MORE BLEEDING NOTED.
--- NOTE | 2018-10-17 17:30 | NUR ---
WEAVING INSTRUCTOR NOTE LEFT MESSAGE TO TO REVIEW MED RECON BY PHARMACY REQUEST.ALSO MADE AWARE THAT PATIENT NOT ON ANY DVT AND GI PROPHYLAXIS HAS CONTROLLED AFIB.DIETARY RECOMMENDATION COMPLETED.
--- NOTE | 2018-10-17 18:51 | NUR ---
FIELD APPLICATION ENGINEER CLOSING NOTES PATIENT IN BED EYES CLOSED,OPEN EYES TO VERBAL STIMULI.OPEN EYES WHILE WAS TALKING TO PATIENT. [facility] V[facility] SETTINGS ORDERED, TOLERATING WELL, NO S/S OF RESPIRATORY DISTRESS NOTED. GT PATENT AND INTACT,WITH GTF NEPRO @20CC/HR. RIGHT CHEST WALL HD CATH DRESSING CLEAN AND DRY, NO BLOOD NOTED AT SITE. LEFT IJ TLC PATENT AND INTACT, ALL PORTS FLUSHED WITH NS, WITH GOOD VENOUS RETURN. CVP MONITORING . LEVOPHED GTT CURRENTLY @ 20 MCG. HUERTAS CATHETER DRAINING M DARK YELLOW COLORED URINE. RECTAL TUBE NO LEAKING NOTED. ASPIRATION AND SAFETY MEASURES IN PLACE.ON CONTROLLED AFIB.WILL ENDORSE TO PM NURSE FOR JODEE.
[2018-10-18] VITALS (111 sets, daily range): BP systolic 54–140; BP diastolic 34–105
[2018-10-18] MEDS: NOREPINEPHRINE 16 MG in IV D5W 500 ML IV PRN (02:30)
[2018-10-18 05:27] LABS: CALCIUM, SERUM 7.8 mg/dL (8.5-10.1); CREATININE 2.1 mg/dL (0.6-1.3); POTASSIUM 4.7 mmol/L (3.5-5.1)
[2018-10-18] MEDS: HYDROCORTISONE SOD SUCCINATE 100 MG/2 ML VIAL IV SCH ×3 (05:48→17:24)
[2018-10-18] MEDS: METRONIDAZOLE 500MG/ NS 100ML 500 MG in PREMIX 1 EA IV SCH ×3 (05:48→20:52)
[2018-10-18] MEDS: BLOOD SUGAR DIAGNOSTIC 1 EACH STRIP IN SCH ×3 (05:52→17:24)
[2018-10-18] MEDS: INSULIN REGULAR, HUMAN 100 UNIT/ML 3 ML VIAL SQ PRN ×3 (05:54→17:25)
--- NOTE | 2018-10-18 06:27 | NUR ---
HEALTHCARE MARKETER NOTES PERIPHERAL STICK BLOOD GLUCOSE LEVEL = 367, 20 UNITS INSULIN GIVEN SQ PER SLIDING SCALE. LAB CALLED WITH CRITICAL GLUCOSE VALUE OF 431. DR BOO NOTIFIED REGARDING CRITICAL LEVEL AND THAT 20 UNITS HAD ALREADY BEEN ADMINISTERED. PER DR BOO, NNO, CONTINUE SLIDING SCALE ORDERED. WILL COTNINUE TO CLOSELY MONITOR
--- NOTE | 2018-10-18 07:15 | NUR ---
RN INITIAL NOTES RECEIVED PT OBTUNDED. TRACH IN PLACE, ON VENT. NO RESPIRATORY DISTRESS NOTED. NO SOB NOTED. NO SIGNS OF PAIN NOTED. LIJ TLC IN PLACE. ON CVP MONITORING. PT ON LEVO AT 20MCG/MIN. WILL TITRATE ACCORDINGLY. GT IN PLACE. TOLERATING GTF WELL. FC IN PLACE. NO HEMATURIA NOTED. FLEXISEAL IN PLACE. HD ONGOING. WILL CONTINUE TO MONITOR.
--- NOTE | 2018-10-18 07:58 | NUR ---
RT Pt received with a portex 7 trach on the vent with noted settings.. Pt does not follow commands. Vent alarms are set and audible with BVM by bedside. DIRECTOR PEDIATRIC cuff pressure noted. Vent is plugged into red outlet. Sx'd moderate thick yellow secretions. No respiratory distress noted. Addendum: 10/18/18 at 1208 by JYOTI VERNON RT Amended: Links added.
[2018-10-18] MEDS: MIDODRINE HCL (5MG) 5 MG TABLET PO SCH ×3 (09:00→16:15)
[2018-10-18] MEDS: PROSOURCE / PROSTAT (PYXIS) 30 ML UDC GT SCH ×3 (09:00→16:15)
--- NOTE | 2018-10-18 09:00 | NUR ---
RN NOTES SEEN AND EXAMINED BY DR RIVERA AND DR PALENCIA. PT REMAINS ON LEVO AT 20MCG/MIN. ONGOING HD. SBP ON 120S. PT AIRWAY PATENT. NO RESPIRATORY DISTRESS NOTED. NO SOB NOTED. NO SIGNS OF PAIN NOTED. AWARE OF CURRENT LAB VALUES AND IMAGING RESULT. WILL MONITOR
[2018-10-18] MEDS: CADEXOMER IODINE 40 GM TUBE TP SCH (09:30)
[2018-10-18] MEDS: DAKINS QUARTER STRENGTH (0.125%) 480 ML BOTTLE TOP SCH (09:30)
[2018-10-18] MEDS: COLISTIMETHATE SODIUM 150 MG in IV NS 0.9% 50 ML IV SCH (10:33)
[2018-10-18] MEDS: NEPRO 1,000 ML BOTTLE GT PRN (10:34)
--- NOTE | 2018-10-18 12:00 | NUR ---
RN NOTES SEEN AND EXAMINED BY VALARIE TAVERAS NP. AWARE OF LAB VALUES AND IMAGING STUDIES. SWITCHED LEVO TO JUANA. ORDERED CT ABDOMEN PELVIS WO. WILL CONTINUE TO MONITOR.
[2018-10-18] MEDS: IV NS 0.9% 1,000 ML IV PRN (14:30)
[2018-10-18] MEDS ORDERED: FEE PK DOSING 1 MIN EA MC ONE (15:56)
[2018-10-18] MEDS: AMIKACIN 500 MG in IV D5W 100 ML IV SCH (16:15)
[2018-10-18] MEDS: PHENYLEPHRINE 40 MG in IV D5W 250 ML IV PRN ×2 (16:22→22:11)
--- NOTE | 2018-10-18 18:40 | NUR ---
RN CLOSING NOTES NO SIGNIFICANT CHANGE NOTED. PT ON JUANA AT 100MCG/MIN. IVF INFUSING. TOLERATING GTF WELL. TX PROVIDED ORDERED. KEPT CLEAN AND DRY. REPOSITIONED Q2. BLE ELEVATED. WILL ENDORSE FOR CONTINUITY OF CARE
--- NOTE | 2018-10-18 19:30 | NUR ---
TRUCK LEASING MANAGER INITIAL SHIFT NOTES RECEIVED PATIENT IN BED EYES CLOSED, OBTUNDED. TRACH MIDLINE, PATENT AND INTACT, MECH VENT SETTINGS ORDERED, TOLERATING WELL, NO S/S OF RESPIRATORY DISTRESS NOTED. GT PATENT AND INTACT, TUBE FEEDINGS AT 20ML/HR, NOTED WITH 20 CC GASTRIC RESIDUAL. RIGHT CHEST WALL HD CATH DRESSING CLEAN AND DRY, NO BLOOD NOTED AT SITE. LEFT IJ TLC PATENT AND INTACT, ALL PORTS FLUSHED WITH NS, WITH GOOD VENOUS RETURN. CVP MONITORING @ 20 AT THIS TIME. NEOSYNEPHRINE GTT CURRENTLY @ 100 MCG. HUERTAS CATHETER DRAINING CLOUDY YELLOW URINE WITH SEDIMENTS. DIGNISHIELD RECTAL TUBE FLUSHED, OUTPUT LIQUID BROWN STOOL. NO LEAKING NOTED. HOB KEPT ELEVATED FOR ASPIRATION PRECAUTIONS, WILL CONTINUE TO CLOSELY MONITOR.
[2018-10-19] VITALS (104 sets, daily range): BP systolic 41–129; BP diastolic 28–109
--- NOTE | 2018-10-19 | NUR ---
SHIRT CLOSER NOTES SPO2 NOTED TO DROP TO 80%. PATIENT SUCTIONED FOR AIRWAY CLEARANCE, REPOSITIONED, BUT SPO2 REMAINS IN 80s. RT RENEE NOTIFIED, FIO2 ADJUSTED TO 50%. SPO2 NOTED TO GO UP TO 98%. WILL CONTINUE TO CLOSELY MONITOR
[2018-10-19] MEDS: BLOOD SUGAR DIAGNOSTIC 1 EACH STRIP IN SCH ×4 (00:34→17:32)
[2018-10-19] MEDS: HYDROCORTISONE SOD SUCCINATE 100 MG/2 ML VIAL IV SCH ×4 (00:37→17:06)
[2018-10-19] MEDS: INSULIN REGULAR, HUMAN 100 UNIT/ML 3 ML VIAL SQ PRN ×4 (00:40→17:32)
[2018-10-19] MEDS ORDERED: PHENYLEPHRINE 10 MG/ML VIAL ONE (01:05)
--- NOTE | 2018-10-19 02:00 | NUR ---
RN NOTES FULL BED BATH RENDERED, SACRAL WOUND CARE RENDERED, DRESSING CHANGED, TOLERATED WELL. WILL CONTINUE TO CLOSELY MONITOR
[2018-10-19] MEDS: PHENYLEPHRINE 40 MG in IV D5W 250 ML IV PRN (03:03)
[2018-10-19] MEDS: IV NS 0.9% 1,000 ML IV PRN (03:07)
[2018-10-19 04:40] LABS: BASOPHILS % (AUTO) 0.2 % (0.0-2.0); HEMATOCRIT 33 % (39-51); HEMOGLOBIN 10.3 g/dL (13.5-17.5); LYMPHOCYTES # (AUTO) 0.7 /CMM (0.8-4.8); LYMPHOCYTES % (AUTO) 3.9 % (20.0-44.0); MEAN CORPUSCULAR HGB CONC 32 g/dl (31.0-36.0); MEAN CORPUSCULAR VOLUME 98 fL (80-96); MONOCYTES % (AUTO) 5.5 % (2.0-12.0); NEUTROPHILS % (AUTO) 90.4 % (43.0-81.0); PLATELET COUNT (AUTO) 78 /CMM (150-450); RED BLOOD CELL COUNT(AUTO) 3.32 MIL/uL (4.5-6.0); WHITE BLOOD COUNT (AUTO) 17.7 K/uL (4.3-11.0)
[2018-10-19 05:22] LABS: CALCIUM, SERUM 7.8 mg/dL (8.5-10.1); CREATININE 1.7 mg/dL (0.6-1.3); MAGNESIUM 1.7 mg/dL (1.8-2.4); PHOSPHORUS 4.9 mg/dL (2.5-4.9); POTASSIUM 3.9 mmol/L (3.5-5.1)
[2018-10-19 05:32] LABS: LYMPHOCYTES % (MANUAL) 3 % (16-48); MONOCYTES % (MANUAL) 6 % (0-11.0); NEUTROPHILS % (MANUAL) 91 (42-76)
[2018-10-19] MEDS: METRONIDAZOLE 500MG/ NS 100ML 500 MG in PREMIX 1 EA IV SCH ×3 (05:32→20:47)
--- NOTE | 2018-10-19 07:00 | NUR ---
MACHINE OPERATOR GENERAL CLOSING NOTES BEDSIDE REPORT GIVEN TO DAY SHIFT NURSE. PATIENT CONTINUES ON MECHANICAL VENTILATOR, FIO2 REMAINS @ 40%, NOT TOLERATING 30%. TF REMAINS AT 20ML/HR D/T TUBE FEEDING INTOLERANCE, WITH HIGH RESIDUALS UP TO 60ML. HOB KEPT ELEVATED FOR ASPIRATION PRECAUTIONS. RECTAL TUBE AND HUERTAS REMAIN IN PLACE. ISOLATION PRECAUTIONS OBSERVED THROUGHOUT SHIFT.
--- NOTE | 2018-10-19 07:00 | NUR ---
FUEL OPERATOR INITIAL NOTES RECEIVED PT OBTUNDED. RESPONSIVE TO TOUCH. TRACH IN PLACE, ON VENT. NO RESPIRATORY DISTRESS NOTED. NO SOB NOTED. NO SIGNS OF PAIN NOTED. LIJ TLC IN PLACE. ON CVP MONITORING. PT ON JUANA AT 100MCG/MIN. WILL TITRATE ACCORDINGLY. GT IN PLACE RESIDUAL NOTED, WILL H0LD AT THIS TIME. FC IN PLACE. NO HEMATURIA NOTED. FLEXISEAL IN PLACE. WILL CONTINUE TO MONITOR.
[2018-10-19] MEDS ORDERED: VANCOMYCIN 1 GM in IV D5W 250 ML IV SCH (08:00)
[2018-10-19] MEDS: MIDODRINE HCL (5MG) 5 MG TABLET PO SCH ×3 (08:41→17:10)
[2018-10-19] MEDS: CADEXOMER IODINE 40 GM TUBE TP SCH (08:42)
[2018-10-19] MEDS: DAKINS QUARTER STRENGTH (0.125%) 480 ML BOTTLE TOP SCH (08:42)
[2018-10-19] MEDS ORDERED: PHENYLEPHRINE 40 MG in IV D5W 250 ML IV PRN (09:00)
[2018-10-19] MEDS: PROSOURCE / PROSTAT (PYXIS) 30 ML UDC GT SCH ×3 (09:08→17:06)
[2018-10-19] MEDS ORDERED: PHENYLEPHRINE 40 MG in IV NS 0.9% 250 ML IV PRN (10:00)
--- NOTE | 2018-10-19 10:01 | NUR ---
DISPATCHER SHIP PILOT NOTE FEEDING RESTARTED
[2018-10-19] MEDS: IV D5/ 0.9% NACL 1,000 ML IV PRN ×2 (12:00→20:39)
[2018-10-19] MEDS ORDERED: Magnesium 1GM/D5W 100ML PREMIX 100 ML IV SCH (12:30)
--- NOTE | 2018-10-19 13:03 | NUR ---
SERGING MACHINE OPERATOR NOTE SEEN AND EXAMINED BY VALARIE, AWARE OF ELEVATED CVP
--- NOTE | 2018-10-19 14:00 | NUR ---
RESIDENTIAL GAS HEAT TECHNICIAN NOTE SEEN AND EXAMINED BY KIYA EVANS
[2018-10-19] MEDS ORDERED: LIDOCAINE 1%-EPI 1:100,000 20 ML VIAL TP ONE (14:30)
[2018-10-19] MEDS: NEPRO 1,000 ML BOTTLE GT PRN (15:36)
[2018-10-19] MEDS: AMIKACIN 500 MG in IV D5W 100 ML IV SCH (15:38)
[2018-10-19] MEDS: PHENYLEPHRINE 80 MG in IV NS 0.9% 250 ML IV PRN ×2 (18:37→23:06)
--- NOTE | 2018-10-19 19:12 | NUR ---
CUT OFF SAW OPERATOR METAL CLOSING NOTE PATIENT IN STABLE CONDITION AT THIS TIME. TOLERATING VENT SETTINGS. SINUS TACH ON TELE MONITOR. GT PATENT, INTACT, WITH MINIMAL RESIDUAL NOTED. NO RESPIRATORY DISTRESS NOTED. IV LINES PATENT, INTACT, AND IN PLACE. JUANA DRIP RUNNING AT 300MCG/MIN, IVF RUNNING. F/C AND FLEXISEAL IN PLACE. CVP 30-40, PHYSICAL FITNESS TRAINER VALARIE AWARE. WOUND TX DONE. KEPT CLEAN AND DRY. TURNED AND REPOSITIONED Q2 AND PRN. ISOLATION PRECAUTIONS OBSERVED. HOB ELEVATED. SIDE RAILS UP AND LOCKED. WILL ENDORSE CONTINUITY OF CARE TO PM NURSE.
--- NOTE | 2018-10-19 19:18 | NUR ---
PT RCVD TRACHED VIA PORTEX 7 ON [facility] VENT WITH NOTED SETTINGS . PT IS OBTUNDED. TRACH IS PATENT AND SECURED .NO RESP DISTRESS OR SOB NOTED AT THIS TIME. SX'D MOD AMT OF THICK YELLOW SECRETIONS. ALARMS ARE SET AND AUDIBLE. VENT PLUGGED INTO RED OUTLET. AMBU BAG BEDSIDE. WILL CONTINUE TO MONITOR.
[2018-10-19] MEDS: LACTOBACILLUS RHAMNOSUS GG 1 EACH CAP.SPRINK PO SCH (20:47)
[2018-10-19] MEDS: APIXABAN 2.5 MG TABLET GT SCH (20:48)
[2018-10-19] MEDS: AMIODARONE HCL 200 MG TABLET GT SCH (20:48)
[2018-10-20] VITALS (109 sets, daily range): BP systolic 62–132; BP diastolic 24–103
[2018-10-20] MEDS: HYDROCORTISONE SOD SUCCINATE 100 MG/2 ML VIAL IV SCH ×5 (00:27→23:23)
[2018-10-20] MEDS: BLOOD SUGAR DIAGNOSTIC 1 EACH STRIP IN SCH ×5 (00:37→23:23)
[2018-10-20] MEDS: INSULIN REGULAR, HUMAN 100 UNIT/ML 3 ML VIAL SQ PRN ×5 (00:37→23:25)
--- NOTE | 2018-10-20 02:20 | NUR ---
PT SATS DROPPED TO 75% AFTER BEING CLEANED UP, INCREASED OXYGEN ON VENTILATOR FROM 40% TO 100%.
[2018-10-20] MEDS: PHENYLEPHRINE 80 MG in IV NS 0.9% 250 ML IV PRN ×3 (04:40→17:52)
[2018-10-20] MEDS: METRONIDAZOLE 500MG/ NS 100ML 500 MG in PREMIX 1 EA IV SCH ×3 (04:51→20:01)
[2018-10-20 04:56] LABS: BASOPHILS # (AUTO) 0.1 /CMM (0.0-0.2); BASOPHILS % (AUTO) 0.3 % (0.0-2.0); EOSINOPHILS % (AUTO) 0.1 % (0.0-6.0); HEMATOCRIT 37 % (39-51); LYMPHOCYTES # (AUTO) 0.5 /CMM (0.8-4.8); LYMPHOCYTES % (AUTO) 2.5 % (20.0-44.0); MEAN CORPUSCULAR HGB CONC 30 g/dl (31.0-36.0); MEAN CORPUSCULAR VOLUME 102 fL (80-96); NEUTROPHILS # (AUTO) 18.4 /CMM (1.8-8.9); NEUTROPHILS % (AUTO) 92.1 % (43.0-81.0); PLATELET COUNT (AUTO) 71 /CMM (150-450); RED BLOOD CELL COUNT(AUTO) 3.59 MIL/uL (4.5-6.0)
[2018-10-20 05:27] LABS: CALCIUM, SERUM 7.7 mg/dL (8.5-10.1); CREATININE 1.8 mg/dL (0.6-1.3); MAGNESIUM 1.8 mg/dL (1.8-2.4); PHOSPHORUS 5.4 mg/dL (2.5-4.9); POTASSIUM 3.9 mmol/L (3.5-5.1)
[2018-10-20 05:49] LABS: EOSINOPHILS % (MANUAL) 1 % (0-4); LYMPHOCYTES % (MANUAL) 2 % (16-48); MONOCYTES % (MANUAL) 5 % (0-11.0); NEUTROPHILS % (MANUAL) 92 (42-76)
--- NOTE | 2018-10-20 07:30 | NUR ---
SALES ESTIMATOR INITIAL NOTE RECEIVED PATIENT OBTUNDED. NO S/S OF PAIN OR DISCOMFORT NOTED. ON TELE MONITOR SINUS TACH WITH BBB. NO RESPIRATORY DISTRESS NOTED. TOLERATING VENT SETTINGS AT THIS TIME. RESPIRATIONS EVEN AND UNLABORED, VENT SETTINGS AC 22, TV 500, FIO2 100%, PEEP 0. SKIN TAUT. WITH F/C AND FLEXISEAL IN PLACE. WITH GT PATENT AND INTACT, CLAMPED AT THIS TIME. WITH ONGOING DIALYSIS AT THIS TIME. ON JUANA AT 180 MCG/MIN WILL TITRATE NECESSARY. HOB ELEVATED. WILL CONTINUE TO MONITOR.
[2018-10-20] MEDS: PROSOURCE / PROSTAT (PYXIS) 30 ML UDC GT SCH ×3 (09:10→16:35)
[2018-10-20] MEDS: MIDODRINE HCL (5MG) 5 MG TABLET PO SCH ×3 (09:12→16:36)
[2018-10-20] MEDS: LACTOBACILLUS RHAMNOSUS GG 1 EACH CAP.SPRINK PO SCH ×2 (09:12→16:35)
[2018-10-20] MEDS: AMIODARONE HCL 200 MG TABLET GT SCH (09:13)
[2018-10-20] MEDS: APIXABAN 2.5 MG TABLET GT SCH ×2 (09:15→16:35)
[2018-10-20] MEDS: CADEXOMER IODINE 40 GM TUBE TP SCH (09:21)
[2018-10-20] MEDS: DAKINS QUARTER STRENGTH (0.125%) 480 ML BOTTLE TOP SCH (09:21)
--- NOTE | 2018-10-20 10:46 | NUR ---
POWERHOUSE OPERATOR NOTE PATIENT COMPLETED DIALYSIS WITH NO COMPLICATIONS. ONE LITER TAKEN OUT
[2018-10-20 12:26] LABS: ABG BASE EXCESS -4.8 mmol/L; ABG OXYGEN SATURATION 99.4 % (92.0-98.5); ABG PCO2 40.8 mmHg (35.0-45.0); ABG PH 7.327 (7.350-7.450); ABG PO2 281.4 mmHg (75.0-100.0); AaDO2 390.8 mmHg; COHb 0.8 % (0.5-1.5); MetHb 0.7 % (0.0-1.5); O2Hb 97.9 % (94.0-97.0); PEEP,BG 0 cm H2O; SITE, ABG Left Radial; VT, ABG 500 mL
--- NOTE | 2018-10-20 13:00 | NUR ---
INNOVATIONS PARAPROFESSIONAL NOTE SEEN AND EXAMINED BY KIYA SHEPPARD
[2018-10-20] MEDS ORDERED: DEXTROSE 50%-WATER 50 ML DISP.SYRIN IV PRN (14:30)
--- NOTE | 2018-10-20 15:10 | NUR ---
PATTERN GRADER SUPERVISOR NOTE SEEN AND EXAMINED BY ID
[2018-10-20] MEDS: NEPRO 1,000 ML BOTTLE GT PRN (15:37)
--- NOTE | 2018-10-20 15:54 | NUR ---
FINANCIAL CENTER MANAGER NOTE SEEN BY KIYA DO
--- NOTE | 2018-10-20 16:05 | NUR ---
WIRE WINDING MACHINE TENDER NOTE RT AT BEDSIDE. FIO2 TITRATED TO 70%, PER ABG. WILL CONTINUE TO MONITOR.
[2018-10-20] MEDS: AMIKACIN 500 MG in IV D5W 100 ML IV SCH (16:35)
--- NOTE | 2018-10-20 16:58 | NUR ---
GUEST EXPERIENCE SPECIALIST NOTE LING CALLED, NO ANSWER
--- NOTE | 2018-10-20 19:23 | NUR ---
CHARGE ATTENDANT CLOSING NOTE NO DISTRESS NOTED. SKIN WARM AND DRY. F/C IN PLACE, FLEXISEAL IN PLACE. GT PATENT, INTACT, GTF RUNNING. WITH LEVO RUNNING AT 140MCG/MIN. KEPT CLEAN AND DRY. WOUND TX DONE. TURNED AND REPOSITIONED Q2 AND PRN. SIDE RAILS UP AND LOCKED . ISOLATION PRECAUTIONS OBSERVED. HOB ELEVATED. CONTINUITY OF CARE TO PM NURSE.
--- NOTE | 2018-10-20 19:27 | NUR ---
PT RECEIVED TRACHED ON MECHANICAL VENT W/ NOTED SETTINGS PER MD. AMBUBAG AT BEDSIDE. VENT PLUGGED INTO RED OUTLET, VENT ALARMS CHECKED AND AUDIBLE. PT SX'ED AND LAVAGED PRN. TRACH SECURE, PATENT, CLEAN AND DRY. BS EQUAL DIMINISHED. NO RESP DISTRESS NOTED. PLAN IS TO CONTINUE CARE UNDER CURRENT MD ORDERS AND MONITOR FOR CHANGES. Addendum: 10/20/18 at 1928 by ROLA CASTILLO RT Amended: Links added.
--- NOTE | 2018-10-20 20:17 | NUR ---
BEAUTY CONSULTANT NOTES - VANCOMYCIN VANCO TROUGH LEVEL = 20. CALLED AND SPOKE TO PHARMACY. PER PHARMACY, NO DOSE FOR TONIGHT. WILL CONTINUE TO CLOSELY MONITOR THE PATIENT
[2018-10-20] MEDS: INSULIN GLARGINE, 100 UNIT/ML CARTRIDGE SQ SCH (23:24)
[2018-10-21] VITALS (101 sets, daily range): BP systolic 56–164; BP diastolic 22–118
[2018-10-21] MEDS: PHENYLEPHRINE 80 MG in IV NS 0.9% 250 ML IV PRN ×5 (02:42→20:55)
--- NOTE | 2018-10-21 04:00 | NUR ---
TREE AND SHRUB WORKER NOTES PATIENT NOTED TO DESAT TO 75-80% RT JOVANI CALLED TO BEDSIDE. ETT SUCTIONING ATTEMPTS INEFFECTIVE TO BRING SPO2 UP. FIO2 TITRATED TO 100%.
--- NOTE | 2018-10-21 04:30 | NUR ---
LAP WINDING MACHINE OPERATOR NOTES 0415 - BLOOD PRESSURE READING XX. PATIENT MAX'D OUT ON NEOSYNEPHRINE @ 300MCG 0505 - BLOOD PRESSURE READING 83/33, VASOPRESSIN STARTED @ 0.04 UNITS/MIN 0515 - BLOOD PRESSURE NOTED TO DROP TO 56/35 WHILE ON MAX RATE OF NEOSYNEPHRINE AND VASOPRESSIN. DR WATT PAGED [phone] - NO CALL BACK, DR WATT PAGED AGAIN [phone] - RECEIVED CALL BACK FROM DR WATT. UPDATED WITH LATEST CHANGE OF CONDITION. WITH NEW ORDER FOR 3RD PRESSOR LEVOPHED IF NEEDED
[2018-10-21 05:03] LABS: CALCIUM, SERUM 7.8 mg/dL (8.5-10.1); CREATININE 1.6 mg/dL (0.6-1.3); POTASSIUM 3.9 mmol/L (3.5-5.1)
[2018-10-21] MEDS ORDERED: VASOPRESSIN INJ 20 UNIT/ML VIAL ONE (05:03)
[2018-10-21] MEDS: VASOPRESSIN INJ 50 UNIT in IV D5W 497.5 ML IV PRN (05:08)
[2018-10-21] MEDS ORDERED: NOREPINEPHRINE 4 MG/4 ML AMPUL IV ONE (05:43)
[2018-10-21] MEDS: NOREPINEPHRINE 16 MG in IV D5W 500 ML IV PRN (05:45)
[2018-10-21] MEDS ORDERED: DEXTROSE 10% IN WATER 250 ML BAG IV PRN (06:00)
[2018-10-21] MEDS: BLOOD SUGAR DIAGNOSTIC 1 EACH STRIP IN SCH ×4 (06:13→23:12)
[2018-10-21] MEDS: HYDROCORTISONE SOD SUCCINATE 100 MG/2 ML VIAL IV SCH ×4 (06:13→23:29)
[2018-10-21] MEDS: INSULIN REGULAR, HUMAN 100 UNIT/ML 3 ML VIAL SQ PRN ×4 (06:18→23:07)
[2018-10-21] MEDS: METRONIDAZOLE 500MG/ NS 100ML 500 MG in PREMIX 1 EA IV SCH ×3 (06:27→22:09)
--- NOTE | 2018-10-21 06:30 | NUR ---
PHARMACY AFFAIRS ASSISTANT NOTES CALLED PATIENT'S ROSARIO GALLO [phone] TO UPDATE REGARDING CURRENT CHANGE OF CONDITION. PATIENT REMAINS FULL CODE. PER PATIENT'S , SHE WILL BE HERE WHEN SHE CAN.
[2018-10-21] MEDS ORDERED: IV NS 0.9% 1,000 ML IV ONE (07:00)
--- NOTE | 2018-10-21 07:00 | NUR ---
SKEIN YARN DRIER NOTES LEVOPHED GTT INITIATED @ 0555. @ 0625, BP 154/111. VASOPRESSIN GTT TITRATED OFF WHILE NEOSYNEPHRINE GTT @ 300MCG, LEVOPHED GTT @ 8MCG. VASOPRESSORS TITRATED PER PROTOCOL @ 0700, PATIENT REMAINS ON NEOSYNEPHRINE GTT @ 300MCG AND LEVOPHED GTT @ 30MCG VIA LEFT IJ TLC. PATIENT REMAINS ON MECHANICAL VENTILATION, FIO2 @ 100%. BED SIDE REPORT GIVEN TO NURSE STOKES FOR CONTINUITY OF CARE
--- NOTE | 2018-10-21 08:00 | NUR ---
received pt from overnight cashier, obtunded, ST, on the vent, lungs congested, anasarca, on renetta at 300mcg and renetta at 30mcg, GT to feeding tolerates well, f/c low output HD patient, rectal tube diarrhea, v/s stable, no pain, pt turned and repositioned.
[2018-10-21] MEDS: MIDODRINE HCL (5MG) 5 MG TABLET PO SCH ×3 (08:25→16:48)
[2018-10-21] MEDS: LACTOBACILLUS RHAMNOSUS GG 1 EACH CAP.SPRINK PO SCH ×2 (08:25→16:48)
[2018-10-21] MEDS: AMIODARONE HCL 200 MG TABLET GT SCH (08:25)
[2018-10-21] MEDS: APIXABAN 2.5 MG TABLET GT SCH ×2 (08:26→16:50)
[2018-10-21] MEDS: CADEXOMER IODINE 40 GM TUBE TP SCH (08:27)
[2018-10-21] MEDS: DAKINS QUARTER STRENGTH (0.125%) 480 ML BOTTLE TOP SCH (08:27)
[2018-10-21] MEDS: PROSOURCE / PROSTAT (PYXIS) 30 ML UDC GT SCH ×3 (08:29→16:48)
[2018-10-21] MEDS: INSULIN GLARGINE, 100 UNIT/ML CARTRIDGE SQ SCH ×2 (08:32→23:06)
[2018-10-21 08:52] LABS: ABG BASE EXCESS -8.4 mmol/L; ABG OXYGEN SATURATION 99.5 % (92.0-98.5); ABG PCO2 41.1 mmHg (35.0-45.0); ABG PH 7.263 (7.350-7.450); ABG PO2 273.6 mmHg (75.0-100.0); AaDO2 398.3 mmHg; COHb 1.2 % (0.5-1.5); MetHb 0.7 % (0.0-1.5); O2Hb 97.6 % (94.0-97.0); PEEP,BG 0 cm H2O; SITE, ABG Left Radial; VT, ABG 500 mL
[2018-10-21] MEDS ORDERED: VANCOMYCIN 1 GM in IV D5W 250 ML IV SCH (09:00)
[2018-10-21] MEDS: AMIKACIN 500 MG in IV D5W 100 ML IV SCH (15:12)
--- NOTE | 2018-10-21 16:17 | NUR ---
pt resting in the bed, obtunded, ST, receiving renetta at 300mcg and levo at 3mcg, v/s stable, no pain, pt cleaned, changed and repositioned q2hrs.
--- NOTE | 2018-10-21 19:58 | NUR ---
RT NOTE: RECEIVED TRACH PT ON [facility] VENT ON NOTED SETTINGS PER MD ORDERS. TRACH IS PATENT AND SECURED. LAY OUT WORKER DONE. TRACH SX DONE PRN. SX MODERATE AMOUNT OF BLOODY SECRETIONS FROM MOUTH. VENT PLUGGED INTO RED OUTLET. ALARMS ON AND AUDIBLE. ARIANU BAG @ BEDSIDE. NO RESP DISTRESS AT THIS TIME. WILL CONT TO MONITOR PT. Addendum: 10/22/18 at 0436 by DINESH STANLEY RT Amended: Links added.
--- NOTE | 2018-10-21 20:38 | NUR ---
RECEIVED CRITICAL LAB RESULTS FROM [facility] FOR AMIKACIN TROUGH- 17.3. READ BACK RESULTS PERFORMED. PHARMACIST AWARE.
[2018-10-21] MEDS: LINEZOLID RTU BAG 600 MG in PREMIX 1 EA IV SCH (23:14)
[2018-10-22] VITALS (82 sets, daily range): BP systolic 33–143; BP diastolic 16–109
[2018-10-22] MEDS: PHENYLEPHRINE 80 MG in IV NS 0.9% 250 ML IV PRN ×6 (01:03→21:42)
[2018-10-22 05:18] LABS: HEMATOCRIT 36 % (39-51); HEMOGLOBIN 11.2 g/dL (13.5-17.5); MEAN CORPUSCULAR HGB CONC 31 g/dl (31.0-36.0); MEAN CORPUSCULAR VOLUME 102 fL (80-96); PLATELET COUNT (AUTO) 63 /CMM (150-450); RED BLOOD CELL COUNT(AUTO) 3.52 MIL/uL (4.5-6.0)
[2018-10-22 05:29] LABS: ALBUMIN 2.2 g/dL (3.4-5.0); CREATININE 1.8 mg/dL (0.6-1.3); MAGNESIUM 1.7 mg/dL (1.8-2.4); PHOSPHORUS 5.5 mg/dL (2.5-4.9); POTASSIUM 4.1 mmol/L (3.5-5.1); TOTAL PROTEIN, SERUM 6.3 g/dL (6.4-8.2)
[2018-10-22] MEDS: METRONIDAZOLE 500MG/ NS 100ML 500 MG in PREMIX 1 EA IV SCH ×3 (06:00→21:42)
[2018-10-22] MEDS: BLOOD SUGAR DIAGNOSTIC 1 EACH STRIP IN SCH ×4 (06:00→23:36)
[2018-10-22] MEDS: HYDROCORTISONE SOD SUCCINATE 100 MG/2 ML VIAL IV SCH ×4 (06:01→23:36)
[2018-10-22] MEDS: INSULIN REGULAR, HUMAN 100 UNIT/ML 3 ML VIAL SQ PRN ×2 (06:05→23:39)
[2018-10-22 06:13] LABS: EOSINOPHILS % (MANUAL) 1 % (0-4); LYMPHOCYTES % (MANUAL) 9 % (16-48); MONOCYTES % (MANUAL) 7 % (0-11.0); NEUTROPHILS % (MANUAL) 83 (42-76)
--- NOTE | 2018-10-22 07:24 | NUR ---
increased fio2 from 70% to 100% due to spo2 77% - 80%. Addendum: 10/22/18 at 0724 by HARRY MANE RT Amended: Links added.
[2018-10-22] MEDS: LACTOBACILLUS RHAMNOSUS GG 1 EACH CAP.SPRINK PO SCH ×2 (08:30→16:13)
[2018-10-22] MEDS: MIDODRINE HCL (5MG) 5 MG TABLET PO SCH ×3 (08:30→16:13)
[2018-10-22] MEDS: PROSOURCE / PROSTAT (PYXIS) 30 ML UDC GT SCH ×3 (08:31→16:13)
[2018-10-22] MEDS: LINEZOLID RTU BAG 600 MG in PREMIX 1 EA IV SCH ×2 (08:31→21:42)
[2018-10-22] MEDS: AMIODARONE HCL 200 MG TABLET GT SCH (08:31)
[2018-10-22] MEDS: DAKINS QUARTER STRENGTH (0.125%) 480 ML BOTTLE TOP SCH (08:32)
[2018-10-22] MEDS: CADEXOMER IODINE 40 GM TUBE TP SCH (08:32)
[2018-10-22] MEDS: INSULIN GLARGINE, 100 UNIT/ML CARTRIDGE SQ SCH ×2 (08:34→23:43)
--- NOTE | 2018-10-22 08:56 | NUR ---
received pt from production shift supervisor, obtunded, on the vent, ST, receiving renetta and levo, GT to feeding tolerates well, f/c low urine HD pt, anasarca, rectal tube in diarrhea, v/s stable, no pain, pt turned and repositioned.
[2018-10-22] MEDS: Magnesium 1GM/D5W 100ML PREMIX 100 ML IV SCH ×2 (12:25→13:25)
[2018-10-22] MEDS: VASOPRESSIN INJ 50 UNIT in IV D5W 497.5 ML IV PRN (12:38)
[2018-10-22] MEDS: NOREPINEPHRINE 16 MG in IV D5W 500 ML IV PRN ×3 (12:38→23:53)
--- NOTE | 2018-10-22 12:56 | NUR ---
pt on levo, renetta and vasopressin at maximum rates, SBP 42 - 55, pt is DNR per family.
--- NOTE | 2018-10-22 16:07 | NUR ---
pt obtunded/semicomatose, ST, on renetta, levo and vaso at maximum rates, GT to feeding, no HD today due to low BP, anasarca, rectal tube some output, pt turned and repositioned.
[2018-10-22] MEDS: NEPRO 1,000 ML BOTTLE GT PRN (16:13)
--- NOTE | 2018-10-22 19:58 | NUR ---
SHIPWRIGHT HELPER. INITIAL ASSESSMENT. RECEIVED THE PT TRACH TO VENT CONNECTED.PT IS NOT RESPONDING PAIN . GAG REFLEX ABSENT. PUPIL DILATED AND FIXED. PORTEX#8,AC 22,TV 550, FIO2 100%SAT 68%. INDUSTRIAL SEWER SHOWING S TACH. GT INTACT. NEPRO 40ML/HFC PATENT. HOB ELEVATED. IV LT TLC LEVOPHED 40MCG/MIN,JUANA 300MCG/MIN,VACO 0.04U/H. BLOOD PRESSURE VERY LOW. PT IS VERY UNSTABLE. WILL CONTINUE TO MONITOR VITALS.
[2018-10-23] VITALS (74 sets, daily range): BP systolic 43–84; BP diastolic 17–47
[2018-10-23] MEDS: PHENYLEPHRINE 80 MG in IV NS 0.9% 250 ML IV PRN ×5 (01:43→18:05)
--- NOTE | 2018-10-23 03:42 | NUR ---
IMPORTER EXPORTER. AM CARE, ORAL CARE,GIVEN. REMAINING SAME VENT SETTING AND PRESSORS ON. PT CONDITION NO CHANGES. HOB ELEVATED. REMAINING SAME GT FEEDING TOLERATED WELL. FC PATENT. HOB ELEVATED. WILL CONTINUE TO MONITOR VITALS.
[2018-10-23 05:03] LABS: CALCIUM, SERUM 7.8 mg/dL (8.5-10.1); CREATININE 1.9 mg/dL (0.6-1.3); MAGNESIUM 2.1 mg/dL (1.8-2.4); POTASSIUM 4.3 mmol/L (3.5-5.1)
--- NOTE | 2018-10-23 05:40 | NUR ---
ICU/FLAMER AFTER LASTING CRITICAL LAB OF GLUCOSE 363 WAS GIVEN TO MEGAN CRANE
[2018-10-23] MEDS: HYDROCORTISONE SOD SUCCINATE 100 MG/2 ML VIAL IV SCH ×3 (05:51→17:12)
[2018-10-23] MEDS: METRONIDAZOLE 500MG/ NS 100ML 500 MG in PREMIX 1 EA IV SCH ×3 (05:51→21:28)
[2018-10-23] MEDS: INSULIN REGULAR, HUMAN 100 UNIT/ML 3 ML VIAL SQ PRN ×3 (05:56→17:15)
[2018-10-23] MEDS ORDERED: AMIKACIN 500 MG in IV NS 0.9% 100 ML IV PRN (06:00)
[2018-10-23] MEDS: BLOOD SUGAR DIAGNOSTIC 1 EACH STRIP IN SCH ×3 (06:02→17:04)
[2018-10-23] MEDS ORDERED: NOREPINEPHRINE 4 MG/4 ML AMPUL IV ONE (06:40)
[2018-10-23] MEDS: NOREPINEPHRINE 16 MG in IV D5W 500 ML IV PRN ×3 (06:44→19:26)
[2018-10-23] MEDS: VASOPRESSIN INJ 50 UNIT in IV D5W 497.5 ML IV PRN (07:55)
[2018-10-23] MEDS: AMIODARONE HCL 200 MG TABLET GT SCH (07:56)
[2018-10-23] MEDS: CADEXOMER IODINE 40 GM TUBE TP SCH (07:58)
[2018-10-23] MEDS: DAKINS QUARTER STRENGTH (0.125%) 480 ML BOTTLE TOP SCH (07:58)
--- NOTE | 2018-10-23 08:00 | NUR ---
PT RECIEVED FULL DNR, UNRESPONSIVE, MAXED OUT ON 3 PRESSORS, PT UNRESPONSIVE, NO COUGH, NO GAG, COMPLETELY COMATOSE, PT ANASARCIC, HYPOTENSIVE EVEN ON 3 PRESSORS/PT BREATH SOUNDS CRACKLES BUT PT CANNOT BE DIALYZED DUE TO SEVERE HYPOTENSION/PT IN MAXIMUM DISTRESS BUT UNABLE TO ADD MORE PRESSORS AND UNABLE TO TREAT PT BIGGEST PROBLEMS//ALSO UNABLE TO REPOSITION PT DUE TO SEVERE INSTABILITY//MW
[2018-10-23] MEDS: PROSOURCE / PROSTAT (PYXIS) 30 ML UDC GT SCH ×3 (09:03→16:03)
[2018-10-23] MEDS: LINEZOLID RTU BAG 600 MG in PREMIX 1 EA IV SCH ×2 (09:04→21:28)
[2018-10-23] MEDS: LACTOBACILLUS RHAMNOSUS GG 1 EACH CAP.SPRINK PO SCH ×2 (09:11→17:12)
[2018-10-23] MEDS: MIDODRINE HCL (5MG) 5 MG TABLET PO SCH ×3 (09:12→17:12)
[2018-10-23] MEDS: INSULIN GLARGINE, 100 UNIT/ML CARTRIDGE SQ SCH ×2 (09:22→22:44)
--- NOTE | 2018-10-23 10:54 | NUR ---
PT ABG DRAWN/PO2 140, DECREASED FI02 TO 75%/DECREASED TV TO 500 ORDERED
--- NOTE | 2018-10-23 10:54 | NUR ---
VENT CHANGES BELOW PER DR. PALENCIA: VT 500ML FIO2 75% Addendum: 10/23/18 at 1055 by HARRY MANE RT Amended: Links added.
[2018-10-23] MEDS ORDERED: Sodium Acetate 150 MEQ in IV D5W 1,000 ML IV PRN (11:00)
--- NOTE | 2018-10-23 18:14 | NUR ---
UNABLE TO TURN PT/EXTREMELY UNSTABLE/CLEANED PT I COULD/PT MAXED ON 3 PRESSORS AND NOT RECOVERING/FAMILY AWARE//MW
--- NOTE | 2018-10-23 18:22 | NUR ---
PT REGURGED ABOUT 150CC/TRIED TO SUCTION BUT ZERO OUTPUT/HOLDING TF ONE HOUR//MW
--- NOTE | 2018-10-23 19:30 | NUR ---
RECEIVED TRACH PT ON MECH VENT ON NOTED SETTINGS PER MD ORDERS. TRACH IS PATENT AND SECURED. PRODUCTION DESIGNER DONE. TRACH SX DONE PRN. SX MODERATE AMOUNT OF BLOODY SECRETIONAS VENT PLUGGED INTO RED OUTLET. ALARMS ON AND AUDIBLE. ANNABEL BAG @ BEDSIDE. WILL CONT TO MONITOR PT.
[2018-10-24] VITALS (35 sets, daily range): BP systolic 40–96; BP diastolic 17–67
[2018-10-24] MEDS: BLOOD SUGAR DIAGNOSTIC 1 EACH STRIP IN SCH ×2 (00:40→05:40)
[2018-10-24] MEDS: INSULIN REGULAR, HUMAN 100 UNIT/ML 3 ML VIAL SQ PRN ×2 (01:04→05:42)
[2018-10-24] MEDS: HYDROCORTISONE SOD SUCCINATE 100 MG/2 ML VIAL IV SCH ×2 (01:23→05:31)
[2018-10-24] MEDS: NOREPINEPHRINE 16 MG in IV D5W 500 ML IV PRN ×2 (01:37→09:42)
[2018-10-24] MEDS: PHENYLEPHRINE 80 MG in IV NS 0.9% 250 ML IV PRN ×2 (01:40→05:46)
[2018-10-24] MEDS: VASOPRESSIN INJ 50 UNIT in IV D5W 497.5 ML IV PRN (02:32)
[2018-10-24] MEDS: METRONIDAZOLE 500MG/ NS 100ML 500 MG in PREMIX 1 EA IV SCH (05:16)
--- NOTE | 2018-10-24 07:15 | NUR ---
CERTIFIED PATHOLOGY ASSISTANT OPENING NOTE RECEIVED REPORT FROM PM REGISTRY NURSE. PATIENT IN BED OBTUNDED. UNABLE TO OPEN EYES BECAUSE OF EDEMA.UNABLE TO ASSESS PUPIL.NO S/S OF PAIN OR DISCOMFORT NOTED. ON TELE MONITOR SINUS TACH WITH BBB. NO RESPIRATORY DISTRESS NOTED. TOLERATING VENT SETTINGS AT THIS TIME. RESPIRATIONS EVEN AND UNLABORED .GENERALIZED WEEPING EDEMA NOTED.F/C AND FLEXI SEAL IN PLACE. WITH GT PATENT AND INTACT, CLAMPED AT THIS TIME. ON JUANA,LEVO AND VASO.HOB ELEVATED. SRX3.ASPIRATION AND SAFETY MEASURES IN PLACE.WILL CONTINUE TO MONITOR.
--- NOTE | 2018-10-24 07:40 | NUR ---
SANITIZER NOTE CALL MADE TO ROSARIO,SPOKE TO HER ON PHONE,UPDATED ABOUT PATIENT CONDITION .MADE AWARE THAT BP IS UNSTABLE , TOLD THAT DOCTOR TALKED TO HER ON LAST WEDNESDAY,MADE AWARE THAT TO EXPECT HIM TO PASS AWAY AT ANY TIME,SHE CHANGED CODE TO DNR.SHE IS NOT ABLE TO COME NOW.BUT SHE WILL COME IF HE TO DO PAPER WORK AND SIGN OR SHE WILL BE COMING BY 5 PM.
[2018-10-24 08:44] LABS: BILIRUBIN,TOTAL 1.5 mg/dL (0.2-1.0); CALCIUM, SERUM 7.6 mg/dL (8.5-10.1); CREATININE 1.9 mg/dL (0.6-1.3); MAGNESIUM 1.9 mg/dL (1.8-2.4); PHOSPHORUS 6.1 mg/dL (2.5-4.9); POTASSIUM 4.4 mmol/L (3.5-5.1); TOTAL PROTEIN, SERUM 5.8 g/dL (6.4-8.2)
[2018-10-24 08:47] LABS: BASOPHILS # (AUTO) 0.3 /CMM (0.0-0.2); BASOPHILS % (AUTO) 0.6 % (0.0-2.0); EOSINOPHILS % (AUTO) 0.7 % (0.0-6.0); HEMATOCRIT 37 % (39-51); LYMPHOCYTES # (AUTO) 4.2 /CMM (0.8-4.8); LYMPHOCYTES % (AUTO) 9.5 % (20.0-44.0); MEAN CORPUSCULAR HGB CONC 30 g/dl (31.0-36.0); MEAN CORPUSCULAR VOLUME 107 fL (80-96); MONOCYTES % (AUTO) 4.4 % (2.0-12.0); NEUTROPHILS # (AUTO) 37.3 /CMM (1.8-8.9); NEUTROPHILS % (AUTO) 84.8 % (43.0-81.0)
[2018-10-24 08:54] LABS: PLATELET COUNT (AUTO) 45 /CMM (150-450); WHITE BLOOD COUNT (AUTO) 43.9 K/uL (4.3-11.0)
[2018-10-24 09:21] LABS: BAND % (MANUAL) 1 % (0.0-5.0); LYMPHOCYTES % (MANUAL) 5 % (16-48); METAMYELOCYTES % 1 % (0-0); MONOCYTES % (MANUAL) 6 % (0-11.0); MYELOCYTES % 1 % (0-0); NEUTROPHILS % (MANUAL) 86 (42-76)
--- NOTE | 2018-10-24 09:30 | NUR ---
HARDWOOD FLOOR FINISHER NOTE SEEN BY UPDATED ABOUT PATIENT CONDITION,MADE AWARE THAT PATIENT HAS BLEEDING FROM TRACH.NNO.WILL CONTINUE TO MONITOR.
[2018-10-24] MEDS: LACTOBACILLUS RHAMNOSUS GG 1 EACH CAP.SPRINK PO SCH (10:05)
[2018-10-24] MEDS: PROSOURCE / PROSTAT (PYXIS) 30 ML UDC GT SCH (10:06)
[2018-10-24] MEDS: CADEXOMER IODINE 40 GM TUBE TP SCH (10:07)
[2018-10-24] MEDS: DAKINS QUARTER STRENGTH (0.125%) 480 ML BOTTLE TOP SCH (10:07)
[2018-10-24] MEDS: INSULIN GLARGINE, 100 UNIT/ML CARTRIDGE SQ SCH (10:22)
--- NOTE | 2018-10-24 11:29 | NUR ---
DIPPING MACHINE OPERATOR NOTE SEEN BY KIYA SHEPPARD,UPDATED ABOUT PATIENT CONDITION WITH LABS,SHE SPOKE TO FAMILY.GOT NEW ORDER FOR EXTUBATION.
[2018-10-24] MEDS ORDERED: MORPHINE SULFATE INJ 2 MG/ML DISP.SYRIN IV PRN (12:00)
--- NOTE | 2018-10-24 12:40 | NUR ---
CHILD WELFARE COUNSELOR NOTE PATIENT EXTUBATED BY RT.
--- NOTE | 2018-10-24 12:40 | NUR ---
AESTHETICS INSTRUCTOR NOTE ROSARIO WAS AT BED SIDE.OK TO DO TERMINAL EXTUBATION.SHE TOLD THAT SHE WILL BE WITH PATIENT FOR LITTLE TIME AND SHE WILL GO BACK.LET HER KNOW ONCE HE .SHE WILL CALL [facility].
--- NOTE | 2018-10-24 12:45 | NUR ---
RT NOTE PT EXTUBATED FROM VENT PER MD ORDER. RN AT BED SIDE. Addendum: 10/24/18 at 1246 by WYATT BETANCUR RT Amended: Links added.
--- NOTE | 2018-10-24 12:45 | NUR ---
INSIDE SALES ASSOCIATE NOTE PT DNR STATUS. TERMINALLY EXTUBATED. FOUND PT APNEIC, ASYSTOLIC. PRONOUNCED AT 1245.
--- NOTE | 2018-10-24 12:50 | NUR ---
CABLE INSTALLER REPAIRER NOTE PATIENT PRONOUNCED BY 2 RN ,CHARGE NURSE AND PRIMARY RN @0968. MADE AWARE.SHE SAID SHE WILL CALL [facility] AND WILL LET US KNOW CAR REPOSSESSOR TIME.
--- NOTE | 2018-10-24 14:10 | NUR ---
DIRECTOR OF CASINO MARKETING NOTE CALL MADE TO [facility] @1592 ,SPOKE TO MONY .SAID THAT HE IS ELIGIBLE FOR ORGAN DONATION.SHE WILL CALL BACK.GOT CALL BACK 1420.NO MORE FURTHER PROCEDURE FOR ORGAN DONATION.OK TO RELEASE BODY AND NORMAL PROCEDURE.CASE#[id number]
--- NOTE | 2018-10-24 15:50 | NUR ---
ACIDIZER NOTE PATIENT'S BODY TRANSFERRED TO [facility].CHART HANDED OVER TO SATELLITE DISH TECHNICIAN.
== END 2018-10-24 16:28 | disposition expired | DRG 853 ==
LOC: ER 22:53 → ICU 10-14 01:15
PROVIDERS: ADMIT Student in an Organized Health Care Education/Training Program; ATTEND Nurse Practitioner Acute Care
PROC: 5A1955Z Respiratory Ventilation, Greater than 96 Consecutive Hours (ICD-10-PCS; principal; 2018-10-14)
PROC: 5A1D70Z Performance of Urinary Filtration, Intermittent, Less than 6 Hours Per Day (ICD-10-PCS; 2018-10-14)
PROC: 02HV33Z Insertion of Infusion Device into Superior Vena Cava, Percutaneous Approach (ICD-10-PCS; 2018-10-16)
PROC: B548ZZA Ultrasonography of Superior Vena Cava, Guidance (ICD-10-PCS; 2018-10-16)
PROC: 5A1D70Z Performance of Urinary Filtration, Intermittent, Less than 6 Hours Per Day (ICD-10-PCS; 2018-10-16)
PROC: 0QB10ZZ Excision of Sacrum, Open Approach (ICD-10-PCS; 2018-10-17)
PROC: 5A1D70Z Performance of Urinary Filtration, Intermittent, Less than 6 Hours Per Day (ICD-10-PCS; 2018-10-18)
PROC: 5A1D70Z Performance of Urinary Filtration, Intermittent, Less than 6 Hours Per Day (ICD-10-PCS; 2018-10-20)
PROC: 5A1D70Z Performance of Urinary Filtration, Intermittent, Less than 6 Hours Per Day (ICD-10-PCS; 2018-10-22)
DX: A41.9 Sepsis, unspecified organism (principal); L89.154 Pressure ulcer of sacral region, stage 4; L89.323 Pressure ulcer of left buttock, stage 3; L89.313 Pressure ulcer of right buttock, stage 3; J96.21 Acute and chronic respiratory failure with hypoxia; N18.6 End stage renal disease; R65.21 Severe sepsis with septic shock; E43 Unspecified severe protein-calorie malnutrition; R53.2 Functional quadriplegia; I21.A1 Myocardial infarction type 2; G93.1 Anoxic brain damage, not elsewhere classified; J95.851 Ventilator associated pneumonia; E87.2 Acidosis; N39.0 Urinary tract infection, site not specified; E27.40 Unspecified adrenocortical insufficiency; I13.2 Hypertensive heart and chronic kidney disease with heart failure and with stage 5 chronic kidney disease, or end stage renal disease; Z99.11 Dependence on respirator [ventilator] status; Z68.41 Body mass index [BMI] 40.0-44.9, adult; M46.28 Osteomyelitis of vertebra, sacral and sacrococcygeal region; Z66 Do not resuscitate; Z51.5 Encounter for palliative care; E88.09 Other disorders of plasma-protein metabolism, not elsewhere classified; E86.1 Hypovolemia; I48.91 Unspecified atrial fibrillation; Z88.0 Allergy status to penicillin; Z87.440 Personal history of urinary (tract) infections; Z87.01 Personal history of pneumonia (recurrent); D63.8 Anemia in other chronic diseases classified elsewhere; I95.89 Other hypotension; E11.22 Type 2 diabetes mellitus with diabetic chronic kidney disease; D69.6 Thrombocytopenia, unspecified; K21.9 Gastro-esophageal reflux disease without esophagitis; Z79.4 Long term (current) use of insulin; Z86.73 Personal history of transient ischemic attack (TIA), and cerebral infarction without residual deficits; Z99.2 Dependence on renal dialysis; Z93.1 Gastrostomy status; Y84.8 Other medical procedures as the cause of abnormal reaction of the patient, or of later complication, without mention of misadventure at the time of the procedure; Y92.129 Unspecified place in nursing home as the place of occurrence of the external cause; G40.909 Epilepsy, unspecified, not intractable, without status epilepticus; E11.51 Type 2 diabetes mellitus with diabetic peripheral angiopathy without gangrene; L89.620 Pressure ulcer of left heel, unstageable; L89.610 Pressure ulcer of right heel, unstageable; L89.890 Pressure ulcer of other site, unstageable; E11.40 Type 2 diabetes mellitus with diabetic neuropathy, unspecified; I45.10 Unspecified right bundle-branch block; I50.9 Heart failure, unspecified; R13.10 Dysphagia, unspecified; Z86.14 Personal history of Methicillin resistant Staphylococcus aureus infection; L98.8 Other specified disorders of the skin and subcutaneous tissue; S61.412A Laceration without foreign body of left hand, initial encounter; X58.XXXA Exposure to other specified factors, initial encounter; Y93.9 Activity, unspecified; Y83.3 Surgical operation with formation of external stoma as the cause of abnormal reaction of the patient, or of later complication, without mention of misadventure at the time of the procedure; Y82.8 Other medical devices associated with adverse incidents; E83.42 Hypomagnesemia; E11.69 Type 2 diabetes mellitus with other specified complication
CPT/HCPCS: 31720; 36415; 36600; 71045-TC; 80048-TC; 80053-TC; 80076-TC; 80150; 80202-TC; 81000-TC; 82247-TC; 82248-TC; 82803-TC; 82962-TC; 83605-TC; 83735-TC; 83880; 84100-TC; 84484-TC; 85025-TC; 85730-TC; 86706; 87040-TC; 87070-TC; 87081-TC; 87086-TC; 87186-TC; 87340; 90935-TC; 92950-TC; 93307-TC; 94002-TC; 94003-TC; 94799-TC; 99082-TC; A4216; A4217; A6248; A6253; A6403; C1751; G0378; J0278; J0770; J1720; J1815; J2020; J2270; J2370; J3370; J3475; J3490; J7030; J7040; J7042; J7050; J7060; J7070